=== PATIENT | male | born 1965 | race Caucasian/White ===

== ENCOUNTER 2020-04-18 07:45 | Outpatient (REF) | payer OTHER, SELFPAY ==
[2020-04-18 08:21] LABS: MANUAL DIFF FLAG NO
[2020-04-18 08:25] LABS: Basophils Absolute Auto 0.1 X10*3/uL (0.0-0.2); Basophils Percent Auto 0.6 % (0-2); Eosinophils Absolute Auto 0.1 X10*3/uL (0.0-0.4); Eosinophils Percent Auto 1.7 % (0-4); Hematocrit 45.9 % (42-52); Hemoglobin 14.8 g/dl (14.0-18.0); Imm Gran Abs Auto 0.03 X10*3/uL (0.00-0.03); Imm Gran Pct Auto 0.4 % (0.0-0.4); Lymphocytes Absolute Auto 2.3 X10*3/uL (1.2-4.9); Lymphocytes Percent Auto 27.3 % (20-40); Mean Corpuscular HGB Conc 32.2 g/dl (31.0-36.0); Mean Corpuscular Hemoglobin 28.8 pg (27.0-33.0); Mean Corpuscular Volume 89.3 fL (80-98); Mean Platelet Volume 10.7 fL (9.4-12.4); Monocytes Absolute Auto 0.9 X10*3/uL (0.1-1.2); Monocytes Percent Auto 11.1 % (2-11); Neutrophils Absolute Auto 4.9 X10*3/uL (2.0-8.3); Neutrophils Percent Auto 58.9 % (45-73); Platelet Count 258 X10*3/uL (160-400); Red Blood Count 5.14 X10*6/uL (4.60-5.80); Red Cell Distribution Width 12.6 % (11.0-16.0); White Blood Count 8.3 X10*3/uL (4.8-10.8)
[2020-04-18 08:35] LABS: Estimated Average Glucose 131 mg/dL; Hemoglobin A1c % 6.2 %
[2020-04-18 08:56] LABS: Alanine Aminotransferase 28 U/L (0-40); Albumin Level 4.2 g/dL (3.5-5.0); Alkaline Phosphatase 57 U/L (39-117); Anion Gap 11 (12-20); Aspartate Amino Transferase 11 U/L (5-37); Bilirubin Total 0.4 mg/dL (0.0-1.0); Blood Urea Nitrogen 14 mg/dL (9-16); Calcium 8.5 mg/dL (8.4-10.2); Carbon Dioxide 29 mmol/L (22-29); Chloride 105 mmol/L (96-108); Cholesterol 113 mg/dL; Estimated Glomerular Filt Rate > 60; Glucose Fasting 133 mg/dL (60-99); HDL Cholesterol 31 mg/dL; LDL Cholesterol Calculated 70 mg/dl; Potassium 4.6 mmol/l (3.3-5.1); Sodium 140 mmol/L (135-145); Total Protein 6.5 g/dL (6.5-8.0); Triglycerides 61 mg/dL
[2020-04-18 09:27] LABS: Prostate Specific Antigen < 0.05 ng/mL (<0.05-4.0)
== END 2020-04-18 07:46 | disposition home or self-care (01) ==
LOC: HO.LAB 07:45
PROVIDERS: PCP Internal Medicine Medical Oncology; Visit Provider Internal Medicine Medical Oncology
DX: N40.0 Benign prostatic hyperplasia without lower urinary tract symptoms (principal); E66.9 Obesity, unspecified
CPT/HCPCS: 36415; 80053; 80061; 83036; 84153; 85025

== ENCOUNTER 2020-08-15 07:14 | Outpatient (REF) | payer OTHER, SELFPAY ==
[2020-08-15 07:37] LABS: MANUAL DIFF FLAG NO
[2020-08-15 07:58] LABS: Basophils Absolute Auto 0.1 X10*3/uL (0.0-0.2); Basophils Percent Auto 0.6 % (0-2); Eosinophils Absolute Auto 0.2 X10*3/uL (0.0-0.4); Eosinophils Percent Auto 2.4 % (0-4); Hematocrit 44.8 % (42-52); Hemoglobin 14.9 g/dl (14.0-18.0); Imm Gran Abs Auto 0.04 X10*3/uL (0.00-0.03); Imm Gran Pct Auto 0.5 % (0.0-0.4); Lymphocytes Absolute Auto 2.2 X10*3/uL (1.2-4.9); Lymphocytes Percent Auto 28.6 % (20-40); Mean Corpuscular HGB Conc 33.3 g/dl (31.0-36.0); Mean Corpuscular Hemoglobin 29.3 pg (27.0-33.0); Mean Platelet Volume 10.9 fL (9.4-12.4); Monocytes Absolute Auto 0.8 X10*3/uL (0.1-1.2); Monocytes Percent Auto 10.8 % (2-11); Neutrophils Absolute Auto 4.4 X10*3/uL (2.0-8.3); Neutrophils Percent Auto 57.1 % (45-73); Platelet Count 275 X10*3/uL (160-400); Red Blood Count 5.09 X10*6/uL (4.60-5.80); Red Cell Distribution Width 12.7 % (11.0-16.0); White Blood Count 7.8 X10*3/uL (4.8-10.8)
[2020-08-15 08:01] LABS: Creatinine Urine 172.78 mg/dL; Microalbum/Creatinine Ratio Ur 7.5 ug/mg cr
[2020-08-15 08:05] LABS: Alanine Aminotransferase 27 U/L (0-40); Albumin Level 4.3 g/dL (3.5-5.0); Alkaline Phosphatase 67 U/L (39-117); Aspartate Amino Transferase 11 U/L (5-37); Bilirubin Total 0.5 mg/dL (0.0-1.0); Blood Urea Nitrogen 16 mg/dL (9-16); Calcium 8.7 mg/dL (8.4-10.2); Cholesterol 130 mg/dL; Estimated Glomerular Filt Rate > 60; Glucose Fasting 148 mg/dL (60-99); HDL Cholesterol 27 mg/dL; LDL Cholesterol Calculated 91 mg/dl; Total Protein 6.7 g/dL (6.5-8.0); Triglycerides 60 mg/dL
[2020-08-15 08:14] LABS: Anion Gap 12 (12-20); Carbon Dioxide 25 mmol/L (22-29); Chloride 107 mmol/L (96-108); Potassium 4.3 mmol/L (3.3-5.1); Sodium 140 mmol/L (135-145)
[2020-08-15 08:25] LABS: Prostate Specific Antigen < 0.05 ng/mL (<0.05-4.0)
[2020-08-15 09:22] LABS: Estimated Average Glucose 131 mg/dL; Hemoglobin A1c % 6.2 %
== END 2020-08-15 07:15 | disposition home or self-care (01) ==
LOC: HO.LAB 07:14
PROVIDERS: Visit Provider Internal Medicine Medical Oncology
DX: I10 Essential (primary) hypertension (principal); C61 Malignant neoplasm of prostate; E66.9 Obesity, unspecified; E11.39 Type 2 diabetes mellitus with other diabetic ophthalmic complication
CPT/HCPCS: 36415; 80053; 80061; 82043; 83036; 84153; 85025

== ENCOUNTER 2020-09-22 15:27 | Outpatient (REF) | payer OTHER, SELFPAY ==
[2020-09-22 16:23] LABS: MANUAL DIFF FLAG NO
[2020-09-22 16:28] LABS: Basophils Absolute Auto 0.1 X10*3/uL (0.0-0.2); Basophils Percent Auto 0.5 % (0-2); Eosinophils Absolute Auto 0.1 X10*3/uL (0.0-0.4); Eosinophils Percent Auto 0.7 % (0-4); Hematocrit 42.9 % (42-52); Hemoglobin 13.8 g/dl (14.0-18.0); Imm Gran Abs Auto 0.03 X10*3/uL (0.00-0.03); Imm Gran Pct Auto 0.3 % (0.0-0.4); Lymphocytes Absolute Auto 2.3 X10*3/uL (1.2-4.9); Lymphocytes Percent Auto 24.5 % (20-40); Mean Corpuscular HGB Conc 32.2 g/dl (31.0-36.0); Mean Corpuscular Hemoglobin 28.5 pg (27.0-33.0); Mean Corpuscular Volume 88.5 fL (80-98); Mean Platelet Volume 10.9 fL (9.4-12.4); Monocytes Absolute Auto 1.1 X10*3/uL (0.1-1.2); Monocytes Percent Auto 11.1 % (2-11); Neutrophils Absolute Auto 5.9 X10*3/uL (2.0-8.3); Neutrophils Percent Auto 62.9 % (45-73); Platelet Count 292 X10*3/uL (160-400); Red Blood Count 4.85 X10*6/uL (4.60-5.80); Red Cell Distribution Width 12.4 % (11.0-16.0); White Blood Count 9.4 X10*3/uL (4.8-10.8)
[2020-09-22 16:49] LABS: Alanine Aminotransferase 19 U/L (0-40); Albumin Level 4.2 g/dL (3.5-5.0); Alkaline Phosphatase 61 U/L (39-117); Anion Gap 12 (12-20); Aspartate Amino Transferase 10 U/L (5-37); Bilirubin Total 0.4 mg/dL (0.0-1.0); Blood Urea Nitrogen 16 mg/dL (9-16); Calcium 9.2 mg/dL (8.4-10.2); Carbon Dioxide 27 mmol/L (22-29); Chloride 104 mmol/L (96-108); Estimated Glomerular Filt Rate > 60; Glucose Random 105 mg/dL (60-115); Potassium 4.2 mmol/L (3.3-5.1); Sodium 139 mmol/L (135-145); Total Protein 6.8 g/dL (6.5-8.0)
[2020-09-22 17:45] LABS: Erythrocyte Sedimentation Rate 7 MM/HR (0-15)
== END 2020-09-22 15:28 | disposition home or self-care (01) ==
LOC: HO.LAB 15:27
PROVIDERS: PCP Internal Medicine Medical Oncology; Visit Provider Internal Medicine Medical Oncology
DX: R10.32 Left lower quadrant pain (principal); K57.92 Diverticulitis of intestine, part unspecified, without perforation or abscess without bleeding
CPT/HCPCS: 36415; 80053; 85025; 85652

== ENCOUNTER 2020-10-07 08:37 | Outpatient (REF) | payer OTHER, SELFPAY ==
--- NOTE | ~2020-10-07 | US_ITS ---
EXAMINATION: US ABDOMEN COMPLETE CLINICAL INFORMATION: Left lower quadrant pain. COMPARISON: None TECHNIQUE: Real-time imaging of the abdominal viscera. FINDINGS: PANCREAS: Not well visualized. ABDOMINAL AORTA: The proximal, mid, and distal segments are normal in caliber. INFERIOR VENA CAVA: Visualized portions are normal. LIVER: Liver echotexture is increased probably representing fatty infiltration. There are hypoechoic areas adjacent to the gallbladder, characteristic location of focal fatty sparing. No other focal liver lesion is seen. The liver is normal in size and contour. There is no intrahepatic biliary duct dilatation. GALLBLADDER: Gallbladder is normal in size. There are multiple echogenic lesions adjacent to the gallbladder wall suggestive of polyps. Largest measures 7 x 4 x 5 mm. No gallstones are seen. The gallbladder wall does not appear thickened. There is no pericholecystic fluid. COMMON BILE DUCT: Normal in caliber measuring 0.2 cm in diameter. RIGHT KIDNEY: Normal. No hydronephrosis. No renal calculi or focal parenchymal lesions. The kidney measures 11.7 cm in maximum dimension. LEFT KIDNEY: Normal. No hydronephrosis. No renal calculi or focal parenchymal lesions. The kidney measures 12.0 cm in maximum dimension. SPLEEN: Normal. The spleen measures 11.3 cm in maximum dimension. FREE FLUID: None. US/US abdomen complete IMPRESSION: Echogenic liver probably representing fatty infiltration. Multiple gallbladder wall polyps. Follow-up ultrasound in 6-12 months is recommended as large polyps have increased risk of malignancy. Limited visualization of the pancreas.
== END 2020-10-07 08:38 | disposition home or self-care (01) ==
LOC: HO.US 08:37
PROVIDERS: PCP Internal Medicine Medical Oncology; Visit Provider Internal Medicine Medical Oncology
DX: R10.32 Left lower quadrant pain (principal); K57.92 Diverticulitis of intestine, part unspecified, without perforation or abscess without bleeding
CPT/HCPCS: 76700

== ENCOUNTER 2021-02-20 08:09 | Outpatient (REF) | payer OTHER, SELFPAY ==
[2021-02-20 09:31] LABS: MANUAL DIFF FLAG NO
[2021-02-20 09:50] LABS: Estimated Average Glucose 123 mg/dL; Hemoglobin A1c % 5.9 %
[2021-02-20 09:53] LABS: Basophils Percent Auto 0.4 % (0-2); Eosinophils Absolute Auto 0.2 X10*3/uL (0.0-0.4); Eosinophils Percent Auto 1.9 % (0-4); Hematocrit 45.4 % (42-52); Hemoglobin 15.2 g/dl (14.0-18.0); Imm Gran Abs Auto 0.02 X10*3/uL (0.00-0.03); Imm Gran Pct Auto 0.3 % (0.0-0.4); Lymphocytes Absolute Auto 1.9 X10*3/uL (1.2-4.9); Lymphocytes Percent Auto 24.4 % (20-40); Mean Corpuscular HGB Conc 33.5 g/dl (31.0-36.0); Mean Corpuscular Hemoglobin 29.2 pg (27.0-33.0); Mean Corpuscular Volume 87.3 fL (80-98); Mean Platelet Volume 10.7 fL (9.4-12.4); Monocytes Percent Auto 12.5 % (2-11); Neutrophils Absolute Auto 4.8 X10*3/uL (2.0-8.3); Neutrophils Percent Auto 60.5 % (45-73); Platelet Count 297 X10*3/uL (160-400); Red Cell Distribution Width 12.6 % (11.0-16.0); White Blood Count 7.9 X10*3/uL (4.8-10.8)
[2021-02-20 10:13] LABS: Alanine Aminotransferase 19 U/L (0-40); Albumin Level 4.3 g/dL (3.5-5.0); Alkaline Phosphatase 59 U/L (39-117); Anion Gap 12 (12-20); Aspartate Amino Transferase 13 U/L (5-37); Bilirubin Total 1.2 mg/dL (0.0-1.0); Blood Urea Nitrogen 15 mg/dL (9-16); Calcium 9.4 mg/dL (8.4-10.2); Carbon Dioxide 25 mmol/L (22-29); Chloride 106 mmol/L (96-108); Cholesterol 145 mg/dL; Estimated Glomerular Filt Rate > 60; Glucose Fasting 134 mg/dL (60-99); HDL Cholesterol 30 mg/dL; LDL Cholesterol Calculated 105 mg/dl; Potassium 4.3 mmol/L (3.3-5.1); Sodium 139 mmol/L (135-145); Total Protein 6.6 g/dL (6.5-8.0); Triglycerides 53 mg/dL
[2021-02-20 10:21] LABS: Prostate Specific Antigen 0.06 ng/mL (<0.05-4.0)
== END 2021-02-20 08:10 | disposition home or self-care (01) ==
LOC: HO.LAB 08:09
PROVIDERS: PCP Internal Medicine Medical Oncology; Visit Provider Internal Medicine Medical Oncology
DX: I10 Essential (primary) hypertension (principal); E66.9 Obesity, unspecified; E11.39 Type 2 diabetes mellitus with other diabetic ophthalmic complication; C61 Malignant neoplasm of prostate
CPT/HCPCS: 36415; 80053; 80061; 83036; 84153; 85025

== ENCOUNTER 2021-05-22 08:18 | Outpatient (REF) | payer OTHER, SELFPAY ==
[2021-05-22 08:29] LABS: MANUAL DIFF FLAG NO
[2021-05-22 09:09] LABS: Basophils Absolute Auto 0.1 X10*3/uL (0.0-0.2); Basophils Percent Auto 0.8 % (0-2); Eosinophils Absolute Auto 0.1 X10*3/uL (0.0-0.4); Eosinophils Percent Auto 1.6 % (0-4); Hematocrit 46.6 % (42.0-52.0); Hemoglobin 15.1 g/dl (14.0-18.0); Imm Gran Abs Auto 0.03 X10*3/uL (0.00-0.03); Imm Gran Pct Auto 0.4 % (0.0-0.4); Lymphocytes Absolute Auto 2.1 X10*3/uL (1.2-4.9); Lymphocytes Percent Auto 28.8 % (20-40); Mean Corpuscular HGB Conc 32.4 g/dl (31.0-36.0); Mean Corpuscular Hemoglobin 28.6 pg (27.0-33.0); Mean Corpuscular Volume 88.3 fL (80.0-98.0); Mean Platelet Volume 10.7 fL (9.4-12.4); Monocytes Absolute Auto 0.9 X10*3/uL (0.1-1.2); Monocytes Percent Auto 12.5 % (2-11); Neutrophils Absolute Auto 4.2 x10*3/uL (2.0-8.3); Neutrophils Percent Auto 55.9 % (45-73); Platelet Count 283 X10*3/uL (160-400); Red Blood Count 5.28 X10*6/uL (4.60-5.80); Red Cell Distribution Width 12.6 % (11.0-16.0); White Blood Count 7.4 X10*3/uL (4.8-10.8)
[2021-05-22 09:28] LABS: Alanine Aminotransferase 17 U/L (0-40); Albumin Level 4.2 g/dL (3.5-5.0); Alkaline Phosphatase 61 U/L (39-117); Anion Gap 12 (12-20); Aspartate Amino Transferase 10 U/L (5-37); Bilirubin Total 0.7 mg/dL (0.0-1.0); Blood Urea Nitrogen 15 mg/dL (9-16); Calcium 9.5 mg/dL (8.4-10.2); Carbon Dioxide 26 mmol/L (22-29); Chloride 107 mmol/L (96-108); Cholesterol 141 mg/dL; Estimated Glomerular Filt Rate > 60; Glucose Fasting 140 mg/dL (60-99); HDL Cholesterol 29 mg/dL; LDL Cholesterol Calculated 99 mg/dl; Potassium 4.6 mmol/L (3.3-5.1); Sodium 140 mmol/L (135-145); Total Protein 6.8 g/dL (6.5-8.0); Triglycerides 65 mg/dL
[2021-05-22 09:38] LABS: Creatinine Urine 135.54 mg/dL; Microalbum/Creatinine Ratio Ur 5.9 ug/mg cr
[2021-05-22 10:00] LABS: Estimated Average Glucose 126 mg/dL
[2021-05-22 10:08] LABS: PSA,Total (Free>4and<10) 0.06 ng/mL (0.00-4.00)
== END 2021-05-22 08:19 | disposition home or self-care (01) ==
LOC: HO.LAB 08:18
PROVIDERS: PCP Internal Medicine Medical Oncology; Visit Provider Internal Medicine Medical Oncology
DX: Z12.5 Encounter for screening for malignant neoplasm of prostate (principal); I10 Essential (primary) hypertension; C61 Malignant neoplasm of prostate; E66.9 Obesity, unspecified; E11.39 Type 2 diabetes mellitus with other diabetic ophthalmic complication
CPT/HCPCS: 36415; 80053; 80061; 82043; 83036; 84153; 85025

== ENCOUNTER 2021-08-14 07:39 | Outpatient (REF) | payer OTHER, SELFPAY ==
[2021-08-14 07:57] LABS: MANUAL DIFF FLAG NO
[2021-08-14 08:13] LABS: Basophils Absolute Auto 0.1 X10*3/uL (0.0-0.2); Basophils Percent Auto 0.7 % (0-2); Eosinophils Absolute Auto 0.1 X10*3/uL (0.0-0.4); Eosinophils Percent Auto 1.8 % (0-4); Hematocrit 47.2 % (42.0-52.0); Imm Gran Abs Auto 0.02 X10*3/uL (0.00-0.03); Imm Gran Pct Auto 0.3 % (0.0-0.4); Lymphocytes Absolute Auto 1.9 X10*3/uL (1.2-4.9); Lymphocytes Percent Auto 27.6 % (20-40); Mean Corpuscular HGB Conc 31.8 g/dl (31.0-36.0); Mean Corpuscular Hemoglobin 28.7 pg (27.0-33.0); Mean Corpuscular Volume 90.2 fL (80.0-98.0); Mean Platelet Volume 10.8 fL (9.4-12.4); Monocytes Absolute Auto 0.8 X10*3/uL (0.1-1.2); Monocytes Percent Auto 11.8 % (2-11); Neutrophils Absolute Auto 4.1 x10*3/uL (2.0-8.3); Neutrophils Percent Auto 57.8 % (45-73); Platelet Count 251 X10*3/uL (160-400); Red Blood Count 5.23 X10*6/uL (4.60-5.80); Red Cell Distribution Width 12.7 % (11.0-16.0)
[2021-08-14 08:38] LABS: Alanine Aminotransferase 18 U/L (0-40); Alkaline Phosphatase 58 U/L (39-117); Anion Gap 11 (12-20); Aspartate Amino Transferase 10 U/L (5-37); Bilirubin Total 0.8 mg/dL (0.0-1.0); Blood Urea Nitrogen 16 mg/dL (9-16); Calcium 9.2 mg/dL (8.4-10.2); Carbon Dioxide 28 mmol/L (22-29); Chloride 106 mmol/L (96-108); Cholesterol 138 mg/dL; Estimated Glomerular Filt Rate > 60; Glucose Fasting 151 mg/dL (60-99); HDL Cholesterol 30 mg/dL; LDL Cholesterol Calculated 96 mg/dl; Potassium 4.6 mmol/L (3.3-5.1); Sodium 140 mmol/L (135-145); Total Protein 6.4 g/dL (6.5-8.0); Triglycerides 62 mg/dL
[2021-08-14 08:59] LABS: Prostate Specific Antigen 0.07 ng/mL (<0.05-4.0)
== END 2021-08-14 07:40 | disposition home or self-care (01) ==
LOC: HO.LAB 07:39
PROVIDERS: PCP Internal Medicine Medical Oncology; Visit Provider Internal Medicine Medical Oncology
DX: Z12.5 Encounter for screening for malignant neoplasm of prostate (principal); C61 Malignant neoplasm of prostate; I10 Essential (primary) hypertension; E66.3 Overweight
CPT/HCPCS: 36415; 80053; 80061; 84153; 85025

== ENCOUNTER 2021-09-21 04:27 | Emergency (ER) | payer OTHER, SELFPAY ==
--- NOTE | ~2021-09-21 | CT_ITS ---
EXAMINATION: CT ABDOMEN AND PELVIS WITHOUT CONTRAST CLINICAL INFORMATION: Left lower abdominal pain COMPARISON: None TECHNIQUE: Multidetector volumetric imaging was performed from the superior aspect of the liver through the pubic symphysis. Sagittal and coronal reformatted images were obtained on the technologist's workstation. This CT examination was performed using dose optimization techniques as appropriate, variously including the following: *Automated exposure control *Adjustment of mA and/or kV according to patient size (this includes techniques or standardized protocols for targeted exams where dose is matched to indication/reason for exam; i.e. extremities or head) *Use of iterative reconstruction technique DLP: 611 mGy-cm FINDINGS: LUNG BASES: The visualized lung bases are unremarkable. LIVER, GALLBLADDER, AND BILIARY TREE: The liver is normal in size, shape and contour. Mild diffuse hepatic steatosis. There is a 1.2 cm hypodensity within hepatic segment 7, statistically represent benign cysts. No suspicious liver lesions. No intra or extrahepatic biliary dilatation. Gallbladder unremarkable. PANCREAS: Unremarkable. SPLEEN: Unremarkable. ADRENAL GLANDS: Unremarkable. KIDNEYS AND URETERS: The kidneys are normal in size, shape, and attenuation. No hydronephrosis, hydroureter, or calculi seen. No perinephric stranding. BLADDER: Unremarkable. GASTROINTESTINAL TRACT: Pancolonic diverticulosis, most concentrated within sigmoid colon. There is focal wall thickening and pericolic fat stranding within the proximal sigmoid colon compatible with diverticulitis. No pericolic fluid collection to suggest abscess formation. No intraperitoneal free air to suggest merlin perforation. Normal appendix. Stomach and small bowel unremarkable. ABDOMINAL WALL: No significant hernia is appreciated. LYMPH NODES: Small reactive lymph node present within the sigmoid mesocolon. No lymphadenopathy by size criteria. VASCULAR: Unremarkable. PELVIC VISCERA: Unremarkable. OSSEOUS STRUCTURES: No acute or suspicious osseous abnormalities. CT/CT abdomen pelvis wo con IMPRESSION: Acute uncomplicated sigmoid diverticulitis. Mild hepatic steatosis.
[2021-09-21 04:45] VITALS: BP 185/101; PULSE 83; RESP 18; TEMP 36.6; O2SAT 98; BMI 29.9
--- NOTE | 2021-09-21 04:57 | ED_ITS ---
HPI - Back Pain/Injury General Chief Complaint: Back Pain/Injury Stated Complaint: L side & leg pain Time Seen by Provider: 09/21/21 04:57 Source: patient Mode of arrival: ambulatory Limitations: no limitations History of Present Illness HPI Narrative: patient sent in by his doctor to rule out diverticulitis. His doctor felt that there was too much abdominal pain for it to be sciatica. Onset (ago): day(s) Timing: intermittent Severity: mild Quality: sharp Radiation: abdomen Associated symptoms: denies other symptoms Related Data Previous Rx's Medication Instructions Recorded levofloxacin 500 mg tablet 500 mg PO DAILY 10 Days #10 tab 09/21/21 metronidazole 500 mg tablet 500 mg PO TID #30 tab 09/21/21 Allergies Allergy/AdvReac Type Severity Reaction Status Date / Time No Known Allergies Allergy Unverified 02/27/20 15:27 [No Known Allergies*] Review of Systems Constitutional: Constitutional: Reports no additional constitutional complaints Eyes: Eyes: Reports no additional eye complaints ENT: Denies dizziness Cardiovascular: Cardiovascular: Reports no additional cardiovascular complaints Respiratory: Respiratory: Reports as per HPI Gastrointestinal: Gastrointestinal: Reports no additional gastrointestinal complaints Musculoskeletal: Musculoskeletal: Reports no additional musculoskeletal complaints Integumentary/Breasts: Skin/Breast: Denies rash Neurologic: Reports system reviewed and no additional complaints, except as documented, Denies dizziness and Denies Sensory deficit (Neuro) Psychiatric: Psychiatric: Denies anxiety [facility] Social History Social History Alcohol intake: never Patient Tobacco Use Status: Never used Tobacco Use of substances other than those prescribed or required for medical reasons: No Substance Use Type: Hallucinogens Substance Use Frequency: Recent Binge Advance Directives: No Physical Exam Vital Signs: Vital Signs: Last Vital Signs Temp 97.9 F 09/21/21 04:45 Pulse 68 09/21/21 06:00 Resp 16 09/21/21 06:00 BP 163/85 H 09/21/21 06:00 Pulse Ox 100 09/21/21 06:00 BMI result Body Mass Index 29.9 Const: General: healthy appearing Nutritional Appearance: average body h abitus Orientation/consciousness: oriented to person and patient oriented x3 Limitations: no limitations HEENT: Head: Yes normal to inspection Ears: external ears normal General nose exam: Normal external nose present Mouth: Normal oral and palatal mucosa present and oropharynx normal Throat: Yes posterior oropharynx normal Eyes: General: appearance normal, both eyes and all related structures Neck: Other: supple Neck: Yes normal visual inspection Chest: Chest palpation & inspection: normal inspection of the chest Resp: Auscultation: clear to auscultation bilaterally Cardio: Jugular venous distension: no JVD Rate: regular rate Rhythm: regular rhythm Heart sounds: S1 normal heart sound present and S2 normal heart sound present GI: Other: left lower abdominal pain with guarding Palpation (GI): No hepatosplenomegaly present Auscultation: normal bowel sounds : General: Yes no CVA tenderness Back/Spine/Pelvis: Back: no CVA tenderness Skin: General skin exam: no rashes or lesions noted Neuro: General: oriented to person and patient oriented x3 Cranial nerves: Yes CN's II-XII intact bilaterally Motor exam (neuro): 5/5 motor strength present throughout Sensory Exam: No Sensory deficit (Neuro) Extrem: General: Yes normal to inspection Psych: Appearance: grossly normal Course Reevaluation(s) Reevaluation #1: physical and CT consistent with diverticulitis will send home on oral levaquin and flagyl Time: 06:57 MDM - Back Pain/Injury Lab Data Result diagrams: 09/21/21 06:31 09/21/21 06:31 Labs: Lab Results 09/21/21 09/21/21 09/21/21 Range/Units 06:26 06:31 06:31 WBC 12.9 H (4.8-10.8) X10*3/uL RBC 5.12 (4.60-5.80) X10*6/uL Hgb 14.9 (14.0-18.0) g/dl Hct 44.7 (42.0-52.0) % MCV 87.3 (80.0-98.0) fL MCH 29.1 (27.0-33.0) pg MCHC 33.3 (31.0-36.0) g/dl RDW 12.7 (11.0-16.0) % Plt Count 234 (160-400) X10*3/uL MPV 10.7 (9.4-12.4) fL Immature Gran % (Auto) 0.5 H (0.0-0.4) % Neut % (Auto) 73.5 H (45-73) % Lymph % (Auto) 14.5 L (20-40) % [place] % (Auto) 10.5 (2-11) % Eos % (Auto) 0.5 (0-4) % Baso % (Auto) 0.5 (0-2) % Lymph # (Auto) 1.9 (1.2-4.9) X10*3/uL [place] # (Auto) 1.4 H (0.1-1.2) X10*3/uL Eos # (Auto) 0.1 (0.0-0.4) X10*3/uL Baso # (Auto) 0.1 (0.0-0.2) X10*3/uL Abs Immat Gran (auto) 0.07 H (0.00-0.03) X10*3/uL Absolute Neuts (auto) 9.5 H (2.0-8.3) x10*3/uL Absolute Nucleated RBC 0.000 (0.0-0.012) X10*3/uL Nucleated RBC % (auto) 0.0 (0.0-0.2) /100WBC Sodium 140 (135-145) mmol/L Potassium 4.4 (3.3-5.1) mmol/L Chloride 105 (96-108) mmol/L Carbon Dioxide 27 (22-29) mmol/L Anion Gap 12 (12-20) BUN 15 (9-16) mg/dL Creatinine 0.75 (0.5-1.4) mg/dL Estim Creat Clear Calc 118.0 Estimated GFR > 60 Random Glucose 157 H D (60-115) mg/dL Calcium 9.3 (8.4-10.2) mg/dL Urine Color YELLOW Urine Appearance CLEAR Urine pH 6.0 (5.0-8.0) Ur Specific [place] 1.025 (1.005-1.025) Urine Protein NEG (NEG-TRACE) MG/DL Urine Glucose (UA) NEG (NEG) MG/DL Urine Ketones NEG (NEG) MG/DL Urine Blood NEG (NEG) Urine Nitrite NEG (NEG) Ur Leukocyte Esterase NEG (NEG) Imaging Data CT scan - abdomen: Radiologist's impression: GASTROINTESTINAL TRACT: Pancolonic diverticulosis, most concentrated within sigmoid colon. There is focal wall thickening and pericolic fat stranding within the proximal sigmoid colon compatible with diverticulitis. No pericolic fluid collection to suggest abscess formation. No intraperitoneal free air to suggest merlin perforation. Normal appendix. Stomach and small bowel unremarkable. ABDOMINAL WALL: No significant hernia is appreciated.? LYMPH NODES: Small reactive lymph node present within the sigmoid mesocolon. No lymphadenopathy by size criteria. VASCULAR: Unremarkable. PELVIC VISCERA: Unremarkable.? OSSEOUS STRUCTURES: No acute or suspicious osseous abnormalities.? CT/CT abdomen pelvis wo con IMPRESSION: Acute uncomplicated sigmoid diverticulitis. Mild hepatic steatosis. Discharge Plan Discharge Clinical Impression: Diverticulitis Patient Disposition: Home, Self-Care Instructions: Diverticulitis (ED), Diverticulitis Diet (ED) Prescriptions: New levofloxacin 500 mg tablet 500 mg PO DAILY 10 Days Qty: 10 0RF metronidazole 500 mg tablet 500 mg PO TID Qty: 30 0RF Referrals: Omar Richter MD [Primary Care Provider] - 1 week Stand Alone Forms: Work/School Release
[2021-09-21] MEDS: Ketorolac Tromethamine 60 MG/2 ML VIAL IM (05:25)
[2021-09-21 06:00] VITALS: BP 163/85; PULSE 68; RESP 16; O2SAT 100
[2021-09-21 06:36] LABS: MANUAL DIFF FLAG NO
[2021-09-21 06:37] LABS: Appearance Urine CLEAR; Color Urine YELLOW; Glucose Urine UA NEG (NEG); Leukocyte Esterase Urine NEG (NEG); Nitrite Urine NEG (NEG); Specific Gravity - Urine 1.025 (1.005-1.025); Urine Blood NEG (NEG); Urine Ketones NEG (NEG); Urine Protein NEG (NEG-TRACE)
[2021-09-21 06:48] LABS: Basophils Absolute Auto 0.1 X10*3/uL (0.0-0.2); Basophils Percent Auto 0.5 % (0-2); Eosinophils Absolute Auto 0.1 X10*3/uL (0.0-0.4); Eosinophils Percent Auto 0.5 % (0-4); Hematocrit 44.7 % (42.0-52.0); Hemoglobin 14.9 g/dl (14.0-18.0); Imm Gran Abs Auto 0.07 X10*3/uL (0.00-0.03); Imm Gran Pct Auto 0.5 % (0.0-0.4); Lymphocytes Absolute Auto 1.9 X10*3/uL (1.2-4.9); Lymphocytes Percent Auto 14.5 % (20-40); Mean Corpuscular HGB Conc 33.3 g/dl (31.0-36.0); Mean Corpuscular Hemoglobin 29.1 pg (27.0-33.0); Mean Corpuscular Volume 87.3 fL (80.0-98.0); Mean Platelet Volume 10.7 fL (9.4-12.4); Monocytes Absolute Auto 1.4 X10*3/uL (0.1-1.2); Monocytes Percent Auto 10.5 % (2-11); Neutrophils Absolute Auto 9.5 x10*3/uL (2.0-8.3); Neutrophils Percent Auto 73.5 % (45-73); Platelet Count 234 X10*3/uL (160-400); Red Blood Count 5.12 X10*6/uL (4.60-5.80); Red Cell Distribution Width 12.7 % (11.0-16.0); White Blood Count 12.9 X10*3/uL (4.8-10.8)
[2021-09-21 06:52] LABS: Anion Gap 12 (12-20); Blood Urea Nitrogen 15 mg/dL (9-16); Calcium 9.3 mg/dL (8.4-10.2); Carbon Dioxide 27 mmol/L (22-29); Chloride 105 mmol/L (96-108); Estimated Glomerular Filt Rate > 60; Glucose Random 157 mg/dL (60-115); Potassium 4.4 mmol/L (3.3-5.1); Sodium 140 mmol/L (135-145)
[2021-09-21] MEDS: levoFLOXacin 500 MG TABLET PO (07:09)
[2021-09-21] MEDS: metroNIDAZOLE 500 MG TABLET PO (07:09)
== END 2021-09-21 07:14 | disposition home or self-care (01) ==
PROVIDERS: Emergency Provider Emergency Medicine; PCP Internal Medicine Medical Oncology
DX: K57.32 Diverticulitis of large intestine without perforation or abscess without bleeding (principal)
CPT/HCPCS: 36415; 74176; 80048; 81003; 85025; 96372; 99284; 99285; J1885

== ENCOUNTER 2021-10-04 14:57 | Outpatient (REF) | payer OTHER, SELFPAY ==
[2021-10-04 15:11] LABS: MANUAL DIFF FLAG NO
[2021-10-04 15:32] LABS: Basophils Absolute Auto 0.1 X10*3/uL (0.0-0.2); Basophils Percent Auto 0.5 % (0-2); Eosinophils Absolute Auto 0.2 X10*3/uL (0.0-0.4); Eosinophils Percent Auto 1.7 % (0-4); Hemoglobin 14.7 g/dl (14.0-18.0); Imm Gran Abs Auto 0.06 X10*3/uL (0.00-0.03); Imm Gran Pct Auto 0.6 % (0.0-0.4); Lymphocytes Absolute Auto 2.9 X10*3/uL (1.2-4.9); Mean Corpuscular HGB Conc 32.7 g/dl (31.0-36.0); Mean Corpuscular Hemoglobin 28.5 pg (27.0-33.0); Mean Corpuscular Volume 87.4 fL (80.0-98.0); Mean Platelet Volume 10.3 fL (9.4-12.4); Monocytes Absolute Auto 1.1 X10*3/uL (0.1-1.2); Monocytes Percent Auto 10.3 % (2-11); Neutrophils Absolute Auto 6.1 x10*3/uL (2.0-8.3); Neutrophils Percent Auto 58.9 % (45-73); Platelet Count 343 X10*3/uL (160-400); Red Blood Count 5.15 X10*6/uL (4.60-5.80); Red Cell Distribution Width 12.7 % (11.0-16.0); White Blood Count 10.4 X10*3/uL (4.8-10.8)
[2021-10-04 16:05] LABS: Alanine Aminotransferase 28 U/L (0-40); Albumin Level 3.9 g/dL (3.5-5.0); Alkaline Phosphatase 58 U/L (39-117); Anion Gap 10 (12-20); Aspartate Amino Transferase 16 U/L (5-37); Bilirubin Total 0.2 mg/dL (0.0-1.0); Blood Urea Nitrogen 16 mg/dL (9-16); Calcium 9.2 mg/dL (8.4-10.2); Carbon Dioxide 29 mmol/L (22-29); Chloride 104 mmol/L (96-108); Estimated Glomerular Filt Rate > 60; Glucose Random 146 mg/dL (60-115); Potassium 4.4 mmol/L (3.3-5.1); Sodium 139 mmol/L (135-145); Total Protein 6.4 g/dL (6.5-8.0)
== END 2021-10-04 14:58 | disposition home or self-care (01) ==
LOC: HO.LAB 14:57
PROVIDERS: PCP Internal Medicine Medical Oncology; Visit Provider Internal Medicine Medical Oncology
DX: K57.92 Diverticulitis of intestine, part unspecified, without perforation or abscess without bleeding (principal)
CPT/HCPCS: 36415; 80053; 85025

== ENCOUNTER 2021-10-05 08:01 | Outpatient (REF) | payer OTHER, SELFPAY ==
--- NOTE | ~2021-10-05 | CT_ITS ---
EXAMINATION: CT ABDOMEN AND PELVIS WITH CONTRAST CLINICAL INFORMATION: Diverticulitis COMPARISON: Previous CT of the abdomen and pelvis 09/21/2021 and abdominal ultrasound September 2020 TECHNIQUE: Multidetector volumetric images were obtained from the superior aspect of the liver through the pubic symphysis following administration 85 mL of Omnipaque 350 intravenous contrast. Sagittal and coronal reformatted images were obtained on the technologist's workstation. Oral contrast: Yes This CT examination was performed using dose optimization techniques as appropriate, variously including the following: *Automated exposure control *Adjustment of mA and/or kV according to patient size (this includes techniques or standardized protocols for targeted exams where dose is matched to indication/reason for exam; i.e. extremities or head) *Use of iterative reconstruction technique DLP: 483 mGy-cm FINDINGS: LUNG BASES: The visualized lung bases are unremarkable. LIVER, GALLBLADDER, AND BILIARY TREE: The liver is low in attenuation suggestive of fatty infiltration. There is a 1 cm low-attenuation lesion high in the right lobe of the liver axial image 16 series 3. This may represent a cyst. No other focal liver lesion. The gallbladder is normal. There is no biliary duct dilatation. PANCREAS: Unremarkable. SPLEEN: Unremarkable. ADRENAL GLANDS: Unremarkable. KIDNEYS AND URETERS: The kidneys are normal in size, shape, and attenuation. No hydronephrosis, hydroureter, or calculi seen. No perinephric stranding. BLADDER: Unremarkable. GASTROINTESTINAL TRACT: There is diverticulosis of the colon. There is wall thickening of the sigmoid colon and stranding of the surrounding fat. Findings are again most suggestive of diverticulitis. No evidence of perforation or abscess is seen. There are small pericolic and mesenteric lymph nodes. There is a large amount of stool in colon suggestive of constipation. The appendix is normal. The stomach is normal. ABDOMINAL WALL: No significant hernia is appreciated. LYMPH NODES: Normal. VASCULAR: Unremarkable. PELVIC VISCERA: Not well seen and may been removed. OSSEOUS STRUCTURES: There are degenerative changes of the spine. There is a lipoma of the distal right iliopsoas muscle. CT/CT abdomen pelvis w con IMPRESSION: Sigmoid diverticulitis similar to 09/21/2021 exam. Underlying mass cannot be excluded and imaging or colonoscopy follow-up recommended. Constipation. Fatty liver. Probable liver cyst. Fleischner guidelines were followed.
[2021-10-05] MEDS: iohexoL 350 MG/ML 100 ML INFUS..BTL IV (10:33)
[2021-10-05] MEDS: Barium Sulfate Oral (Vanilla) 450 ML ORAL.SUSP PO (10:34)
[2021-10-05] MEDS: Barium Sulfate Oral (Berry) 450 ML ORAL.SUSP PO (10:35)
== END 2021-10-05 08:02 | disposition home or self-care (01) ==
LOC: HO.CT 08:01
PROVIDERS: PCP Internal Medicine Medical Oncology; Visit Provider Internal Medicine Medical Oncology
DX: K57.92 Diverticulitis of intestine, part unspecified, without perforation or abscess without bleeding (principal); R10.12 Left upper quadrant pain
CPT/HCPCS: 74177; Q9967

== ENCOUNTER 2022-02-26 07:16 | Outpatient (REF) | payer OTHER, SELFPAY ==
[2022-02-26 07:23] LABS: MANUAL DIFF FLAG NO
[2022-02-26 07:45] LABS: Basophils Absolute Auto 0.1 X10*3/uL (0.0-0.2); Basophils Percent Auto 0.8 % (0-2); Eosinophils Absolute Auto 0.1 X10*3/uL (0.0-0.4); Eosinophils Percent Auto 1.7 % (0-4); Hematocrit 44.7 % (42.0-52.0); Hemoglobin 14.6 g/dl (14.0-18.0); Imm Gran Abs Auto 0.03 X10*3/uL (0.00-0.03); Imm Gran Pct Auto 0.4 % (0.0-0.4); Lymphocytes Absolute Auto 2.1 X10*3/uL (1.2-4.9); Lymphocytes Percent Auto 28.4 % (20-40); Mean Corpuscular HGB Conc 32.7 g/dl (31.0-36.0); Mean Corpuscular Hemoglobin 28.8 pg (27.0-33.0); Mean Corpuscular Volume 88.2 fL (80.0-98.0); Mean Platelet Volume 10.7 fL (9.4-12.4); Monocytes Absolute Auto 0.9 X10*3/uL (0.1-1.2); Monocytes Percent Auto 11.9 % (2-11); Neutrophils Absolute Auto 4.1 x10*3/uL (2.0-8.3); Neutrophils Percent Auto 56.8 % (45-73); Platelet Count 280 X10*3/uL (160-400); Red Blood Count 5.07 X10*6/uL (4.60-5.80); Red Cell Distribution Width 12.5 % (11.0-16.0); White Blood Count 7.2 X10*3/uL (4.8-10.8)
[2022-02-26 08:28] LABS: Alanine Aminotransferase 27 U/L (0-40); Albumin Level 4.3 g/dL (3.5-5.0); Alkaline Phosphatase 62 U/L (39-117); Anion Gap 13 (12-20); Aspartate Amino Transferase 13 U/L (5-37); Blood Urea Nitrogen 15 mg/dL (9-16); Calcium 9.4 mg/dL (8.4-10.2); Carbon Dioxide 27 mmol/L (22-29); Chloride 106 mmol/L (96-108); Cholesterol 130 mg/dL; Estimated Glomerular Filt Rate > 60; Glucose Fasting 155 mg/dL (60-99); HDL Cholesterol 30 mg/dL; LDL Cholesterol Calculated 90 mg/dl; Potassium 4.2 mmol/L (3.3-5.1); Sodium 142 mmol/L (135-145); Total Protein 6.7 g/dL (6.5-8.0); Triglycerides 52 mg/dL
[2022-02-26 08:51] LABS: PSA,Total (Free>4and<10) 0.08 ng/mL (0.00-4.00)
== END 2022-02-26 07:17 | disposition home or self-care (01) ==
LOC: HO.LAB 07:16
PROVIDERS: PCP Internal Medicine Medical Oncology; Visit Provider Internal Medicine Medical Oncology
DX: C61 Malignant neoplasm of prostate (principal); E78.5 Hyperlipidemia, unspecified; E66.9 Obesity, unspecified
CPT/HCPCS: 36415; 80053; 80061; 84153; 85025

== ENCOUNTER 2022-03-08 07:35 | Outpatient (REF) | payer OTHER, SELFPAY ==
--- NOTE | ~2022-03-08 | US_ITS ---
EXAMINATION: US ABDOMEN LIMITED CLINICAL INFORMATION: Abnormal findings, gallbladder polyp. COMPARISON: CT abdomen and pelvis 10/05/2021. Ultrasound abdomen complete 10/07/2020. TECHNIQUE: Real-time imaging of the right upper quadrant abdominal viscera. FINDINGS: PANCREAS: Normal. The visualized pancreatic head and body are normal in appearance. The remainder of the pancreas is obscured from visualization by the overlying bowel gas. LIVER: The liver is normal in size. The liver contour is normal. There is diffuse increased liver parenchymal echogenicity, with pericholecystic sparing characteristic for fatty infiltration. No focal hepatic lesion. There is no intrahepatic biliary duct dilatation seen. GALLBLADDER: Multiple gallbladder polyps are seen, the largest measuring 8 mm in maximal diameter. Previously this showed a maximal diameter of 7 mm. The gallbladder is physiologically distended without evidence of stones, sludge, wall thickening or pericholecystic fluid. COMMON BILE DUCT: Normal in caliber measuring 0.2 cm in diameter. RIGHT KIDNEY: Normal. No hydronephrosis. No renal calculi or focal parenchymal lesions. The kidney measures 11.9 cm in maximum dimension. FREE FLUID: None. US/US abdomen limited IMPRESSION: 1. There is generalized increase in hepatic echotexture, consistent with fatty infiltration or hepatocellular disease. Please correlate clinically. Characteristic pericholecystic sparing favors fatty infiltration. No focal hepatic mass or intrahepatic biliary dilatation is seen. 2. Multiple gallbladder polyps are seen, the largest minimally increased, now measuring 8 mm. As a precaution, repeat abdominal ultrasound is recommended 6 months to ensure stability.
== END 2022-03-08 07:36 | disposition home or self-care (01) ==
LOC: HO.US 07:35
PROVIDERS: Visit Provider Internal Medicine
DX: R93.3 Abnormal findings on diagnostic imaging of other parts of digestive tract (principal); K82.4 Cholesterolosis of gallbladder
CPT/HCPCS: 76705

== ENCOUNTER 2022-03-28 11:52 | Day surgery (SDC) | payer OTHER, SELFPAY ==
--- NOTE | 2022-03-25 11:09 | P.CONAN_ITS ---
Documented by User: Airam Grewal NP 03/25/22 11:10 HPI - Anesthesia Eval Consult details Narrative: 56yo M for Colonoscopy [facility] Past Medical History Medical History Gallbladder polyp Hypertension Prostate cancer Sigmoid diverticulitis Surgical History Surgical History History of colonoscopy History of hernia repair History of prostatectomy Social History Social History Alcohol intake: never Patient Tobacco Use Status: Never used Tobacco Substance Use Type: Hallucinogens Advance Directives: No Advance Directives Information Provided: Yes Meds Allergies Allergy/AdvReac Type Severity Reaction Status Date / Time No Known Allergies Allergy Verified 03/28/22 12:28 [No Known Allergies*] Home Medications Medication Instructions Recorded Confirmed Last Taken Type amlodipine 10 mg tablet 1 tab PO DAILY 03/25/22 03/25/22 03/28/22 History Exam Exam Date and Time: March 25, 2022 1109 Pertinent Lab Results Pertinent Lab Results: Laboratory Tests 02/26/22 02/26/22 07:20 07:20 WBC 7.2 Hgb 14.6 Hct 44.7 Plt Count 280 Sodium 142 Potassium 4.2 Chloride 106 Carbon Dioxide 27 BUN 15 Creatinine 0.79 Assessment and Plan Assessment Anesthesia Assessment: Chart Reviewed Documented by User: Kenrick Crisostomo MD 03/28/22 12:52 [facility] Past Medical History Medical History Gallbladder polyp Hypertension Prostate cancer Sigmoid diverticulitis Functional capacity: wheelchair bound Family History Family history of problems with anesthesia: No Surgical History Surgical History History of colonoscopy History of hernia repair History of prostatectomy History of Problems with Anesthesia: No Social History Social History Alcohol intake: never Patient Tobacco Use Status: Never used Tobacco Substance Use Type: Hallucinogens Advance Directives: No Advance Directives Information Provided: Yes Meds Allergies Allergy/AdvReac Type Severity Reaction Status Date / Time No Known Allergies Allergy Verified 03/28/22 12:28 [No Known Allergies*] Home Medications Medication Instructions Recorded Confirmed Last Taken Type amlodipine 10 mg tablet 1 tab PO DAILY 03/25/22 03/25/22 03/28/22 History Exam Airway Mallampati Class: III TM Dist: >3cm Neck ROM: Full Loose/Missing/Broken Teeth: No Heart: rrr Lungs: clear Assessment and Plan Final Anesthetic Review Family History of Problems with Anesthesia: No History of Problems with Anesthesia: No NPO: Yes ASA Class: III Final Preanesthetic Review: No Changes in Pt Med Stat, Meds/Allgs Chart Reviewed, Consent Obtained/Reviewed and Anes Risks/Benef Reviewed Patient Risk: Intermediate Procedure Risk: Low Anesthetic Plan Anesthetic Plan: MAC: Disposition: Standard PACU
[2022-03-28 12:36] VITALS: BMI 31.0
[2022-03-28] MEDS: Lactated Ringers 1,000 ML 100 ML IVCONT (12:36)
[2022-03-28 12:50] LABS: Amphetamine Screen Urine Not Detected (Not Detect); Barbiturates, Urine Not Detected (Not Detect); Benzodiazepines Screen Urine Not Detected (Not Detect); Cannabinoid Screen Urine POSITIVE (Not Detect); Cocaine Screen Urine Not Detected (Not Detect); Fentanyl, urine Not Detected (Not Detect); Opiate Screen Urine Not Detected (Not Detect); Phencyclidine Screen Urine Not Detected (Not Detect)
[2022-03-28 12:59] VITALS: BP 144/80; PULSE 75; RESP 18; TEMP 36.7; O2SAT 97
[2022-03-28 13:50] VITALS: BP 145/84; PULSE 68; RESP 21; TEMP 36.8; O2SAT 98
--- NOTE | 2022-03-28 13:52 | P.BOP_ITS ---
Brief Operative Note Date of Service: 03/28/22 Pre-op diagnosis: Abnormal CT scan of colon Post-op diagnosis: other (Diverticulosis) Procedure: Colonoscopy to the cecum and TI Surgeon: Omar García Anesthesia: MAC Was an Rotary Cutter Operator used for this Procedure?: No Estimated blood loss (mL): 0 Pathology: none sent Condition: stable Disposition: PACU
[2022-03-28 14:05] VITALS: BP 146/81; PULSE 74; RESP 18; TEMP 37.3; O2SAT 97
--- NOTE | 2022-03-28 14:25 | OP_ITS ---
SURGEON: Omar García MD INDICATIONS: The patient presents for evaluation of abnormal CT scan of colon and previous diverticulitis. Full consent has been obtained from him for this, including risks of bleeding and perforation. PREOPERATIVE DIAGNOSIS: POSTOPERATIVE DIAGNOSIS: PROCEDURE PERFORMED: Colonoscopy to cecum and terminal ileum. ESTIMATED BLOOD LOSS: COMPLICATIONS: ANESTHESIA: Monitored anesthesia care. ASSISTANTS: SPECIMENS: PREOPERATIVE DIAGNOSES: Abnormal CT scan of colon and previous diverticulitis. POSTOPERATIVE DIAGNOSES: Abnormal CT scan of colon and previous diverticulitis, diverticulosis, and internal hemorrhoids. DESCRIPTION OF PROCEDURE: The patient was placed in the left lateral decubitus position. The digital rectal exam revealed no abnormalities. The Olympus video pediatric colonoscope was entered into the rectum and advanced easily to the cecum. Once in the cecum, I did identify normal-appearing cecal pouch with appendiceal orifice and a normal-appearing ileocecal valve. The terminal ileum was cannulated and appeared normal. Scope withdrawn back in the colon. The entire cecum and ileocecal valve appeared normal. The scope was slowly withdrawn assessing all mucosal surfaces carefully. Preparation was excellent. There was a moderate amount of diverticulosis involving the sigmoid and descending colon. There was no evidence of any polyps, colitis, nor angiodysplasia. There was some minimal erythema on some of the colonic folds in the sigmoid colon but no ulceration nor any sign of colitis. In the rectum, the scope was retroflexed visualizing small internal hemorrhoids, but no other pathology. The rectal mucosa appeared normal. The scope was straightened and withdrawn from the patient. He tolerated the procedure well and was returned to the recovery area in stable condition. IMPRESSION: 1. Diverticulosis. 2. Internal hemorrhoids. PLAN: Given today's negative exam, a negative colonoscopy in 2014, and no significant family history of colon cancer, I would recommend a followup colonoscopy in 10 years for further screening. He was advised to stay on a high-fiber diet with plenty of fluids to keep his bowel movements regular and hopefully avoid further episodes of diverticulitis. Of note, a recent gallbladder ultrasound revealed no significant change in the presence of his known gallbladder polyps. I would recommend a repeat ultrasound in 1 year. This has been discussed with the patient and his . MD TIMBO Mullen/COSTA / [id number]
== END 2022-03-28 14:25 | disposition home or self-care (01) ==
PROVIDERS: Nurse Practitioner; PCP Internal Medicine Medical Oncology; Visit Provider Internal Medicine
PROC: 0DJD8ZZ Inspection of Lower Intestinal Tract, Via Natural or Artificial Opening Endoscopic (ICD-10-PCS; CPT 45378; principal; 2022-03-28 13:00)
DX: R93.5 Abnormal findings on diagnostic imaging of other abdominal regions, including retroperitoneum (principal); Z87.19 Personal history of other diseases of the digestive system; K57.30 Diverticulosis of large intestine without perforation or abscess without bleeding; K64.8 Other hemorrhoids; K82.4 Cholesterolosis of gallbladder; I10 Essential (primary) hypertension; Z79.899 Other long term (current) drug therapy; Z85.46 Personal history of malignant neoplasm of prostate
CPT/HCPCS: 45378; 80307

== ENCOUNTER 2022-05-25 08:07 | Outpatient (REF) | payer OTHER, SELFPAY ==
[2022-05-25 08:19] LABS: MANUAL DIFF FLAG NO
[2022-05-25 09:27] LABS: Basophils Absolute Auto 0.1 X10*3/uL (0.0-0.2); Basophils Percent Auto 1.1 % (0-2); Eosinophils Absolute Auto 0.1 X10*3/uL (0.0-0.4); Eosinophils Percent Auto 1.7 % (0-4); Hematocrit 45.3 % (42.0-52.0); Hemoglobin 14.8 g/dl (14.0-18.0); Imm Gran Abs Auto 0.07 X10*3/uL (0.00-0.03); Imm Gran Pct Auto 0.8 % (0.0-0.4); Lymphocytes Absolute Auto 2.6 X10*3/uL (1.2-4.9); Lymphocytes Percent Auto 30.9 % (20-40); Mean Corpuscular HGB Conc 32.7 g/dl (31.0-36.0); Mean Corpuscular Hemoglobin 28.8 pg (27.0-33.0); Mean Corpuscular Volume 88.3 fL (80.0-98.0); Mean Platelet Volume 11.1 fL (9.4-12.4); Monocytes Absolute Auto 0.8 X10*3/uL (0.1-1.2); Monocytes Percent Auto 9.1 % (2-11); Neutrophils Absolute Auto 4.7 x10*3/uL (2.0-8.3); Neutrophils Percent Auto 56.4 % (45-73); Platelet Count 254 X10*3/uL (160-400); Red Blood Count 5.13 X10*6/uL (4.60-5.80); Red Cell Distribution Width 12.6 % (11.0-16.0); White Blood Count 8.3 X10*3/uL (4.8-10.8)
[2022-05-25 10:28] LABS: Alanine Aminotransferase 25 U/L (0-40); Albumin Level 4.2 g/dL (3.5-5.0); Alkaline Phosphatase 67 U/L (39-117); Anion Gap 13 (12-20); Aspartate Amino Transferase 11 U/L (5-37); Bilirubin Total 0.3 mg/dL (0.0-1.0); Blood Urea Nitrogen 19 mg/dL (9-16); Carbon Dioxide 26 mmol/L (22-29); Chloride 108 mmol/L (96-108); Cholesterol 147 mg/dL; Estimated Glomerular Filt Rate > 60; Glucose Fasting 141 mg/dL (60-99); HDL Cholesterol 33 mg/dL; LDL Cholesterol Calculated 98 mg/dl; Potassium 4.6 mmol/L (3.3-5.1); Sodium 142 mmol/L (135-145); Total Protein 6.5 g/dL (6.5-8.0); Triglycerides 82 mg/dL
== END 2022-05-25 08:08 | disposition home or self-care (01) ==
LOC: HO.LAB 08:07
PROVIDERS: PCP Internal Medicine Medical Oncology; Visit Provider Internal Medicine Medical Oncology
DX: Z12.5 Encounter for screening for malignant neoplasm of prostate (principal); E66.3 Overweight; E78.5 Hyperlipidemia, unspecified; E66.9 Obesity, unspecified; C61 Malignant neoplasm of prostate
CPT/HCPCS: 36415; 80053; 80061; 84153; 85025

== ENCOUNTER 2022-09-27 06:03 | Outpatient (REF) | payer OTHER, SELFPAY ==
[2022-09-27 06:15] LABS: MANUAL DIFF FLAG NO
[2022-09-27 07:56] LABS: Basophils Absolute Auto 0.1 X10*3/uL (0.0-0.2); Basophils Percent Auto 0.8 % (0-2); Eosinophils Absolute Auto 0.2 X10*3/uL (0.0-0.4); Hematocrit 44.8 % (42.0-52.0); Hemoglobin 14.9 g/dl (14.0-18.0); Imm Gran Abs Auto 0.03 X10*3/uL (0.00-0.03); Imm Gran Pct Auto 0.4 % (0.0-0.4); Lymphocytes Absolute Auto 2.3 X10*3/uL (1.2-4.9); Lymphocytes Percent Auto 30.7 % (20-40); Mean Corpuscular HGB Conc 33.3 g/dl (31.0-36.0); Mean Corpuscular Hemoglobin 29.2 pg (27.0-33.0); Mean Corpuscular Volume 87.7 fL (80.0-98.0); Mean Platelet Volume 11.1 fL (9.4-12.4); Monocytes Percent Auto 12.8 % (2-11); Neutrophils Percent Auto 53.3 % (45-73); Platelet Count 241 X10*3/uL (160-400); Red Blood Count 5.11 X10*6/uL (4.60-5.80); Red Cell Distribution Width 12.3 % (11.0-16.0); White Blood Count 7.5 X10*3/uL (4.8-10.8)
[2022-09-27 08:25] LABS: Estimated Average Glucose 143 mg/dL; Hemoglobin A1c % 6.6 %
[2022-09-27 08:49] LABS: Creatinine Urine 131.93 mg/dL
[2022-09-27 08:52] LABS: Alanine Aminotransferase 26 U/L (0-40); Albumin Level 4.1 g/dL (3.5-5.0); Alkaline Phosphatase 64 U/L (39-117); Anion Gap 11 (12-20); Aspartate Amino Transferase 10 U/L (5-37); Bilirubin Total 0.8 mg/dL (0.0-1.0); Blood Urea Nitrogen 15 mg/dL (9-16); Carbon Dioxide 28 mmol/L (22-29); Chloride 106 mmol/L (96-108); Cholesterol 138 mg/dL; Estimated Glomerular Filt Rate > 60; Glucose Random 167 mg/dL (60-115); HDL Cholesterol 29 mg/dL; LDL Cholesterol Calculated 94 mg/dl; Potassium 3.9 mmol/L (3.3-5.1); Prostate Specific Antigen < 0.10 ng/mL (<0.05-4.0); Sodium 141 mmol/L (135-145); Total Protein 6.2 g/dL (6.5-8.0); Triglycerides 78 mg/dL
== END 2022-09-27 06:04 | disposition home or self-care (01) ==
LOC: HO.LAB 06:03
PROVIDERS: PCP Internal Medicine Medical Oncology; Visit Provider Internal Medicine Medical Oncology
DX: Z12.5 Encounter for screening for malignant neoplasm of prostate (principal); E11.39 Type 2 diabetes mellitus with other diabetic ophthalmic complication; E78.5 Hyperlipidemia, unspecified; I10 Essential (primary) hypertension
CPT/HCPCS: 36415; 80053; 80061; 82043; 83036; 84153; 85025

== ENCOUNTER 2022-12-10 09:54 | Outpatient (REF) | payer OTHER, SELFPAY | END 2022-12-10 09:55 | disposition home or self-care (01) | LOC: HO.LAB 09:54 | PROVIDERS: PCP Internal Medicine Medical Oncology; Visit Provider Internal Medicine Medical Oncology | DX: C61 Malignant neoplasm of prostate (principal); I10 Essential (primary) hypertension; E78.5 Hyperlipidemia, unspecified; N40.0 Benign prostatic hyperplasia without lower urinary tract symptoms; Z12.5 Encounter for screening for malignant neoplasm of prostate | CPT/HCPCS: 36415; 80053; 84153; 85025 ==

== ENCOUNTER → 2023-02-07 11:21 | Outpatient (REF) | payer OTHER, SELFPAY | LOC: HO.SL 11:21 | PROVIDERS: PCP Internal Medicine Medical Oncology; Visit Provider Internal Medicine Medical Oncology | DX: G47.33 Obstructive sleep apnea (adult) (pediatric) (principal); R40.0 Somnolence | CPT/HCPCS: 95806 ==

== ENCOUNTER → 2023-02-07 19:00 | Outpatient (BNV) | payer OTHER, SELFPAY | PROVIDERS: PCP Internal Medicine Medical Oncology; Visit Provider Internal Medicine | DX: G47.33 Obstructive sleep apnea (adult) (pediatric) (principal) | CPT/HCPCS: 95806 ==

== ENCOUNTER 2023-03-20 07:29 | Outpatient (REF) | payer OTHER, SELFPAY | END 2023-03-20 07:30 | disposition home or self-care (01) | LOC: HO.LAB 07:29 | PROVIDERS: Visit Provider Internal Medicine Medical Oncology | DX: E78.5 Hyperlipidemia, unspecified (principal); N40.0 Benign prostatic hyperplasia without lower urinary tract symptoms; E66.9 Obesity, unspecified; E11.9 Type 2 diabetes mellitus without complications; Z12.5 Encounter for screening for malignant neoplasm of prostate | CPT/HCPCS: 36415; 80053; 80061; 84153; 85025 ==

== ENCOUNTER 2023-04-27 14:20 | Outpatient (AMB) | payer OTHER, SELFPAY ==
--- NOTE | 2023-04-27 14:33 | MHC.OFFVIS ---
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 Now referred by his primary care physician Dr. Richter because of abnormal sleep study. He is a very pleasant gentleman, only moderately overweight with BMI 32, he claims that his weight has remained stable for the past many years. He has history of snoring at night which wakes him up few times during the night. This has been going on for 2-3 years but, lately his has become more aware of this issue and pushed him to have a sleep study. He has is tired feeling and feels on refreshed when he wakes up in the morning. He has mild hypertension which is well controlled with amlodipine. He has no other significant medical issues at this time, But has been treated for prostate cancer with prostatectomy. He denies smoking and also denies alcohol abuse. [facility] Medical History (Updated 04/27/23 @ 16:16 by Amandeep Spann MD) DILCIA (obstructive sleep apnea) Obesity (BMI 30-39.9) Gallbladder polyp Sigmoid diverticulitis Prostate cancer Hypertension Surgical History History of prostatectomy History of hernia repair History of colonoscopy Social History Alcohol intake: never Patient Tobacco Use Status: Never used Tobacco Substance Use Type: Hallucinogens Review of Systems Const All systems reviewed & are unremarkable except as noted in HPI and below Denies body aches, Denies chills, Denies fever(s) and Denies headache(s) Eyes Denies blurry vision, Denies irritation, Reports itchy eyes and Denies loss of vision ENT Denies dysphagia, Denies vertigo, Denies headache(s), Denies epistaxis, Denies nasal congestion, Denies nasal discharge, Denies nasal obstruction and Denies sinus pain Card Denies chest pain, Denies rapid heart rate, Denies irregular heart rhythm, Denies dyspnea on exertion and Denies slow heart rate Resp Reports as per HPI and Denies dyspnea on exertion GI Denies bloating, Denies change in bowel habits, Denies change in stool character, Denies dysphagia, Denies heartburn, Denies nausea and Denies vomiting Denies urinary incontinence Musc Denies back pain, Denies myalgias, Denies arthralgias, Denies muscle weakness and Denies stiffness Skin/Breast Reports system reviewed and no additional complaints, except as documented Neuro Denies vertigo, Denies headache(s), Denies focal weakness, Denies loss of vision, Denies restless legs and Denies tremor(s) Psych Reports no additional complaints Joe/Lymph Reports no additional complaints Aller/Immun Reports itchy eyes Physical Exam Vital Signs: Last Vital Signs Pulse 78 04/27/23 14:35 BP 120/78 04/27/23 14:35 Pulse Ox 96 04/27/23 14:35 Oxygen Delivery Method Room Air 04/27/23 14:35 BMI result Body Mass Index 32.1 Const General: healthy appearing, comfortable, no acute distress, alert and awake Orientation/consciousness: patient oriented x3 HEENT Head: Yes normal to inspection General nose exam: No nasal polyps present and No nasal discharge present Face and sinus: Yes sinuses nontender Mouth: oropharynx abnormals (There is the some a crowding, of the oropharynx, the tongue is convex ) Teeth and gingiva: other (The lower jaw is somewhat regressed with mild retroganthia ) Throat: Yes posterior oropharynx normal Eyes General: appearance normal, both eyes and all related structures Neck Neck: Yes normal visual inspection, Yes no lymphadenopathy, Yes trachea midline, Yes no JVD and Yes other (Neck circumference 17 in) Thyroid: Thyroid normal Chest Chest palpation & inspection: normal inspection of the chest, normal palpation of entire chest wall and no tenderness Resp Effort & Inspection: normal respiratory effort Auscultation: clear to auscultation bilaterally, no crackles and no wheezes Cardio Palpation: normal PMI Rate: regular rate Rhythm: regular rhythm Heart sounds: no gallops and no murmurs GI Palpation (GI): Soft to palpation, nontender, No hepatosplenomegaly present and no masses Auscultation: normal bowel sounds Back/Spine/Pelvis Thoracic/Lumbar Spine: thoracic and lumbar spine normal to inspection Skin General skin exam: no rashes or lesions noted Neuro General: patient oriented x3 and no focal motor deficits Cranial nerves: Yes CN's II-XII intact bilaterally Extrem General: Yes normal to inspection, Yes no clubbing, cyanosis or edema and Yes no calf tenderness Psych Appearance: grossly normal and well kempt Speech and movement: Normal speech and movement present Results Reviewed Results Reviewed: Results of home sleep study on 02/07 Reviewed with the patient. Total sleep time AHI 19, supine AHI 21, right lateral position AHI 20 c/w MODERATELY SEVERE OBSTRUCTIVE SLEEP APNEA. Also has mild nocturnal hypoxemia with average O2 sat 92% lowest O2 sat 71% and O2 sat below 88% for 32 minutes. Assessment & Plan Assessment & Plan (1) Obesity (BMI 30-39.9): Comment: This patient is only moderately obese, BMI 32.1 Code(s): E66.9 - Obesity, unspecified (2) DILCIA (obstructive sleep apnea): Comment: As per home sleep study he has moderately severe obstructive sleep apnea, with total sleep time AHI 19, Also has nocturnal hypoxemia probably due to sleep-related hypoventilation. TREATMENT PLAN : Explained to him all the findings. Explained that he will do much better with the use of CPAP. Showed him the CPAP device and masks and he is agreeable to start using. I have ordered CPAP with auto PAP mode and pressure setting of 6-16 cm, using a fullface mask. Will recheck him in 2 months to monitor the compliance and benefits. Code(s): G47.33 - Obstructive sleep apnea (adult) (pediatric) Coding Level of Care Code New Pt Level 3 (93698) Diagnoses Obesity (BMI 30-39.9) E66.9 DILCIA (obstructive sleep apnea) G47.33
[2023-04-27 14:35] VITALS: BP 120/78; PULSE 78; O2SAT 96; BMI 32.1
== END 2023-04-27 15:05 | disposition home or self-care (01) ==
PROVIDERS: PCP Internal Medicine Medical Oncology; Referring Provider Internal Medicine Medical Oncology; Visit Provider Internal Medicine
DX: G47.33 Obstructive sleep apnea (adult) (pediatric) (principal); E66.9 Obesity, unspecified; Z68.32 Body mass index [BMI] 32.0-32.9, adult
CPT/HCPCS: 99213

== ENCOUNTER → 2023-04-27 14:20 | Outpatient (BNVA) | payer OTHER, SELFPAY | PROVIDERS: PCP Internal Medicine Medical Oncology; Referring Provider Internal Medicine Medical Oncology; Visit Provider Internal Medicine ==

== ENCOUNTER 2023-07-13 15:56 | Outpatient (AMB) | payer OTHER, SELFPAY ==
[2023-07-13 16:03] VITALS: BP 120/78; PULSE 78; O2SAT 96; BMI 32.0
--- NOTE | 2023-07-13 16:03 | A.OFFVIS_ITS ---
Intake Vital Signs 07/13/23 16:03 Height 5 ft 8 in Weight 210 lb 8.663 oz BMI 32.0 BP 120/78 Blood Pressure Location Lt brachial Position Sitting Pulse 78 Pulse Source Pulse Oximeter Pulse Oximetry (%) 96 Oxygen Delivery Method Room Air Intake Visit Reasons: erin Intake Note: pt is here for follow up and states he is using the cpap, we are trying to figuere out what DME, he does feel more rested throughout the day. 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 ([place], [place]) W-UP AFTER GOT HIS CPAP DEVICE 1 MONTH AGO. HE GOT HIS CPAP DEVICE THROUGH THE MAIL AND HE IS NOT SURE ABOUT THE MODEL OF OR WHICH COMPANY PROVIDED HIM THE CPAP. ANYWAY HE HAS BEEN USING HIS CPAP VERY REGULARLY FOR MORE THAN A MONTH AND SLEEPS MUCH BETTER. HE USES FULL FACE MASK. HE IS NOT HAVING ANY ISSUES WITH THE MASK OR CPAP UNIT [facility] Medical History ERIN (obstructive sleep apnea) Obesity (BMI 30-39.9) Gallbladder polyp Sigmoid diverticulitis Prostate cancer Hypertension Surgical History History of prostatectomy History of hernia repair History of colonoscopy Social History Alcohol intake: never Patient Tobacco Use Status: Never used Tobacco Substance Use Type: Hallucinogens Review of Systems Const All systems reviewed & are unremarkable except as noted in HPI and below Denies body aches, Denies chills, Denies fever(s) and Denies headache(s) Eyes Denies blurry vision, Denies irritation, Reports itchy eyes and Denies loss of vision ENT Denies dysphagia, Denies vertigo, Denies headache(s), Denies epistaxis, Denies nasal congestion, Denies nasal discharge, Denies nasal obstruction and Denies sinus pain Card Denies chest pain, Denies rapid heart rate, Denies irregular heart rhythm, Denies dyspnea on exertion and Denies slow heart rate Resp Reports as per HPI and Denies dyspnea on exertion GI Denies bloating, Denies change in bowel habits, Denies change in stool character, Denies dysphagia, Denies heartburn, Denies nausea and Denies vomiting Denies urinary incontinence Musc Denies back pain, Denies myalgias, Denies arthralgias, Denies muscle weakness and Denies stiffness Skin/Breast Reports system reviewed and no additional complaints, except as documented Neuro Denies vertigo, Denies headache(s), Denies focal weakness, Denies loss of vision, Denies restless legs and Denies tremor(s) Psych Reports no additional complaints Joe/Lymph Reports no additional complaints Aller/Immun Reports itchy eyes Physical Exam Vital Signs: Last Vital Signs Pulse 78 07/13/23 16:03 BP 120/78 07/13/23 16:03 Pulse Ox 96 07/13/23 16:03 Oxygen Delivery Method Room Air 07/13/23 16:03 BMI result Body Mass Index 32.0 Const General: healthy appearing, comfortable, no acute distress, alert and awake Orientation/consciousness: patient oriented x3 HEENT Head: Yes normal to inspection General nose exam: No nasal polyps present and No nasal discharge present Face and sinus: Yes sinuses nontender Mouth: oropharynx abnormals (There is the some a crowding, of the oropharynx, the tongue is convex ) Teeth and gingiva: other (The lower jaw is somewhat regressed with mild retroganthia ) Throat: Yes posterior oropharynx normal Eyes General: appearance normal, both eyes and all related structures Neck Neck: Yes normal visual inspection, Yes no lymphadenopathy, Yes trachea midline, Yes no JVD and Yes other (Neck circumference 17 in) Thyroid: Thyroid normal Chest Chest palpation & inspection: normal inspection of the chest, normal palpation of entire chest wall and no tenderness Resp Effort & Inspection: normal respiratory effort Auscultation: clear to auscultation bilaterally, no crackles and no wheezes Cardio Palpation: normal PMI Rate: regular rate Rhythm: regular rhythm Heart sounds: no gallops and no murmurs GI Palpation (GI): Soft to palpation, nontender, No hepatosplenomegaly present and no masses Auscultation: normal bowel sounds Back/Spine/Pelvis Thoracic/Lumbar Spine: thoracic and lumbar spine normal to inspection Skin General skin exam: no rashes or lesions noted Neuro General: patient oriented x3 and no focal motor deficits Cranial nerves: Yes CN's II-XII intact bilaterally Extrem General: Yes normal to inspection, Yes no clubbing, cyanosis or edema and Yes no calf tenderness Psych Appearance: grossly normal and well kempt Speech and movement: Normal speech and movement present Results Reviewed Results Reviewed: COMPLIANCE DATA NOT AVAILABLE Assessment & Plan Assessment & Plan (1) Obesity (BMI 30-39.9): Comment: This patient is only moderately obese, BMI 32.1 Code(s): E66.9 - Obesity, unspecified Plan: ADVISED TO LOSE ABOUT 5-10 LB (2) ERIN (obstructive sleep apnea): Comment: As per home sleep study he has moderately severe obstructive sleep apnea, with total sleep time AHI 19, Also has nocturnal hypoxemia probably due to sleep-related hypoventilation. HE GOT CPAP DEVICE AND IS USING VERY REGULARLY IN THE LAST 1 MONTH. WE WERE NOT ABLE TO DOWNLOAD THE COMPLIANCE DATA, HAS WE NEED MORE INFORMATION ABOUT THE MODEL AND WHICH COMPANY PROVIDED HIM. Code(s): G47.33 - Obstructive sleep apnea (adult) (pediatric) Plan: HIS GOING TO CHECK THE MODEL OF THE CPAP AND GIVE US INFO. ABOUT THE DME SUPPLIER AN WILL TRY TO GET MORE INFORMATION TO DOWNLOAD THE COMPLIANCE.. Coding Level of Care Code Est Pt Level 3 (58275) Diagnoses Obesity (BMI 30-39.9) E66.9 ERIN (obstructive sleep apnea) G47.33
== END 2023-07-13 16:19 | disposition home or self-care (01) ==
PROVIDERS: PCP Internal Medicine Medical Oncology; Visit Provider Internal Medicine
DX: E66.9 Obesity, unspecified (principal); G47.33 Obstructive sleep apnea (adult) (pediatric)
CPT/HCPCS: 99213

== ENCOUNTER → 2023-07-13 15:56 | Outpatient (BNVA) | payer OTHER, SELFPAY | PROVIDERS: PCP Internal Medicine Medical Oncology; Visit Provider Internal Medicine ==

== ENCOUNTER 2023-09-16 07:06 | Outpatient (REF) | payer OTHER, SELFPAY ==
[2023-09-16 07:27] LABS: MANUAL DIFF FLAG NO
[2023-09-16 07:55] LABS: Basophils Absolute Auto 0.1 X10*3/uL (0.0-0.2); Basophils Percent Auto 0.9 % (0-2); Eosinophils Absolute Auto 0.1 X10*3/uL (0.0-0.4); Eosinophils Percent Auto 1.7 % (0-4); Hematocrit 45.1 % (42.0-52.0); Hemoglobin 14.6 g/dl (14.0-18.0); Imm Gran Abs Auto 0.04 X10*3/uL (0.00-0.03); Imm Gran Pct Auto 0.5 % (0.0-0.4); Lymphocytes Percent Auto 25.8 % (20-40); Mean Corpuscular HGB Conc 32.4 g/dl (31.0-36.0); Mean Corpuscular Hemoglobin 28.6 pg (27.0-33.0); Mean Corpuscular Volume 88.4 fL (80.0-98.0); Mean Platelet Volume 10.9 fL (9.4-12.4); Monocytes Percent Auto 12.5 % (2-11); Neutrophils Absolute Auto 4.6 x10*3/uL (2.0-8.3); Neutrophils Percent Auto 58.6 % (45-73); Platelet Count 259 X10*3/uL (160-400); Red Cell Distribution Width 12.8 % (11.0-16.0); White Blood Count 7.9 X10*3/uL (4.8-10.8)
[2023-09-16 08:01] LABS: Estimated Average Glucose 143 mg/dL; Hemoglobin A1c % 6.6 % (<6.0)
[2023-09-16 08:35] LABS: Alanine Aminotransferase 25 U/L (0-40); Alkaline Phosphatase 70 U/L (39-117); Anion Gap 11 (12-20); Aspartate Amino Transferase 11 U/L (5-37); Bilirubin Total 0.7 mg/dL (0.0-1.0); Blood Urea Nitrogen 14 mg/dL (9-16); Calcium 8.8 mg/dL (8.4-10.2); Carbon Dioxide 25 mmol/L (22-29); Chloride 108 mmol/L (96-108); Cholesterol 128 mg/dL (<200); Estimated Glomerular Filt Rate > 60; Glucose Random 151 mg/dL (60-115); HDL Cholesterol 29 mg/dL (>40); LDL Cholesterol Calculated 90 mg/dL (<100); Potassium 3.9 mmol/L (3.3-5.1); Sodium 140 mmol/L (135-145); Total Protein 6.5 g/dL (6.5-8.0); Triglycerides 45 mg/dL (<150)
[2023-09-16 08:53] LABS: Prostate Specific Antigen 0.15 ng/mL (<0.05-4.0)
[2023-09-16 14:31] LABS: Creatinine Urine 150.28 mg/dL; Microalbum/Creatinine Ratio Ur 7.3 ug/mg cr (<30)
== END 2023-09-16 07:07 | disposition home or self-care (01) ==
LOC: HO.LAB 07:06
PROVIDERS: PCP Internal Medicine Medical Oncology; Visit Provider Internal Medicine Medical Oncology
DX: Z12.5 Encounter for screening for malignant neoplasm of prostate (principal); E78.5 Hyperlipidemia, unspecified; N40.0 Benign prostatic hyperplasia without lower urinary tract symptoms; E11.9 Type 2 diabetes mellitus without complications
CPT/HCPCS: 36415; 80053; 80061; 82043; 82570; 83036; 84153; 85025

== ENCOUNTER 2023-11-09 15:25 | Outpatient (AMB) | payer OTHER, SELFPAY ==
--- NOTE | 2023-11-09 15:31 | MHC.OFFVIS ---
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 HE IS USING FULL FACE MASK, CLAIMS THAT HE DOES USE IT EVERY NIGHT EXCEPT FOR A FEW NIGHTS WHEN HE IS OUT TOWN. 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 AND ACCORDING TO THE PATIENT HIMSELF HE WAKES UP MORE REFRESHED. HOWEVER HIS USAGE OF THE MASK AT NIGHT IS SOMEWHAT INTERRUPTED BECAUSE HE WAKES UP A FEW TIMES TO LOOK AFTER HIS MOTHER. ALSO HE CAN NOT SLEEP ON HIS SIDE AND WHEN HE TURNS AROUND HIS MASK COMES OFF. [facility] Medical History ERIN (obstructive sleep apnea) Obesity (BMI 30-39.9) Gallbladder polyp Sigmoid diverticulitis Prostate cancer Hypertension Surgical History History of prostatectomy History of hernia repair History of colonoscopy Social History Alcohol intake: never Patient Tobacco Use Status: Never used Tobacco Substance Use Type: Hallucinogens Review of Systems Const All systems reviewed & are unremarkable except as noted in HPI and below Denies body aches, Denies chills, Denies fever(s) and Denies headache(s) Eyes Denies blurry vision, Denies irritation, Reports itchy eyes and Denies loss of vision ENT Denies dysphagia, Denies vertigo, Denies headache(s), Denies epistaxis, Denies nasal congestion, Denies nasal discharge, Denies nasal obstruction and Denies sinus pain Card Denies chest pain, Denies rapid heart rate, Denies irregular heart rhythm, Denies dyspnea on exertion and Denies slow heart rate Resp Reports as per HPI and Denies dyspnea on exertion GI Denies bloating, Denies change in bowel habits, Denies change in stool character, Denies dysphagia, Denies heartburn, Denies nausea and Denies vomiting Denies urinary incontinence Musc Denies back pain, Denies myalgias, Denies arthralgias, Denies muscle weakness and Denies stiffness Skin/Breast Reports system reviewed and no additional complaints, except as documented Neuro Denies vertigo, Denies headache(s), Denies focal weakness, Denies loss of vision, Denies restless legs and Denies tremor(s) Psych Reports no additional complaints Joe/Lymph Reports no additional complaints Aller/Immun Reports itchy eyes Physical Exam Vital Signs: Last Vital Signs Pulse 68 11/09/23 15:32 BP 120/80 11/09/23 15:32 Pulse Ox 96 11/09/23 15:32 Oxygen Delivery Method Room Air 11/09/23 15:32 BMI result Body Mass Index 31.7 Const General: healthy appearing, comfortable, no acute distress, alert and awake Orientation/consciousness: patient oriented x3 HEENT Head: Yes normal to inspection General nose exam: No nasal polyps present and No nasal discharge present Face and sinus: Yes sinuses nontender Mouth: oropharynx abnormals (There is the some a crowding, of the oropharynx, the tongue is convex ) Teeth and gingiva: other (The lower jaw is somewhat regressed with mild retroganthia ) Throat: Yes posterior oropharynx normal Eyes General: appearance normal, both eyes and all related structures Neck Neck: Yes normal visual inspection, Yes no lymphadenopathy, Yes trachea midline, Yes no JVD and Yes other (Neck circumference 17 in) Thyroid: Thyroid normal Chest Chest palpation & inspection: normal inspection of the chest, normal palpation of entire chest wall and no tenderness Resp Effort & Inspection: normal respiratory effort Auscultation: clear to auscultation bilaterally, no crackles and no wheezes Cardio Palpation: normal PMI Rate: regular rate Rhythm: regular rhythm Heart sounds: no gallops and no murmurs GI Palpation (GI): Soft to palpation, nontender, No hepatosplenomegaly present and no masses Auscultation: normal bowel sounds Back/Spine/Pelvis Thoracic/Lumbar Spine: thoracic and lumbar spine normal to inspection Skin General skin exam: no rashes or lesions noted Neuro General: patient oriented x3 and no focal motor deficits Cranial nerves: Yes CN's II-XII intact bilaterally Extrem General: Yes normal to inspection, Yes no clubbing, cyanosis or edema and Yes no calf tenderness Psych Appearance: grossly normal and well kempt Speech and movement: Normal speech and movement present Results Reviewed Results Reviewed: COMPLIANCE REPORT FOR THE LAST 30 NIGHTS IS REVIEWED AND HE HAS USED 26 NIGHTS, 86% OF THE NIGHTS. AVERAGE USAGE PER NIGHT IS 3 HOURS 26 MINUTES IT REMAINS SUBOPTIMAL. RESIDUAL AHI IS ONLY 0.2. Assessment & Plan Assessment & Plan (1) Obesity (BMI 30-39.9): Comment: This patient is only moderately obese, BMI 31.7 Code(s): E66.9 - Obesity, unspecified Category: Medical Plan: HE IS ADVISED TO LOSE ABOUT 5-10 MORE LB OF WEIGHT IF HE CAN (2) ERIN (obstructive sleep apnea): Comment: As per home sleep study he has moderately severe obstructive sleep apnea, with total sleep time AHI 19, Also has nocturnal hypoxemia probably due to sleep-related hypoventilation. HE IS USING HIS CPAP ALMOST EVERY NIGHT, BUT STILL LESS THAN 4 HOURS PER NIGHT. HE FEELS MUCH BETTER AND CLAIMS THAT HIS SLEEP IS DEFINITELY IMPROVED AND WAKES UP MORE REFRESHED. Code(s): G47.33 - Obstructive sleep apnea (adult) (pediatric) Category: Medical Plan: DISCUSS THE FINDINGS OF HIS COMPLIANCE. ADVISE THAT HE MUST USE CPAP FOR MORE THAN 4 HOURS EVERY NIGHT. Coding Level of Care Code Est Pt Level 3 (34205) Diagnoses Obesity (BMI 30-39.9) E66.9 ERIN (obstructive sleep apnea) G47.33
[2023-11-09 15:32] VITALS: BP 120/80; PULSE 68; O2SAT 96; BMI 31.7
== END 2023-11-09 15:46 | disposition home or self-care (01) ==
PROVIDERS: PCP Internal Medicine Medical Oncology; Visit Provider Internal Medicine
DX: E66.9 Obesity, unspecified (principal); G47.33 Obstructive sleep apnea (adult) (pediatric)
CPT/HCPCS: 99213

== ENCOUNTER → 2023-11-09 15:25 | Outpatient (BNVA) | payer OTHER, SELFPAY | PROVIDERS: PCP Internal Medicine Medical Oncology; Visit Provider Internal Medicine ==

== ENCOUNTER 2024-02-17 07:22 | Outpatient (REF) | payer OTHER, SELFPAY ==
[2024-02-17 08:04] LABS: MANUAL DIFF FLAG NO
[2024-02-17 08:25] LABS: Basophils Percent Auto 0.5 % (0-2); Eosinophils Absolute Auto 0.1 X10*3/uL (0.0-0.4); Eosinophils Percent Auto 1.6 % (0-4); Hematocrit 45.5 % (42.0-52.0); Hemoglobin 15.1 g/dl (14.0-18.0); Imm Gran Abs Auto 0.02 X10*3/uL (0.00-0.03); Imm Gran Pct Auto 0.3 % (0.0-0.4); Lymphocytes Absolute Auto 1.8 X10*3/uL (1.2-4.9); Lymphocytes Percent Auto 24.1 % (20-40); Mean Corpuscular HGB Conc 33.2 g/dl (31.0-36.0); Mean Corpuscular Hemoglobin 29.4 pg (27.0-33.0); Mean Corpuscular Volume 88.5 fL (80.0-98.0); Mean Platelet Volume 10.9 fL (9.4-12.4); Monocytes Absolute Auto 0.8 X10*3/uL (0.1-1.2); Monocytes Percent Auto 11.1 % (2-11); Neutrophils Absolute Auto 4.6 x10*3/uL (2.0-8.3); Neutrophils Percent Auto 62.4 % (45-73); Platelet Count 240 X10*3/uL (160-400); Red Blood Count 5.14 X10*6/uL (4.60-5.80); Red Cell Distribution Width 12.4 % (11.0-16.0); White Blood Count 7.4 X10*3/uL (4.8-10.8)
[2024-02-17 09:02] LABS: Alanine Aminotransferase 19 U/L (0-40); Albumin Level 4.1 g/dL (3.5-5.0); Alkaline Phosphatase 64 U/L (39-117); Anion Gap 11 (12-20); Aspartate Amino Transferase 9 U/L (5-37); Bilirubin Total 0.6 mg/dL (0.0-1.0); Blood Urea Nitrogen 18 mg/dL (9-16); Calcium 9.1 mg/dL (8.4-10.2); Carbon Dioxide 25 mmol/L (22-29); Chloride 108 mmol/L (96-108); Cholesterol 124 mg/dL (<200); Estimated Glomerular Filt Rate > 60; Glucose Fasting 151 mg/dL (60-99); HDL Cholesterol 29 mg/dL (>40); LDL Cholesterol Calculated 85 mg/dL (<100); Potassium 4.2 mmol/L (3.3-5.1); Sodium 140 mmol/L (135-145); Total Protein 6.5 g/dL (6.5-8.0); Triglycerides 51 mg/dL (<150)
[2024-02-17 09:14] LABS: Prostate Specific Antigen 0.17 ng/mL (<0.05-4.0)
== END 2024-02-17 07:23 | disposition home or self-care (01) ==
LOC: HO.LAB 07:22
PROVIDERS: PCP Internal Medicine Medical Oncology; Visit Provider Internal Medicine Medical Oncology
DX: E78.5 Hyperlipidemia, unspecified (principal); N40.0 Benign prostatic hyperplasia without lower urinary tract symptoms; E66.9 Obesity, unspecified; Z12.5 Encounter for screening for malignant neoplasm of prostate
CPT/HCPCS: 36415; 80053; 80061; 84153; 85025

== ENCOUNTER 2024-04-23 15:12 | Outpatient (AMB) | payer OTHER, SELFPAY ==
--- NOTE | 2024-04-23 15:20 | A.OFFVIS_ITS ---
Intake Visit Reasons: history of prostate cancer/BPH(saw dr macedo) Intake Note: Previous Patient of Dr Macedo New patient is present for Hx of Prostate Cancer Prostate Biopsy Performed 07/2016 PSA: 02/17/2024- 0.17 Hemoglobin A1C: 09/2023 6.6(H) Prostate Biopsy- 08/05/2016- Dr. Vera Commissioner Of Conciliation Required: No Accompanied by: Self / Same As Patient Allergies No Known Allergies [No Known Allergies*] Allergy (Verified 05/13/24 15:56) HPI Comments Details: Leland is a pleasant male. He is a patient of Dr. Richter. He seen for the following urologic conditions - prostate cancer Seen for slowly rising PSA setting postprostatectomy If crosses threshold of 0.2 will organize PET-CT Prostate cancer grade group 3 - radical prostatectomy [facility] 09/2016 Initially seen in 2016 No prior Check PSA in 4 months PSA 08/30 <0.05, 01/01 0.11, 10/03 0.15 PFSH Medical History DILCIA (obstructive sleep apnea) Obesity (BMI 30-39.9) Gallbladder polyp Sigmoid diverticulitis Prostate cancer Hypertension Surgical History History of prostatectomy History of hernia repair History of colonoscopy Social History Alcohol intake: never Patient Tobacco Use Status: Never used Tobacco Substance Use Type: Hallucinogens Review of Systems Const Denies chills and Denies fever(s) Card Reports no additional complaints and Denies syncope Resp Denies cough GI Denies abdominal pain and Denies heartburn Reports as per HPI and Denies change in libido Neuro Denies syncope Psych Denies change in libido Endo Denies change in libido Physical Exam Const General: cooperative, healthy appearing, comfortable and no acute distress Orientation/consciousness: patient oriented x3 HEENT Face and sinus: Yes normal facial exam Mouth: moist mucous membranes Neck Neck: Yes normal visual inspection, Yes full ROM and Yes trachea midline Chest Chest palpation & inspection: normal inspection of the chest Resp Effort & Inspection: normal respiratory effort, able to speak in complete sentences and no respiratory distress GI Inspection: Yes normal to inspection Back/Spine/Pelvis Cervical Spine: normal cervical lordosis Thoracic/Lumbar Spine: thoracic and lumbar spine normal to inspection Skin General skin exam: no rashes or lesions noted Neuro General: patient oriented x3, gait normal, tone normal and moves all extremities Extrem General: Yes normal to inspection and Yes capillary refill normal Assessment & Plan Assessment & Plan (1) Prostate cancer: Code(s): C61 - Malignant neoplasm of prostate Category: Medical Plan Four month follow-up PSA ultrasensitive Orders: Orders PSA, Ultra Sensitive 4 Months C61 - Malignant neoplasm of prostate Patient Instructions: Imaging studies, laboratory and physical exam results were discussed and reviewed in detail. No major barriers to patient understanding were identified. An opportunity to ask questions regarding the treatment plan was provided. All questions were answered. The patient expressed understanding and agreement with the above treatment plan. The patient is aware they should contact our office by phone for worsening of their current condition or the appearance of new urologic symptoms. Compliance is encouraged with any medications and followup testing that is ordered. It is a privilege to participate in the urologic care of your patient. If you have any questions or concerns regarding treatment for the above conditions, or other urologic issues, please do not hesitate to contact me. The office telephone contact is [phone]. This note is constructed using voice recognition software. While every effort has been made to ensure accuracy missile inspector errors may have been included. Yours sincerely, Dr Ramses Huertas MD, [facility] - Urology Providers of Expert, Compassionate Care for the Genitourinary System Coding Level of Care Code New Pt Level 4 (22651) Diagnoses Prostate cancer C61
== END 2024-04-23 16:00 | disposition home or self-care (01) ==
PROVIDERS: PCP Internal Medicine Medical Oncology; Visit Provider Urology
DX: C61 Malignant neoplasm of prostate (principal)
CPT/HCPCS: 99204

== ENCOUNTER → 2024-04-23 15:12 | Outpatient (BNVA) | payer OTHER, SELFPAY | PROVIDERS: PCP Internal Medicine Medical Oncology; Visit Provider Urology ==

== ENCOUNTER 2024-05-13 15:28 | Outpatient (AMB) | payer OTHER, SELFPAY ==
--- NOTE | 2024-05-13 15:40 | A.OFFVIS_ITS ---
Vital Signs 05/13/24 15:41 Height 5 ft 8 in Weight 208 lb 5.389 oz BMI 31.7 BP 130/82 Blood Pressure Location Lt brachial Position Sitting Pulse 91 Pulse Source Pulse Oximeter Pulse Oximetry (%) 97 Oxygen Delivery Method Room Air Intake Visit Reasons: Obstructive sleep apnea Intake Note: pt is here for follow up and will need supplies to be sent to DME, pt has just lost his mom [employer] Required: No Allergies No Known Allergies [No Known Allergies*] Allergy (Verified 05/13/24 15:56) Medication List - Last Reconciled 05/13/24 by Amandeep Spann MD amlodipine 1 tab PO DAILY Do you need a note to return to daycare/school/sports/work: No HPI HPI Obstructive sleep apnea: Details: Leland is 58 years old very pleasant gentleman, moderately obese with diagnosis of obstructive sleep apnea. He uses CPAP very regularly but sometimes he has to wake up taking care of his mother in law, and ends up using only for a few hours per night. On the nights when he uses less than few hours he does feel sleepy on the next day. About a month ago his mom and he has been busy, so his compliance has been less than optimal. He plans to use it every night and I educated him about using at least for 4-5 hours every night. He does not have any issues with the CPAP machine., needs new supplies and the order will be. sent for that [facility] Medical History DILCIA (obstructive sleep apnea) Obesity (BMI 30-39.9) Gallbladder polyp Sigmoid diverticulitis Prostate cancer Hypertension Surgical History History of prostatectomy History of hernia repair History of colonoscopy Social History Alcohol intake: never Patient Tobacco Use Status: Never used Tobacco Substance Use Type: Hallucinogens Review of Systems Const All systems reviewed & are unremarkable except as noted in HPI and below Denies body aches, Denies chills, Denies fever(s) and Denies headache(s) Eyes Denies blurry vision, Denies irritation, Reports itchy eyes and Denies loss of vision ENT Denies dysphagia, Denies vertigo, Denies headache(s), Denies epistaxis, Denies nasal congestion, Denies nasal discharge, Denies nasal obstruction and Denies sinus pain Card Denies chest pain, Denies rapid heart rate, Denies irregular heart rhythm, Denies dyspnea on exertion and Denies slow heart rate Resp Reports as per HPI and Denies dyspnea on exertion GI Denies bloating, Denies change in bowel habits, Denies change in stool character, Denies dysphagia, Denies heartburn, Denies nausea and Denies vomiting Denies urinary incontinence Musc Denies back pain, Denies myalgias, Denies arthralgias, Denies muscle weakness and Denies stiffness Skin/Breast Reports system reviewed and no additional complaints, except as documented Neuro Denies vertigo, Denies headache(s), Denies focal weakness, Denies loss of vision, Denies restless legs and Denies tremor(s) Psych Reports no additional complaints Joe/Lymph Reports no additional complaints Aller/Immun Reports itchy eyes Physical Exam Vital Signs: Last Vital Signs Pulse 91 05/13/24 15:41 BP 130/82 05/13/24 15:41 Pulse Ox 97 05/13/24 15:41 Oxygen Delivery Method Room Air 05/13/24 15:41 BMI result Body Mass Index 31.7 Const General: healthy appearing, comfortable, no acute distress, alert and awake Orientation/consciousness: patient oriented x3 HEENT Head: Yes normal to inspection General nose exam: No nasal polyps present and No nasal discharge present Face and sinus: Yes sinuses nontender Mouth: oropharynx abnormals (There is the some a crowding, of the oropharynx, the tongue is convex ) Teeth and gingiva: other (The lower jaw is somewhat regressed with mild retroganthia ) Throat: Yes posterior oropharynx normal Eyes General: appearance normal, both eyes and all related structures Neck Neck: Yes normal visual inspection, Yes no lymphadenopathy, Yes trachea midline, Yes no JVD and Yes other (Neck circumference 17 in) Thyroid: Thyroid normal Chest Chest palpation & inspection: normal inspection of the chest, normal palpation of entire chest wall and no tenderness Resp Effort & Inspection: normal respiratory effort Auscultation: clear to auscultation bilaterally, no crackles and no wheezes Cardio Palpation: normal PMI Rate: regular rate Rhythm: regular rhythm Heart sounds: no gallops and no murmurs GI Palpation (GI): Soft to palpation, nontender, No hepatosplenomegaly present and no masses Auscultation: normal bowel sounds Back/Spine/Pelvis Thoracic/Lumbar Spine: thoracic and lumbar spine normal to inspection Skin General skin exam: no rashes or lesions noted Neuro General: patient oriented x3 and no focal motor deficits Cranial nerves: Yes CN's II-XII intact bilaterally Extrem General: Yes normal to inspection, Yes no clubbing, cyanosis or edema and Yes no calf tenderness Psych Appearance: grossly normal and well kempt Speech and movement: Normal speech and movement present Results Reviewed Results Reviewed: Compliance report for the last 30 nights shows that he has used only for 14 nights. His the explanation is that he was the busy in taking care of his mother who a few weeks ago.. When he does use the CPAP his the pressure is 9.3-11 cm. There is no air leak and residual AHI is only 0.1 Assessment & Plan Assessment & Plan (1) Obesity (BMI 30-39.9): Comment: This patient is only moderately obese, BMI 31.7 Code(s): E66.9 - Obesity, unspecified Category: Medical Plan: Talked to him about diet and told him to keep the intake of carbs as low as possible. (2) DILCIA (obstructive sleep apnea): Comment: As per home sleep study he has moderately severe obstructive sleep apnea, with total sleep time AHI 19, Also has nocturnal hypoxemia probably due to sleep-related hypoventilation. He has been using CPAP regularly but in the last few weeks it has been less than optimal, because his mother and now he has been busy in taking care of his [id number]. Code(s): G47.33 - Obstructive sleep apnea (adult) (pediatric) Category: Medical Plan: I talked to him about the compliance he is, motivated to use it every night and explained that he will have to use it more than 4 hours per night. Will be checked in 4 months to go over the compliance. Coding Level of Care Code Est Pt Level 3 (84104) Diagnoses Obesity (BMI 30-39.9) E66.9 DILCIA (obstructive sleep apnea) G47.33
[2024-05-13 15:41] VITALS: BP 130/82; PULSE 91; O2SAT 97; BMI 31.7
== END 2024-05-13 15:56 | disposition home or self-care (01) ==
PROVIDERS: PCP Internal Medicine Medical Oncology; Visit Provider Internal Medicine
DX: E66.9 Obesity, unspecified (principal); G47.33 Obstructive sleep apnea (adult) (pediatric)
CPT/HCPCS: 99213

== ENCOUNTER 2024-05-18 07:15 | Outpatient (REF) | payer OTHER, SELFPAY ==
[2024-05-18 07:57] LABS: MANUAL DIFF FLAG NO
[2024-05-18 09:06] LABS: Basophils Absolute Auto 0.1 X10*3/uL (0.0-0.2); Basophils Percent Auto 0.9 % (0-2); Eosinophils Absolute Auto 0.1 X10*3/uL (0.0-0.4); Hematocrit 45.7 % (42.0-52.0); Imm Gran Abs Auto 0.03 X10*3/uL (0.00-0.03); Imm Gran Pct Auto 0.4 % (0.0-0.4); Lymphocytes Absolute Auto 2.1 X10*3/uL (1.2-4.9); Mean Corpuscular HGB Conc 32.8 g/dl (31.0-36.0); Mean Corpuscular Hemoglobin 28.8 pg (27.0-33.0); Mean Corpuscular Volume 87.7 fL (80.0-98.0); Mean Platelet Volume 11.1 fL (9.4-12.4); Monocytes Absolute Auto 0.8 X10*3/uL (0.1-1.2); Monocytes Percent Auto 11.3 % (2-11); Neutrophils Absolute Auto 3.8 x10*3/uL (2.0-8.3); Neutrophils Percent Auto 55.4 % (45-73); Platelet Count 246 X10*3/uL (160-400); Red Blood Count 5.21 X10*6/uL (4.60-5.80); White Blood Count 6.9 X10*3/uL (4.8-10.8)
[2024-05-18 09:46] LABS: Alanine Aminotransferase 38 U/L (0-40); Albumin Level 4.2 g/dL (3.5-5.0); Alkaline Phosphatase 66 U/L (39-117); Anion Gap 14 (12-20); Aspartate Amino Transferase 14 U/L (5-37); Bilirubin Total 0.6 mg/dL (0.0-1.0); Blood Urea Nitrogen 15 mg/dL (9-16); Calcium 9.4 mg/dL (8.4-10.2); Carbon Dioxide 27 mmol/L (22-29); Chloride 105 mmol/L (96-108); Cholesterol 144 mg/dL (<200); Estimated Glomerular Filt Rate > 60; Glucose Fasting 171 mg/dL (60-99); HDL Cholesterol 30 mg/dL (>40); LDL Cholesterol Calculated 102 mg/dL (<100); Potassium 4.5 mmol/L (3.3-5.1); Sodium 141 mmol/L (135-145); Total Protein 6.9 g/dL (6.5-8.0); Triglycerides 61 mg/dL (<150)
[2024-05-18 10:00] LABS: Prostate Specific Antigen 0.21 ng/mL (<0.05-4.0)
--- OUTSIDE RECORDS SUMMARY | 2024-05-22 11:37 | XMS_ITS ---
Author Organization Omar Richter III, MD Address [address] [place] [address] Care Team Providers Care Filbert Grower Name Role Phone mOar Richter Primary Care Provider Allergies Allergen (clinical drug ingredient) Drug/Non Drug Allergy documented on EMR Reaction Allergy Type Onset Date Status No Known Drug Allergy Unknown Drug Allergy Active Results Component Value Reference Range Notes URINE DIP STICK Reviewed date:02/28/2024 01:32:50 PM Interpretation: Performing Lab: Notes/Report: SG 1.020 1.005 - 1.025 pH 5.0 5.0 - 9.0 JULIA Negative Negative - NIT Negative Negative - PRO 15 Negative - Trace GLU Negative Negative - KET Negative Negative - UBG 0.2 0.1 - 1.8 JER Negative 0.2 - 1.3 BLD Negative Negative - Reason For Referral Reason history of carcinoma of prostate evaluate and treatment Diagnosis 1 Carcinoma of prostat e (C61) Diagnosis 2 BPH (benign prostati c hyperplasia) (N40.0) Referral Organization Omar Richter III, MD Referring Provider First Name Omar Referring Provider Last Name Neelam Referring Provider Speciality Internal M edicine Referred Provider Ramses Huertas (Aristeo olynat) Referred Provider Specialty Urology Referral Priority Routine Referral Appointment Date 04/23/2024 REASON FOR VISIT Annual Exam Medications Medication SIG (Take, Route, Frequency, Duration) [...] nonsmoker Additional Findings: Tobacco Non-User Aggressive non-smoker Alcohol Screen Question Answer Notes Did you have a drink containing alcohol in the p ast year? No Points 0 Interpretation Negative Problems Problem Type SNOMED Code ICD Code Onset Dates Problem Status W/U Status Risk Notes Problem [id number] Type 2 diabetes mellitus without complication, without long-term current use of insulin (E11.9) Active confirmed His fasting glucoses are 150. He is diet controlled. He has lost 11 pounds since his last visit. Vital Signs Blood pressure systolic 135 mm Hg 02/28/20 24 Blood pressure diastolic 79 mm Hg 024 Heart Rate 86 /min 02/28/2024 Height 68 in 02/28/2024 Weight 201 lbs 02/28/2024 BMI 30.56 kg/m2 02/28/2024 Encounters Encounter Location Date Provider Diagnosis Omar Richter III, MD [address] [place] [address] [place] [address] 02/28/2024 Omar Richter Carcinoma of prostat e C61 ; Hypertension I10 ; Hyperlipidemia, unspecified hyperlipidemia type E78.5 ; BPH (benign prostatic hyperplasia) N40.0 ; Obesity (BMI 30.0-34.9) E66.9 ; Osteoarthritis of both knees M17.0 ; Back pain, unspecified back location, unspecified back pain laterality, unspecified chronicity M54.9 ; Sleep apnea, unspecified G47.30 and Type 2 diabetes mellitus without complication, without long-term current use of insulin E11.9 Assessments Encounter Date Diagnosis (ICD Code) Assessment Notes Treat ment Notes Treatment Clinical Notes 02/28/2024 Carcinoma of prostat e (ICD-10 - C61) His PSA is detectable at 0.17 whereas it was 0.15 the previous 2 determinations. He is asymptomatic. The is overdue to see urology and was referred back for management. 02/28/2024 Hypertension (ICD-10 - I10) His blood pressure is currently stable. His medication was continued. He was advised to lose weight aggressively and restrict sodium intake. 02/28/2024 Hyperlipidemia, unspecified hyperlipidemia type (ICD-10 - E78.5) His lipids are currently stable. No change in his regimen as needed. I recommended aggressive weight loss. 02/28/2024 BPH (benign prostati c hyperplasia) (ICD-10 - N40.0) We have discussed modifications to his lifestyle to reduce nocturnal urinating. 02/28/2024 Obesity (BMI 30.0-34.9) (ICD-10 - E66.9) He has lost 11 pounds her diet and exercise. His body mass index is now 30.56. His fasting glucose was 150. 02/28/2024 Osteoarthritis of both knees (ICD-10 - M17.0) The discomfort in the knees is unchanged but is a minor problem to him now and will be followed. 02/28/2024 Back pain, unspecified back location, unspecified back pain laterality, unspecified chronicity (ICD-10 - M54.9) His back pain is mostly resolved at this time. He is avoiding heavy exertion and lifting. He will notify me at once if it recurs. 02/28/2024 Sleep apnea, unspecified (ICD-10 - G47.30) His sleep study done in January 2023 shows severe obstructive sleep apnea. He is using his CPAP machine now. 02/28/2024 Type 2 diabetes mellitus without complication, without long-term current use of insulin (ICD-10 - E11.9) His fasting glucoses are 150. He is diet controlled. He has lost 11 pounds since his last visit. Plan Of Treatment Medication Medication Name Sig Start Date Stop Date Notes amLODIPine Besylate 10 MG TAKE 1 TABLET BY MOUTH EVERY DAY Pending Test Test Name Order Date PROFILE, FASTING (COMPREHENSIVE METABOLI C) 02/28/2024 PSA, TOTAL 02/28/2024 CBC w DIFF 02/28/2024 Lipid Panel 02/28/2024 Referrals Referral Date Details 02/28/2024 02/28/2024, history of carcinoma of prostate evaluate and treatment, (Ramses Nicole Next Appt Details Follow Up: 3 Months, Reason: ov review labs Provider Name:Omar Richter, 05/22/2024 03:45:00 PM, [address] [facility] [address], [place], [address], Provider Name:Omar Richter, 03/03/2025 11:00:00 AM, [address] [facility] [address], [place], [address], Progress Notes * Leland ZHUDOB:1965 (4 0 yo M)Acc No.[id number]:02/28/2024 Progress Notes Patient:?Leland Zhu Provider:?Omar Richter MD :1965???Age:58 Y???Sex:Male Misael e:02/28/2024 Address:[address] [place] [address] [id number] Subjective: * Chief Complaints: * ???Annual Exam * HPI: ???Depression Screening:? He returns to see age of 58 for his annual physical examination. He says that he feels healthy and well. He has been compliant with all of his medication. He is attempting to lose weight and exercise regularly and consume a healthy diet. His umbilical hernia is free of symptoms. The arthritic discomfort in his knees is present but moderate. His blood pressure was stable today. He rises from sleep once a night to urinate. His blood work was discussed with him in detail. He has a detectable PSA of 0.17 at this time. ?PHQ-9?Little interest or pleasure in doing things?Not at all ?Feeling down, depressed, or hopeless?Not at all ?Trouble falling or staying asleep, or sleeping too much?Not at all ?Feeling tired or having little energy?Not at all ?Poor appetite or overeating?Not at all ?Feeling bad about yourself or that you are a failure, or have let yourself or your family down?Not at all ?Trouble concentrating on things, such as reading the newspaper or watching television?Not at all ?Moving or speaking so slowly that other people could have noticed; or the opposite, being so fidgety or restless that you have been moving around a lot more than usual?Not at all ?Thoughts that you would be better off or of hurting yourself in some way?Not at all ?Total Score?0 ???COVID-19 Screening:?Questions?Have you experienced fever, chills, cough, sore throat, shortness of breath, difficulty breathing, muscle aches, loss of taste or smell??No ?Have you been exposed to the virus within the last 10 days??No ?Have you travelled internationally in the last 10 days??No ?Have you been exposed to COVID-19 in the past??No ???SDOH Questions:?SDOH Questions?In the past year have you been worried about losing your housing??No ?In the past year have you or any family members you live with been unable to get any of the following when it was really needed? Check all that apply:?None * ROS:?General/Constitutional:?pain?only normal aches and pains.?Chills?denies.?Fatigue?admits.?Fever?denies.?ENT:?Decreased hearing?denies.?Respiratory:?Cough?denies.?Cardiovascular:?Chest pain with exertion?denies.?Dyspnea on exertion?denies.?Shortness of breath?denies.?Gastrointestinal:?Constipation?occasional.?Decreased appetite?denies.?Diarrhea?denies.?Heartburn?denies.?Nausea?denies.?Rectal bleeding?denies.?Vomiting?denies.?Hematology:?bruising?denies.?petechiae?denies.?Swollen glands?none have been noted.?Genitourinary:?Frequent urination?once a night.?Musculoskeletal:?Muscle aches?denies.?Painful joints?denies.?Sciatica?denies.?Weakness?denies.?Skin:?Itching?denies.?Rash?denies.?Skin lesion(s)?denies.?Neurologic:?Difficulty speaking?denies.?Dizziness?denies.?Headache?denies.?Low back pain?denies.?Psychiatric:?Depressed mood?denies.? * Medical History:? * Surgical History:?Laparascop ic radical prostatectomy, bilateral pelvic lymph node disection, urethral suspension suture, bilateral nerve-sparing [id number] biopsy [id number] skin CA removal 2018 * Hospitalization/Major Diagno stic Procedure:?Denies Past Hospitalization * Family History:?Father: dece ased 42 yrs, automoble accident.?Mother: alive 80 yrs.?Spouse: alive 41 yrs.?2 brother(s) - healthy. 3 daughter(s) - healthy. .? 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 He was born in [place] and has several children. He is bilingual. * Medications:?TakingamLODIPin e Besylate 10 MG Tablet TAKE 1 TABLET BY MOUTH EVERY DAY Medication List reviewed and reconciled with the patientTaking amLODIPine Besylate 10 MG Tablet TAKE 1 TABLET BY MOUTH EVERY DAY Medication List reviewed and reconciled with the patient * Allergies:?No Known Drug All ergyno[Allergies Verified] Objective: * Vitals:?Ht: 68, Wt: 201, BMI :30.56, BP: 135/79, HR: 86, Wt-k.17. * ???Past Orders: Lab:Lipid Panel * Order Date 02/17/2024 09/16/2023 03/17/2023 Triglycerides 51 (Ref Range: <150 mg/dL) 45 (Ref Range: <150 mg/dL) 61 (Ref Range: <150 mg/dL) Cholesterol 124 (Ref Range: <200 mg/dL) 128 (Ref Range: <200 mg/dL) 120 (Ref Range: <200 mg/dL) LDL Cholesterol Calculated 85 (Ref Range: <100 mg/dL) 90 (Ref Range: <100 mg/dL) 80 (Ref Range: <100 mg/dL) HDL Cholesterol 29?L (Ref Range: >40 mg/dL) 29?L (Ref Range: >40 mg/dL) 28?L (Ref Range: >40 mg/dL) * Lab:Comprehensive [place]. Pane l Fast * Order Date 02/17/2024 03/20/2023 05/25/2022 Sodium 140 (Ref Range: 135-145 mmol/L) 142 (Ref Range: 135-145 mmol/L) 142 (Ref Range: 135-145 mmol/L) Bilirubin Total 0.6 (Ref Range: 0.0-1.0 mg/dL) 0.6 (Ref Range: 0.0-1.0 mg/dL) 0.3 (Ref Range: 0.0-1.0 mg/dL) Aspartate Amino Transferase 9 (Ref Range: 5-37 U/L) 13 (Ref Range: 5-37 U/L) 11 (Ref Range: 5-37 U/L) Alanine Aminotransferase 19 (Ref Range: 0-40 U/L) 28 (Ref Range: 0-40 U/L) 25 (Ref Range: 0-40 U/L) Total Protein 6.5 (Ref Range: 6.5-8.0 g/dL) 6.6 (Ref Range: 6.5-8.0 g/dL) 6.5 (Ref Range: 6.5-8.0 g/dL) Albumin Level 4.1 (Ref Range: 3.5-5.0 g/dL) 4.2 (Ref Range: 3.5-5.0 g/dL) 4.2 (Ref Range: 3.5-5.0 g/dL) Alkaline Phosphatase 64 (Ref Range: 39-117 U/L) 68 (Ref Range: 39-117 U/L) 67 (Ref Range: 39-117 U/L) Potassium 4.2 (Ref Range: 3.3-5.1 mmol/L) 4.1 (Ref Range: 3.3-5.1 mmol/L) 4.6 (Ref Range: 3.3-5.1 mmol/L) Chloride 108 (Ref Range: 96-108 mmol/L) 108 (Ref Range: 96-108 mmol/L) 108 (Ref Range: 96-108 mmol/L) Carbon Dioxide 25 (Ref Range: 22-29 mmol/L) 26 (Ref Range: 22-29 mmol/L) 26 (Ref Range: 22-29 mmol/L) Anion Gap 11?L (Ref Range: 12-20) 12 (Ref Range: 12-20) 13 (Ref Range: 12-20) Blood Urea Nitrogen 18?H (Ref Range: 9-16 mg/dL) 13 (Ref Range: 9-16 mg/dL) 19?H (Ref Range: 9-16 mg/dL) Creatinine 0.80 (Ref Range: 0.5-1.4 mg/dL) 0.74 (Ref Range: 0.5-1.4 mg/dL) 0.78 (Ref Range: 0.5-1.4 mg/dL) Estimated Glomerular Filt Rate > 60 > 60 > 60 Glucose Fasting 151?H (Ref Range: 60-99 mg/dL) 150?H (Ref Range: 60-99 mg/dL) 141?H (Ref Range: 60-99 mg/dL) Calcium 9.1 (Ref Range: 8.4-10.2 mg/dL) 8.9 (Ref Range: 8.4-10.2 mg/dL) 9.0 (Ref Range: 8.4-10.2 mg/dL) * Lab:Complete Blood Count Aut o Diff * Order Date 02/17/2024 09/16/2023 03/20/2023 White Blood Count 7.4 (Ref Range: 4.8-10.8 X10*3/uL) 7.9 (Ref Range: 4.8-10.8 X10*3/uL) 6.6 (Ref Range: 4.8-10.8 X10*3/uL) Red Blood Count 5.14 (Ref Range: 4.60-5.80 X10*6/uL) 5.10 (Ref Range: 4.60-5.80 X10*6/uL) 5.17 (Ref Range: 4.60-5.80 X10*6/uL) Hemoglobin 15.1 (Ref Range: 14.0-18.0 g/dl) 14.6 (Ref Range: 14.0-18.0 g/dl) 14.9 (Ref Range: 14.0-18.0 g/dl) Hematocrit 45.5 (Ref Range: 42.0-52.0 %) 45.1 (Ref Range: 42.0-52.0 %) 45.1 (Ref Range: 42.0-52.0 %) Mean Corpuscular Volume 88.5 (Ref Range: 80.0-98.0 fL) 88.4 (Ref Range: 80.0-98.0 fL) 87.2 (Ref Range: 80.0-98.0 fL) Mean Corpuscular Hemoglobin 29.4 (Ref Range: 27.0-33.0 pg) 28.6 (Ref Range: 27.0-33.0 pg) 28.8 (Ref Range: 27.0-33.0 pg) Mean Corpuscular HGB Conc 33.2 (Ref Range: 31.0-36.0 g/dl) 32.4 (Ref Range: 31.0-36.0 g/dl) 33.0 (Ref Range: 31.0-36.0 g/dl) Red Cell Distribution Width 12.4 (Ref Range: 11.0-16.0 %) 12.8 (Ref Range: 11.0-16.0 %) 12.6 (Ref Range: 11.0-16.0 %) Platelet Count 240 (Ref Range: 160-400 X10*3/uL) 259 (Ref Range: 160-400 X10*3/uL) 267 (Ref Range: 160-400 X10*3/uL) Mean Platelet Volume 10.9 (Ref Range: 9.4-12.4 fL) 10.9 (Ref Range: 9.4-12.4 fL) 10.6 (Ref Range: 9.4-12.4 fL) Neutrophils Percent Auto 62.4 (Ref Range: 45-73 %) 58.6 (Ref Range: 45-73 %) 55.4 (Ref Range: 45-73 %) Imm Gran Pct Auto 0.3 (Ref Range: 0.0-0.4 %) 0.5?H (Ref Range: 0.0-0.4 %) 0.3 (Ref Range: 0.0-0.4 %) Lymphocytes Percent Auto 24.1 (Ref Range: 20-40 %) 25.8 (Ref Range: 20-40 %) 28.1 (Ref Range: 20-40 %) Monocytes Percent Auto 11.1?H (Ref Range: 2-11 %) 12.5?H (Ref Range: 2-11 %) 13.7?H (Ref Range: 2-11 %) Eosinophils Percent Auto 1.6 (Ref Range: 0-4 %) 1.7 (Ref Range: 0-4 %) 1.7 (Ref Range: 0-4 %) Basophils Percent Auto 0.5 (Ref Range: 0-2 %) 0.9 (Ref Range: 0-2 %) 0.8 (Ref Range: 0-2 %) NRBC Pct Auto 0.0 (Ref Range: 0.0-0.2 /100WBC) 0.0 (Ref Range: 0.0-0.2 /100WBC) 0.0 (Ref Range: 0.0-0.2 /100WBC) Neutrophils Absolute Auto 4.6 (Ref Range: 2.0-8.3 x10*3/uL) 4.6 (Ref Range: 2.0-8.3 x10*3/uL) 3.7 (Ref Range: 2.0-8.3 x10*3/uL) Imm Gran Abs Auto 0.02 (Ref Range: 0.00-0.03 X10*3/uL) 0.04?H (Ref Range: 0.00-0.03 X10*3/uL) 0.02 (Ref Range: 0.00-0.03 X10*3/uL) Lymphocytes Absolute Auto 1.8 (Ref Range: 1.2-4.9 X10*3/uL) 2.0 (Ref Range: 1.2-4.9 X10*3/uL) 1.9 (Ref Range: 1.2-4.9 X10*3/uL) Monocytes Absolute Auto 0.8 (Ref Range: 0.1-1.2 X10*3/uL) 1.0 (Ref Range: 0.1-1.2 X10*3/uL) 0.9 (Ref Range: 0.1-1.2 X10*3/uL) Eosinophils Absolute Auto 0.1 (Ref Range: 0.0-0.4 X10*3/uL) 0.1 (Ref Range: 0.0-0.4 X10*3/uL) 0.1 (Ref Range: 0.0-0.4 X10*3/uL) Basophils Absolute Auto 0.0 (Ref Range: 0.0-0.2 X10*3/uL) 0.1 (Ref Range: 0.0-0.2 X10*3/uL) 0.1 (Ref Range: 0.0-0.2 X10*3/uL) NRBC Abs Auto 0.000 (Ref Range: 0.0-0.012 X10*3/uL) 0.000 (Ref Range: 0.0-0.012 X10*3/uL) 0.000 (Ref Range: 0.0-0.012 X10*3/uL) * Lab:Prostate Specific Antige n * Order Date 02/17/2024 09/16/2023 03/20/2023 Prostate Specific Antigen 0.17 (Ref Range: <0.05-4.0 ng/mL) 0.15 (Ref Range: <0.05-4.0 ng/mL) 0.15 (Ref Range: <0.05-4.0 ng/mL) * Lab:URINE DIP STICK * Order Date 02/28/2024 12/09/2022 11/30/2021 Result: Normal [...] NEG Menstrating NR N/A N/A * Examination: ???General Examination: ?GENERAL APPEARANCE:?pleasant, well nourished, well developed, in no acute distress, calm and relaxed , obese , man.?HEAD:?atraumatic, normocephalic.?EYES:?eomi, perrla, anicteric, conjugate.?EARS:?normal.?NOSE:?septum intact.?ORAL CAVITY:?normal, unremarkable.?NECK/THYROID:?no jugular venous distention, no carotid bruit, thyroid normal.?LYMPH NODES:?no enlarged lymph nodes,spleen normal.?SKIN:?no suspicious lesions, anicteric.?HEART:?no clicks, gallops, murmurs, or rubs, regular rhythm, S1, S2 normal, no s3, or vascular bruits.?LUNGS:?clear to auscultation .?BREASTS:??no masses palpable bilaterally.?ABDOMEN:?bowel sounds normal, no ascites, no organomegaly, no mass.?RECTAL EXAM:?Deferred to urology.?MUSCULOSKELETAL:?extremities unremarkable, no clubbing, cyanosis or edema.?PERIPHERAL PULSES:?normal.?NEUROLOGIC:?alert and oriented, cranial nerves 2-12 grossly intact, deep tendon reflexes 2+ symmetrical, motor strength normal upper and lower extremities, sensory exam intact.?PSYCH:?alert, oriented.? Assessment: * Assessment: 1.?Carcinoma of prostate - C 61, His PSA is detectable at 0.17 whereas it was 0.15 the previous 2 determinations. He is asymptomatic. The is overdue to see urology and was referred back for management.?2.?Hypertension - I10, His blood pressure is currently stable. His medication was continued. He was advised to lose weight aggressively and restrict sodium intake.?3.?Hyperlipidemia, unspecified hyperlipidemia type - E78.5, His lipids are currently stable. No change in his regimen as needed. I recommended aggressive weight loss.?4.?BPH (benign prostatic hyperplasia) - N40.0, We have discussed modifications to his lifestyle to reduce nocturnal urinating.?5.?Obesity (BMI 30.0-34.9) - E66.9, He has lost 11 pounds her diet and exercise. His body mass index is now 30.56. His fasting glucose was 150.?6.?Osteoarthritis of both knees - M17.0, The discomfort in the knees is unchanged but is a minor problem to him now and will be followed. 7.?Back pain, unspecified back location, unspecified back pain laterality, unspecified chronicity - M54.9, His back pain is mostly resolved at this time. He is avoiding heavy exertion and lifting. He will notify me at once if it recurs.?8.?Sleep apnea, unspecified - G47.30, His sleep study done in January 2023 shows severe obstructive sleep apnea. He is using his CPAP machine now. 9.?Type 2 diabetes mellitus without complication, without long-term current use of insulin - E11.9, His fasting glucoses are 150. He is diet controlled. He has lost 11 pounds since his last visit.? Plan: * Treatment: 2.?Hypertension?LAB: PROFILE, FASTING (COMPREHENSIVE METABOLIC) ?LAB: PSA, TOTAL ?LAB: CBC w DIFF ?LAB: Lipid Panel 3.?Hyperlipidemia, unspecifi ed hyperlipidemia type?LAB: PROFILE, FASTING (COMPREHENSIVE METABOLIC) ?LAB: PSA, TOTAL ?LAB: CBC w DIFF ?LAB: Lipid Panel 4.?BPH (benign prostatic hyp erplasia)?LAB: PROFILE, FASTING (COMPREHENSIVE METABOLIC) ?LAB: PSA, TOTAL ?LAB: CBC w DIFF ?LAB: Lipid Panel 5.?Obesity (BMI 30.0-34.9)?LAB: PROFILE, FASTING (COMPREHENSIVE METABOLIC) ?LAB: PSA, TOTAL ?LAB: CBC w DIFF ?LAB: Lipid Panel 6.?Others? Continue amLODIPine Besylate Tablet, 10 MG, TAKE 1 TABLET BY MOUTH EVERY DAY.?? * Labs:? * ?Lab: URINE DIP STICK ? Value Reference Range ?SG 1.020 1.005 - 1.025 * ?pH 5.0 5.0 - 9.0 * ?JULIA Negative Negative - * ?NIT Negative Negative - * ?PRO 15 Negative - Trac e * ?GLU Negative Negative - * ?KET Negative Negative - * ?UBG 0.2 0.1 - 1.8 * ?JER Negative 0.2 - 1.3 * ?BLD Negative Negative - * Procedure Codes:?50839 URINE -NO MICRO * Preventive Medicine:? ??Counseling:?Care goal follow-up plan:?Counseling for abnormal BMI given?Yes ?Above Normal BMI Follow-up?Dietary management education, guidance, and counseling, Dietary needs education, Exercise promotion: strength training, Exercise promotion: stretching, Feeding regime, Giving encouragement to exercise, Lifestyle education regarding diet, Nutrition / feeding management, Nutrition therapy, Prescribed activity/exercise education, Prescribed diet education, Prescribed dietary intake, Special diet education, Weight monitoring , Intervention, Order not done: Medical or Other reason not done * Follow Up:?3 Months (Reason: ov review labs) * Images: * Sign off status: Completed true * Provider:?Omar Richter MD Date:?02/10 Generated for Shani finn/Robert/eTransmitting on:?05/22/2024 11:36 AM EST History and Physical Notes * HPI (History of Present Illness) Category Sub-Category Detail Notes Depression Screening PHQ-9 Little inte rest or pleasure in doing things: Not at all Feeling down, depressed, or hopeless: No t at all Trouble falling or staying asleep, or sl eeping too much: Not at all Feeling tired or having little energy: N ot at all Poor appetite or overeating: Not at all Feeling bad about yourself o r that you are a failure, or have let yourself or your family down: Not at all Trouble concentrating on thi ngs, such as reading the newspaper or watching television: Not at all Moving or speaking so slowly that other people could have noticed; or the opposite, being so fidgety or restless that you have been moving around a lot more than usual: Not at all Thoughts that you would be b [place] off or of hurting yourself in some way: Not at all Total Score: 0 COVID-19 Screening Questions Have you expe rienced fever, chills, cough, sore throat, shortness of breath, difficulty breathing, muscle aches, loss of taste or smell?: No Have you been exposed to the virus withi n the last 10 days?: No Have you travelled internationally in [facility] last 10 days?: No Have you been exposed to COVID-19 in the past?: No SDOH Questions SDOH Questions In the past year have you been worried about losing your housing?: No In the past year have you or any family members you live with been unable to get any of the following when it was really needed? Check all that apply:: None Examination Category Sub-Category Detail Notes General Examination GENERAL APPEARANCE: pleasant , well nourished, well developed, in no acute distress, calm and relaxed , obese , man HEAD: atraumatic, normocep halic EYES: eomi, perrla, anicte haven, conjugate EARS: normal NOSE: septum intact NECK/THYROID: no jugular venous di stention, no carotid bruit, thyroid normal HEART: no clicks, gallops, murmurs, or rubs, regular rhythm, S1, S2 normal, no s3, or vascular bruits LUNGS: clear to auscultatio n ABDOMEN: bowel sounds normal, no ascites, no organomegaly, no mass NEUROLOGIC: alert and oriented, cranial nerves 2-12 grossly intact, deep tendon reflexes 2+ symmetrical, motor strength normal upper and lower extremities, sensory exam intact SKIN: no suspicious lesion s, anicteric PERIPHERAL PULSES: normal BREASTS: no masses palpable b ilaterally MUSCULOSKELETAL: extremities unremark able, no clubbing, cyanosis or edema LYMPH NODES: no enlarged lymph no adina,spleen normal RECTAL EXAM: Deferred to urology PSYCH: alert, oriented ORAL CAVITY: normal, unremarkable Consultation Request Notes Referral Date Referring Provider Referred Provider Not 02/28/2024 Omar Richter Alexander , ([place]) history of carcinoma of prostate evaluate and treatment
--- OUTSIDE RECORDS SUMMARY | 2024-05-22 11:37 | XMS_ITS ---
Author Organization Omar Richter III, MD Address [address] [place] [address] Care Team Providers Care Shipboard Intelligence Analyst Name Role Phone Omar Richter Primary Care Provider REASON FOR VISIT Annual Exam Social History Sex Assigned At : Social History Observation Description Sex Assigned At Male Encounters Encounter Location Date Provider Diagnosis Omar Richter III, MD [address] [place] [address] [place] [address] 12/12/2023 Omar Richter Plan Of Treatment Next Appt Details Provider Name:Omar Richter, 05/22/2024 03:45:00 PM, [address] [facility] [place], [address], Provider Name:Omar Richter, 03/03/2025 11:00:00 AM, [address] [facility] [place], [address], Progress Notes * [place] ZHUDOB:1965 (4 0 yo M)Acc No.[id number]:12/12/2023 Progress Notes Patient:Leland BLUE Provider:?Omar Richter MD :1965???Age:58 Y???Sex:Male Misael e:12/12/2023 [facility] [id number] Subjective: * Chief Complaints: * ???1. Annual Exam. * Medical History:? Objective: * Vitals:? Assessment: Plan: * Treatment: * Images: * The named appointment provid er may or may not be the originator of this progress note, and it is not deemed complete until electronically signed by the appointment provider. Sign off status: Pending * Provider:?Omar Richter MD Date:?07/2023 Generated for Shani finn/Robert/Luis Danielitting on:?05/22/2024 11:36 AM EST
--- OUTSIDE RECORDS SUMMARY | 2024-05-22 11:37 | XMS_ITS ---
Author Organization Omar Richter III, MD Address [address] [place] [address] [place] [address] Care Team Providers Care Fire Officer Name Role Phone Omar Richter Primary Care Provider Allergies Allergen (clinical drug ingredient) Drug/Non Drug Allergy documented on EMR Reaction Allergy Type Onset Date Status No Known Drug Allergy Unknown Drug Allergy Active REASON FOR VISIT Prostate cancer, Low back pain, Umbilical hernia, Arthritis both knees, Hypertension, Hyperlipidemia, Diabetes, Sleep apnea Medications Medication SIG (Take, Route, Frequency, Duration) [...] Tobacco Non-User Aggressive non-smoker Vital Signs Temperature 99.6 degrees Fahrenheit 09/25/19 24 Blood pressure systolic 134 mm Hg 09/25/19 24 Blood pressure diastolic 80 mm Hg 024 Heart Rate 68 /min 09/25/2023 Height 68 in 09/25/2023 Weight 212 lbs 09/25/2023 BMI 32.23 kg/m2 09/25/2023 Encounters Encounter Location Date Provider Diagnosis Omar Richter III, MD [address] [place] [address] [place] [address] 09/25/2023 Omar Richter Hyperlipidemia, unspecified hyperlipidemia type E78.5 ; BPH (benign prostatic hyperplasia) N40.0 ; Obesity (BMI 30.0-34.9) E66.9 ; Back pain, unspecified back location, unspecified back pain laterality, unspecified chronicity M54.9 ; Hypertension I10 ; Carcinoma of prostate C61 ; Osteoarthritis of both knees M17.0 ; Sleep apnea, unspecified G47.30 and 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 The total cholesterol is low at 128. We recommended aggressive weight loss and consumption off a healthy low-fat diet. 09/25/2023 BPH (benign prostati c hyperplasia) (ICD-10 - N40.0) He rises vishnu sleep once or twice a night to urinate. He has had no hematuria or pain. We have discussed lifestyle modification as a way to reduce nocturia. 09/25/2023 Obesity (BMI 30.0-34.9) (ICD-10 - E66.9) We have formulated the weight reduction plan that will lose weight at a rate of one half of a pound per week. 09/25/2023 Back pain, unspecified back location, unspecified back pain laterality, unspecified chronicity (ICD-10 - M54.9) His back pain is mostly resolved at this time. He is avoiding heavy exertion and lifting. He will notify me at once if it recurs. 09/25/2023 Hypertension (ICD-10 - I10) His blood pressure is currently in the normal range At 130/70 and no change in his regimen was needed. I recommended weight loss and sodium restriction. 09/25/2023 Carcinoma of prostat e (ICD-10 - C61) His PSA has been low. It will be repeated in the next few days and we will discuss it. There was no sign of progressive disease on today's examination. 09/25/2023 Osteoarthritis of both knees (ICD-10 - M17.0) The discomfort in the knees is unchanged but is a minor problem to him now and will be followed. 09/25/2023 Sleep apnea, unspecified (ICD-10 - G47.30) His sleep study done in January 2023 shows severe obstructive sleep apnea. He is using his CPAP machine now. 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 We discussed weight loss as a way to control diabetes. No change in his medications was needed. Plan Of Treatment Medication Medication Name Sig Start Date Stop Date Notes amLODIPine Besylate 10 MG TAKE 1 TABLET BY MOUTH EVERY DAY Pending Test Test Name Order Date PROFILE, FASTING (COMPREHENSIVE METABOLI C) 09/25/2023 PSA, TOTAL 09/25/2023 CBC WITH AUTO DIFF 09/25/2023 Lipid Panel 09/25/2023 Next Appt Details Follow Up: 3 Months, Reason: As Scheduled Provider Name:Omar Richter, 05/22/2024 03:45:00 PM, [address] [place] [address] [address], [place], [id number], Provider Name:Omar Richter, 03/03/2025 11:00:00 AM, [address] [place] [address] [address], [place], [id number], Progress Notes * Leland ZHUDOB:1965 ([age] yo M)Acc No.[id number]:09/25/2023 Progress Notes Patient:?Leland Zhu Provider:?Omar Richter MD :1965???Age:57 Y???Sex:Male Misael e:09/25/2023 [id number] Subjective: * Chief Complaints: * ???Prostate cancerLow back p ainUmbilical herniaArthritis both kneesHypertensionHyperlipidemiaDiabetesSleep apnea * HPI: ???COVID-19 Screening:? He returns to the office for ongoing surveillance of multiple medical problems. His blood work was reviewed with him. It was stable. His PSA is unchanged and low. His back pain is stable. He is able to complete all of the activitties of daily life despite knee pain. His diabetes has been stable. He is using his CPAP every night. He no longer has daytime somnolence. ?Questions?Have you experienced fever, chills, cough, sore throat, shortness of breath, difficulty breathing, muscle aches, loss of taste or smell??No ?Have you been exposed to the virus within the last 10 days??No ?Have you travelled internationally in the last 10 days??No ?Have you been exposed to COVID-19 in the past??No * ROS:?General/Constitutional:?pain?Low back in both knees.?Chills?denies.?Fatigue?admits.?Fever?denies.?ENT:?Decreased hearing?denies.?Respiratory:?Cough?denies.?Cardiovascular:?Chest pain with exertion?denies.?Dyspnea on exertion?denies.?Shortness of breath?denies.?Gastrointestinal:?Constipation?occasional.?Decreased appetite?denies.?Diarrhea?denies.?Heartburn?denies.?Nausea?denies.?Rectal bleeding?denies.?Vomiting?denies.?Hematology:?bruising?denies.?petechiae?denies.?Swollen glands?none have been noted.?Genitourinary:?Frequent urination?once a night.?Musculoskeletal:?Muscle aches?denies.?Painful joints?denies.?Sciatica?denies.?Weakness?denies.?Skin:?Itching?denies.?Rash?denies.?Skin lesion(s)?denies.?Neurologic:?Difficulty speaking?denies.?Dizziness?denies.?Headache?denies.?Low back pain?that is chronic.?Psychiatric:?Depressed mood?denies.? * Medical History:? * Surgical History:?Laparascop ic radical prostatectomy, bilateral pelvic lymph node disection, urethral suspension suture, bilateral nerve-sparing [id number] biopsy [id number] skin CA removal 2018 * Hospitalization/Major Diagno stic Procedure:?Denies Past Hospitalization * Family History:?Father: dece ased 42 yrs, automoble accident.?Mother: alive 80 yrs.?Spouse: alive 41 yrs.?2 brother(s) - healthy. 3 daughter(s) - healthy. .? * Social History:?Tobacco Use:?Tobacco Use/Smoking?Patient is a?nonsmoker ?Additional Findings: Tobacco Non-User?Aggressive non-smoker ???This He is and has worked in [employer] at [employer] for 26 years.. He was born in [place] and has several children. He is bilingual. * Medications:?TakingamLODIPin e Besylate 10 MG Tablet TAKE 1 TABLET BY MOUTH EVERY DAY Taking amLODIPine Besylate 10 MG Tablet TAKE 1 TABLET BY MOUTH EVERY DAY DiscontinuedamLODIPine Besylate 5.0 Milligram Tablet TAKE 1 TABLET BY MOUTH EVERY DAY Medication List reviewed and reconciled with the patientDiscontinued amLODIPine Besylate 5.0 Milligram Tablet TAKE 1 TABLET BY MOUTH EVERY DAY Medication List reviewed and reconciled with the patient * Allergies:?No Known Drug All ergyno[Allergies Verified] Objective: * Vitals:?Ht: 68, Wt:212, BMI: 32.23, BP: 134/80, HR:68, Temp:99.6. * ???Past Orders: Lab:Prostate Specific Antige n * Order Date 09/16/2023 03/20/2023 12/10/2022 Prostate Specific Antigen 0.15 (Ref Range: <0.05-4.0 ng/mL) 0.15 (Ref Range: <0.05-4.0 ng/mL) 0.11 (Ref Range: <0.05-4.0 ng/mL) * Lab:Lipid Panel * Order Date 09/16/2023 03/17/2023 09/27/2022 Triglycerides 45 (Ref Range: <150 mg/dL) 61 (Ref Range: <150 mg/dL) 78 (Ref Range: mg/dL) Cholesterol 128 (Ref Range: <200 mg/dL) 120 (Ref Range: <200 mg/dL) 138 (Ref Range: mg/dL) LDL Cholesterol Calculated 90 (Ref Range: <100 mg/dL) 80 (Ref Range: <100 mg/dL) 94 (Ref Range: mg/dl) HDL Cholesterol 29?L (Ref Range: >40 mg/dL) 28?L (Ref Range: >40 mg/dL) 29 (Ref Range: mg/dL) * Lab:Complete Blood Count Aut o Diff * Order Date 09/16/2023 03/20/2023 12/10/2022 White Blood Count 7.9 (Ref Range: 4.8-10.8 X10*3/uL) 6.6 (Ref Range: 4.8-10.8 X10*3/uL) 7.5 (Ref Range: 4.8-10.8 X10*3/uL) Red Blood Count 5.10 (Ref Range: 4.60-5.80 X10*6/uL) 5.17 (Ref Range: 4.60-5.80 X10*6/uL) 5.16 (Ref Range: 4.60-5.80 X10*6/uL) Hemoglobin 14.6 (Ref Range: 14.0-18.0 g/dl) 14.9 (Ref Range: 14.0-18.0 g/dl) 15.0 (Ref Range: 14.0-18.0 g/dl) Hematocrit 45.1 (Ref Range: 42.0-52.0 %) 45.1 (Ref Range: 42.0-52.0 %) 45.0 (Ref Range: 42.0-52.0 %) Mean Corpuscular Volume 88.4 (Ref Range: 80.0-98.0 fL) 87.2 (Ref Range: 80.0-98.0 fL) 87.2 (Ref Range: 80.0-98.0 fL) Mean Corpuscular Hemoglobin 28.6 (Ref Range: 27.0-33.0 pg) 28.8 (Ref Range: 27.0-33.0 pg) 29.1 (Ref Range: 27.0-33.0 pg) Mean Corpuscular HGB Conc 32.4 (Ref Range: 31.0-36.0 g/dl) 33.0 (Ref Range: 31.0-36.0 g/dl) 33.3 (Ref Range: 31.0-36.0 g/dl) Red Cell Distribution Width 12.8 (Ref Range: 11.0-16.0 %) 12.6 (Ref Range: 11.0-16.0 %) 12.5 (Ref Range: 11.0-16.0 %) Platelet Count 259 (Ref Range: 160-400 X10*3/uL) 267 (Ref Range: 160-400 X10*3/uL) 267 (Ref Range: 160-400 X10*3/uL) Mean Platelet Volume 10.9 (Ref Range: 9.4-12.4 fL) 10.6 (Ref Range: 9.4-12.4 fL) 11.4 (Ref Range: 9.4-12.4 fL) Neutrophils Percent Auto 58.6 (Ref Range: 45-73 %) 55.4 (Ref Range: 45-73 %) 57.5 (Ref Range: 45-73 %) Imm Gran Pct Auto 0.5?H (Ref Range: 0.0-0.4 %) 0.3 (Ref Range: 0.0-0.4 %) 0.1 (Ref Range: 0.0-0.4 %) Lymphocytes Percent Auto 25.8 (Ref Range: 20-40 %) 28.1 (Ref Range: 20-40 %) 26.0 (Ref Range: 20-40 %) Monocytes Percent Auto 12.5?H (Ref Range: 2-11 %) 13.7?H (Ref Range: 2-11 %) 13.4?H (Ref Range: 2-11 %) Eosinophils Percent Auto 1.7 (Ref Range: 0-4 %) 1.7 (Ref Range: 0-4 %) 2.1 (Ref Range: 0-4 %) Basophils Percent Auto 0.9 (Ref Range: 0-2 %) 0.8 (Ref Range: 0-2 %) 0.9 (Ref Range: 0-2 %) NRBC Pct Auto 0.0 (Ref Range: 0.0-0.2 /100WBC) 0.0 (Ref Range: 0.0-0.2 /100WBC) 0.0 (Ref Range: 0.0-0.2 /100WBC) Neutrophils Absolute Auto 4.6 (Ref Range: 2.0-8.3 x10*3/uL) 3.7 (Ref Range: 2.0-8.3 x10*3/uL) 4.3 (Ref Range: 2.0-8.3 x10*3/uL) Imm Gran Abs Auto 0.04?H (Ref Range: 0.00-0.03 X10*3/uL) 0.02 (Ref Range: 0.00-0.03 X10*3/uL) 0.01 (Ref Range: 0.00-0.03 X10*3/uL) Lymphocytes Absolute Auto 2.0 (Ref Range: 1.2-4.9 X10*3/uL) 1.9 (Ref Range: 1.2-4.9 X10*3/uL) 1.9 (Ref Range: 1.2-4.9 X10*3/uL) Monocytes Absolute Auto 1.0 (Ref Range: 0.1-1.2 X10*3/uL) 0.9 (Ref Range: 0.1-1.2 X10*3/uL) 1.0 (Ref Range: 0.1-1.2 X10*3/uL) Eosinophils Absolute Auto 0.1 (Ref Range: 0.0-0.4 X10*3/uL) 0.1 (Ref Range: 0.0-0.4 X10*3/uL) 0.2 (Ref Range: 0.0-0.4 X10*3/uL) Basophils Absolute Auto 0.1 (Ref Range: 0.0-0.2 X10*3/uL) 0.1 (Ref Range: 0.0-0.2 X10*3/uL) 0.1 (Ref Range: 0.0-0.2 X10*3/uL) NRBC Abs Auto 0.000 (Ref Range: 0.0-0.012 X10*3/uL) 0.000 (Ref Range: 0.0-0.012 X10*3/uL) 0.000 (Ref Range: 0.0-0.012 X10*3/uL) * Lab:Comprehensive Met. Panel * Order Date 09/16/2023 12/10/2022 09/27/2022 Sodium 140 (Ref Range: 135-145 mmol/L) 142 (Ref Range: 135-145 mmol/L) 141 (Ref Range: 135-145 mmol/L) Bilirubin Total 0.7 (Ref Range: 0.0-1.0 mg/dL) 0.9 (Ref Range: 0.0-1.0 mg/dL) 0.8 (Ref Range: 0.0-1.0 mg/dL) Aspartate Amino Transferase 11 (Ref Range: 5-37 U/L) 13 (Ref Range: 5-37 U/L) 10 (Ref Range: 5-37 U/L) Alanine Aminotransferase 25 (Ref Range: 0-40 U/L) 29 (Ref Range: 0-40 U/L) 26 (Ref Range: 0-40 U/L) Total Protein 6.5 (Ref Range: 6.5-8.0 g/dL) 6.8 (Ref Range: 6.5-8.0 g/dL) 6.2?L (Ref Range: 6.5-8.0 g/dL) Albumin Level 4.0 (Ref Range: 3.5-5.0 g/dL) 4.1 (Ref Range: 3.5-5.0 g/dL) 4.1 (Ref Range: 3.5-5.0 g/dL) Alkaline Phosphatase 70 (Ref Range: 39-117 U/L) 72 (Ref Range: 39-117 U/L) 64 (Ref Range: 39-117 U/L) Potassium 3.9 (Ref Range: 3.3-5.1 mmol/L) 3.9 (Ref Range: 3.3-5.1 mmol/L) 3.9 (Ref Range: 3.3-5.1 mmol/L) Chloride 108 (Ref Range: 96-108 mmol/L) 109?H (Ref Range: 96-108 mmol/L) 106 (Ref Range: 96-108 mmol/L) Carbon Dioxide 25 (Ref Range: 22-29 mmol/L) 25 (Ref Range: 22-29 mmol/L) 28 (Ref Range: 22-29 mmol/L) Anion Gap 11?L (Ref Range: 12-20) 12 (Ref Range: 12-20) 11?L (Ref Range: 12-20) Blood Urea Nitrogen 14 (Ref Range: 9-16 mg/dL) 15 (Ref Range: 9-16 mg/dL) 15 (Ref Range: 9-16 mg/dL) Creatinine 0.70 (Ref Range: 0.5-1.4 mg/dL) 0.81 (Ref Range: 0.5-1.4 mg/dL) 0.77 (Ref Range: 0.5-1.4 mg/dL) Estimated Glomerular Filt Rate > 60 > 60 > 60 Glucose Random 151?H (Ref Range: 60-115 mg/dL) 152?H (Ref Range: 60-115 mg/dL) 167?H (Ref Range: 60-115 mg/dL) Calcium 8.8 (Ref Range: 8.4-10.2 mg/dL) 9.5 (Ref Range: 8.4-10.2 mg/dL) 9.0 (Ref Range: 8.4-10.2 mg/dL) * Lab:Hemoglobin A1c * Order Date 09/16/2023 09/27/2022 05/22/2021 Hemoglobin A1c % 6.6?H (Ref Range: <6.0 %) 6.6 (Ref Range: %) 6.0 (Ref Range: %) Estimated Average Glucose 143 (Ref Range: mg/dL) 143 (Ref Range: mg/dL) 126 (Ref Range: mg/dL) * Lab:Microalbumin, Random * Order Date 09/16/2023 09/27/2022 05/22/2021 Creatinine Urine 150.28 (Ref Range: mg/dL) 131.93 (Ref Range: mg/dL) 135.54 (Ref Range: mg/dL) Microalbumin Urine 11.0 (Ref Range: mg/L) 12.0 (Ref Range: mg/L) 8.0 (Ref Range: mg/L) Microalbum Creatinine Ratio Ur 7.3 (Ref Range: <30 ug/mg cr) 9.0 (Ref Range: ug/mg cr) 5.9 (Ref Range: ug/mg cr) * Examination: ???General Examination: ?GENERAL APPEARANCE:?pleasant, well [...] normal, no ascites, no organomegaly, no mass , centripital obesity, Small umbilical hernia.?RECTAL EXAM:?not examined.?MUSCULOSKELETAL:?extremities unremarkable, no clubbing, cyanosis or edema.?PERIPHERAL PULSES:?normal.?NEUROLOGIC:?alert and oriented, cranial nerves 2-12 grossly intact, deep tendon reflexes 2+ symmetrical, motor strength normal upper and lower extremities, sensory exam intact.?PSYCH:?alert, oriented.? Assessment: * Assessment: 1.?Hyperlipidemia, unspecifi ed hyperlipidemia type - E78.5 (Primary), His lipid values are in near target range. The total cholesterol is low at 128. We recommended aggressive weight loss and consumption off a healthy low-fat diet.?2.?BPH (benign prostatic hyperplasia) - N40.0, He rises vishnu sleep once or twice a night to urinate. He has had no hematuria or pain. We have discussed lifestyle modification as a way to reduce nocturia.?3.?Obesity (BMI 30.0-34.9) - E66.9, We have formulated the weight reduction plan that will lose weight at a rate of one half of a pound per week.?4.?Back pain, unspecified back location, unspecified back pain laterality, unspecified chronicity - M54.9, His back pain is mostly resolved at this time. He is avoiding heavy exertion and lifting. He will notify me at once if it recurs.?5.?Hypertension - I10, His blood pressure is currently in the normal range At 130/70 and no change in his regimen was needed. I recommended weight loss and sodium restriction.?6.?Carcinoma of prostate - C61, His PSA has been low. It will be repeated in the next few days and we will discuss it. There was no sign of progressive disease on today's examination.?7.?Osteoarthritis of both knees - M17.0, The discomfort in the knees is unchanged but is a minor problem to him now and will be followed.?8.?Sleep apnea, unspecified - G47.30, His sleep study done in January 2023 shows severe obstructive sleep apnea. 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 We discussed weight loss as a way to control diabetes. No change in his medications was needed.? Plan: * Treatment: 2.?BPH (benign prostatic hyp erplasia)?LAB: PROFILE, FASTING (COMPREHENSIVE METABOLIC) ?LAB: PSA, TOTAL ?LAB: CBC WITH AUTO DIFF ?LAB: Lipid Panel 3.?Obesity (BMI 30.0-34.9)?LAB: PROFILE, FASTING (COMPREHENSIVE METABOLIC) ?LAB: PSA, TOTAL ?LAB: CBC WITH AUTO DIFF ?LAB: Lipid Panel * Procedure Codes:? * Preventive Medicine:? ??Counseling:?Care goal follow-up plan:?Counseling [...] done: Medical or Other reason not done ??DM Care Plan:?Patient Lifestyle Goals?Patient wants to be able to manage diabetes without too much effort.?Treatment Goals?HbA1C < 7.0, Blood Sugars less than < 115.?Barriers?no barriers.?Self-Managment Goals?Work on weight loss, with a goal of losing 1 lb per week, Increase exercise to 3 times a week for 30 mins.? * Follow Up:?3 Months (Reason: As Scheduled) * Images: * Sign off status: Completed true * Provider:?Omar Richter MD Date:?09/10 Generated for Printi ng/Robert/eTransmitting on:?05/22/2024 11:37 AM EST History and Physical Notes * HPI (History of Present Illness) Category Sub-Category Detail Notes COVID-19 Screening Questions Have you expe rienced fever, chills, cough, sore throat, shortness of breath, difficulty breathing, muscle aches, loss of taste or smell?: No Have you been exposed to the virus withi n the last 10 days?: No Have you travelled internationally in [facility] last 10 days?: No Have [...] normal, no ascites, no organomegaly, no mass , centripital obesity, Small umbilical hernia NEUROLOGIC: alert [...] normal RECTAL EXAM: not examined PSYCH: alert, oriented ORAL CAVITY: normal, unremarkable
--- OUTSIDE RECORDS SUMMARY | 2024-05-22 11:37 | XMS_ITS | Patient Health Record ---
Author Organization Omar Richter III, MD Address [address] [place] [address] Care Team Providers Care Online Marketing Strategist Name Role Phone Omar Richter Primary Care Provider [phone] Allergies Allergen (clinical drug ingredient) Drug/Non Drug [...] 0.2 - 1.3 BLD Negative Negative - Complete Blood Count Auto Di ff Reviewed date:09/16/2023 07:24:57 PM Interpretation: Performing Lab:[facility], [address] [place] [phone] Notes/Report: White Blood Count 7.9 4.8-10.8 X10*3/uL Red Blood Count 5.10 4.60-5.80 X10*6/uL Hemoglobin 14.6 14.0-18.0 g/dl Hematocrit 45.1 42.0-52.0 % Mean Corpuscular Volume 88.4 80.0-98.0 fL Mean Corpuscular Hemoglobin 28.6 27.0-33.0 pg Mean Corpuscular HGB Conc 32.4 31.0-36.0 g/dl Red Cell Distribution Width 12.8 11.0-16.0 % Platelet Count 259 160-400 X10*3/uL Mean Platelet Volume 10.9 9.4-12.4 fL Neutrophils Percent Auto 58.6 45-73 % Imm Gran Pct Auto 0.5 0.0-0.4 % Lymphocytes Percent Auto 25.8 20-40 % Monocytes Percent Auto 12.5 2-11 % Eosinophils Percent Auto 1.7 0-4 % Basophils Percent Auto 0.9 0-2 % NRBC Pct Auto 0.0 0.0-0.2 /100WBC Neutrophils Absolute Auto 4.6 2.0-8.3 x10*3/u L Imm Gran Abs Auto 0.04 0.00-0.03 X10*3/uL Lymphocytes Absolute Auto 2.0 1.2-4.9 X10*3/u L Monocytes Absolute Auto 1.0 0.1-1.2 X10*3/uL Eosinophils Absolute Auto 0.1 0.0-0.4 X10*3/u L Basophils Absolute Auto 0.1 0.0-0.2 X10*3/uL NRBC Abs Auto 0.000 0.0-0.012 X10*3/uL Comprehensive Met. Panel Reviewed date:09/16/2023 07:24:57 PM Interpretation: Performing Lab:[facility], [address] [place] [phone] Notes/Report: Sodium 140 135-145 mmol/L Potassium 3.9 3.3-5.1 mmol/L Chloride 108 96-108 mmol/L Carbon Dioxide 25 22-29 mmol/L Anion Gap 11 12-20 Blood Urea Nitrogen 14 9-16 mg/dL Creatinine 0.70 0.5-1.4 mg/dL Estimated Glomerular Filt Rate > 60 NOTE: For -French individuals, multiply the result by 1.210. Chronic Kidney Disease: Estimated GFR < 60 mL/min/1.73m2 Severe Kidney Disease: Estimated GFR < 15 mL/min/1.73m2 Glucose Random 151 60-115 mg/dL Calcium 8.8 8.4-10.2 mg/dL Bilirubin Total 0.7 0.0-1.0 mg/dL Aspartate Amino Transferase 11 5-37 U/L Alanine Aminotransferase 25 0-40 U/L Total Protein 6.5 6.5-8.0 g/dL Albumin Level 4.0 3.5-5.0 g/dL Alkaline Phosphatase 70 39-117 U/L Lipid Panel Reviewed date:09/16/2023 07:24:57 PM Interpretation: Performing Lab:[facility], [address] [place] [phone] Notes/Report: Triglycerides 45 <150 mg/dL Desirable Triglyceride: less than 150 mg/dL Borderline High Triglyceride 150-199 mg/dL High Triglyceride: 200-499 mg/dL Very High Triglyceride: greater than or equal to 5OO mg/dL Cholesterol 128 <200 mg/dL Desirable Cholesterol: less than 200 mg/dL Borderline High Cholesterol: 200-239 mg/dL High Cholesterol: greater than 239 mg/dL LDL Cholesterol Calculated 90 <100 mg/dL Desirable LDL: less than 100 mg/dL Near Optimal/Above Optimal LDL: 110-129 mg/dL Borderline High LDL: 130-159 mg/dL High LDL: 160-189 mg/dL Very High LDL: greater than or equal to 190 mg/dL HDL Cholesterol 29 >40 mg/dL Desirable HDL: greater than 40 mg/dL Note: This HDL assay may give artificially low results in patients with liver disease. Prostate Specific Antigen Reviewed date:09/16/2023 07:24:57 PM Interpretation: Performing Lab:[facility], [address] [place] [phone] Notes/Report: Prostate Specific Antigen 0.15 <0.05-4.0 ng/mL PSA methodology: Merrill Alinity i Chemiluminescent Microparticle Immunoassay (CMIA) Microalbumin, Random Reviewed date:09/16/2023 07:24:57 PM Interpretation: Performing Lab:[facility], [address] [place] [phone] Notes/Report: Creatinine Urine 150.28 Microalbumin Urine 11.0 Microalbum/Creatinine Ratio Ur 7.3 <30 ug/mg cr Albumin/Creatinine Ratio Reference Ranges: Normal: < 30 ug/mg creatinine Microalbuminuria: 30 - 300 ug/mg creatinine Clinical Albuminuria: > 300 ug/mg creatinine Hemoglobin A1c Reviewed date:09/16/2023 07:24:57 PM Interpretation: Performing Lab:[facility], [address] [place] [phone] Notes/Report: Hemoglobin A1c % 6.6 <6.0 % Hemoglobin A1C Reference Range Adults: 4.8 - 6.0 % Non diabetic: < 6.0 % Goal: < 7.0 % Additional Action Suggested: > 8.0 % Note: Hemoglobin A1c results are invalid for patients with abnormal amounts of HbF. Blood transfusions may impact the HbA1c concentration in the patient sample. Estimated Average Glucose 143 eAG = Estimated average glucose which is %A1C expressed as average glucose, using the formula of the [id number] Average Glucose study (ADAG), Diabetes Care, Vol.31,#8, 2007 Complete Blood Count Auto Di ff Reviewed date:02/28/2024 11:32:57 AM Interpretation: Performing Lab:[facility], [address] [place] [phone] Notes/Report: White Blood Count 7.4 4.8-10.8 X10*3/uL Red Blood Count 5.14 4.60-5.80 X10*6/uL Hemoglobin 15.1 14.0-18.0 g/dl Hematocrit 45.5 42.0-52.0 % Mean Corpuscular Volume 88.5 80.0-98.0 fL Mean Corpuscular Hemoglobin 29.4 27.0-33.0 pg Mean Corpuscular HGB Conc 33.2 31.0-36.0 g/dl Red Cell Distribution Width 12.4 11.0-16.0 % Platelet Count 240 160-400 X10*3/uL Mean Platelet Volume 10.9 9.4-12.4 fL Neutrophils Percent Auto 62.4 45-73 % Imm Gran Pct Auto 0.3 0.0-0.4 % Lymphocytes Percent Auto 24.1 20-40 % Monocytes Percent Auto 11.1 2-11 % Eosinophils Percent Auto 1.6 0-4 % Basophils Percent Auto 0.5 0-2 % NRBC Pct Auto 0.0 0.0-0.2 /100WBC Neutrophils Absolute Auto 4.6 2.0-8.3 x10*3/u L Imm Gran Abs Auto 0.02 0.00-0.03 X10*3/uL Lymphocytes Absolute Auto 1.8 1.2-4.9 X10*3/u L Monocytes Absolute Auto 0.8 0.1-1.2 X10*3/uL Eosinophils Absolute Auto 0.1 0.0-0.4 X10*3/u L Basophils Absolute Auto 0.0 0.0-0.2 X10*3/uL NRBC Abs Auto 0.000 0.0-0.012 X10*3/uL Comprehensive [place]. Panel Fa Reviewed date:02/28/2024 11:32:57 AM Interpretation: Performing Lab:[facility], [address] [place] [phone] Notes/Report: Sodium 140 135-145 mmol/L Potassium 4.2 3.3-5.1 mmol/L Chloride 108 96-108 mmol/L Carbon Dioxide 25 22-29 mmol/L Anion Gap 11 12-20 Blood Urea Nitrogen 18 9-16 mg/dL Creatinine 0.80 0.5-1.4 mg/dL Estimated Glomerular Filt Rate > 60 NOTE: For -French individuals, multiply the result by 1.210. Chronic Kidney Disease: Estimated GFR < 60 mL/min/1.73m2 Severe Kidney Disease: Estimated GFR < 15 mL/min/1.73m2 Glucose Fasting 151 60-99 mg/dL A fasting glucose of 126 mg/dl or greater on more than one occasion is considered diagnostic of diabetes. Calcium 9.1 8.4-10.2 mg/dL Bilirubin Total 0.6 0.0-1.0 mg/dL Aspartate Amino Transferase 9 5-37 U/L Alanine Aminotransferase 19 0-40 U/L Total Protein 6.5 6.5-8.0 g/dL Albumin Level 4.1 3.5-5.0 g/dL Alkaline Phosphatase 64 39-117 U/L Lipid Panel Reviewed date:02/28/2024 11:32:57 AM Interpretation: Performing Lab:[facility], [address] [place] [phone] Notes/Report: Triglycerides 51 <150 mg/dL Desirable Triglyceride: less than 150 mg/dL Borderline High Triglyceride 150-199 mg/dL High Triglyceride: 200-499 mg/dL Very High Triglyceride: greater than or equal to 5OO mg/dL Cholesterol 124 <200 mg/dL Desirable Cholesterol: less than 200 mg/dL Borderline High Cholesterol: 200-239 mg/dL High Cholesterol: greater than 239 mg/dL LDL Cholesterol Calculated 85 <100 mg/dL Desirable LDL: less than 100 mg/dL Near Optimal/Above Optimal LDL: 110-129 mg/dL Borderline High LDL: 130-159 mg/dL High LDL: 160-189 mg/dL Very High LDL: greater than or equal to 190 mg/dL HDL Cholesterol 29 >40 mg/dL Desirable HDL: greater than 40 mg/dL Note: This HDL assay may give artificially low results in patients with liver disease. Prostate Specific Antigen Reviewed date:02/28/2024 11:32:57 AM Interpretation: Performing Lab:[address] [phone] Notes/Report: Prostate Specific Antigen 0.17 <0.05-4.0 ng/mL PSA methodology: Merrill Alinity i Chemiluminescent Microparticle Immunoassay (CMIA) Complete Blood Count Auto Di ff Reviewed date:05/20/2024 04:53:24 AM Interpretation: Performing Lab:[address] [phone] Notes/Report: White Blood Count 6.9 4.8-10.8 X10*3/uL Red Blood Count 5.21 4.60-5.80 X10*6/uL Hemoglobin 15.0 14.0-18.0 g/dl Hematocrit 45.7 42.0-52.0 % Mean Corpuscular Volume 87.7 80.0-98.0 fL Mean Corpuscular Hemoglobin 28.8 27.0-33.0 pg Mean Corpuscular HGB Conc 32.8 31.0-36.0 g/dl Red Cell Distribution Width 13.0 11.0-16.0 % Platelet Count 246 160-400 X10*3/uL Mean Platelet Volume 11.1 9.4-12.4 fL Neutrophils Percent Auto 55.4 45-73 % Imm Gran Pct Auto 0.4 0.0-0.4 % Lymphocytes Percent Auto 30.0 20-40 % Monocytes Percent Auto 11.3 2-11 % Eosinophils Percent Auto 2.0 0-4 % Basophils Percent Auto 0.9 0-2 % NRBC Pct Auto 0.0 0.0-0.2 /100WBC Neutrophils Absolute Auto 3.8 2.0-8.3 x10*3/u L Imm Gran Abs Auto 0.03 0.00-0.03 X10*3/uL Lymphocytes Absolute Auto 2.1 1.2-4.9 X10*3/u L Monocytes Absolute Auto 0.8 0.1-1.2 X10*3/uL Eosinophils Absolute Auto 0.1 0.0-0.4 X10*3/u L Basophils Absolute Auto 0.1 0.0-0.2 X10*3/uL NRBC Abs Auto 0.000 0.0-0.012 X10*3/uL Comprehensive [place]. Panel Fa st Reviewed date:05/20/2024 04:53:24 AM Interpretation: Performing Lab:[address] [phone] Notes/Report: Sodium 141 135-145 mmol/L Potassium 4.5 3.3-5.1 mmol/L Chloride 105 96-108 mmol/L Carbon Dioxide 27 22-29 mmol/L Anion Gap 14 12-20 Blood Urea Nitrogen 15 9-16 mg/dL Creatinine 0.77 0.5-1.4 mg/dL Estimated Glomerular Filt Rate > 60 Chronic Kidney Disease: Estimated GFR < 60 mL/min/1.73m2 Severe Kidney Disease: Estimated GFR < 15 mL/min/1.73m2 Glucose Fasting 171 60-99 mg/dL A fasting glucose of 126 mg/dl or greater on more than one occasion is considered diagnostic of diabetes. Calcium 9.4 8.4-10.2 mg/dL Bilirubin Total 0.6 0.0-1.0 mg/dL Aspartate Amino Transferase 14 5-37 U/L Alanine Aminotransferase 38 0-40 U/L Total Protein 6.9 6.5-8.0 g/dL Albumin Level 4.2 3.5-5.0 g/dL Alkaline Phosphatase 66 39-117 U/L Lipid Panel Reviewed date:05/20/2024 04:53:24 AM Interpretation: Performing Lab:[address] [phone] Notes/Report: Triglycerides 61 <150 mg/dL Desirable Triglyceride: less than 150 mg/dL Borderline High Triglyceride 150-199 mg/dL High Triglyceride: 200-499 mg/dL Very High Triglyceride: greater than or equal to 5OO mg/dL Cholesterol 144 <200 mg/dL Desirable Cholesterol: less than 200 mg/dL Borderline High Cholesterol: 200-239 mg/dL High Cholesterol: greater than 239 mg/dL LDL Cholesterol Calculated 102 <100 mg/dL Desirable LDL: less than 100 mg/dL Near Optimal/Above Optimal LDL: 110-129 mg/dL Borderline High LDL: 130-159 mg/dL High LDL: 160-189 mg/dL Very High LDL: greater than or equal to 190 mg/dL HDL Cholesterol 30 >40 mg/dL Desirable HDL: greater than 40 mg/dL Note: This HDL assay may give artificially low results in patients with liver disease. Prostate Specific Antigen Reviewed date:05/20/2024 04:53:24 AM Interpretation: Performing Lab:[address] [phone] Notes/Report: Prostate Specific Antigen 0.21 <0.05-4.0 ng/mL PSA methodology: Wild Needle Alinity i Chemiluminescent Microparticle Immunoassay (CMIA) Reason For Referral Reason history of carcinoma of prostate evaluate and treatment Diagnosis 1 Carcinoma of prostat e (C61) Diagnosis 2 BPH (benign prostati c hyperplasia) (N40.0) Referral Organization Omar Richter III, MD Referring Provider First Name Omar Referring Provider Last Name Neelam Referring Provider Speciality Internal M edicine Referred Provider Ramses Huertas ([place]) Referred Provider Specialty Urology Referral Priority Routine Referral Appointment Date 04/23/2024 Medications Medication SIG (Take, Route, Frequency, Duration) Notes Start Date End Date Status amLODIPine Besylate 10 MG TAKE 1 TABLET BY MOUTH EVERY DAY Active Immunizations Vaccine Route Administration Date Status Comme nts COVID- 19 Vaccine Unknown 04/30/2021 Administered Moder na first COVID- 19 Vaccine Unknown 05/28/2021 Administered Moder na second dose COVID 19 Moderna Unknown 12/10/2021 Administered COVID 19 Moderna Unknown 06/02/2022 Administered Social History Tobacco Use: Social History Observation [...] Problem Status W/U Status Risk Notes Problem 342439378694174 Obesity (BMI 30.0-34.9) (E66.9) Active confirmed He has lost 11 pounds her diet and exercise. His body mass index is now 30.56. His fasting glucose was 150. Problem Hypertension (50163489) Hypertension (I10) Active confirmed His blood pressure is currently stable. His medication was continued. He was advised to lose weight aggressively and restrict sodium intake. Problem Sleep apnea (75265192) Sleep apnea, unspecified (G47.30) Active confirmed His sleep study done in January 2023 shows severe obstructive sleep apnea. He is using his CPAP machine now. Problem Benign prostatic hyperplasia (743273856) BPH (benign prostatic hyperplasia) (N40.0) Active confirmed We have discussed modifications to his lifestyle to reduce nocturnal urinating. Problem 335322021 Erectile dysfunction (N52.9) Active confirmed I recommended he try a 40 mg dose and if that fails a 50 mg dose and then a 60 mg dose of the sildenafil if he continues to have erectile dysfunction. Problem [id number] Umbilical hernia (K42.9) Active confirmed There was no pain or discomfort when palpating the umbilicus. Problem 576170216 Osteoarthritis of both knees (M17.0) Active confirmed The discomfort in the knees is unchanged but is a minor problem to him now and will be followed. Problem 57310824 Hyperlipidemia, unspecified hyperlipidemia type (E78.5) Active confirmed His lipids are currently stable. No change in his regimen as needed. I recommended aggressive weight loss. Problem 672018864 Carcinoma of prostate (C61) Active confirmed His PSA is detectable at 0.17 whereas it was 0.15 the previous 2 determinations . He is asymptomatic. The is overdue to see urology and was referred back for management. Problem 369144016 Type 2 diabetes mellitus without complication, without long-term current use of insulin (E11.9) Active confirmed His fasting glucoses are 150. He is diet controlled. He has lost 11 pounds since his last visit. Problem 003382978 Back pain, unspecified back location, unspecified back pain laterality, unspecified chronicity (M54.9) Active confirmed His back pain is mostly resolved at this time. He is avoiding heavy exertion and lifting. He will notify me at once if it recurs. Vital Signs Heart Rate 86 /min 02/28/2024 Temperature 99.6 degrees Fahrenheit 09/25/2023 Blood pressure diastolic 79 mm Hg 02/28/2024 Height 68 in 02/28/2024 Blood pressure systolic 135 mm Hg 02/28/2024 Weight 201 lbs 02/28/2024 BMI 30.56 kg/m2 02/28/2024 Encounters Encounter Location Date Provider Diagnosis Omar Richter III, MD [address] [place] [address] [place] [phone] 06/23/2023 Omar Richter Hyperlipidemia, unspecified hyperlipidemia type E78.5 ; BPH (benign prostatic hyperplasia) N40.0 ; Type 2 diabetes mellitus without complication, without long-term current use of insulin E11.9 ; Umbilical hernia K42.9 ; Osteoarthritis of both knees M17.0 ; Carcinoma of prostate C61 ; Back pain, unspecified back location, unspecified back pain laterality, unspecified chronicity M54.9 ; Obesity (BMI 30.0-34.9) E66.9 and Hypertension I10 Omar Richter III, MD [address] [place] [address] [place] [phone] 09/25/2023 Omar Richter Hyperlipidemia, unspecified hyperlipidemia type E78.5 ; BPH (benign prostatic hyperplasia) N40.0 ; Obesity (BMI 30.0-34.9) E66.9 ; Back pain, unspecified back location, unspecified back pain laterality, unspecified chronicity M54.9 ; Hypertension I10 ; Carcinoma of prostate C61 ; Osteoarthritis of both knees M17.0 ; Sleep apnea, unspecified G47.30 and 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 It is now 0.15. He is asymptomatic and observation will continue. 06/23/2023 Hyperlipidemia, unspecified hyperlipidemia type (ICD-10 - E78.5) His lipid values are in near target range. The HDL is low at 28. We recommended aggressive weight loss and consumption off a healthy low-fat diet. 09/25/2023 BPH (benign prostati c hyperplasia) (ICD-10 - N40.0) He rises vishnu sleep once or twice a night to urinate. He has had no hematuria or pain. We have discussed lifestyle modification as a way to reduce nocturia. 09/25/2023 Hyperlipidemia, unspecified hyperlipidemia type (ICD-10 - E78.5) His lipid values are in near target range. The total cholesterol is low at 128. We recommended aggressive weight loss and consumption off a healthy low-fat diet. 02/28/2024 Hypertension (ICD-10 - I10) His blood pressure is currently stable. His medication was continued. He was advised to lose weight aggressively and restrict sodium intake. 02/28/2024 Carcinoma of prostat e (ICD-10 - C61) His PSA is detectable at 0.17 whereas it was 0.15 the previous 2 determinations. He is asymptomatic. The is overdue to see urology and was referred back for management. 06/23/2023 Type 2 diabetes mellitus without complication, without long-term current use of insulin (ICD-10 - E11.9) His fasting glucoses 150. We recommended aggressive weight loss and consumption of a healthy diabetic diet low inn sodium restriction animal fat. We recommended 09/25/2023 Obesity (BMI 30.0-34.9) (ICD-10 - E66.9) We have formulated the weight reduction plan that will lose weight at a rate of one half of a pound per week. 02/28/2024 Hyperlipidemia, unspecified hyperlipidemia type (ICD-10 - E78.5) His lipids are currently stable. No change in his regimen as needed. I recommended aggressive weight loss. 06/23/2023 Umbilical hernia (ICD-10 - K42.9) There was no pain or discomfort when palpating the umbilicus. 09/25/2023 Back pain, unspecified back location, unspecified back pain laterality, unspecified chronicity (ICD-10 - M54.9) His back pain is mostly resolved at this time. He is avoiding heavy exertion and lifting. He will notify me at once if it recurs. 02/28/2024 BPH (benign prostati c hyperplasia) (ICD-10 - N40.0) We have discussed modifications to his lifestyle to reduce nocturnal urinating. 06/23/2023 Osteoarthritis of both knees (ICD-10 - M17.0) The discomfort in the knees is unchanged but is a minor problem to him now and will be followed. 09/25/2023 Hypertension (ICD-10 - I10) His blood pressure is currently in the normal range At 130/70 and no change in his regimen was needed. I recommended weight loss and sodium restriction. 02/28/2024 Obesity (BMI 30.0-34.9) (ICD-10 - E66.9) He has lost 11 pounds her diet and exercise. His body mass index is now 30.56. His fasting glucose was 150. 06/23/2023 Carcinoma of prostat e (ICD-10 - C61) His PSA has been low. It will be repeated in the next few days and we will discuss it. There was no sign of progressive disease on today's examination. 09/25/2023 Carcinoma of prostat e (ICD-10 - C61) His PSA has been low. It will be repeated in the next few days and we will discuss it. There was no sign of progressive disease on today's examination. 02/28/2024 Osteoarthritis of both knees (ICD-10 - M17.0) The discomfort in the knees is unchanged but is a minor problem to him now and will be followed. 06/23/2023 Back pain, unspecified back location, unspecified back pain laterality, unspecified chronicity (ICD-10 - M54.9) His back pain is mostly resolved at this time. He is avoiding heavy exertion and lifting. He will notify me at once if it recurs. 09/25/2023 Osteoarthritis of both knees (ICD-10 - [...] notify me at once if it recurs. 06/23/2023 Obesity (BMI 30.0-34.9) (ICD-10 - E66.9) He has lost 6 pounds and his body mass index is now 31. We reviewed his diet and nutrition and weight loss strategy. He was encouraged to continue losing weight until his body mass index is in the normal range. 09/25/2023 Sleep apnea, unspecified (ICD-10 - G47.30) His sleep study done in January 2023 shows severe obstructive sleep apnea. He is using his CPAP machine now. 02/28/2024 Sleep apnea, unspecified (ICD-10 - G47.30) His sleep study done in January 2023 shows severe obstructive sleep apnea. He is using his CPAP machine now. 06/23/2023 Hypertension (ICD-10 - I10) His blood pressure is currently in the normal range At 130/70 and no change in his regimen was needed. I recommended weight loss and sodium restriction. 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 We discussed weight loss as a way to control diabetes. No change in his medications was needed. 02/28/2024 Type 2 diabetes mellitus without complication, without long-term current use of insulin (ICD-10 - E11.9) His fasting glucoses are 150. He is diet controlled. He has lost 11 pounds since his last visit. Plan Of Treatment Pending Test Test Name Order Date PROFILE, FASTING (COMPREHENSIVE METABOLI C) 02/28/2024 PROFILE, FASTING (COMPREHENSIVE METABOLI C) 03/08/2019 PROFILE, FASTING (COMPREHENSIVE METABOLI C) 11/02/2018 PROFILE, FASTING (COMPREHENSIVE METABOLI C) 06/23/2023 PROFILE, FASTING (COMPREHENSIVE METABOLI C) 09/25/2023 PROFILE, RANDOM (COMPREHENSIVE METABOLIC ) 04/02/2019 PROFILE, RANDOM (COMPREHENSIVE METABOLIC ) 02/23/2018 PROFILE, RANDOM (COMPREHENSIVE METABOLIC ) 06/29/2018 HEMOGLOBIN A1C (GLYCOHEMOGLOBIN) 019 HEMOGLOBIN A1C (GLYCOHEMOGLOBIN) 019 LIPID PANEL 03/08/2019 LIPID PANEL 11/02/2018 PSA, TOTAL 03/08/2019 PSA, TOTAL 11/02/2018 PSA, TOTAL 06/29/2018 PSA, TOTAL 02/23/2018 PSA, TOTAL 02/28/2024 PSA, TOTAL 06/23/2023 PSA, TOTAL 09/25/2023 CBC w DIFF 03/08/2019 CBC w DIFF 11/02/2018 CBC w DIFF 06/29/2018 CBC w DIFF 04/02/2019 CBC w DIFF 02/23/2018 CBC w DIFF 02/28/2024 Sleep Study - Baseline 12/12/2022 Sleep Study - Diagnostic 12/09/2022 CBC WITH AUTO DIFF 09/25/2023 CBC WITH AUTO DIFF 06/23/2023 Lipid Panel 02/28/2024 Lipid Panel 06/23/2023 Lipid Panel 09/25/2023 Microalbumin, Random 06/23/2023 RT sleep home study type III 12/30/2022 Hemoglobin A1c 06/23/2023 Next Appt Details Provider Name:Omar Richter, 05/22/2024 03:45:00 PM, [address] [place] [address] SHREE KUMAR, [place]ADA [place], [phone], Provider Name:Omar Richter, 03/03/2025 11:00:00 AM, [address] [place] [address] SHREE KUMAR, JADA CRANDALL, [phone], Insurance Providers Payer Name Payer Address Payer Phone Subscriber Number Group Number Insured Name Patient Relationship to Insured Coverage Start Date Coverage End Date [address] [facility] [place] [phone] [id number] Colon, Leland Self - patient is the insured Medical (General) History Medical History History ICD Code hypertension erectile dysfunction umbilical hernia back pain 2006 bph bilateral knee pain 2014 obesity 2008 early stage prostate cancer in [place] Surgical History Surgery Date(Month/Year) benign skin CA removal 2018 Prostate biopsy 2016-08-05 Laparascopic radical prostat ectomy, bilateral pelvic lymph node disection, urethral suspension suture, bilateral nerve-sparing 2016-11-17
--- OUTSIDE RECORDS SUMMARY | 2024-05-22 11:38 | XMS_ITS | Patient Health Record ---
Author Organization [facility] Address [address] [place] [address] Care Team Providers Care Attorney Law Clerk Name Role Phone Omar Richter MD Primary Care Provider UnavailOmar Medina Unavailable [phone] ALLERGIES No Known Allergies REASON FOR REFERRAL No Information MEDICATIONS Medication SIG (Take, Route, Frequency, Duration) Notes Start Date End Date Status amLODIPine Besylate 5 MG TAKE 1 T PO QD Oral for 30 Active IMMUNIZATIONS Vaccine Route Administration Date Status Comme nts Influenza Unknown 01/27/2022 Refused SOCIAL HISTORY Sex Assigned At : Social History Observation Description Sex Assigned At Unknown PROBLEMS Problem Type ICD Code Onset Dates Problem Status W/U Status Risk SNOMED Code Notes Problem Abnormal findings on diagnostic imaging of other parts of digestive tract (R93.3) Active confirmed Imaging of gastrointestinal tract abnormal (087837170) Problem Diverticulitis (K57.92) Active confirmed Diverticulitis (129079644) Problem Abnormal CT of the abdomen (R93.5) Active confirmed CT of abdomen abnormal (16931098329009690 ) Problem Gallbladder polyp (K82.4) Active confirmed Gallbladder eber yp (456315813) Problem Colon, diverticulosis (K57.30) Active confirmed Diverticular disease of colon (653613069) PLAN OF TREATMENT Pending Test Test Name Order Date US abdomen limited 01/27/2022 Future Test Test Name Order Date COLONOSCOPY 07/23/2014 COLONOSCOPY 01/27/2022 Insurance Providers Payer Name Payer Address Payer Phone Subscriber Number Group Number Insured Name Patient Relationship to Insured Coverage Start Date Coverage End Date [facility] [address] [place] [phone] [id number] COLONMICHAEL Self - patient is the insured MEDICAL (GENERAL) HISTORY Medical History History ICD Code Hypertension Denies GA,DM,CVA,Lung disease,renal dise ase Prostate cancer in approx 2016 Negative colonoscopy in 2014 except for sigmoid diverticulosis Sigmoid diverticulitis in 09/2021 treated with oupatient Levaquin and Flagyl Gallbladder polyps Surgical History Surgery Date(Month/Year) Hernia repair-umbilical 2005 Fatty tumor removed from back 2012 Laparoscopic complete prostatectomy for cancer at [facility]
== END 2024-05-18 07:16 | disposition home or self-care (01) ==
LOC: HO.LAB 07:15
PROVIDERS: PCP Internal Medicine Medical Oncology; Visit Provider Internal Medicine Medical Oncology
DX: C61 Malignant neoplasm of prostate (principal); I10 Essential (primary) hypertension; E78.5 Hyperlipidemia, unspecified; N40.0 Benign prostatic hyperplasia without lower urinary tract symptoms; E66.9 Obesity, unspecified; Z12.5 Encounter for screening for malignant neoplasm of prostate
CPT/HCPCS: 36415; 80053; 80061; 84153; 85025

== ENCOUNTER → 2024-06-17 08:18 | Outpatient (REF) | payer OTHER, SELFPAY ==
--- NOTE | 2024-06-17 08:23 | CA_ITS ---
Acquisition Time: 2024-06-17 08:24:45 Total Exercise Time: 00:07:25 Test Indications: CP Medications: SEE H Protocol: ARNOLD Max HR: 146 BPM 91% of Pred: 160 BPM Max BP: 150/078 mmHG Max Work Load: 9.1 METS Exercise Stress Test with exercise 7 mins 25 secs of Arnold Protocol, achieving 91% MPHR, without any anginal symptoms, with isolated PVCs, baseline hypertension- normal response with exercise. Without EKG changes meeting criteria for ischemia. Test reviewed with Dr. Lee. Referred By: Omar Richter Overread By: Kobi Acuña
--- OUTSIDE RECORDS SUMMARY | 2024-06-17 08:37 | XMS_ITS ---
Author Organization Omar Richter III, MD Address [address] [place] [place] [address] Care Team Providers Care Results Technician Name Role Phone Omar Richter Primary Care Provider REASON FOR VISIT Message Social History Sex Assigned At : Social History Observation Description Sex Assigned At Male Encounters Encounter Location Date Provider Diagnosis Omar Richter III, MD [address] [place] [address] [place] [address] 06/10/2024 Omar Richter Plan Of Treatment Next Appt Details Provider Name:Omar Richter, 08/20/2024 03:30:00 PM, [address] [place] [address] [place], [address], Provider Name:Omar Richter, 03/03/2025 11:00:00 AM, [address] [place] [address] [place], [address], Progress Notes * Leland ZHUDOB:1965 (4 0 yo M)Acc No.[id number]:06/10/2024 Patient:?COLON, Leland :1965???Age:58 Y???Sex:Male Address:[address] [place] [address] [place] [address] * true * Date:? Generated for Shani finn/Robert/Valeriasmitting on:?06/17/2024 08:37 AM EST
--- OUTSIDE RECORDS SUMMARY | 2024-06-17 08:38 | XMS_ITS ---
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 We discussed weight loss as a way to control diabetes. No change in his medications was needed. Vital Signs Temperature 98.3 degrees Fahrenheit 05/22/20 24 Blood pressure systolic 139 mm Hg 05/22/20 24 Blood pressure diastolic 75 mm Hg 024 Heart Rate 74 /min 05/22/2024 Height 68 in 05/22/2024 Weight 208 lbs 05/22/2024 BMI 31.62 kg/m2 05/22/2024 Encounters Encounter Location Date Provider Diagnosis Omar Richter III, MD [address] [place] [address] [place] [address] 05/22/2024 Omar Richter Hypertension I10 ; Carcinoma [...] Order Date PROFILE, FASTING (COMPREHENSIVE METABOLI C) 05/22/2024 PSA, TOTAL 05/22/2024 Stress Test 05/22/2024 CBC WITH AUTO DIFF 05/22/2024 Uric Acid 05/22/2024 Lipid Panel 05/22/2024 Next Appt Details Follow Up: 3 Months, Reason: OV Provider Name:Omar Richter, 08/20/2024 03:30:00 PM, [address] [place] [address] [address], [place], [address], Provider Name:Omar Richter, 03/03/2025 11:00:00 AM, [address] [place] [address] [address], [place], [address], Progress Notes * Leland ZHUDOB:1965 (4 0 yo M)Acc No.[id number]:05/22/2024 Progress Notes Patient:?Leland ZHU Provider:?Omar Richter MD :1965???Age:58 Y???Sex:Male Misael e:05/22/2024 Address:[address] [place], [place] [id number] Subjective: * Chief Complaints: * ???Grief reactionHistory of prostate cancerLow back painHypertensionHyperlipidemia * HPI: ???COVID-19 Screening:? He returns for a scheduled visit to manage his medical issues.? He has a history of prostate cancer with a slowly rising PSA.? He remains under the care of urology at this time with observation.? He is grieving the recent loss of his mother.? His back pain is stable and mild.? He has bilateral arthritis in his knees which is unchanged and controlled with ibuprofen.? His blood pressure was stable today.? He had no new complaints. ?Questions?Have you had any new onset fever, chills, cough, congestion, sore throat, shortness of breath, muscle aches??No ?Have you been exposed to the virus within the last 10 days??No ?Have you travelled internationally in the last 10 days??No ?Have you been exposed to COVID-19 in the past??No * ROS:?General/Constitutional:?pain?Shoulders and low back, otherwise only normal aches and pains.?Chills?denies.?Fatigue?admits.?Fever?denies.?ENT:?Decreased hearing?denies.?Respiratory:?Cough?denies.?Cardiovascular:?Chest pain with exertion?denies.?Dyspnea on exertion?denies.?Shortness of breath?denies.?Gastrointestinal:?Constipation?occasional.?Decreased appetite?denies.?Diarrhea?denies.?Heartburn?denies.?Nausea?denies.?Rectal bleeding?denies.?Vomiting?denies.?Hematology:?bruising?denies.?petechiae?denies.?Swollen glands?none have been noted.?Genitourinary:?Frequent urination?once a night.?Musculoskeletal:?Muscle aches?denies.?Painful joints?denies.?Sciatica?denies.?Weakness?denies.?Skin:?Itching?denies.?Rash?denies.?Skin lesion(s)?denies.?Neurologic:?Difficulty speaking?denies.?Dizziness?denies.?Headache?denies.?Low back pain?denies.?Psychiatric:?Depressed mood?denies.? * Medical History:? * Surgical History:?Laparascop ic radical prostatectomy, bilateral pelvic lymph node disection, urethral suspension suture, bilateral nerve-sparing [id number] biopsy [id number] skin CA removal 2018 * Hospitalization/Major Diagno stic Procedure:?Denies Past Hospitalization * Family History:?Father: dece ased 42 yrs, automoble accident.?Mother: 80 yrs.?Spouse: alive 41 yrs.?2 brother(s) - healthy. 3 daughter(s) - healthy. .? * Social History:?Tobacco Use:?Tobacco Use/Smoking?Patient is a?nonsmoker ?Additional Findings: Tobacco Non-User?Aggressive non-smoker ???This He is and has worked in [employer] at [employer] for 26 years.. He was born in [place] and has several children. He is bilingual. * Medications:?TakingamLODIPin e Besylate 10 MG Tablet TAKE 1 TABLET BY MOUTH EVERY DAY Medication List reviewed and reconciled with the patientTaking amLODIPine Besylate 10 MG Tablet TAKE 1 TABLET BY MOUTH EVERY DAY Medication List reviewed and reconciled with the patient * Allergies:?No Known Drug All ergyno[Allergies Verified] Objective: * Vitals:?Ht: 68, Wt: 208, BMI :31.62, BP: 139/75, HR: 74, Temp: 98.3, Wt-k.35. * ???Past Orders: Lab:[facility] * Collection Date 05/18/2024 02/17/2024 03/20/2023 [...] mmol/L) Anion Gap 14 (Ref Range: 12-20) 11?L (Ref Range: 12-20) 12 (Ref Range: 12-20) Blood Urea Nitrogen 15 (Ref Range: 9-16 mg/dL) 18?H (Ref Range: 9-16 mg/dL) 13 (Ref Range: 9-16 mg/dL) Creatinine 0.77 (Ref Range: 0.5-1.4 mg/dL) 0.80 (Ref Range: 0.5-1.4 mg/dL) 0.74 (Ref Range: 0.5-1.4 mg/dL) Estimated Glomerular Filt Rate > 60 > 60 > 60 Glucose Fasting 171?H (Ref Range: 60-99 mg/dL) 151?H (Ref Range: 60-99 mg/dL) 150?H (Ref Range: 60-99 mg/dL) Calcium 9.4 (Ref [...] (Ref Range: <200 mg/dL) LDL Cholesterol Calculated 102?H (Ref Range: <100 mg/dL) 85 (Ref Range: <100 mg/dL) 90 (Ref Range: <100 mg/dL) HDL Cholesterol 30?L (Ref Range: >40 mg/dL) 29?L (Ref Range: >40 mg/dL) 29?L (Ref Range: >40 mg/dL) * Lab:Prostate Specific [...] 0.0-0.4 %) 0.3 (Ref Range: 0.0-0.4 %) 0.5?H (Ref Range: 0.0-0.4 %) Lymphocytes Percent Auto 30.0 (Ref Range: 20-40 %) 24.1 (Ref Range: 20-40 %) 25.8 (Ref Range: 20-40 %) Monocytes Percent Auto 11.3?H (Ref Range: 2-11 %) 11.1?H (Ref Range: 2-11 %) 12.5?H (Ref Range: 2-11 %) Eosinophils Percent Auto [...] 0.00-0.03 X10*3/uL) 0.02 (Ref Range: 0.00-0.03 X10*3/uL) 0.04?H (Ref Range: 0.00-0.03 X10*3/uL) Lymphocytes Absolute Auto [...] no acute distress, calm and relaxed, obese, man.?HEAD:?atraumatic, normocephalic.?EYES:?eomi, perrla, anicteric, conjugate.?EARS:?normal.?NOSE:?septum intact.?ORAL CAVITY:?normal, unremarkable.?NECK/THYROID:?no jugular venous distention, no carotid bruit, thyroid normal.?LYMPH NODES:?no enlarged lymph nodes,spleen normal.?SKIN:?no suspicious lesions, anicteric.?HEART:?no clicks, gallops, murmurs, or rubs, regular rhythm, S1, S2 normal, no s3, or vascular bruits.?LUNGS:?clear to auscultation .?BREASTS:??no masses palpable bilaterally.?ABDOMEN:?bowel sounds normal, no ascites, no organomegaly, no mass, centripital obesity, Small umbilical hernia.?RECTAL EXAM:?not examined.?MUSCULOSKELETAL:?extremities unremarkable, no clubbing, cyanosis or edema.?PERIPHERAL PULSES:?normal.?NEUROLOGIC:?alert and oriented, cranial nerves 2-12 grossly intact, deep tendon reflexes 2+ symmetrical, motor strength normal upper and lower extremities, sensory exam intact.?PSYCH:?alert, oriented, affect sad.? Assessment: * Assessment: 1.?Carcinoma of prostate - C 61 (Primary)???Notes :His PSA is detectable at 0.21 whereas it was 0.15 the previous 2 determinations. He is asymptomatic. The is overdue to see urology and was referred back for management.???2.?Hypertension - I10???Notes :His blood pressure is currently stable. His medication was continued. 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 We discussed weight loss as a way to control diabetes. No change in his medications was needed.???4.?BPH (benign prostatic hyperplasia) - N40.0???Notes :We have discussed modifications to his lifestyle to reduce nocturnal urinating.???5.?Osteoarthritis of both knees - M17.0???Notes :The discomfort in the knees is unchanged but is a minor problem to him now and will be followed.???6.?Umbilical hernia - K42.9???Notes :There was no pain or discomfort when palpating the umbilicus.???7.?Obesity - E66.9???Notes :He has gained 7 pounds since his last visit.? His weight has increased from 201-208 pounds. His body mass index is 31.6.? We had discussed lifestyle modification he could make to reduce his weight.? We discussed diet and nutrition today.??? Plan: * Treatment: * Imaging:? * ?Imaging: Stress Test * Labs:? * ?Lab: PROFILE, FASTING ( COMPREHENSIVE METABOLIC) ?Lab: PSA, TOTAL ?Lab: CBC WITH AUTO DIFF ?Lab: Uric Acid ?Lab: Lipid Panel * Procedure Codes:? * Preventive [...] to manage diabetes without too much effort.?Treatment Goals?Blood Sugars less than < 115, HbA1C < 7.0.?Barriers?no barriers.?Self-Managment Goals?Work on weight loss, with a goal of losing 1 lb per week.? * Follow Up:?3 Months (Reason: OV) * Images: * Sign off status: Completed true * Provider:?Omar Richter MD Date:?05/12 Generated for Printi ng/Robert/eTransmitting on:?06/17/2024 08:37 AM EST History and Physical Notes * HPI (History of Present Illness) Category Sub-Category Detail Notes COVID-19 Screening Questions Have you had any new onset fever, chills, cough, congestion, sore throat, shortness of breath, muscle aches?: No Have you been exposed to the virus withi n the last 10 days?: No Have you travelled internationally in last 10 days?: No Have you been [...]
--- OUTSIDE RECORDS SUMMARY | 2024-06-17 08:38 | XMS_ITS | Patient Health Record ---
Author Organization Omar Richter III, MD Address [address] [place] [address] Care Team Providers Care Air Drier Name Role Phone Omar Richter Primary Care [...] ff Reviewed date:09/16/2023 07:24:57 PM Interpretation: Performing Lab:[facility], [address] [place] [phone] Notes/Report: White Blood Count 7.9 4.8-10.8 X10*3/uL [...] Panel Reviewed date:09/16/2023 07:24:57 PM Interpretation: Performing Lab:[facility], [address] [place] [phone] Notes/Report: Sodium 140 135-145 mmol/L Potassium 3.9 3.3-5.1 mmol/L Chloride 108 96-108 mmol/L Carbon Dioxide 25 22-29 mmol/L Anion Gap 11 12-20 Blood Urea Nitrogen 14 9-16 mg/dL Creatinine 0.70 0.5-1.4 mg/dL Estimated Glomerular Filt Rate > 60 NOTE: For -Montenegrin individuals, multiply the result by 1.210. Chronic [...] Panel Reviewed date:09/16/2023 07:24:57 PM Interpretation: Performing Lab:[facility], [address] [place] [phone] Notes/Report: Triglycerides 45 <150 mg/dL Desirable Triglyceride: [...] Antigen Reviewed date:09/16/2023 07:24:57 PM Interpretation: Performing Lab:[facility], [address] [place] [phone] Notes/Report: Prostate Specific Antigen 0.15 <0.05-4.0 ng/mL PSA methodology: [employer] Alinity i Chemiluminescent Microparticle Immunoassay (CMIA) Microalbumin, Random Reviewed date:09/16/2023 07:24:57 PM Interpretation: Performing Lab:[facility], [address] [place] [phone] Notes/Report: Creatinine Urine 150.28 Microalbumin Urine 11.0 Microalbum/Creatinine Ratio Ur 7.3 <30 ug/mg cr Albumin/Creatinine Ratio Reference Ranges: Normal: < 30 ug/mg creatinine Microalbuminuria: 30 - 300 ug/mg creatinine Clinical Albuminuria: > 300 ug/mg creatinine Hemoglobin A1c Reviewed date:09/16/2023 07:24:57 PM Interpretation: Performing Lab:[facility], [address] [place] [phone] Notes/Report: Hemoglobin A1c % 6.6 <6.0 % [...] average glucose, using the formula of the [id number] Average Glucose study (ADAG), Diabetes Care, Vol.31,#8, 2007 Complete Blood Count Auto Di ff Reviewed date:02/28/2024 11:32:57 AM Interpretation: Performing Lab:[facility], [address] [place] [phone] Notes/Report: White Blood Count 7.4 4.8-10.8 X10*3/uL [...] NRBC Abs Auto 0.000 0.0-0.012 X10*3/uL [facility] [place]. Panel Fa Reviewed date:02/28/2024 11:32:57 AM Interpretation: Performing Lab:[facility], [address] [place] [phone] Notes/Report: Sodium 140 135-145 mmol/L Potassium 4.2 3.3-5.1 mmol/L Chloride 108 96-108 mmol/L Carbon Dioxide 25 22-29 mmol/L Anion Gap 11 12-20 Blood Urea Nitrogen 18 9-16 mg/dL Creatinine 0.80 0.5-1.4 mg/dL Estimated Glomerular Filt Rate > 60 NOTE: For -Montenegrin individuals, multiply the result by 1.210. Chronic [...] Panel Reviewed date:02/28/2024 11:32:57 AM Interpretation: Performing Lab:[facility], [address] [place] [phone] Notes/Report: Triglycerides 51 <150 mg/dL Desirable Triglyceride: [...] Antigen Reviewed date:02/28/2024 11:32:57 AM Interpretation: Performing Lab:[address] [phone] Notes/Report: Prostate Specific Antigen 0.17 <0.05-4.0 ng/mL PSA methodology: [employer] Al[employer] i Chemiluminescent Microparticle Immunoassay (CMIA) Complete Blood Count Auto Di ff Reviewed date:05/20/2024 04:53:24 AM Interpretation: Performing Lab:[address] [phone] Notes/Report: White Blood Count 6.9 4.8-10.8 X10*3/uL [...] NRBC Abs Auto 0.000 0.0-0.012 X10*3/uL [facility] [place]. Panel Fa st Reviewed date:05/20/2024 04:53:24 AM Interpretation: Performing Lab:[address] [phone] Notes/Report: Sodium 141 135-145 mmol/L Potassium 4.5 [...] Panel Reviewed date:05/20/2024 04:53:24 AM Interpretation: Performing Lab:[address] [phone] Notes/Report: Triglycerides 61 <150 mg/dL Desirable Triglyceride: [...] Antigen Reviewed date:05/20/2024 04:53:24 AM Interpretation: Performing Lab:[address] [phone] Notes/Report: Prostate Specific Antigen 0.21 <0.05-4.0 ng/mL PSA methodology: [employer] Alinity i Chemiluminescent Microparticle Immunoassay (CMIA) Reason [...] Problem Status W/U Status Risk Notes Problem 726833778568705 Obesity (BMI 30.0-34.9) (E66.9) Active confirmed He has lost 11 pounds her diet and exercise. His body mass index is now 30.56. His fasting glucose was 150. Problem Hypertension (96721905) Hypertension (I10) Active confirmed His blood pressure is currently stable. His medication was continued. He was advised to lose weight aggressively and restrict sodium intake. Problem Sleep apnea (49289046) Sleep apnea, unspecified (G47.30) Active confirmed His sleep study done in January 2023 shows severe obstructive sleep apnea. He is using his CPAP machine now. Problem Benign prostatic hyperplasia (860850991) BPH (benign prostatic hyperplasia) (N40.0) Active confirmed We have discussed modifications to his lifestyle to reduce nocturnal urinating. Problem 024437739 Erectile dysfunction (N52.9) Active confirmed I recommended he try a 40 mg dose and if that fails a 50 mg dose and then a 60 mg dose of the sildenafil if he continues to have erectile dysfunction. Problem 611179343 Umbilical hernia (K42.9) Active confirmed There was no pain or discomfort when palpating the umbilicus. Problem 937950691 Osteoarthritis of both knees (M17.0) Active confirmed The discomfort in the knees is unchanged but is a minor problem to him now and will be followed. Problem 85153729 Hyperlipidemia, unspecified hyperlipidemia type (E78.5) Active confirmed His lipids are currently stable. No change in his regimen as needed. I recommended aggressive weight loss. Problem 983340974 Carcinoma of prostate (C61) Active confirmed His PSA is detectable at 0.21 whereas it was 0.15 the previous 2 determinations . He is asymptomatic. The is overdue to see urology and was referred back for management. Problem 285959714 Type 2 diabetes mellitus without complication, without long-term current use of insulin (E11.9) Active confirmed His fasting glucoses are 150. He is diet controlled. He has lost 11 pounds since his last visit. 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 We discussed weight loss as a way to control diabetes. No change in his medications was needed. Problem 188440607 Back pain, unspecified back location, unspecified back pain laterality, unspecified chronicity (M54.9) Active confirmed His back pain is mostly resolved at this time. He is avoiding heavy exertion and lifting. He will notify me at once if it recurs. Vital Signs Heart Rate 74 /min 05/22/2024 Temperature 98.3 degrees Fahrenheit 05/22/2024 Blood pressure diastolic 75 mm Hg 05/22/2024 Height 68 in 05/22/2024 Blood pressure systolic 139 mm Hg 05/22/2024 Weight 208 lbs 05/22/2024 BMI 31.62 kg/m2 05/22/2024 Encounters Encounter Location Date Provider Diagnosis Omar Richter III, MD [address] [place] [address] [place] [address] 06/23/2023 Omar Richter Hyperlipidemia, unspecified hyperlipidemia type [...] and Hypertension I10 Omar Richter III, MD [address] [place] [address] [place] [address] 09/25/2023 Omar Richter Hyperlipidemia, unspecified hyperlipidemia type [...] ophthalmic complication E11.39 Omar Richter III, MD [address] [place] [address] [place] [address] 02/28/2024 Omar Richter Carcinoma of prostat e [...] without long-term current use of insulin E11.9 Omar Richter III, MD [address] [place] [address] [place] [address] 05/22/2024 Omar Richter Hypertension I10 ; Carcinoma of prostate C61 ; 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 ; BPH (benign prostatic hyperplasia) N40.0 ; Osteoarthritis of both knees M17.0 ; Umbilical hernia K42.9 and Obesity E66.9 Omar Richter III, MD [address] [place] [address] [place] [address] 06/10/2024 Omar Richter Assessments Encounter Date Diagnosis (ICD Code) Assessment [...] and was referred back for management. 05/22/2024 Hypertension (ICD-10 - I10) His blood [...] as needed. I recommended aggressive weight loss. 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 We discussed weight loss as a way to control diabetes. No change in his medications was needed. 06/23/2023 Umbilical hernia (ICD-10 - K42.9) There [...] his lifestyle to reduce nocturnal urinating. 05/22/2024 BPH (benign prostati c hyperplasia) (ICD-10 [...] now 30.56. His fasting glucose was 150. 05/22/2024 Osteoarthritis of both knees (ICD-10 - M17.0) The discomfort in the knees is unchanged but is a minor problem to him now and will be followed. 06/23/2023 Carcinoma of prostat e (ICD-10 - [...] pain or discomfort when palpating the umbilicus. 06/23/2023 Back pain, unspecified back location, unspecified [...] notify me at once if it recurs. 05/22/2024 Obesity (ICD-10 - E66.9) He has gained 7 pounds since his last visit. His weight has increased from 201-208 pounds. His body mass index is 31.6. We had discussed lifestyle modification he could make to reduce his weight. We discussed diet and nutrition today. 06/23/2023 Obesity (BMI 30.0-34.9) (ICD-10 - E66.9) [...] Date PROFILE, FASTING (COMPREHENSIVE METABOLI C) 05/22/2024 PROFILE, FASTING (COMPREHENSIVE METABOLI C) 02/28/2024 PROFILE, [...] TOTAL 11/02/2018 PSA, TOTAL 06/29/2018 PSA, TOTAL 05/22/2024 PSA, TOTAL 02/23/2018 PSA, TOTAL 02/28/2024 PSA, TOTAL 06/23/2023 PSA, TOTAL 09/25/2023 CBC w DIFF 03/08/2019 CBC w DIFF 11/02/2018 CBC w DIFF 06/29/2018 CBC w DIFF 04/02/2019 CBC w DIFF 02/23/2018 CBC w DIFF 02/28/2024 Stress Test 05/22/2024 Sleep Study - Baseline 12/12/2022 Sleep Study - Diagnostic 12/09/2022 CBC WITH AUTO DIFF 09/25/2023 CBC WITH AUTO DIFF 05/22/2024 CBC WITH AUTO DIFF 06/23/2023 Uric Acid 05/22/2024 Lipid Panel 02/28/2024 Lipid Panel 06/23/2023 Lipid Panel 09/25/2023 Lipid Panel 05/22/2024 Microalbumin, Random 06/23/2023 RT sleep home study type III 12/30/2022 Hemoglobin A1c 06/23/2023 Next Appt Details Provider Name:Omar Richter, 08/20/2024 03:30:00 PM, [address] [place], [place], [address], Provider Name:Omar Richter, 03/03/2025 11:00:00 AM, [address], [place], [address], Insurance Providers Payer Name Payer Address Payer Phone Subscriber Number Group Number Insured Name Patient Relationship to Insured Coverage Start Date Coverage End Date [address] [place] [phone] [id number] Colon, Leland Self - patient is the insured Medical (General) History Medical History History ICD Code hypertension erectile dysfunction umbilical hernia back pain 2006 bph bilateral knee pain 2014 obesity 2008 [facility] Surgical History Surgery Date(Month/Year) benign skin CA removal 2018 Prostate biopsy 2016-08-05 Laparascopic radical prostat ectomy, bilateral pelvic lymph node disection, urethral suspension suture, bilateral nerve-sparing 2016-11-17
--- OUTSIDE RECORDS SUMMARY | 2024-06-17 08:38 | XMS_ITS | Patient Health Record ---
Author Organization [facility] Address [address] [place] [address] Care Team Providers Care College Sports Assistant Name Role Phone Omar Richter MD Primary Care Provider UnavailOmar Medina Unavailable [phone] ALLERGIES No Known Allergies REASON FOR REFERRAL [...] Active confirmed Imaging of gastrointestinal tract abnormal (543390656) Problem Diverticulitis (K57.92) Active confirmed Diverticulitis (362050165) Problem Abnormal CT of the abdomen (R93.5) Active confirmed CT of abdomen abnormal (53839754260942930 ) Problem Gallbladder polyp (K82.4) Active confirmed Gallbladder eber yp (374024331) Problem Colon, diverticulosis (K57.30) Active confirmed Diverticular disease of colon (789182539) PLAN OF TREATMENT Pending Test Test Name Order Date US abdomen limited 01/27/2022 Future Test Test Name Order Date COLONOSCOPY 07/23/2014 COLONOSCOPY 01/27/2022 Insurance Providers Payer Name Payer Address Payer Phone Subscriber Number Group Number Insured Name Patient Relationship to Insured Coverage Start Date Coverage End Date [facility] [address] [facility] [place] [phone] [id number] COLONMICHAEL Self - patient is the insured MEDICAL (GENERAL) HISTORY Medical History History ICD Code Hypertension Denies MO,DM,CVA,Lung disease,renal dise ase Prostate cancer in approx 2016 Negative colonoscopy in 2014 except for sigmoid diverticulosis Sigmoid diverticulitis in 09/2021 treated with oupatient Levaquin and Flagyl Gallbladder polyps Surgical History Surgery Date(Month/Year) Hernia repair-umbilical 2005 Fatty tumor removed from back 2012 Laparoscopic complete prostatectomy for cancer at [facility]
--- OUTSIDE RECORDS SUMMARY | 2024-06-17 08:38 | XMS_ITS ---
Author Organization Omar Richter III, MD Address [address] [place] [address] Care Team Providers Care Hooker Operator Name Role Phone Omar Richter Primary Care [...] Problem Status W/U Status Risk Notes Problem 953888990 Type 2 diabetes mellitus without complication, without [...] Date Provider Diagnosis Omar Richter III, MD [address] [place] [address] [place] [address] 02/28/2024 Omar Richter Carcinoma of prostat e [...] Reason: ov review labs Provider Name:Omar Richter, 08/20/2024 03:30:00 PM, [address] [facility] [address], [place], [address], Provider Name:Omar Richter, 03/03/2025 11:00:00 AM, [address] [facility] [address], [place], [address], Progress Notes * Leland ZHUDOB:1965 (4 0 yo M)Acc No.[id number]:02/28/2024 Progress Notes Patient:?Leland Zhu Provider:?Omar Richter MD :1965???Age:58 Y???Sex:Male Misael e:02/28/2024 Address:[address] [place] [address] [id number] Subjective: * Chief Complaints: * ???Annual Exam [...] node disection, urethral suspension suture, bilateral nerve-sparing [id number] biopsy [id number] skin CA removal 2018 * Hospitalization/Major Diagno [...] is 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 He was born in [place] and has several children. He is bilingual. [...] 28?L (Ref Range: >40 mg/dL) * Lab:[facility] [place] * Order Date 02/17/2024 [...] * ?BLD Negative Negative - * Procedure Codes:?86642 URINE -NO MICRO * Preventive Medicine:? ??Counseling:?Care [...] Richter MD Date:?02/10 Generated for Shani finn/Robert/eTransmitting on:?06/17/2024 08:37 AM EST History and Physical [...] Score: 0 COVID-19 Screening Questions Have you had any new onset fever, chills, cough, congestion, sore throat, shortness of breath, muscle aches?: No Have you been exposed to the virus withi n the last 10 days?: No Have you travelled internationally in [facility] last 10 days?: No Have you [...] atraumatic, normocep halic EYES: eomi, perrla, anicte havne, conjugate EARS: normal NOSE: septum intact NECK/THYROID: [...] Provider Not 02/28/2024 Omar Richter Alexander , ([place]) history of carcinoma of prostate evaluate and treatment
== END ==
LOC: HO.CARD 08:18
PROVIDERS: PCP Internal Medicine Medical Oncology; Visit Provider Internal Medicine Medical Oncology
DX: R07.89 Other chest pain (principal)
CPT/HCPCS: 93017

== ENCOUNTER → 2024-06-17 08:23 | Outpatient (BNV) | payer OTHER, SELFPAY | PROVIDERS: PCP Internal Medicine Medical Oncology | DX: I49.3 Ventricular premature depolarization (principal) | CPT/HCPCS: 93016; 93018 ==

== ENCOUNTER 2024-08-17 06:53 | Outpatient (REF) | payer OTHER, SELFPAY ==
[2024-08-17 07:25] LABS: MANUAL DIFF FLAG NO
[2024-08-17 07:41] LABS: Basophils Percent Auto 0.5 % (0-2); Eosinophils Absolute Auto 0.2 X10*3/uL (0.0-0.4); Eosinophils Percent Auto 2.3 % (0-4); Hematocrit 45.8 % (42.0-52.0); Hemoglobin 15.3 g/dl (14.0-18.0); Imm Gran Abs Auto 0.03 X10*3/uL (0.00-0.03); Imm Gran Pct Auto 0.4 % (0.0-0.4); Lymphocytes Percent Auto 26.6 % (20-40); Mean Corpuscular HGB Conc 33.4 g/dl (31.0-36.0); Mean Corpuscular Hemoglobin 28.9 pg (27.0-33.0); Mean Corpuscular Volume 86.4 fL (80.0-98.0); Mean Platelet Volume 10.5 fL (9.4-12.4); Monocytes Absolute Auto 0.9 X10*3/uL (0.1-1.2); Monocytes Percent Auto 11.3 % (2-11); Neutrophils Absolute Auto 4.5 x10*3/uL (2.0-8.3); Neutrophils Percent Auto 58.9 % (45-73); Platelet Count 253 X10*3/uL (160-400); Red Cell Distribution Width 12.7 % (11.0-16.0); White Blood Count 7.6 X10*3/uL (4.8-10.8)
[2024-08-17 08:15] LABS: Alanine Aminotransferase 34 U/L (0-40); Albumin Level 4.2 g/dL (3.5-5.0); Alkaline Phosphatase 67 U/L (39-117); Anion Gap 9 (12-20); Aspartate Amino Transferase 15 U/L (5-37); Bilirubin Total 0.9 mg/dL (0.0-1.0); Blood Urea Nitrogen 21 mg/dL (9-16); Carbon Dioxide 26 mmol/L (22-29); Chloride 110 mmol/L (96-108); Cholesterol 143 mg/dL (<200); Estimated Glomerular Filt Rate > 60; Glucose Fasting 181 mg/dL (60-99); HDL Cholesterol 31 mg/dL (>40); LDL Cholesterol Calculated 100 mg/dL (<100); Potassium 4.1 mmol/L (3.3-5.1); Sodium 141 mmol/L (135-145); Total Protein 7.1 g/dL (6.5-8.0); Triglycerides 62 mg/dL (<150)
[2024-08-17 08:24] LABS: Prostate Specific Antigen 0.21 ng/mL (<0.05-4.0)
[2024-08-17 08:26] LABS: Uric Acid 4.3 mg/dL (3.4-7.0)
[2024-08-24 21:09] LABS: PSA, Ultra Sensitive 0.23 ng/mL
== END 2024-08-17 06:54 | disposition home or self-care (01) ==
LOC: HO.LAB 06:53
PROVIDERS: Urology; PCP Internal Medicine Medical Oncology; Visit Provider Internal Medicine Medical Oncology
DX: N52.9 Male erectile dysfunction, unspecified (principal); C61 Malignant neoplasm of prostate; E66.9 Obesity, unspecified; E11.9 Type 2 diabetes mellitus without complications; N17.9 Acute kidney failure, unspecified; Z12.5 Encounter for screening for malignant neoplasm of prostate
CPT/HCPCS: 36415; 80053; 80061; 84153; 84550; 85025

== ENCOUNTER 2024-09-18 13:41 | Outpatient (AMB) | payer OTHER, SELFPAY ==
--- NOTE | 2024-09-18 13:42 | MHC.OFFVIS ---
Intake Visit Reasons: 4M PSA Intake Note: Patient is present for 4M/PSA Urology Medication:NONE Antibiotic Allergy:NONE Blood Thinner:NONE Loom Setter Required: No Allergies No Known Allergies [No Known Allergies*] Allergy (Verified 09/18/24 13:42) HPI Comments Details: Leland is a pleasant male. He is a patient of Dr. Richter. He seen for the following urologic conditions - prostate cancer Telemedicine Evaluation 15 min Consultation Doximity Ricardo Video Seen for slowly rising PSA setting postprostatectomy PSA is at threshold 0.2 if rises at next visit will initiate PET-CT Prostate cancer grade group 3 - radical prostatectomy [facility] 09/2016 Initially seen in 2016 No prior Check PSA in 4 months PSA 08/30 <0.05, 01/01 0.11, 10/03 0.15, 06/04 0.21, 09/03 0.21 PFSH Medical History DILCIA (obstructive sleep apnea) Obesity (BMI 30-39.9) Gallbladder polyp Sigmoid diverticulitis Prostate cancer Hypertension Surgical History History of prostatectomy History of hernia repair History of colonoscopy Social History Alcohol intake: never Patient Tobacco Use Status: Never used Tobacco Substance Use Type: Hallucinogens Telehealth Telehealth Telehealth Platform: friendfund Location of provider rendering services: practice address Location of patient: address on file Patient Identification confirmed using: Name, : Yes Telehealth method: video Patient verbally consented to treatment: Yes Patient verbally consented to billing insurance company: Yes Patient informed of any privacy concerns related to visit: Yes Minutes spent on Phone/Video with Pt.: 15 Assessment & Plan Assessment & Plan (1) Prostate cancer: Code(s): C61 - Malignant neoplasm of prostate Category: Medical (2) Rising PSA following treatment for malignant neoplasm of prostate: Code(s): R97.21 - Rising PSA following treatment for malignant neoplasm of prostate Category: Medical Plan Four month follow-up PSA Orders: Orders PSA, Ultra Sensitive 4 Months C61 - Malignant neoplasm of prostate Patient Instructions: This note is constructed using voice recognition software. While every effort has been made to ensure accuracy salesforce administrator errors may have been included. Imaging studies, laboratory and physical exam results were discussed and reviewed in detail. No major barriers to patient understanding were identified. An opportunity to ask questions regarding the treatment plan was provided. All questions were answered. The patient expressed understanding and agreement with the above treatment plan. The patient is aware they should contact our office by phone for worsening of their current condition or the appearance of new urologic symptoms. Compliance is encouraged with any medications and followup testing that is ordered. It is a privilege to participate in the urologic care of your patient. If you have any questions or concerns regarding treatment for the above conditions, or other urologic issues, please do not hesitate to contact me. The office telephone contact is [phone]. Sincerely, Dr Ramses Huertas MD, DANNY [facility] - Urology Compassionate Specialist Care for the Genitourinary System Coding Level of Care Code Tele Est Pt Level 3 (08872) Complex EM visit Add On G2211 Diagnoses Prostate cancer C61 Rising PSA following treatment for malignant neoplasm of prostate R97.21
--- OUTSIDE RECORDS SUMMARY | 2024-09-18 15:55 | XMS_ITS | Patient Health Record ---
Author Organization [facility] Address [address] [place] [address] Care Team Providers Care Practice Advisor Name Role Phone Omar Richter MD Primary Care Provider UnavailOmar Medina Unavailable [phone] Allergies No Known Allergies Reason For Referral No Information Medications Medication SIG (Take, Route, Frequency, Duration) Notes Start Date End Date Status amLODIPine Besylate 5 MG TAKE 1 T PO QD Oral for 30 Active Immunizations Vaccine Route Administration Date Status Comme nts Influenza Unknown 01/27/2022 Refused Problems Problem Type SNOMED Code ICD Code Onset Dates Problem Status W/U Status Risk Notes Problem Imaging of gastrointestinal tract abnormal (348056038) Abnormal findings on diagnostic imaging of other parts of digestive tract (R93.3) Active confirmed Problem Diverticulitis (216132740) Diverticulitis (K57.92) Active confirmed Problem CT of abdomen abnormal (70157705190949807) Abnormal CT of the abdomen (R93.5) Active confirmed Problem Gallbladder polyp (473773685) Gallbladder polyp (K82.4) Active confirmed Problem Diverticular disease of colon (059380937) Colon, diverticulosis (K57.30) Active confirmed Plan Of Treatment Pending Test Test Name Order Date US abdomen limited 01/27/2022 Future Test Test Name Order Date COLONOSCOPY 07/23/2014 COLONOSCOPY 01/27/2022 Insurance Providers Payer Name Payer Address Payer Phone Subscriber Number Group Number Insured Name Patient Relationship to Insured Coverage Start Date Coverage End Date [facility] [address] [facility] [phone] [id number] MICHAEL ZHU Self - patient is the insured Medical (General) History Medical History History ICD Code Hypertension Denies DE,DM,CVA,Lung disease,renal dise ase Prostate cancer in approx 2016 Negative colonoscopy in 2014 except for sigmoid diverticulosis Sigmoid diverticulitis in 09/2021 treated with oupatient Levaquin and Flagyl Gallbladder polyps Surgical History Surgery Date(Month/Year) Hernia repair-umbilical 2005 Fatty tumor removed from back 2012 Laparoscopic complete prostatectomy for cancer at [facility]
--- OUTSIDE RECORDS SUMMARY | 2024-09-18 15:55 | XMS_ITS ---
Author Organization Omar Richter III, MD Address [address] [place] [address] Care Team Providers Care Funeral Home Director Name Role Phone Omar Richter Primary Care Provider [phone] Allergies Allergen (clinical drug ingredient) Drug/Non Drug [...] Date Provider Diagnosis Omar Richter III, MD [address] [place] [address] [place], [place] [address] 08/30/2024 Omar Richter Carcinoma of prostat e [...] 1 Week, Reason: o v Provider Name:Omar Richter, 11/26/2024 10:15:00 AM, [address] [place] [address] [address], [place], [phone], Provider Name:Omar Richter, 03/03/2025 11:00:00 AM, [address] [place] [address] [address], [place], [phone], Progress Notes * MARKOLelandDOB:1965 (4 0 yo M)Acc No.[id number]:08/30/2024 Patient:?Leland ZHU Provider:?Omar Richter MD :1965???Age:58 Y???Sex:Male Misael e:08/30/2024 Address:[address] [place], [place] [address] [id number] Subjective: * Chief Complaints: * ???COVID PositiveProstate ca ncerChronic low back painHypertensionUmbilical herniaHyperlipidemiaDiabetesBenign prosthetic hypertrophy * HPI: ???:?He called today to report he has a viral syndrome and tested positive for booth virus this morning. He says he has been sick for at least a week.? He declined a prescription for Paxlovid.? He is starting to feel better.? He is able to eat and drink without difficulty.? He was encouraged to remain at home or another 5 days to call me on Monday, September 02, 2024 to report. ?Telehealth?Location of provider rendering services:?{...} [address] [facility] [address] ?Location of patient:?address listed in demographics for today's visit ?Patient identification confirmed using:?Name, ?Telehealth method:?Telephone only. Patient not visible to care provider. ?Consent:?Patient verbally consented to treatment, Patient verbally consented to billing insurance company, Patient informed of any privacy concerns related to method of visit ?Total time spent with patient (mins)?15 * ROS:?General/Constitutional:?pain?only normal aches and pains.?Chills?that occur every night.?Fatigue?admits.?Fever?denies.?ENT:?Decreased hearing?denies.?Respiratory:?Cough?non-productive.?Cardiovascular:?Chest pain with exertion?denies.?Dyspnea on exertion?denies.?Shortness of breath?denies.?Gastrointestinal:?Constipation?occasional.?Decreased appetite?denies.?Diarrhea?denies.?Heartburn?denies.?Nausea?denies.?Rectal bleeding?denies.?Vomiting?denies.?Hematology:?bruising?denies.?petechiae?denies.?Swollen glands?none have been noted.?Genitourinary:?Frequent urination?once a night.?Musculoskeletal:?Muscle aches?denies.?Painful joints?denies.?Sciatica?denies.?Weakness?denies.?Skin:?Itching?denies.?Rash?denies.?Skin lesion(s)?denies.?Neurologic:?Difficulty speaking?denies.?Dizziness?denies.?Headache?denies.?Low back pain?that is chronic.?Psychiatric:?Depressed mood?denies.? * Medical History:? * Surgical History:?Laparascop ic radical prostatectomy, bilateral pelvic lymph node disection, urethral suspension suture, bilateral nerve-sparing [id number] biopsy [id number] skin CA removal 2018 * Hospitalization/Major Diagno stic Procedure:?Denies Past Hospitalization * Family History:?Father: dece ased 42 yrs, automoble accident.?Mother: 80 yrs.?Spouse: alive 41 yrs.?2 brother(s) - healthy. 3 daughter(s) - healthy. .? * Social History:?Tobacco Use:?Tobacco Use/Smoking?Patient is a?nonsmoker ?Additional Findings: Tobacco Non-User?Aggressive non-smoker ???This He is and has worked in [employer] at [employer] for 26 years.. He was born in [place] and has several children. He is bilingual. [...] ergyno[Allergies Verified] Objective: * Vitals:?Ht: 68, Wt: 217, BMI :32.99, Wt-k.43. * ???Past Orders: ???Lab:PSA, Ultra Sensitive (Order Date - 08/17/2024) (Collection Date & Time - 08/17/2024 07:24 AM) ? Value Reference Range ?PSA, Ultra Sensitive 0.23 - ng/mL Lab:Complete Blood [...] Percent Auto 11.3?H (Ref Range: 2-11 %) 11.3?H (Ref Range: 2-11 %) 11.1?H (Ref Range: 2-11 %) Eosinophils Percent Auto [...] 0.000 (Ref Range: 0.0-0.012 X10*3/uL) * Lab:Aleja Rajan * Collection Date 08/17/2024 05/18/2024 02/17/2024 Collection [...] mmol/L) 4.2 (Ref Range: 3.3-5.1 mmol/L) Chloride 110?H (Ref Range: 96-108 mmol/L) 105 (Ref Range: 96-108 mmol/L) 108 (Ref Range: 96-108 mmol/L) Carbon Dioxide 26 (Ref Range: 22-29 mmol/L) 27 (Ref Range: 22-29 mmol/L) 25 (Ref Range: 22-29 mmol/L) Anion Gap 9?L (Ref Range: 12-20) 14 (Ref Range: 12-20) 11?L (Ref Range: 12-20) Blood Urea Nitrogen 21?H (Ref Range: 9-16 mg/dL) 15 (Ref Range: 9-16 mg/dL) 18?H (Ref Range: 9-16 mg/dL) Creatinine 0.80 (Ref Range: 0.5-1.4 mg/dL) 0.77 (Ref Range: 0.5-1.4 mg/dL) 0.80 (Ref Range: 0.5-1.4 mg/dL) Estimated Glomerular Filt Rate > 60 > 60 > 60 Glucose Fasting 181?H (Ref Range: 60-99 mg/dL) 171?H (Ref Range: 60-99 mg/dL) 151?H (Ref Range: 60-99 mg/dL) Calcium 9.0 (Ref [...] (Ref Range: <200 mg/dL) LDL Cholesterol Calculated 100?H (Ref Range: <100 mg/dL) 102?H (Ref Range: <100 mg/dL) 85 (Ref Range: <100 mg/dL) HDL Cholesterol 31?L (Ref Range: >40 mg/dL) 30?L (Ref Range: >40 mg/dL) 29?L (Ref Range: >40 mg/dL) * Lab:Prostate Specific Antige n * Collection Date 08/17/2024 05/18/2024 02/17/2024 Collection Time 07:24 AM 07:56 AM 08:02 AM Order Date 08/17/2024 05/18/2024 02/17/2024 Prostate Specific Antigen 0.21 (Ref Range: <0.05-4.0 ng/mL) 0.21 (Ref Range: <0.05-4.0 ng/mL) 0.17 (Ref Range: <0.05-4.0 ng/mL) Assessment: * Assessment: 1.?Carcinoma of prostate - C 61 (Primary)???Notes :His PSA is detectable at 0.21 whereas it was 0.15 the previous 2 determinations. He is asymptomatic. The is overdue to see urology and was referred back for management.He remains asymptomatic.???2.?Viral syndrome - B34.9???Notes :He has declined Paxlovid.? He will continue with conservative treatment as he is already beginning to improve rapidly.???3.?Umbilical hernia - K42.9???Notes :There was no pain or discomfort when palpating the umbilicus.???4.?Osteoarthritis of both knees - M17.0???Notes :The discomfort in the knees is unchanged but is a minor problem to him now and will be followed.???5.?Back pain, unspecified back location, unspecified back pain laterality, unspecified chronicity - M54.9???Notes :His back pain is mostly resolved at this time. He is avoiding heavy exertion and lifting. He will notify me at once if it recurs.???6.?Hypertension - I10???Notes :His blood pressure has been?stable and no change in his regimen was made???7.?BPH (benign prostatic hyperplasia) - N40.0???Notes :We have discussed modifications to his lifestyle to reduce nocturnal urinating.???8.?Type 2 diabetes mellitus without complication, without long-term current use of insulin - E11.9???Notes :His fasting glucoses are 150. He is diet controlled. He has lost 11 pounds since his last visit.???9.?Obesity - E66.9???Notes :He has gained 9 pounds since his last visit. We discussed the relationship between his weight and his diabetes. We discussed diet and nutrition. We discussed a diabetic low cholesterol diet. We made plans to lose weight at a rate of one half of a pound per week through physical activity and a diet restricted in fat calories and sodium.???10.?Sleep apnea, unspecified - G47.30???Notes :His sleep study done in January 2023 shows severe obstructive sleep apnea. He is using his CPAP machine now.??? Plan: * Treatment: * Procedure Codes:? * Preventive Medicine:? ??Counseling:?Care [...] a week for 30 mins.? * Follow Up:?1 Week (Reason: o v) * Images: * Sign off status: Completed true * Provider:?Omar Richter MD Date:?08/11 Generated for Shani finn/Robert/eTtaniasmitting on:?09/18/2024 03:55 PM EDT History and Physical Notes * HPI (History of Present Illness) Category Sub-Category Detail Notes Telehealth Location of [facility] rendering services:: {...} [address] [facility] [address] Location of patient:: address listed in demographics [...]
--- OUTSIDE RECORDS SUMMARY | 2024-09-18 15:56 | XMS_ITS ---
Author Organization Omar Richter III, MD Address [address] [place] [address] Care Team Providers Care Doctor Of Nurse Anesthesia Practice Name Role Phone Omar Richter Primary Care [...] Provider Speciality Internal M edicine Referred Provider [facility] Referred Provider Specialty Dermatology General Notes Muna Cortez CMA 08/22 01:29:41 PM > referral/demo/ progress note faxed to Dana DUMONT Suzanne CMA 08/26/2024 09:35:06 AM > received notice from [facility] they want patient to call them at [phone] and make his own appt pt called [...] Problem Status W/U Status Risk Notes Problem [id number] Obesity (E66.9) Active confirmed He has gained 9 pounds since his last visit. We discussed the relationship between his weight and his diabetes. We discussed diet and nutrition. We discussed a diabetic low cholesterol diet. We made plans to lose weight at a rate of one half of a pound per week through physical activity and a diet restricted in fat calories and sodium. Vital Signs Temperature 99.1 degrees Fahrenheit 08/21/19 25 Blood pressure systolic 137 mm Hg 08/21/19 25 Blood pressure diastolic 80 mm Hg 025 Heart Rate 70 /min 08/20/2024 Height 68 in 08/20/2024 Weight 217 lbs 08/20/2024 BMI 32.99 kg/m2 08/20/2024 Encounters Encounter Location Date Provider Diagnosis Omar Richter III, MD [address] [place] [address] [place] [address] 08/20/2024 Omar Richter Hypertension I10 ; Carcinoma [...] e a day for 30 days 08/20/2024 Pending Test Test Name Order Date PROFILE, FASTING (COMPREHENSIVE METABOLI C) 08/20/2024 CBC w DIFF 08/20/2024 Lipid Panel 08/20/2024 Microalbumin, Random 08/20/2024 Hemoglobin A1c 08/20/2024 Referrals Referral Date Details 08/20/2024 08/20/2024, lesion o n lip[facility] Next Appt Details Follow Up: 3 weeks TV then 3 months OV, Reason: TV no tests then 3 months review labs Provider Name:Omar Richter, 11/26/2024 10:15:00 AM, [address] [place] [address] [address], [place], [address], Provider Name:Omar Richter, 03/03/2025 11:00:00 AM, [address] [place] [address] [address], [place], [address], Progress Notes * Leland ZHUDOB:1965 (4 0 yo M)Acc No.[id number]:08/20/2024 Progress Notes Patient:?Leland ZHU Provider:?Omar Richter MD :1965???Age:58 Y???Sex:Male Misael e:08/20/2024 Address:[address] [place] [address] [place], [id number] Subjective: * Chief Complaints: * ???Biochemical recurrent pro stateArthritis both kneesHypertensionHyperlipidemia sleep apneaDiabetesObesity * HPI: ???COVID-19 Screening:?He returns for management of several medical issues.? He is up-to-date with his urology visits.? His PSA is stable at 0.21 he denies any current bone pain.? His low back pain is unchanged.? His diabetes has been well controlled.? He continues his efforts at weight loss.? His blood work is available and was reviewed with him in detail.He has gained 9 pounds since his last visit.? His fasting glucose was 181.? He was begun on 500 mg of metformin daily.? He is no longer eligible for dietary control. ?Questions?Have you had any new onset fever, chills, cough, congestion, sore throat, shortness of breath, muscle aches??No * ROS:?General/Constitutional:?pain?only normal aches and pains.?Chills?denies.?Fatigue?admits.?Fever?denies.?ENT:?Decreased hearing?denies.?Respiratory:?Cough?denies.?Cardiovascular:?Chest pain with exertion?denies.?Dyspnea on exertion?denies.?Shortness of breath?denies.?Gastrointestinal:?Constipation?occasional.?Decreased appetite?denies.?Diarrhea?denies.?Heartburn?denies.?Nausea?denies.?Rectal bleeding?denies.?Vomiting?denies.?Hematology:?bruising?denies.?petechiae?denies.?Swollen glands?none have been noted.?Genitourinary:?Frequent urination?twice a night.?Musculoskeletal:?Muscle aches?denies.?Painful joints?denies.?Sciatica?denies.?Weakness?denies.?Skin:?Itching?denies.?Rash?denies.?Skin lesion(s)?denies.?Neurologic:?Difficulty speaking?denies.?Dizziness?denies.?Headache?denies.?Low back pain?denies.?Psychiatric:?Depressed mood?which is mild.? * Medical History:? * Surgical History:?Laparascop ic radical prostatectomy, bilateral pelvic lymph node disection, urethral suspension suture, bilateral nerve-sparing [id number] biopsy [id number] skin CA removal 2018 * Hospitalization/Major Diagno stic Procedure:?Denies Past Hospitalization * Family History:?Father: dece ased 42 yrs, automoble accident.?Mother: 80 yrs.?Spouse: alive 41 yrs.?2 brother(s) - healthy. 3 daughter(s) - healthy. .? * Social History:?Tobacco Use:?Tobacco Use/Smoking?Patient is a?nonsmoker ?Additional Findings: Tobacco Non-User?Aggressive non-smoker ???This He is and has worked in [employer] at [employer] for 26 years.. He was born in [place] and has several children. He is bilingual. [...] * Vitals:?Ht: 68, Wt: 217, BMI :32.99, BP: 137/80, HR: 70, Temp: 99.1, Wt-k.43. 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 His fasting glucose is 181 now that he has gained 9 pounds.? He is no longer a candidate for diet control.? His medications will be titrated against his A1c.? He remains asymptomatic.???4.?Obesity - E66.9???Notes :He has gained 9 pounds since his last visit.? We discussed the relationship between his weight and his diabetes.? We discussed diet and nutrition.? We discussed a diabetic low cholesterol diet.? We made plans to lose weight at a rate of one half of a pound per week through physical activity and a diet restricted in fat calories and sodium.???5.?BPH (benign prostatic hyperplasia) - N40.0???Notes :We have discussed modifications to his lifestyle to reduce nocturnal urinating.???6.?Osteoarthritis of both knees - M17.0???Notes :The discomfort in the knees is unchanged but is a minor problem to him now and will be followed.???7.?Umbilical hernia - K42.9???Notes :There was no pain or discomfort when palpating the umbilicus.??? Plan: * Treatment: 2.?Adult onset diabetes mary itus with ophthalmic complication?LAB: PROFILE, FASTING (COMPREHENSIVE METABOLIC) ?LAB: CBC w DIFF ?LAB: Lipid Panel ?LAB: Microalbumin, Random ?LAB: Hemoglobin A1c 3.?Obesity?LAB: PROFILE, FASTING (COMPREHENSIVE METABOLIC) ?LAB: CBC w DIFF ?LAB: Lipid Panel ?LAB: Microalbumin, Random ?LAB: Hemoglobin A1c 4.?Others? Continue amLODIPine Besylate Tablet, 10 MG, TAKE 1 TABLET BY MOUTH EVERY DAY;?Start metFORMIN HCl Tablet, 500 MG, 1 tablet, Orally, Once a day, 30 days, 30 Tablet, Refills 11.? Referral To[facility]atology ?Reason:lesion on lip * Procedure Codes:? * Preventive Medicine:? ??Counseling:?Care [...] 1 lb per week.? * Follow Up:?3 weeks TV then 3 months OV (Reason: TV no tests then 3 months review labs) * Images: * Sign off status: Completed true * Provider:?Omar Richter MD Date:?08/10 Generated for Shani finn/Robert/Luis Danielitting on:?09/18/2024 03:56 PM EDT History and Physical Notes * [...] Referral Date Referring Provider Referred Provider Not es 08/20/2024 Omar Richter [facility] lesion on lip
--- OUTSIDE RECORDS SUMMARY | 2024-09-18 15:56 | XMS_ITS ---
Author Organization Omar Richter III, MD Address [address] [place] [address] Care Team Providers Care Habitat Biologist Name Role Phone Omar Richter Primary Care Provider [phone] Allergies Allergen (clinical drug ingredient) Drug/Non Drug [...] Provider Diagnosis Omar Richter III, MD [address] [place] [address] [address] [place], [place] [address] 09/10/2024 Omar Richter Acute COVID-19 U07.1 ; [...] Up: 2 Months, Reason: OV Provider Name:Omar Richter, 11/26/2024 10:15:00 AM, [address] [place] [address] SHREE KUMAR, [place], [address], Provider Name:Omar Richter, 03/03/2025 11:00:00 AM, [address] [place] [address] SHREE KUMAR, [place], [address], Progress Notes * Leland ZHUDOB:1965 (4 0 yo M)Acc No.[id number]:09/10/2024 Patient:?Leland ZHU Provider:?Omar Richter MD :1965???Age:58 Y???Sex:Male Misael e:09/10/2024 Address:[address] [place], [place] [id number] Subjective: * Chief Complaints: * ???Covid19 infectionLow back painProstate cancerHypertensionHyperlipidemiaArthritis in both knees * HPI: ???:? This telehealth visit took place over 15 min. with the patient at home and me in my office.? He gave consent for billing.? He reports that he has substantially recovered from the booth virus infection.? His throat is no longer sore.? He is eating and drinking normally.? He has a residual nonproductive cough.? He has no fever or chills.? He denies any nausea, vomiting or diarrhea.? ?He will gradually returned to normal life.? He will return to the office as scheduled. ?Telehealth?Location of provider rendering services:?{...} [address] [facility] [address] ?Location of patient:?address listed in demographics for today's visit ?Patient identification confirmed using:?Name, ?Telehealth method:?Telephone only. Patient not visible to care provider. ?Consent:?Patient verbally consented to treatment, Patient verbally consented to billing insurance company, Patient informed of any privacy concerns related to method of visit ?Total time spent with patient (mins)?15 * ROS:?General/Constitutional:?pain?only normal aches and pains.?Chills?denies.?Fatigue?admits.?Fever?denies.?ENT:?Decreased hearing?denies.?Respiratory:?Cough?non-productive.?Cardiovascular:?Chest pain with exertion?denies.?Dyspnea on exertion?denies.?Shortness of breath?with exertion.?Gastrointestinal:?Constipation?denies.?Decreased appetite?denies.?Diarrhea?denies.?Heartburn?denies.?Nausea?denies.?Rectal bleeding?denies.?Vomiting?denies.?Hematology:?bruising?denies.?petechiae?denies.?Swollen glands?none have been noted.?Genitourinary:?Frequent urination?once a night.?Musculoskeletal:?Muscle aches?denies.?Painful joints?denies.?Sciatica?denies.?Weakness?denies.?Skin:?Itching?denies.?Rash?denies.?Skin lesion(s)?denies.?Neurologic:?Difficulty speaking?denies.?Dizziness?denies.?Headache?denies.?Low back pain?that is chronic.?Psychiatric:?Depressed mood?denies.? * Medical History:? * Surgical History:?Laparascop ic radical prostatectomy, bilateral pelvic lymph node disection, urethral suspension suture, bilateral nerve-sparing [id number] biopsy [id number] skin CA removal 2018 * Hospitalization/Major Diagno stic Procedure:?Denies Past Hospitalization * Family History:?Father: dece ased 42 yrs, automoble accident.?Mother: 80 yrs.?Spouse: alive 41 yrs.?2 brother(s) - healthy. 3 daughter(s) - healthy. .? * Social History:?Tobacco Use:?Tobacco Use/Smoking?Patient is a?nonsmoker ?Additional Findings: Tobacco Non-User?Aggressive non-smoker ???This He is and has worked in boo-box[employer] at [employer] for 26 years.. He was born in [place] and has several children. He is bilingual. [...] * Vitals:?Ht: 68, Wt: 217, BMI :32.99, Ht-cm: 172.72, Wt-k.43. * ???Past Orders: Lab:Prostate Specific Antige [...] >40 mg/dL) 29?L (Ref Range: >40 mg/dL) ???Lab:Uric Acid (Order Date - 08/17/2024) (Collection Date & Time - 08/17/2024 07:24 AM)?ValueReference Range?Uric Acid4.33.4-7.0 - mg/dL * Lab:[facility] [place]. Pane l Fast * Collection Date 08/17/2024 [...] Ultra Sensitive0.23 - ng/mL Assessment: * Assessment: 1.?Acute COVID-19 - U07.1 (P rimary)???Notes :He has substance.? He actually recovered at this point.? He will gradually resume normal life.???2.?Back pain, unspecified back location, unspecified back pain laterality, unspecified chronicity - M54.9???Notes :His back pain is mostly resolved at this time. He is avoiding heavy exertion and lifting. He will notify me at once if it recurs.???3.?Umbilical hernia - K42.9???Notes :There was no pain or discomfort when palpating the umbilicus.???4.?Osteoarthritis of both knees - M17.0???Notes :The discomfort in the knees is unchanged but is a minor problem to him now and will be followed.???5.?Carcinoma of prostate - C61???Notes :His PSA is detectable at 0.21 whereas it was 0.15 the previous 2 determinations. He is asymptomatic. The is overdue to see urology and was referred back for management.He remains asymptomatic.???6.?Sleep apnea, unspecified - G47.30???Notes :His sleep study done in January 2023 shows severe obstructive sleep apnea. He is using his CPAP machine now.???7.?BPH (benign prostatic hyperplasia) - N40.0???Notes :We have [...] a diet restricted in fat calories and sodium.??? Plan: * Treatment: * Procedure Codes:? * Preventive Medicine:? ??Counseling:?Care goal follow-up plan:?Counseling for abnormal BMI given?Yes ?Above Normal BMI Follow-up?Dietary management education, guidance, and counseling, Dietary needs education ??DM Care Plan:?Patient Lifestyle Goals?Patient wants to be able to manage diabetes without too much effort.?Treatment Goals?Blood Sugars less than < 115, HbA1C < 7.0.?Barriers?no barriers.?Self-Managment Goals?Work on weight loss, with a goal of losing 1 lb per week.? * Follow Up:?2 Months (Reason: OV) * Images: * Sign off status: Completed true * Provider:?Omar Richter MD Date:?06/2024 Generated for Shani finn/Robert/Luis Danielitting on:?09/18/2024 03:55 PM EDT History and Physical Notes * HPI (History of Present Illness) Category Sub-Category Detail Notes Telehealth Location of [facility] rendering services:: {...} [address] [facility] [address] Location of patient:: address listed in demographics [...]
== END 2024-09-18 16:22 | disposition home or self-care (01) ==
LOC: HO.HUSH 13:41
PROVIDERS: PCP Internal Medicine Medical Oncology; Visit Provider Urology
DX: C61 Malignant neoplasm of prostate (principal); R97.21 Rising PSA following treatment for malignant neoplasm of prostate
CPT/HCPCS: 99213

== ENCOUNTER 2024-11-16 07:05 | Outpatient (REF) | payer OTHER, SELFPAY ==
[2024-11-16 07:15] LABS: MANUAL DIFF FLAG NO
[2024-11-16 07:59] LABS: Basophils Percent Auto 0.5 % (0-2); Eosinophils Absolute Auto 0.1 X10*3/uL (0.0-0.4); Eosinophils Percent Auto 1.5 % (0-4); Hematocrit 46.7 % (42.0-52.0); Hemoglobin 15.3 g/dl (14.0-18.0); Imm Gran Abs Auto 0.03 X10*3/uL (0.00-0.03); Imm Gran Pct Auto 0.4 % (0.0-0.4); Lymphocytes Absolute Auto 2.4 X10*3/uL (1.2-4.9); Lymphocytes Percent Auto 29.6 % (20-40); Mean Corpuscular HGB Conc 32.8 g/dl (31.0-36.0); Mean Corpuscular Hemoglobin 28.9 pg (27.0-33.0); Mean Corpuscular Volume 88.3 fL (80.0-98.0); Mean Platelet Volume 10.8 fL (9.4-12.4); Monocytes Absolute Auto 0.9 X10*3/uL (0.1-1.2); Monocytes Percent Auto 11.1 % (2-11); Neutrophils Absolute Auto 4.7 x10*3/uL (2.0-8.3); Neutrophils Percent Auto 56.9 % (45-73); Platelet Count 278 X10*3/uL (160-400); Red Blood Count 5.29 X10*6/uL (4.60-5.80); Red Cell Distribution Width 12.8 % (11.0-16.0); White Blood Count 8.2 X10*3/uL (4.8-10.8)
[2024-11-16 08:08] LABS: Estimated Average Glucose 143 mg/dL; Hemoglobin A1c % 6.6 % (<6.0)
[2024-11-16 08:24] LABS: Creatinine Urine 193.39 mg/dL; Microalbum/Creatinine Ratio Ur 6.7 ug/mg cr (<30)
[2024-11-16 08:26] LABS: Alanine Aminotransferase 34 U/L (0-40); Albumin Level 4.3 g/dL (3.5-5.0); Alkaline Phosphatase 62 U/L (39-117); Anion Gap 10 (12-20); Aspartate Amino Transferase 17 U/L (5-37); Bilirubin Total 0.7 mg/dL (0.0-1.0); Blood Urea Nitrogen 17 mg/dL (9-16); Carbon Dioxide 25 mmol/L (22-29); Chloride 110 mmol/L (96-108); Cholesterol 140 mg/dL (<200); Estimated Glomerular Filt Rate > 60; Glucose Fasting 173 mg/dL (60-99); HDL Cholesterol 30 mg/dL (>40); LDL Cholesterol Calculated 96 mg/dL (<100); Potassium 4.1 mmol/L (3.3-5.1); Sodium 141 mmol/L (135-145); Total Protein 6.9 g/dL (6.5-8.0); Triglycerides 74 mg/dL (<150)
== END 2024-11-16 07:06 | disposition home or self-care (01) ==
LOC: HO.LAB 07:05
PROVIDERS: PCP Internal Medicine Medical Oncology; Visit Provider Internal Medicine Medical Oncology
DX: I10 Essential (primary) hypertension (principal); E11.39 Type 2 diabetes mellitus with other diabetic ophthalmic complication; E66.9 Obesity, unspecified
CPT/HCPCS: 36415; 80053; 80061; 82043; 82570; 83036; 85025

== ENCOUNTER 2025-01-03 16:31 | Outpatient (REF) | payer OTHER, SELFPAY ==
--- OUTSIDE RECORDS SUMMARY | 2024-12-24 07:43 | XMS_ITS ---
Author Organization Omar Richter III, MD Address [address] [place] [address] [place] [address] Care Team Providers Care Protozoology Teacher Name Role Phone Omar Richter Primary Care Provider REASON FOR VISIT Appointment Request Social History Sex Assigned At : Social History Observation Description Sex Assigned At Male Encounters Encounter Location Date Provider Diagnosis Omar Richter III, MD [address] [place] [address] [place] [address] 12/24/2024 Omar Richter Plan Of Treatment Next Appt Details Provider Name:Omar Richter, 01/09/2025 09:15:00 AM, [address] [place] [address] [place], [address], Provider Name:Omar Richter, 03/03/2025 11:00:00 AM, [address] [place] [address] [place], [address], Progress Notes * MARKOLelandDOB:1965 ([age] yo M)Acc No.[id number]:12/24/2024 Patient: Leland REED :1965 A ge:59 Y S ex:Male Address:[address] [place] [phone] * true * Date: Generated for Shani finn/Robert/eTransmitting on: 0 01/03/2025 04:33 PM EDT
--- NOTE | ~2025-01-03 | XR_ITS ---
EXAMINATION: Chest 2 views. CLINICAL INDICATION: Chest pain. COMPARISON: CT chest 01/04/2012. FINDINGS: Lungs are well-expanded and clear of acute process. Heart size and pulmonary vascularity is normal. There is no pleural effusion or calcified pleural plaques. No gross bony abnormality seen. XR/XR cervical spine 3V IMPRESSION: Unremarkable chest exam. Electronically signed by: Popeye Erickson MD 01/06/2025 07:44 AM EDT
--- NOTE | ~2025-01-03 | XR_ITS ---
EXAMINATION: Chest 2 views. CLINICAL INDICATION: Chest pain. COMPARISON: CT chest 01/04/2012. FINDINGS: Lungs are well-expanded and clear of acute process. Heart size and pulmonary vascularity is normal. There is no pleural effusion or calcified pleural plaques. No gross bony abnormality seen. XR/XR chest 2V IMPRESSION: Unremarkable chest exam. Electronically signed by: Popeye Erickson MD 01/06/2025 07:44 AM EDT
--- OUTSIDE RECORDS SUMMARY | 2025-01-03 16:34 | XMS_ITS | Patient Health Record ---
Author Organization [facility] Address [address] [place] [address] Care Team Providers Care Aquaculture Program Director Name Role Phone Omar Richter MD Primary Care Provider UnavailOmar Medina Unavailable [phone] Allergies No Known Allergies Reason For Referral [...] Notes Problem Imaging of gastrointestinal tract abnormal (048051328) Abnormal findings on diagnostic imaging of other parts of digestive tract (R93.3) Active confirmed Problem Diverticulitis (479483793) Diverticulitis (K57.92) Active confirmed Problem CT of abdomen abnormal (86797482818531630) Abnormal CT of the abdomen (R93.5) Active confirmed Problem Gallbladder polyp (884417928) Gallbladder polyp (K82.4) Active confirmed Problem Colon, diverticulosis (K57.30) Active confirmed Plan Of Treatment Pending Test Test Name Order Date US abdomen limited 01/27/2022 Future Test Test Name Order Date COLONOSCOPY 07/23/2014 COLONOSCOPY 01/27/2022 Insurance Providers Payer Name Payer Address Payer Phone Subscriber Number Group Number Insured Name Patient Relationship to Insured Coverage Start Date Coverage End Date [facility] [address] [facility] [phone] [id number] MICHAEL ZHU Self - patient is the insured Medical (General) History Medical History History ICD Code Hypertension Denies [place],DM,CVA,Lung disease,renal dise ase Prostate cancer in approx 2016 Negative colonoscopy in 2014 except for sigmoid diverticulosis Sigmoid diverticulitis in 09/2021 treated with oupatient Levaquin and Flagyl Gallbladder polyps Surgical History Surgery Date(Month/Year) Hernia repair-umbilical 2005 Fatty tumor removed from back 2012 Laparoscopic complete prostatectomy for cancer at [facility]
--- OUTSIDE RECORDS SUMMARY | 2025-01-03 16:34 | XMS_ITS | Patient Health Record ---
Author Organization [facility] Address [address] [place] [address] Care Team Providers Care Software Quality Engineer Name Role Phone Omar Richter MD Primary Care Provider Unavailab andreia YanalanKati Unavailable [phone] Omar Richter MD Unavailable Unavailable Allergies Allergen (clinical drug ingredient) Drug/Non Drug Allergy documented on EMR Reaction Allergy Type Onset Date Status oxycodone oxycodone (uncoded) nausea Allergy Active Reason For Referral No Information Medications Medication SIG (Take, Route, Frequency, Duration) Notes Start Date End Date Status Sildenafil Citrate 20 MG 1 tablet Orally once a day 01/13/2017 Active Amoxicillin 500 MG 1 capsule Orally sandi ry 8 hrs 09/18/2017 Active traMADol HCl 50 MG (schedule iv drug) t k 1 t po q 8 h prf moderate to severe pain Oral every 8 hours as needed for pain Active Work Note . . . Pt scheduled for surgery on May 22, 2019 off of work until 06/03/19 05/03/2019 Active Multivitamins - Orally Not- Taking Social History Tobacco Use: Social History Observation Description Date Details (start date - stop date) Never Smoker NA - NA Tobacco Use/Smoking Question Answer Notes Are you a: nonsmoker Additional Findings: Tobacco Non-User Aggressive non-smoker Alcohol Screen Question Answer Notes Did you have a drink containing alcohol in the p ast year? No Points 0 Interpretation Negative Tobacco use other than smoking: Question Answer Notes Are you an other tobacco user? Yes w eed Plan Of Treatment Pending Test Test Name Order Date X ray : Foot, left 3V 01/30/2019 Insurance Providers Payer Name Payer Address Payer Phone Subscriber Number Group Number Insured Name Patient Relationship to Insured Coverage Start Date Coverage End Date [facility] [address] [place] [address] [phone] [id number] Leland Quevedo Self - patient is the insured Medical (General) History Medical History History ICD Code Cancer Headaches/Migraines High blood pressure Surgical History Surgery Date(Month/Year) Prostate cancer 11/17/2016 removed a mole on the nose/tumor 12/28 [facility] L4th toe 05/22/2019
== END 2025-01-03 16:32 | disposition home or self-care (01) ==
LOC: HO.XRAY 16:31
PROVIDERS: PCP Internal Medicine Medical Oncology; Visit Provider Internal Medicine Medical Oncology
DX: M54.2 Cervicalgia (principal); R07.9 Chest pain, unspecified
CPT/HCPCS: 71046; 72040

== ENCOUNTER → 2025-01-03 16:40 | Outpatient (BNV) | payer OTHER, SELFPAY | PROVIDERS: PCP Internal Medicine Medical Oncology; Visit Provider Radiology Diagnostic Radiology | DX: M54.2 Cervicalgia (principal); R52 Pain, unspecified | CPT/HCPCS: 71046; 72040 ==

== ENCOUNTER 2025-03-08 07:26 | Outpatient (REF) | payer OTHER, SELFPAY ==
--- OUTSIDE RECORDS SUMMARY | 2024-11-26 06:15 | XMS_ITS ---
Author Organization Omar Richter III, MD Address [address] [place] [address] [place] [address] Care Team Providers Care Blender Conveyor Operator Name Role Phone Dr. Omar Richter [...] Date Provider Diagnosis Omar Richter III, MD [address] [place] [address] [place] [address] 11/26/2024 Omar Richter Plan Of Treatment Medication Medication Name Sig Start Date Stop Date Notes amLODIPine Besylate 10 MG TAKE 1 TABLET BY MOUTH EVERY DAY metFORMIN HCl 500 MG 1 tablet Orally Once a day 08/20/2024 Next Appt Details Provider Name:Omar Richter , 06/02/2025 03:15:00 PM, [address] [facility] [place]REE [place], [place], [address], Provider Name:Omar Richter , 03/04/2026 04:00:00 PM, [address] [facility] [place], [place], [address], Progress Notes * Leland ZHUDOB:1965 ([age] yo M)Acc No.[id number]:11/26/2024 Progress Notes Patient: Leland ERED Provider: Prabha Richter MD :1965 A ge:59 Y S ex:Male Date:11/26/2024 Address:[address] [place] [address] [place], [id number] Subjective: * Chief Complaints: * 1 . [...] his He is and has worked in [employer] at [employer] for 26 years.. He was born in [place] and has several children. He is bilingual. [...] MD Date: 0 11/26/2024 Generated for Shani finn/Robert/Luis Danielitting on: 0 03/08/2025 07:30 AM EDT History and Physical Notes * [...]
--- OUTSIDE RECORDS SUMMARY | 2024-12-24 07:43 | XMS_ITS ---
Author Organization Omar Richter III, MD Address [address] [facility] [address] Care Team Providers Care Hot Strip Mill Supervisor Name Role Phone Dr. Omar Richter III Primary Care Provider REASON FOR VISIT Appointment Request Social History Sex Assigned At : Social History Observation Description Sex Assigned At Male Encounters Encounter Location Date Provider Diagnosis Omar Richter III, MD [address] [place] [address] [place] [address] 12/24/2024 Omar Richter Plan Of Treatment Next Appt Details Provider Name:Omar Richter , 06/02/2025 03:15:00 PM, [address] [place] [address] [place], [address], Provider Name:Omar Richter , 03/04/2026 04:00:00 PM, [address] [place] [address] [place], [address], Progress Notes * SAELelandDOB:1965 ([age] yo M)Acc No.[id number]:12/24/2024 Patient: Leland REED :1965 A ge:59 Y S ex:Male Address:[address] [place] [address] [place] [address] * true * Date: Generated for Shani finn/Robert/Valeriasmitting on: 0 03/08/2025 07:29 AM EDT
--- OUTSIDE RECORDS SUMMARY | 2025-01-03 11:45 | XMS_ITS ---
Author Organization Omar Richter III, MD Address [address] [place] [address] Care Team Providers Care Loss Prevention Investigator Name Role Phone Dr. Omar Richter III Primary Care Provider [phone] Allergies Allergen (clinical drug ingredient) Drug/Non Drug [...] Date Provider Diagnosis Omar Richter III, MD [address] [place] [address] [place] [address] 01/03/2025 Omar Richter Cervical radiculopat hy M54.12 [...] Provider Name:Omar Richter , 06/02/2025 03:15:00 PM, [address] [place] [address] [address], [place], [address], Provider Name:Omar Richter , 03/04/2026 04:00:00 PM, [address] [place] [address] [address], [place], [address], Progress Notes * MARKO LelandDOB:1965 ([age] yo M)Acc No.[id number]:01/03/2025 Progress Notes Patient: Leland REED Provider: Prabha Richter MD :1965 A ge:59 Y S ex:Male Date:01/03/2025 Address:[address] [place] [address] KAROL[address] GUERRIER [id number] Subjective: * Chief Complaints: * N europathic [...] node disection, urethral suspension suture, bilateral nerve-sparing [id number] biopsy [id number] skin CA removal 2018 * Hospitalization/Major Diagno [...] his He is and has worked in [employer] at [employer] for 26 years.. He was born in [place] and has several children. He is bilingual. [...] 0 01/03/2025 Generated for Maryi huma/Robert/eTransmitting on: 0 03/08/2025 07:30 AM EDT History [...]
--- OUTSIDE RECORDS SUMMARY | 2025-01-09 05:15 | XMS_ITS ---
Author Organization Omar Richter III, MD Address [address] [place] [address] Care Team Providers Care Building Pressure Washer Name Role Phone Dr. Omar Richter III [...] Provider Diagnosis Omar Richter III, MD [address] [place] [address] DR [place]AE, [place] [phone] 01/09/2025 Omar Richter Back pain, unspecifi ed [...] Provider Name:Omar Richter , 06/02/2025 03:15:00 PM, [address] [place] [address] [address], [place], [phone], Provider Name:Omar Richter , 03/04/2026 04:00:00 PM, [address] [place] [address] [address], [place], [phone], Progress Notes * Leland ZHUDOB:1965 ([age] yo M)Acc No.[id number]:01/09/2025 Patient: Leland REED Provider: Prabha Richter MD :1965 A ge:59 Y S ex:Male Date:01/09/2025 [facility] [place], [id number] Subjective: * Chief Complaints: * P rostate [...] [address] [facility] [address] L ocation of patient: alan dow listed [...] node disection, urethral suspension suture, bilateral nerve-sparing [id number] biopsy [id number] skin CA removal 2018 * Hospitalization/Major Diagno [...] his He is and has worked in [employer] at [employer] for 26 years.. He was born in [place] and has several children. He is bilingual. [...] 0.000 (Ref Range: 0.0-0.012 X10*3/uL) * Lab:[facility] [place]. [facility] * Collection Date 11/16/2024 [...] true * Provider: Prabha Richter MD Date: 01/09/2025 Generated for Shani finn/Robert/Tamera on: 0 03/08/2025 07:31 AM EDT History and Physical Notes * HPI (History of Present Illness) Category Sub-Category Detail Notes Telehealth Location of [facility] rendering services:: {...} [address] [place] [address] [place] [address] Location of patient:: address listed in demographics [...]
--- OUTSIDE RECORDS SUMMARY | 2025-03-03 07:00 | XMS_ITS ---
Author Organization Omar Richter III, MD Address [address] [address] Care Team Providers Care [employer] + Content Marketing Name Role Phone Dr. Omar Richter III Primary Care Provider Allergies Allergen (clinical drug ingredient) Drug/Non Drug Allergy documented on EMR Reaction Allergy Type Onset Date Status No Known Drug Allergy Unknown Drug Allergy Active No Known Food Allergy Unknown Drug Allergy Active REASON FOR VISIT Annual Exam Medications Medication [...] Date Provider Diagnosis Omar Richter III, MD [address] [place] [address] [address] [place], [place] [id number] 03/03/2025 Omar Richter Type 2 diabetes mary [...] PSA, TOTAL 03/03/2025 CBC w DIFF 03/03/2025 Lipid Panel 03/03/2025 Microalbumin, Random 03/03/2025 Hemoglobin A1c 03/03/2025 Next Appt Details Follow Up: 3 Months, Reason: OV Provider Name:Omar Richter , 06/02/2025 03:15:00 PM, [address] [place] [address] [address], [place], [phone], Provider Name:Omar Richter , 03/04/2026 04:00:00 PM, [address] [place] [address] [address], [place], [phone], Progress Notes * Leland ZHUDOB:1965 ([age] yo M)Acc No.[id number]:03/03/2025 Progress Notes Patient: Leland REED Provider: Prabha Richter MD :1965 A ge:59 Y S ex:Male Date:03/03/2025 Address:[address] [place] [address] [place], [id number] Subjective: * Chief Complaints: * A nnual [...] was really needed? Check all that apply: Dakota sam to answer * ROS: G eneral/Constitutional: pain [...] node disection, urethral suspension suture, bilateral nerve-sparing [id number] biopsy [id number] skin CA removal 2018 * Hospitalization/Major Diagno [...] his He is and has worked in [email or web address] at [employer] for 26 years.. He was born in [place] and has several children. He is bilingual. [...] MD Date: 0 03/03/2025 Generated for Maryi ng/Berthag/eTransmitting on: 0 03/08/2025 07:30 AM EDT History [...]
--- OUTSIDE RECORDS SUMMARY | 2025-03-08 07:30 | XMS_ITS | Patient Health Record ---
Author Organization Omar Richter III, MD Address [address] [place] [address] Care Team Providers Care Economic Research Assistant Name Role Phone Dr. Omar Richter III Primary Care Provider Allergies Allergen (clinical drug ingredient) Drug/Non Drug Allergy documented on EMR Reaction Allergy Type Onset Date Status No Known Drug Allergy Unknown Drug Allergy Active No Known Food Allergy Unknown Drug Allergy Active Results Component Value Reference Range Notes Complete Blood Count Auto Di ff Reviewed date:05/20/2024 04:53:24 AM Interpretation: Performing Lab:[facility], [address] [place] [phone] Notes/Report: White Blood Count 6.9 4.8-10.8 X10*3/uL [...] 0.0-0.2 /100WBC Neutrophils Absolute Auto 3.8 2.0-8.3 x10*3/uL Imm Gran Abs Auto 0.03 0.00-0.03 X10*3/uL Lymphocytes Absolute Auto 2.1 1.2-4.9 X10*3/uL Monocytes Absolute Auto 0.8 0.1-1.2 X10*3/uL Eosinophils Absolute Auto 0.1 0.0-0.4 X10*3/uL Basophils Absolute Auto 0.1 0.0-0.2 X10*3/uL NRBC Abs Auto 0.000 0.0-0.012 X10*3/uL [facility] [place]. Panel Fa st Reviewed date:05/20/2024 04:53:24 AM Interpretation: Performing Lab:[facility], [address] [place] [phone] Notes/Report: Sodium 141 135-145 mmol/L Potassium 4.5 [...] Panel Reviewed date:05/20/2024 04:53:24 AM Interpretation: Performing Lab:[facility], [address] [place] [phone] Notes/Report: Triglycerides 61 <150 mg/dL Desirable Triglyceride: [...] Antigen Reviewed date:05/20/2024 04:53:24 AM Interpretation: Performing Lab:[facility], [address] [place] [phone] Notes/Report: Prostate Specific Antigen 0.21 <0.05-4.0 ng/mL PSA methodology: Merrill Alinity i Chemiluminescent Microparticle Immunoassay (CMIA) Complete Blood Count Auto Di ff Reviewed date:08/19/2024 08:50:48 AM Interpretation: Performing Lab:[address] [phone] Notes/Report: White Blood Count 7.6 4.8-10.8 X10*3/uL Red Blood Count 5.30 4.60-5.80 X10*6/uL Hemoglobin 15.3 14.0-18.0 g/dl Hematocrit 45.8 42.0-52.0 % Mean Corpuscular Volume 86.4 80.0-98.0 fL Mean Corpuscular Hemoglobin 28.9 27.0-33.0 pg Mean Corpuscular HGB Conc 33.4 31.0-36.0 g/dl Red Cell Distribution Width 12.7 11.0-16.0 % Platelet Count 253 160-400 X10*3/uL Mean Platelet Volume 10.5 9.4-12.4 fL Neutrophils Percent Auto 58.9 45-73 % Imm Gran Pct Auto 0.4 0.0-0.4 % Lymphocytes Percent Auto 26.6 20-40 % Monocytes Percent Auto 11.3 2-11 % Eosinophils Percent Auto 2.3 0-4 % Basophils Percent Auto 0.5 0-2 % NRBC Pct Auto 0.0 0.0-0.2 /100WBC Neutrophils Absolute Auto 4.5 2.0-8.3 x10*3/uL Imm Gran Abs Auto 0.03 0.00-0.03 X10*3/uL Lymphocytes Absolute Auto 2.0 1.2-4.9 X10*3/uL Monocytes Absolute Auto 0.9 0.1-1.2 X10*3/uL Eosinophils Absolute Auto 0.2 0.0-0.4 X10*3/uL Basophils Absolute Auto 0.0 0.0-0.2 X10*3/uL NRBC Abs Auto 0.000 0.0-0.012 X10*3/uL Comprehensive [place]. Panel Fa st Reviewed date:08/19/2024 08:50:48 AM Interpretation: Performing Lab:[facility], [address] [place] [phone] Notes/Report: Sodium 141 135-145 mmol/L Potassium 4.1 3.3-5.1 mmol/L Chloride 110 96-108 mmol/L Carbon Dioxide 26 22-29 mmol/L Anion Gap 9 12-20 Blood Urea Nitrogen 21 9-16 mg/dL Creatinine 0.80 0.5-1.4 mg/dL Estimated Glomerular Filt Rate > 60 Chronic Kidney Disease: Estimated GFR < 60 mL/min/1.73m2 Severe Kidney Disease: Estimated GFR < 15 mL/min/1.73m2 Glucose Fasting 181 60-99 mg/dL A fasting glucose of 126 mg/dl or greater on more than one occasion is considered diagnostic of diabetes. Calcium 9.0 8.4-10.2 mg/dL Bilirubin Total 0.9 0.0-1.0 mg/dL Aspartate Amino Transferase 15 5-37 U/L Alanine Aminotransferase 34 0-40 U/L Total Protein 7.1 6.5-8.0 g/dL Albumin Level 4.2 3.5-5.0 g/dL Alkaline Phosphatase 67 39-117 U/L Uric Acid Reviewed date:08/19/2024 08:50:48 AM Interpretation: Performing Lab:[facility], [address] [place] [phone] Notes/Report: Uric Acid 4.3 3.4-7.0 mg/dL Lipid Panel Reviewed date:08/19/2024 08:50:48 AM Interpretation: Performing Lab:[facility], [address] [place] [phone] Notes/Report: Triglycerides 62 <150 mg/dL Desirable Triglyceride: less than 150 mg/dL Borderline High Triglyceride 150-199 mg/dL High Triglyceride: 200-499 mg/dL Very High Triglyceride: greater than or equal to 5OO mg/dL Cholesterol 143 <200 mg/dL Desirable Cholesterol: less than 200 mg/dL Borderline High Cholesterol: 200-239 mg/dL High Cholesterol: greater than 239 mg/dL LDL Cholesterol Calculated 100 <100 mg/dL Desirable LDL: less than 100 mg/dL Near Optimal/Above Optimal LDL: 110-129 mg/dL Borderline High LDL: 130-159 mg/dL High LDL: 160-189 mg/dL Very High LDL: greater than or equal to 190 mg/dL HDL Cholesterol 31 >40 mg/dL Desirable HDL: greater than 40 mg/dL Note: This HDL assay may give artificially low results in patients with liver disease. Prostate Specific Antigen Reviewed date:08/19/2024 08:50:48 AM Interpretation: Performing Lab:[facility], [address] [place] [phone] Notes/Report: Prostate Specific Antigen 0.21 <0.05-4.0 ng/mL PSA methodology: Merrill Alinity i Chemiluminescent Microparticle Immunoassay (CMIA) PSA, Ultra Sensitive Reviewed date:08/25/2024 10:12:29 AM Interpretation: Performing Lab:[facility], [address] [place] [phone] Notes/Report: PSA, Ultra Sensitive 0.23 UNTREATED RESULT = 0.24 REFERENCE RANGES for PSA: LESS THAN 0.10 ng/mL AFTER RADICAL PROSTATECTOMY. 4.0 ng/mL OR LESS IN HEALTHY MALES WITHOUT PROSTATECTOMY. PSA values obtained with different assay methods or kits cannot be used interchangeably. This test was performed using the [place] DxI method. PSA, ICMA is not to be used as a diagnostic procedure without confirmation of the diagnosis by another established product or procedure. The lower limit of accurate quantification for this assay is 0.02 ng/mL. PSA values less than 0.02 ng/mL cannot be accurately measured and will be reported as less than 0.02 ng/mL. Specimens with PSA levels below the lower limit of accurate quantification should be considered as negative. In patients with a negative result for post prostatectomy PSA, serial monitoring of PSA levels at regular intervals, along with physical examinations and other tests, may help to detect recurrent prostate cancer. THIS TEST WAS PERFORMED AT: [employer]/[facility] [address] [place] [address] COLLIN HUANG MD,PHD,DANNY Complete Blood Count Auto Di ff Reviewed date:01/03/2025 03:44:33 PM Interpretation: Performing Lab:[facility], [address] [place] [phone] Notes/Report: White Blood Count 8.2 4.8-10.8 X10*3/uL Red Blood Count 5.29 4.60-5.80 X10*6/uL Hemoglobin 15.3 14.0-18.0 g/dl Hematocrit 46.7 42.0-52.0 % Mean Corpuscular Volume 88.3 80.0-98.0 fL Mean Corpuscular Hemoglobin 28.9 27.0-33.0 pg Mean Corpuscular HGB Conc 32.8 31.0-36.0 g/dl Red Cell Distribution Width 12.8 11.0-16.0 % Platelet Count 278 160-400 X10*3/uL Mean Platelet Volume 10.8 9.4-12.4 fL Neutrophils Percent Auto 56.9 45-73 % Imm Gran Pct Auto 0.4 0.0-0.4 % Lymphocytes Percent Auto 29.6 20-40 % Monocytes Percent Auto 11.1 2-11 % Eosinophils Percent Auto 1.5 0-4 % Basophils Percent Auto 0.5 0-2 % NRBC Pct Auto 0.0 0.0-0.2 /100WBC Neutrophils Absolute Auto 4.7 2.0-8.3 x10*3/uL Imm Gran Abs Auto 0.03 0.00-0.03 X10*3/uL Lymphocytes Absolute Auto 2.4 1.2-4.9 X10*3/uL Monocytes Absolute Auto 0.9 0.1-1.2 X10*3/uL Eosinophils Absolute Auto 0.1 0.0-0.4 X10*3/uL Basophils Absolute Auto 0.0 0.0-0.2 X10*3/uL NRBC Abs Auto 0.000 0.0-0.012 X10*3/uL [facility] [place]. Panel Fa st Reviewed date:01/03/2025 03:44:40 PM Interpretation: Performing Lab:[address] [phone] Notes/Report: Sodium 141 135-145 mmol/L Potassium 4.1 3.3-5.1 mmol/L Chloride 110 96-108 mmol/L Carbon Dioxide 25 22-29 mmol/L Anion Gap 10 12-20 Blood Urea Nitrogen 17 9-16 mg/dL Creatinine 0.70 0.5-1.4 mg/dL Estimated Glomerular Filt Rate > 60 Chronic Kidney Disease: Estimated GFR < 60 mL/min/1.73m2 Severe Kidney Disease: Estimated GFR < 15 mL/min/1.73m2 Glucose Fasting 173 60-99 mg/dL A fasting glucose of 126 mg/dl or greater on more than one occasion is considered diagnostic of diabetes. Calcium 9.0 8.4-10.2 mg/dL Bilirubin Total 0.7 0.0-1.0 mg/dL Aspartate Amino Transferase 17 5-37 U/L Alanine Aminotransferase 34 0-40 U/L Total Protein 6.9 6.5-8.0 g/dL Albumin Level 4.3 3.5-5.0 g/dL Alkaline Phosphatase 62 39-117 U/L Lipid Panel Reviewed date:01/03/2025 03:44:46 PM Interpretation: Performing Lab:[address] [phone] Notes/Report: Triglycerides 74 <150 mg/dL Desirable Triglyceride: less than 150 mg/dL Borderline High Triglyceride 150-199 mg/dL High Triglyceride: 200-499 mg/dL Very High Triglyceride: greater than or equal to 5OO mg/dL Cholesterol 140 <200 mg/dL Desirable Cholesterol: less than 200 mg/dL Borderline High Cholesterol: 200-239 mg/dL High Cholesterol: greater than 239 mg/dL LDL Cholesterol Calculated 96 <100 mg/dL Desirable LDL: less than 100 mg/dL Near Optimal/Above Optimal LDL: 110-129 mg/dL Borderline High LDL: 130-159 mg/dL High LDL: 160-189 mg/dL Very High LDL: greater than or equal to 190 mg/dL HDL Cholesterol 30 >40 mg/dL Desirable HDL: greater than 40 mg/dL Note: This HDL assay may give artificially low results in patients with liver disease. Microalbumin, Random Reviewed date:01/03/2025 03:44:53 PM Interpretation: Performing Lab:[address] [phone] Notes/Report: Creatinine Urine 193.39 Microalbumin Urine 13.0 Microalbum/Creatinine Ratio Ur 6.7 <30 ug/mg cr Albumin/Creatinine Ratio Reference Ranges: Normal: < 30 ug/mg creatinine Microalbuminuria: 30 - 300 ug/mg creatinine Clinical Albuminuria: > 300 ug/mg creatinine Hemoglobin A1c Reviewed date:12/13/2024 07:18:51 PM Interpretation: Performing Lab:[facility], [address] [place] [phone] Notes/Report: Hemoglobin A1c % 6.6 <6.0 % [...] average glucose, using the formula of the F4E-Gtvmewo Average Glucose study (ADAG), Diabetes Care, Vol.31,#8, Jan. 2007 XR chest 2V Reviewed date:01/09/2025 08:14:43 PM Interpretation: Performing Lab: Notes/Report: [address] [address] XRay Report Signed Patient: Leland Quevedo MR#: [id number] : 1965 Acct:[id number] Age/Sex: 59 / M ADM Date: 01/03/25 Loc: [facility] Attending Dr: Omar Richter MD Ordering Physician: Omar Richter MD Date of Service: 01/03/25 Procedure(s): XR chest 2V Accession Number(s): [id number] cc: Omar Richter MD EXAMINATION: Chest 2 views. CLINICAL INDICATION: Chest pain. COMPARISON: CT chest 01/04/2012. FINDINGS: Lungs are well-expanded and clear of acute process. Heart size and pulmonary vascularity is normal. There is no pleural effusion or calcified pleural plaques. No gross bony abnormality seen. XR/XR chest 2V IMPRESSION: Unremarkable chest exam. Electronically signed by: Popeye Erickson MD 01/06/2025 07:44 AM EDT RP Dictated By: Popeye Erickson MD Signed By: <Electronically signed by Popeye Erickson MD in OV> 01/06/25 0744 DD/ 1640 TD/TT: 01/03/25 1651 Cleaning Supervisor: [place] [address] XRay Report Signed Patient: Leland Quevedo MR#: [id number] : 1965 Acct:[id number] Age/Sex: 59 / M ADM Date: 01/03/25 Loc: [facility] Attending Dr: Omar Richter MD Ordering Physician: Omar Richter MD Date of Service: 01/03/25 Procedure(s): XR carolyn st 2V Accession Number(s): [id number] cc: Omar Richter MD EXAMINATION: Chest 2 views. CLINICAL INDICATION: Chest pain. COMPARISON: CT chest 01/04/2012. FINDINGS: Lungs are well-expanded and clear of acute process. Heart size and pulmonary vascularity is normal. There is no pleural effusion or calcified pleural plaques. No gross bony abnormality seen. XR/XR chest 2V IMPRESSION: Unremarkable chest exam. Electronically aleks d by: Popeye Erickson MD 01/06/2025 07:44 AM EDT RP Dictated By: Popeye Erickson MD Signed By: <Electronically signed by Popeye Erickson MD in OV> 01/06/25 0744 DD/ 1640 TD/TT: 01/03/25 165 Cleaning Supervisor: [facility] [place] 3V Reviewed date:01/09/2025 08:14:43 PM Interpretation: Performing Lab: Notes/Report: [address] [address] XRay Report Signed Patient: Leland Quevedo MR#: [id number] : 1965 Acct:[id number] Age/Sex: 59 / M ADM Date: 01/03/25 Loc: XRKAREN Attending Dr: Omar Richter MD Ordering Physician: Omar Richter MD Date of Service: 01/03/25 Procedure(s): XR cervical spine 3V Accession Number(s): [id number] cc: Omar Richter MD EXAMINATION: Chest 2 views. CLINICAL INDICATION: Chest pain. COMPARISON: CT chest 01/04/2012. FINDINGS: Lungs are well-expanded and clear of acute process. Heart size and pulmonary vascularity is normal. There is no pleural effusion or calcified pleural plaques. No gross bony abnormality seen. XR/XR cervical spine 3V IMPRESSION: Unremarkable chest exam. Electronically signed by: Popeye Erickson MD 01/06/2025 07:44 AM EDT RP Dictated By: Popeye Erickson MD Signed By: <Electronically signed by Popeye Erickson MD in OV> 01/06/25 0744 DD/ 1640 TD/TT: 01/03/25 165 Cleaning Supervisor: [address] [address] XRay Report Signed Patient: Leland Quevedo MR#: [id number] : 1965 Acct:[id number] Age/Sex: 59 / M ADM Date: 01/03/25 Loc: [facility] Attending Dr: Omar Richter MD Ordering Physician: Omar Richter MD Date of Service: 01/03/25 Procedure(s): XR cervical spine 3V Accession Number(s): [id number] cc: Omar Richter MD EXAMINATION: Chest 2 views. CLINICAL INDICATION: Chest pain. COMPARISON: CT chest 01/04/2012. FINDINGS: Lungs are well-expanded and clear of acute process. Heart size and pulmonary vascularity is normal. There is no pleural effusion or calcified pleural plaques. No gross bony abnormality seen. XR/XR cervical spine 3V IMPRESSION: Unremarkable chest exam. Electronically aleks d by: Popeye Erickson MD 01/06/2025 07:44 AM EDT RP Dictated By: Popeye Erickson MD Signed By: <Electronically signed by Popeye Erickson MD in OV> 01/06/25 0744 DD/ 1640 TD/TT: 01/03/25 1651 Cleaning Supervisor: [facility] Reason For Referral Reason lesion on lip Diagnosis 1 Lip lesion (K13.0) Referral Organization Omar Richter III, MD Referring Provider First Name Omar Referring Provider Last Name Neelam Referring Provider Speciality Internal M edicine Referred Provider [facility]) Referred Provider Specialty Dermatology General Notes [facility] 08/22 01:29:41 PM > referral/demo/ progress note faxed to Dana DUMONT Suzanne CMA 08/26/2024 09:35:06 AM > received notice from [facility] they want patient to call them at [phone] and make his own appt pt called and made aware of this Referral Priority Routine Referral Appointment Date 09/19/2024 Medications Medication SIG (Take, Route, Frequency, Duration) Notes Start Date End Date Status amLODIPine Besylate 10 MG TAKE 1 TABLET BY MOUTH EVERY DAY Active metFORMIN HCl 500 MG 1 tablet Orally Once a day Active Immunizations Vaccine Route Administration Date Status Comme nts COVID- 19 Vaccine Unknown 04/30/2021 Administered Moder na first COVID- 19 Vaccine Unknown 05/28/2021 Administered Moder na second dose COVID 19 Moderna Unknown 12/10/2021 Administered COVID 19 Moderna Unknown 06/02/2022 Administered COVID Moderna Bivalent Unknown 06/02/2022 Administered Social History Tobacco Use: [...] Problem Status W/U Status Risk Notes Problem 606927673 Obesity (E66.9) Active confirmed We have discussed diet and nutrition. We reviewed the elements of a diabetic weight loss program. We made a plan to lose weight at a rate of 1 pound per week. Problem Hypertension (66682215) Hypertension (I10) Active confirmed His blood pressure has been stable and no change in his regimen was made Problem Sleep apnea (18915373) Sleep apnea, unspecified (G47.30) Active confirmed His sleep study done in January 2023 shows severe obstructive sleep apnea. He is using his CPAP machine now. Problem Benign prostatic hyperplasia (572354787) BPH (benign prostatic hyperplasia) (N40.0) Active confirmed We have discussed modifications to his lifestyle to reduce nocturnal urinating. Problem 279253583 Erectile dysfunction (N52.9) Active confirmed This problem was successfully addressed with use of medication. Problem 836248788 Umbilical hernia (K42.9) Active confirmed There was no pain or discomfort when palpating the umbilicus. Problem 546701785 Osteoarthritis of both knees (M17.0) Active confirmed The discomfort in the knees is unchanged but is a minor problem to him now and will be followed. Problem 56810694 Hyperlipidemia, unspecified hyperlipidemia type (E78.5) Active confirmed A new fasting lipid profile has been ordered. His lipids have been well controlled. Problem 160277852 Carcinoma of prostate (C61) Active confirmed His PSA is detectable at 0.21. The previous value was 0.21. This data was forwarded to his urologist.. He has an appointment upcoming. Problem 255359427 Type 2 diabetes mellitus without complication, without long-term current use of insulin (E11.9) Active confirmed He has been compliant with his medications. Comprehensive blood work with a hemoglobin A 1c has been ordered. No change in his regimen was necessary. Problem 928992827 Back pain, unspecified back location, unspecified back pain laterality, unspecified chronicity (M54.9) Active confirmed His back pain is mostly resolved at this time. He is avoiding heavy exertion and lifting. He will notify me at once if it recurs. 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 ; BPH (benign prostatic hyperplasia) N40.0 ; Osteoarthritis of both knees M17.0 ; Umbilical hernia K42.9 and Obesity E66.9 Omar Richter III, MD [address] [place] [address] [place] [address] 08/20/2024 Omar Richter Hypertension I10 ; Carcinoma of prostate C61 ; 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 ; Obesity E66.9 ; BPH (benign prostatic hyperplasia) N40.0 ; Osteoarthritis of both knees M17.0 and Umbilical hernia K42.9 Omar Richter III, MD [address] [place] [address] [place] [address] 08/30/2024 Omar Richter Carcinoma of prostat e [...] Obesity E66.9 and Sleep apnea, unspecified G47.30 Omar Richter III, MD [address] [place] [address] [place] [address] 09/10/2024 Omar Richter Acute COVID-19 U07.1 ; Back pain, unspecified back location, unspecified back pain laterality, unspecified chronicity M54.9 ; Umbilical hernia K42.9 ; Osteoarthritis of both knees M17.0 ; Carcinoma of prostate C61 ; Sleep apnea, unspecified G47.30 ; BPH (benign prostatic hyperplasia) N40.0 ; Type 2 diabetes mellitus without complication, without long-term current use of insulin E11.9 and Obesity E66.9 Omar Richter III, MD [address] [place] [address] [place] [address] 01/03/2025 Omar Richter Cervical radiculopat hy M54.12 ; Umbilical hernia K42.9 ; Osteoarthritis of both knees M17.0 ; Carcinoma of prostate C61 ; Hypertension I10 ; Hyperlipidemia, unspecified hyperlipidemia type E78.5 ; BPH (benign prostatic hyperplasia) N40.0 ; Sleep apnea, unspecified G47.30 ; Type 2 diabetes mellitus without complication, without long-term current use of insulin E11.9 and Obesity E66.9 Omar Richter III, MD [address] [place] [address] [place] [address] 01/09/2025 Omar Richter Back pain, unspecifi ed back location, unspecified back pain laterality, unspecified chronicity M54.9 ; Umbilical hernia K42.9 ; Osteoarthritis of both knees M17.0 ; Carcinoma of prostate C61 ; Sleep apnea, unspecified G47.30 ; BPH (benign prostatic hyperplasia) N40.0 ; Hyperlipidemia, unspecified hyperlipidemia type E78.5 and Obesity E66.9 Omar Richter III, MD [address] [place] [address] [place] [address] 03/03/2025 Omar Richter Type 2 diabetes mary itus without complication, without long-term current use of insulin E11.9 ; Carcinoma of prostate C61 ; Hyperlipidemia, unspecified hyperlipidemia type E78.5 ; Obesity E66.9 ; Erectile dysfunction N52.9 ; Back pain, unspecified back location, unspecified back pain laterality, unspecified chronicity M54.9 and Umbilical hernia K42.9 Omar Richter III, MD [address] [place] [address] [place] [address] 06/10/2024 Omar Richter III, MD [address] [place] [address] [address] [place], [place] [address] 12/24/2024 Omar Richter Assessments Encounter Date Diagnosis (ICD [...] and was referred back for management. 08/20/2024 Hypertension (ICD-10 - I10) His blood pressure is currently stable no change in his regimen was made 08/20/2024 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 He is asymptomatic. The is overdue to see urology and was referred back for management. 08/30/2024 Viral syndrome (ICD-10 - B34.9) He has declined Paxlovid. He will continue with conservative treatment as he is already beginning to improve rapidly. 08/30/2024 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 He is asymptomatic. The is overdue to see urology and was referred back for management.He remains asymptomatic. 09/10/2024 Back pain, unspecified back location, unspecified back pain laterality, unspecified chronicity (ICD-10 - M54.9) His back pain is mostly resolved at this time. He is avoiding heavy exertion and lifting. He will notify me at once if it recurs. 09/10/2024 Acute COVID-19 (ICD-10 - U07.1) He has substance. He actually recovered at this point. He will gradually resume normal life. 01/03/2025 Cervical radiculopathy (ICD-10 - M54.12) The [...] or discomfort when palpating the umbilicus. 01/09/2025 Umbilical hernia (ICD-10 - K42.9) There was no pain or discomfort when palpating the umbilicus. 01/09/2025 Back pain, unspecified back location, unspecified back pain laterality, unspecified chronicity (ICD-10 - M54.9) His back pain is mostly resolved at this time. He is avoiding heavy exertion and lifting. He will notify me at once if it recurs. 03/03/2025 Carcinoma of prostat e (ICD-10 - C61) His PSA is detectable at 0.21. The previous value was 0.21. This data was forwarded to his urologist.. He has an appointment upcoming. 03/03/2025 Type 2 diabetes mellitus without complication, without long-term current use of insulin (ICD-10 - E11.9) He has been compliant with his medications. Comprehensive blood work with a hemoglobin A 1c has been ordered. No change in his regimen was necessary. 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 We discussed weight loss as a way to control diabetes. No change in his medications was needed. 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 His fasting glucose is 181 now that he has gained 9 pounds. He is no longer a candidate for diet control. His medications will be titrated against his A1c. He remains asymptomatic. 08/30/2024 Umbilical hernia (ICD-10 - K42.9) There was no pain or discomfort when palpating the umbilicus. 09/10/2024 Umbilical hernia (ICD-10 - K42.9) There was no pain or discomfort when palpating the umbilicus. 01/03/2025 Osteoarthritis of both knees (ICD-10 - M17.0) The discomfort in the knees is unchanged but is a minor problem to him now and will be followed. 01/09/2025 Osteoarthritis of both knees (ICD-10 - M17.0) The discomfort in the knees is unchanged but is a minor problem to him now and will be followed. 03/03/2025 Hyperlipidemia, unspecified hyperlipidemia type (ICD-10 - E78.5) A new fasting lipid profile has been ordered. His lipids have been well controlled. 05/22/2024 BPH (benign prostati c hyperplasia) (ICD-10 - N40.0) We have discussed modifications to his lifestyle to reduce nocturnal urinating. 08/20/2024 Obesity (ICD-10 - E66.9) He has [...] restricted in fat calories and sodium. 08/30/2024 Osteoarthritis of both knees (ICD-10 - M17.0) The discomfort in the knees is unchanged but is a minor problem to him now and will be followed. 09/10/2024 Osteoarthritis of both knees (ICD-10 - [...] referred back for management.He remains asymptomatic. 01/09/2025 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 He is asymptomatic. The is overdue to see urology and was referred back for management.He remains asymptomatic. 03/03/2025 Obesity (ICD-10 - E66.9) We have discussed diet and nutrition. We reviewed the elements of a diabetic weight loss program. We made a plan to lose weight at a rate of 1 pound per week. 05/22/2024 Osteoarthritis of both knees (ICD-10 - M17.0) The discomfort in the knees is unchanged but is a minor problem to him now and will be followed. 08/20/2024 BPH (benign prostati c hyperplasia) (ICD-10 - N40.0) We have discussed modifications to his lifestyle to reduce nocturnal urinating. 08/30/2024 Back pain, unspecified back location, unspecified back pain laterality, unspecified chronicity (ICD-10 - M54.9) His back pain is mostly resolved at this time. He is avoiding heavy exertion and lifting. He will notify me at once if it recurs. 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 He is asymptomatic. The is overdue to see urology and was referred back for management.He remains asymptomatic. 01/03/2025 Hypertension (ICD-10 - I10) His blood pressure has been stable and no change in his regimen was made 01/09/2025 Sleep apnea, unspecified (ICD-10 - G47.30) His sleep study done in January 2023 shows severe obstructive sleep apnea. He is using his CPAP machine now. 03/03/2025 Erectile dysfunction (ICD-10 - N52.9) This problem was successfully addressed with use of medication. 05/22/2024 Umbilical hernia (ICD-10 - K42.9) There was no pain or discomfort when palpating the umbilicus. 08/20/2024 Osteoarthritis of both knees (ICD-10 - M17.0) The discomfort in the knees is unchanged but is a minor problem to him now and will be followed. 08/30/2024 Hypertension (ICD-10 - I10) His blood pressure has been stable and no change in his regimen was made 09/10/2024 Sleep apnea, unspecified (ICD-10 - G47.30) His sleep study done in January 2023 shows severe obstructive sleep apnea. He is using his CPAP machine now. 01/03/2025 Hyperlipidemia, unspecified hyperlipidemia type (ICD-10 - E78.5) His lipids are currently stable. No change in his regimen as needed. I recommended aggressive weight loss. 01/09/2025 BPH (benign prostati c hyperplasia) (ICD-10 - N40.0) We have discussed modifications to his lifestyle to reduce nocturnal urinating. 03/03/2025 Back pain, unspecified back location, unspecified [...] weight. We discussed diet and nutrition today. 08/20/2024 Umbilical hernia (ICD-10 - K42.9) There was no pain or discomfort when palpating the umbilicus. 08/30/2024 BPH (benign prostati c hyperplasia) (ICD-10 - N40.0) We have discussed modifications to his lifestyle to reduce nocturnal urinating. 09/10/2024 BPH (benign prostati c hyperplasia) (ICD-10 - N40.0) We have discussed modifications to his lifestyle to reduce nocturnal urinating. 01/03/2025 BPH (benign prostati c hyperplasia) (ICD-10 - N40.0) We have discussed modifications to his lifestyle to reduce nocturnal urinating. 01/09/2025 Hyperlipidemia, unspecified hyperlipidemia type (ICD-10 - E78.5) His lipids are currently stable. No change in his regimen as needed. I recommended aggressive weight loss. 03/03/2025 Umbilical hernia (ICD-10 - K42.9) There was no pain or discomfort when palpating the umbilicus. 08/30/2024 Type 2 diabetes mellitus without complication, without long-term current use of insulin (ICD-10 - E11.9) His fasting glucoses are 150. He is diet controlled. He has lost 11 pounds since his last visit. 09/10/2024 Type 2 diabetes mellitus without complication, without long-term current use of insulin (ICD-10 - E11.9) His fasting glucoses are 150. He is diet controlled. He has lost 11 pounds since his last visit. 01/03/2025 Sleep apnea, unspecified (ICD-10 - G47.30) His sleep study done in January 2023 shows severe obstructive sleep apnea. He is using his CPAP machine now. 01/09/2025 Obesity (ICD-10 - E66.9) He has [...] restricted in fat calories and sodium. 08/30/2024 Obesity (ICD-10 - E66.9) He has [...] diet restricted in fat calories and sodium. 09/10/2024 Obesity (ICD-10 - E66.9) He has [...] diet restricted in fat calories and sodium. 01/03/2025 Type 2 diabetes mellitus without complication, without long-term current use of insulin (ICD-10 - E11.9) His fasting glucoses are 150. He is diet controlled. He has lost 11 pounds since his last visit. 08/30/2024 Sleep apnea, unspecified (ICD-10 - G47.30) His sleep study done in January 2023 shows severe obstructive sleep apnea. He is using his CPAP machine now. 01/03/2025 Obesity (ICD-10 - E66.9) He has [...] fat calories and sodium. Plan Of Treatment Pending Test Test Name Order Date PROFILE, FASTING (COMPREHENSIVE METABOLI C) 03/03/2025 PROFILE, FASTING (COMPREHENSIVE METABOLI C) 03/08/2019 PROFILE, FASTING (COMPREHENSIVE METABOLI C) 02/28/2024 PROFILE, FASTING (COMPREHENSIVE METABOLI C) 11/02/2018 PROFILE, FASTING (COMPREHENSIVE METABOLI C) 06/23/2023 PROFILE, FASTING (COMPREHENSIVE METABOLI C) 09/25/2023 PROFILE, RANDOM (COMPREHENSIVE METABOLIC ) 02/23/2018 PROFILE, RANDOM (COMPREHENSIVE METABOLIC ) 04/02/2019 PROFILE, RANDOM (COMPREHENSIVE METABOLIC ) 06/29/2018 HEMOGLOBIN A1C (GLYCOHEMOGLOBIN) 019 HEMOGLOBIN A1C (GLYCOHEMOGLOBIN) 019 LIPID PANEL 03/08/2019 LIPID PANEL 11/02/2018 PSA, TOTAL 03/03/2025 PSA, TOTAL 02/23/2018 PSA, TOTAL 02/28/2024 PSA, TOTAL 06/23/2023 PSA, TOTAL 09/25/2023 PSA, TOTAL 03/08/2019 PSA, TOTAL 11/02/2018 PSA, TOTAL 06/29/2018 CBC w DIFF 03/08/2019 CBC w DIFF 11/02/2018 CBC w DIFF 06/29/2018 CBC w DIFF 04/02/2019 CBC w DIFF 03/03/2025 CBC w DIFF 02/23/2018 CBC w DIFF 02/28/2024 Stress Test 05/22/2024 Sleep Study - Baseline 12/12/2022 Sleep Study - Diagnostic 12/09/2022 CBC WITH AUTO DIFF 06/23/2023 CBC WITH AUTO DIFF 09/25/2023 Lipid Panel 09/25/2023 Lipid Panel 03/03/2025 Lipid Panel 02/28/2024 Lipid Panel 06/23/2023 Microalbumin, Random 06/23/2023 Microalbumin, Random 03/03/2025 RT sleep home study type III 12/30/2022 Hemoglobin A1c 03/03/2025 Hemoglobin A1c 06/23/2023 Next Appt Details Provider Name:Omar Richter , 06/02/2025 03:15:00 PM, [address] [place] [address] [address], [place], [phone], Provider Name:Omar Richter , 03/04/2026 04:00:00 PM, [address] [place] [address] [address], [place], [phone], Insurance Providers Payer Name Payer Address Payer Phone Subscriber Number Group Number Insured Name Patient Relationship to Insured Coverage Start Date Coverage End Date [address] [facility] [place] [phone] [id number] Colon, Leland Self - patient is the insured Medical (General) History Medical History History ICD Code hypertension erectile dysfunction umbilical hernia back pain 2006 bph bilateral knee pain 2014 obesity 2008 [facility] stage [facility] [place] [facility] History Surgery Date(Month/Year) benign skin CA removal 2018 Prostate biopsy 2016-08-05 Laparascopic radical prostat ectomy, bilateral pelvic lymph node disection, urethral suspension suture, bilateral nerve-sparing 2016-11-17
--- OUTSIDE RECORDS SUMMARY | 2025-03-08 07:30 | XMS_ITS | Patient Health Record ---
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 Name Role Phone Omar Richter MD Primary Care Provider UnavailOmar Medina Unavailable [phone] Allergies No Known Allergies Reason For Referral [...] Notes Problem Imaging of gastrointestinal tract abnormal (372738870) Abnormal findings on diagnostic imaging of other parts of digestive tract (R93.3) Active confirmed Problem Diverticulitis (768535319) Diverticulitis (K57.92) Active confirmed Problem CT of abdomen abnormal (16093034635441841) Abnormal CT of the abdomen (R93.5) Active confirmed Problem Gallbladder polyp (103706002) Gallbladder polyp (K82.4) Active confirmed Problem Diverticular disease of colon (728425131) Colon, diverticulosis (K57.30) Active confirmed Plan Of Treatment Pending Test Test Name Order Date US abdomen limited 01/27/2022 Future Test Test Name Order Date COLONOSCOPY 07/23/2014 COLONOSCOPY 01/27/2022 Insurance Providers Payer Name Payer Address Payer Phone Subscriber Number Group Number Insured Name Patient Relationship to Insured Coverage Start Date Coverage End Date [facility] [address] [facility] [phone] [id number] MICHAEL ZHU Self - patient is the insured Medical (General) History Medical History History ICD Code Hypertension Denies DC,DM,CVA,Lung disease,renal dise ase Prostate cancer in approx 2016 Negative colonoscopy in 2014 except for sigmoid diverticulosis Sigmoid diverticulitis in 09/2021 treated with oupatient Levaquin and Flagyl Gallbladder polyps Surgical History Surgery Date(Month/Year) Hernia repair-umbilical 2005 Fatty tumor removed from back 2012 Laparoscopic complete prostatectomy for cancer at [facility]
--- OUTSIDE RECORDS SUMMARY | 2025-03-08 07:30 | XMS_ITS | Patient Health Record ---
[facility] Address 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
[2025-03-08 07:51] LABS: MANUAL DIFF FLAG NO
[2025-03-08 08:23] LABS: Hematocrit 44.6 % (42.0-52.0); Hemoglobin 14.9 g/dl (14.0-18.0); Imm Gran Abs Auto 0.02 X10*3/uL (0.00-0.03); Imm Gran Pct Auto 0.3 % (0.0-0.4); Lymphocytes Absolute Auto 2.1 X10*3/uL (1.2-4.9); Mean Corpuscular HGB Conc 33.4 g/dl (31.0-36.0); Mean Corpuscular Hemoglobin 28.7 pg (27.0-33.0); Mean Corpuscular Volume 85.8 fL (80.0-98.0); NRBC Abs Auto 0.000 X10*3/uL (0.0-0.012); NRBC Pct Auto 0.0 /100WBC (0.0-0.2); Platelet Count 261 X10*3/uL (160-400); Red Blood Count 5.20 X10*6/uL (4.60-5.80); White Blood Count 7.5 X10*3/uL (4.8-10.8)
[2025-03-08 08:58] LABS: Alanine Aminotransferase 26 U/L (0-40); Albumin Level 4.4 g/dL (3.5-5.0); Alkaline Phosphatase 64 U/L (39-117); Anion Gap 10 (12-20); Aspartate Amino Transferase 16 U/L (5-37); Blood Urea Nitrogen 16 mg/dL (9-16); Calcium 9.0 mg/dL (8.4-10.2); Carbon Dioxide 27 mmol/L (22-29); Chloride 109 mmol/L (96-108); Cholesterol 127 mg/dL (<200); Estimated Glomerular Filt Rate > 60; HDL Cholesterol 28 mg/dL (>40); Potassium 4.2 mmol/L (3.3-5.1); Sodium 142 mmol/L (135-145); Total Protein 6.8 g/dL (6.5-8.0); Triglycerides 57 mg/dL (<150)
[2025-03-08 09:21] LABS: Prostate Specific Antigen 0.24 ng/mL (<0.05-4.0)
[2025-03-08 09:28] LABS: Microalbum/Creatinine Ratio Ur 6.8 ug/mg cr (<30)
== END 2025-03-08 07:27 | disposition home or self-care (01) ==
LOC: HO.LAB 07:26
PROVIDERS: PCP Internal Medicine Medical Oncology; Referring Provider Urology; Visit Provider Internal Medicine Medical Oncology
DX: Z12.5 Encounter for screening for malignant neoplasm of prostate (principal); E11.9 Type 2 diabetes mellitus without complications; E78.5 Hyperlipidemia, unspecified; E66.9 Obesity, unspecified; N52.9 Male erectile dysfunction, unspecified
CPT/HCPCS: 36415; 80053; 80061; 82043; 82570; 83036; 84153; 85025

== ENCOUNTER 2025-03-12 11:36 | Outpatient (AMB) | payer OTHER, SELFPAY ==
--- NOTE | 2025-03-12 11:38 | A.OFFVIS_ITS ---
Intake Visit Reasons: PSA follow up Intake Note: Patient is present for follow up Urology Medication:NONE Antibiotic Allergy:NONE Blood Thinner:NONE Labs done 03/08/25 PSA 0.24 Chef Under Required: No Allergies No Known Allergies (No Known Allergies*) Allergy (Verified 09/18/24 13:42) HPI Comments Details: Leland is a pleasant male. He is a patient of Dr. Richter. He seen for the following urologic conditions - prostate cancer Seen for slowly rising PSA setting postprostatectomy PSA has cross threshold PET-CT Follow-up imaging Prostate cancer grade group 3 - radical prostatectomy [facility] 09/2016 Initially seen in 2016 No prior Rising PSA doubling time approximately 24 months PSA 08/30 <0.05, 01/01 0.11, 10/03 0.15, 06/04 0.21, 09/03 0.21, 03/06 0.24 PFSH Medical History DILCIA (obstructive sleep apnea) Obesity (BMI 30-39.9) Gallbladder polyp Sigmoid diverticulitis Prostate cancer Hypertension Surgical History History of prostatectomy History of hernia repair History of colonoscopy Social History Alcohol intake: never Patient Tobacco Use Status: Never used Tobacco Substance Use Type: Hallucinogens Review of Systems Const Denies chills and Denies fever(s) Card Reports no additional complaints and Denies syncope Resp Denies cough GI Denies abdominal pain and Denies heartburn Reports as per HPI and Denies change in libido Neuro Denies syncope Psych Denies change in libido Endo Denies change in libido Physical Exam Const General: cooperative, healthy appearing, comfortable and no acute distress Orientation/consciousness: patient oriented x3 HEENT Face and sinus: Yes normal facial exam Mouth: moist mucous membranes Neck Neck: Yes normal visual inspection Chest Chest palpation & inspection: normal inspection of the chest Resp Effort & Inspection: normal respiratory effort and able to speak in complete sentences GI Inspection: Yes normal to inspection Penis: normal penis and circumcised Meatus: meatus normal Scrotum: scrotum normal, cremasteric reflex present, no hydroceles and no inguinal hernias Testes: Testes normal and epididymides normal Back/Spine/Pelvis Cervical Spine: normal cervical lordosis Thoracic/Lumbar Spine: thoracic and lumbar spine normal to inspection Skin General skin exam: no rashes or lesions noted Neuro General: patient oriented x3, gait normal, tone normal and moves all extremities Extrem General: Yes normal to inspection and Yes capillary refill normal Assessment & Plan Assessment & Plan (1) Rising PSA following treatment for malignant neoplasm of prostate: Code(s): R97.21 - Rising PSA following treatment for malignant neoplasm of prostate Category: Medical (2) Prostate cancer: Code(s): C61 - Malignant neoplasm of prostate Category: Medical Plan PSMA PET scan Orders: Orders PET CT fusion skull to thigh Today C61 - Malignant neoplasm of prostate, R97.21 - Rising PSA following treatment for malignant neoplasm of prostate Patient Instructions: This note is constructed using voice recognition software. 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 Imaging studies, laboratory and physical exam results were discussed and reviewed in detail. No major barriers to patient understanding were identified. An opportunity to ask questions regarding the treatment plan was provided. All questions were answered. The patient expressed understanding and agreement with the above treatment plan. The patient is aware they should contact our office by phone for worsening of their current condition or the appearance of new urologic symptoms. Compliance is encouraged with any medications and followup testing that is ordered. It is a privilege to participate in the urologic care of your patient. If you have any questions or concerns regarding treatment for the above conditions, or other urologic issues, please do not hesitate to contact me. The office telephone contact is [phone]. Sincerely, Dr Ramses Huertas MD, [facility] - Urology Compassionate Specialist Care for the Genitourinary System Coding Level of Care Code Est Pt Level 3 (30931) Complex EM visit Add On G2211 Diagnoses Rising PSA following treatment for malignant neoplasm of prostate R97.21 Prostate cancer C61
== END 2025-03-12 12:00 | disposition home or self-care (01) ==
LOC: HO.HUSH 11:37
PROVIDERS: PCP Internal Medicine Medical Oncology; Visit Provider Urology
DX: R97.21 Rising PSA following treatment for malignant neoplasm of prostate (principal); C61 Malignant neoplasm of prostate
CPT/HCPCS: 99213; G2211

== ENCOUNTER 2025-04-12 07:06 | Outpatient (REF) | payer OTHER, SELFPAY ==
--- OUTSIDE RECORDS SUMMARY | 2024-05-22 11:45 | XMS_ITS ---
Author Organization Omar Richter III, MD Address [address] [place] [address] Care Team Providers Care Saturator Operator Name Role Phone Dr. Omar Richter III [...] Date Provider Diagnosis Omar Richter III, MD [address] [place] [address] [place] [address] 05/22/2024 Omar Richter Hypertension I10 ; Carcinoma [...] Provider Name:Omar Richter , 06/02/2025 03:15:00 PM, [address] [place] [address] [address], [place], [address], Provider Name:Omar Richter , 03/04/2026 04:00:00 PM, [address], [address], Progress Notes * Leland ZHUDOB:1965 ([age] yo M)Acc No.[id number]:05/22/2024 Progress Notes Patient: Leland REED Provider: Prabha Richter MD :1965 A ge:58 Y S ex:Male Date:05/22/2024 Address:[address] [place], [place] [address], [id number] Subjective: * Chief Complaints: * G rief [...] node disection, urethral suspension suture, bilateral nerve-sparing [id number] biopsy [id number] skin CA removal 2018 * Hospitalization/Major Diagno [...] his He is and has worked in [employer] at [employer] for 26 years.. He was born in [place] and has several children. He is bilingual. [...] Date: 07/23/2023 Generated for Printi ng/Robert/eTransmitting on: 06/12/2024 07:10 AM EDT History and Physical Notes * HPI (History of Present Illness) Category Sub-Category Detail Notes COVID-19 Screening Questions Have you had any new onset fever, chills, cough, congestion, sore throat, shortness of breath, muscle aches?: No Have you been exposed to the virus withi n the last 10 days?: No Have you travelled internationally in [facility] last 10 days?: No Have you [...]
--- OUTSIDE RECORDS SUMMARY | 2024-06-10 09:14 | XMS_ITS ---
Author Organization Omar Richter III, MD Address [address] [place] [address] Care Team Providers Care Zoology Professor Name Role Phone Dr. Omar Richter III Primary Care Provider [phone] REASON FOR VISIT Message Social History Sex Assigned At : Social History Observation Description Sex Assigned At Male Encounters Encounter Location Date Provider Diagnosis Omar Richter III, MD [address] [place] [address] [place] [address] 06/10/2024 Omar Richter Plan Of Treatment Next Appt Details Provider Name:Omar Richter , 06/02/2025 03:15:00 PM, [address] [place] [address] [place], [address], Provider Name:Omar Richter , 03/04/2026 04:00:00 PM, [address] [place] [address] [place], [address], Progress Notes * MARKOLelandDOB:1965 (4 0 yo M)Acc No.[id number]:06/10/2024 Patient: Leland REED :1965 A ge:58 Y S ex:Male Address:[address] [place], [place] [address] [address] * true * Date: Generated for Shani finn/Robert/eTransmitting on: 06/12/2024 07:10 AM EDT
--- OUTSIDE RECORDS SUMMARY | 2024-08-20 06:00 | XMS_ITS ---
Author Organization Omar Richter III, MD Address [address] [place] [address] Care Team Providers Care Mobile Engineer Name Role Phone Dr. Omar Richter III [...] Provider Speciality Internal M edicine Referred Provider [facility] ([place]) Referred Provider Specialty Dermatology General Notes Muna Cortez CMA 08/22 01:29:41 PM > referral/demo/ progress note faxed to Dana DUMONT Suzanne CMA 08/26/2024 09:35:06 AM > received notice from [facility] they want patient to call them at [phone] and make his own appt pt called [...] Problem Status W/U Status Risk Notes Problem [id number] Obesity (E66.9) Active confirmed We have discussed [...] Date Provider Diagnosis Omar Richter III, MD [address] [place] [address] [place] [address] 08/20/2024 Omar Richter Hypertension I10 ; Carcinoma [...] lesion o n lip[facility] Next Appt Details Follow Up: 3 weeks TV then 3 months OV, Reason: TV no tests then 3 months review labs Provider Name:Omar Richter , 06/02/2025 03:15:00 PM, [address] [place] [address] [address], [place], [phone], Provider Name:Omar Richter , 03/04/2026 04:00:00 PM, [address] [place] [address] [address], [place], [phone], Progress Notes * Leland ZHUDOB:1965 (4 0 yo M)Acc No.[id number]:08/20/2024 Progress Notes Patient: Leland REED Provider: Prabha [...] node disection, urethral suspension suture, bilateral nerve-sparing [id number] biopsy [id number] skin CA removal 2018 * Hospitalization/Major Diagno [...] his He is and has worked in [employer] at [employer] for 26 years.. He was born in [place] and has several children. He is bilingual. [...] Generated for Shani finn/Robert/Luis Danielitting on: 1 06/12/2024 07:10 AM EDT History and Physical [...] Omar [facility] lesion on lip
--- OUTSIDE RECORDS SUMMARY | 2024-08-30 10:30 | XMS_ITS ---
Author Organization Omar Richter III, MD Address [address] [place] [address] Care Team Providers Care Senior Professional Services Consultant Name Role Phone Dr. Omar Richter III Primary Care Provider [phone] Allergies Allergen (clinical drug ingredient) Drug/Non Drug [...] Date Provider Diagnosis Omar Richter III, MD [address] [place] [address] [address], JADA [phone] 08/30/2024 Omar Richter Carcinoma of prostat e [...] Provider Name:Omar Richter , 06/02/2025 03:15:00 PM, [address] [place] [address] [address], [place], [phone], Provider Name:Omar Richter , 03/04/2026 04:00:00 PM, [address] [place] [address] [address], [place], [phone], Progress Notes * Leland ZHUDOB:1965 (4 0 yo M)Acc No.[id number]:08/30/2024 Patient: Leland REED Provider: Prabha Richter MD :1965 A ge:58 Y S ex:Male Date:08/30/2024 Address:[address] [place], [place] [id number] Subjective: * Chief Complaints: * C OVID [...] of provider rendering services: { ...} [address] [facility] [address] L ocation of patient: alan dow listed [...] node disection, urethral suspension suture, bilateral nerve-sparing [id number] biopsy [id number] skin CA removal 2018 * Hospitalization/Major Diagno [...] his He is and has worked in [employer] at [employer] for 26 years.. He was born in [place] and has several children. He is bilingual. [...] 08/30/2024 Generated for Shani finn/Robert/Tamera on: 1 06/12/2024 07:09 AM EDT History and Physical Notes * HPI (History of Present Illness) Category Sub-Category Detail Notes Telehealth Location of [facility] rendering services:: {...} [address] [place] [address] [address] [place] [address] Location of patient:: address listed in demographics [...]
--- OUTSIDE RECORDS SUMMARY | 2024-09-10 06:30 | XMS_ITS ---
Author Organization Omar Richter III, MD Address [address] [address] Care Team Providers Care Division Chair Name Role Phone Dr. Omar Richter III [...] Date Provider Diagnosis Omar Richter III, MD [address] [place] [address] [address] [place], JADA [phone] 09/10/2024 Omar Richter Acute COVID-19 U07.1 ; [...] Provider Name:Omar Richter , 06/02/2025 03:15:00 PM, [address] [place] [address] [address], [place], [phone], Provider Name:Omar Richter , 03/04/2026 04:00:00 PM, [address] [place] [address] [address], [place], [phone], Progress Notes * Leland ZHUDOB:1965 (4 0 yo M)Acc No.[id number]:09/10/2024 Patient: Leland REED Provider: Prabha Richter MD :1965 A ge:58 Y S ex:Male Date:09/10/2024 Address:[address] [place], [place] [address]OLINE Ray [place], [place]-[id number] Subjective: * Chief Complaints: * C ovid19 [...] of provider rendering services: { ...} [address] [facility] [address] L ocation of patient: alan dow listed [...] node disection, urethral suspension suture, bilateral nerve-sparing [id number] biopsy [id number] skin CA removal 2018 * Hospitalization/Major Diagno [...] his He is and has worked in [employer] at [employer] for 26 years.. He was born in [place] and has several children. He is bilingual. [...] AM)?ValueReference Range?Uric Acid4.33.4-7.0 - mg/dL * Lab:Comprehensive [place]. Pane l Fast * Collection Date 08/17/2024 [...] MD Date: 0 09/10/2024 Generated for Shani finn/Robert/eTransmitting on: 06/12/2024 07:09 AM EDT History and Physical Notes * HPI (History of Present Illness) Category Sub-Category Detail Notes Telehealth Location of [facility] rendering services:: {...} [address] [facility] [address] Location of patient:: address listed in demographics [...]
--- OUTSIDE RECORDS SUMMARY | 2024-11-26 06:15 | XMS_ITS ---
Author Organization Omar Richter III, MD Address [address] [place] [address] [place] [address] Care Team Providers Care Specifications Writer Name Role Phone Dr. Omar Richter III Primary Care Provider [phone] Allergies Allergen (clinical drug ingredient) Drug/Non Drug [...] Date Provider Diagnosis Omar Richter III, MD [address] [place] [address] [place] [address] 11/26/2024 Omar Richter Plan Of Treatment Medication Medication Name Sig Start Date Stop Date Notes amLODIPine Besylate 10 MG TAKE 1 TABLET BY MOUTH EVERY DAY metFORMIN HCl 500 MG 1 tablet Orally Once a day 08/20/2024 Next Appt Details Provider Name:Omar Richter , 06/02/2025 03:15:00 PM, [address] [facility] [place]REE K[place]AR, [place], [address], Provider Name:Omar Richter , 03/04/2026 04:00:00 PM, [address] [facility] [place], [place], [address], Progress Notes * Leland ZHUDOB:1965 ([age] yo M)Acc No.[id number]:11/26/2024 Progress Notes Patient: Leland REED Provider: Prabha Richter MD :1965 A ge:59 Y S ex:Male Date:11/26/2024 Address:[address] [place] [address] [place], [id number] Subjective: * Chief Complaints: * 1 . [...] his He is and has worked in [employer] at [email or web address] for 26 years.. He was born in [place] and has several children. He is bilingual. [...] 11/26/2024 Generated for Shani finn/Robert/eTransmitting on: 1 06/12/2024 07:11 AM EDT History and Physical Notes * [...]
--- OUTSIDE RECORDS SUMMARY | 2024-12-24 07:43 | XMS_ITS ---
Author Organization Omar Richter III, MD Address [address] [facility] [place] [address] Care Team Providers Care Hair Machine Operator Name Role Phone Dr. Omar Richter III Primary Care Provider REASON FOR VISIT Appointment Request Social History Sex Assigned At : Social History Observation Description Sex Assigned At Male Encounters Encounter Location Date Provider Diagnosis Omar Richter III, MD [address] [place] [address] [place] [address] 12/24/2024 Omar Richter Plan Of Treatment Next Appt Details Provider Name:Omar Richter , 06/02/2025 03:15:00 PM, [address] [place] [address] [place], [address], Provider Name:Omar Richter , 03/04/2026 04:00:00 PM, [address] [place] [address] [place], [address], Progress Notes * MARKOLelandDOB:1965 ([age] yo M)Acc No.[id number]:12/24/2024 Patient: Leland REED :1965 A ge:59 Y S ex:Male Address:[address] [place] [address] [place] [address] * true * Date: Generated for Shani finn/Robert/eTtaniasmitting on: 06/12/2024 07:09 AM EDT
--- OUTSIDE RECORDS SUMMARY | 2025-01-03 11:45 | XMS_ITS ---
Author Organization Omar Richter III, MD Address [address] [place] [address] Care Team Providers Care Wallcovering Hanger Name Role Phone Dr. Omar Richter III Primary Care Provider [phone] Allergies Allergen (clinical drug ingredient) Drug/Non Drug [...] Provider Diagnosis Omar Richter III, MD [address] [place] [address] [place] [address] 01/03/2025 Omar Richter Cervical radiculopat hy M54.12 [...] Provider Name:Omar Richter , 06/02/2025 03:15:00 PM, [address] [place] [address] [address], [place], [address], Provider Name:Omar Richter , 03/04/2026 04:00:00 PM, [address] [place] [address] [address], [place], [address], Progress Notes * MARKO LelandDOB:1965 ([age] yo M)Acc No.[id number]:01/03/2025 Progress Notes Patient: Leland REED Provider: Prabha Richter MD :1965 A ge:59 Y S ex:Male Date:01/03/2025 Address:[address] [place] [address] KAROLINE GUERRIER [id number] Subjective: * Chief Complaints: * N europathic [...] node disection, urethral suspension suture, bilateral nerve-sparing [id number] biopsy [id number] skin CA removal 2018 * Hospitalization/Major Diagno [...] his He is and has worked in [employer] at [employer] for 26 years.. He was born in [place] and has several children. He is bilingual. [...] MD Date: 0 01/03/2025 Generated for Maryi huma/Robert/eTransmitting on: 06/12/2024 07:10 AM EDT History and [...]
--- OUTSIDE RECORDS SUMMARY | 2025-01-09 05:15 | XMS_ITS ---
Author Organization Omar Richter III, MD Address [address] [place] [address] Care Team Providers Care It Analyst Name Role Phone Dr. Omar Richter III Primary Care Provider [phone] Allergies Allergen (clinical drug ingredient) Drug/Non Drug [...] Date Provider Diagnosis Omar Richter III, MD [address] [place] [address] DR [place]AE, J[place] [phone] 01/09/2025 Omar Richter Back pain, unspecifi ed [...] Provider Name:Omar Richter , 06/02/2025 03:15:00 PM, [address] [place] [address] [address], [place], [phone], Provider Name:Omar Richter , 03/04/2026 04:00:00 PM, [address] [place] [address] [address], [place], [phone], Progress Notes * Leland ZHUDOB:1965 ([age] yo M)Acc No.[id number]:01/09/2025 Patient: Leland REED Provider: Prabha Richter MD :1965 A ge:59 Y S ex:Male Date:01/09/2025 [facility] [place], [id number] Subjective: * Chief Complaints: * P rostate [...] of provider rendering services: { ...} [address] [facility] [address] L ocation of patient: alan dow listed [...] node disection, urethral suspension suture, bilateral nerve-sparing [id number] biopsy [id number] skin CA removal 2018 * Hospitalization/Major Diagno [...] his He is and has worked in [employer] at [employer] for 26 years.. He was born in [place] and has several children. He is bilingual. [...] 0.000 (Ref Range: 0.0-0.012 X10*3/uL) * Lab:[facility] [place]. [facility] * Collection Date 11/16/2024 [...] 0 01/09/2025 Generated for Shani finn/Robert/Tamera on: 06/12/2024 07:11 AM EDT History and Physical Notes * HPI (History of Present Illness) Category Sub-Category Detail Notes Telehealth Location of [facility] rendering services:: {...} [address] [place] [address] Drive [address] [place] [address] Location of patient:: address listed in demographics [...]
--- OUTSIDE RECORDS SUMMARY | 2025-03-03 07:00 | XMS_ITS ---
Author Organization Omar Richter III, MD Address [address] [place] [address] Care Team Providers Care Section Leader Screen Printing Name Role Phone Dr. Omar Richter III Primary Care Provider Allergies Allergen (clinical drug ingredient) Drug/Non Drug Allergy documented on EMR Reaction Allergy Type Onset Date Status No Known Drug Allergy Unknown Drug Allergy Active No Known Food Allergy Unknown Drug Allergy Active Results Component Value Reference Range Notes Lipid Panel Reviewed date:03/17/2025 03:19:43 PM Interpretation: Performing Lab:[facility], [address] [place] [id number] Notes/Report: Triglycerides 57 <150 mg/dL Desirable Triglyceride: [...] Random Reviewed date:03/17/2025 03:19:43 PM Interpretation: Performing Lab:[address] [address] Notes/Report: Creatinine Urine 160.55 Microalbumin Urine 11.0 Microalbum/Creatinine Ratio Ur 6.8 <30 ug/mg cr Albumin/Creatinine Ratio Reference Ranges: Normal: < 30 ug/mg creatinine Microalbuminuria: 30 - 300 ug/mg creatinine Clinical Albuminuria: > 300 ug/mg creatinine Hemoglobin A1c Reviewed date:03/17/2025 03:19:43 PM Interpretation: Performing Lab:[address] [id number] Notes/Report: Hemoglobin A1c % 6.6 <6.0 % [...] average glucose, using the formula of the O2N-Prtylxp Average Glucose study (ADAG), Diabetes Care, Vol.31,#8, [...] Provider Diagnosis Omar Richter III, MD [address] [place] [address] [place] [address] 03/03/2025 Omar Richter Type 2 diabetes mary [...] Name:Omar Richter , 06/02/2025 03:15:00 PM, [address] [place] [address] [address], [place], [phone], Provider Name:Omar Richter , 03/04/2026 04:00:00 PM, [address] [place] [address] [address], [place], [phone], Progress Notes * Leland ZHUDOB:1965 ([age] yo M)Acc No.[id number]:03/03/2025 Progress Notes Patient: Leland REED Provider: Prabha Richter MD :1965 A ge:59 Y S ex:Male Date:03/03/2025 Address:[address] [place], [place] [address], [id number] Subjective: * Chief Complaints: * A nnual [...] node disection, urethral suspension suture, bilateral nerve-sparing [id number] biopsy [id number] skin CA removal 2018 * Hospitalization/Major Diagno [...] his He is and has worked in [employer] at [employer] for 26 years.. He was born in [place] and has several children. He is bilingual. [...] 0 03/03/2025 Generated for Maryi huma/Robert/Brittransmitting on: 06/12/2024 07:10 AM EDT History and [...]
--- OUTSIDE RECORDS SUMMARY | 2025-04-12 07:09 | XMS_ITS | Patient Health Record ---
Author Organization [facility] Address [address] [place] [address] Care Team Providers Care Manager Social Services Name Role Phone Omar Richter MD Primary Care Provider UnavailOmar Medina Unavailable [phone] Allergies No Known Allergies Reason For Referral No Information Medications Medication SIG (Take, Route, Frequency, Duration) Notes Start Date End Date Status amLODIPine Besylate 5 MG TAKE 1 T PO QD Oral; Duration: 30 Active Immunizations Vaccine Route Administration Date Status Comme nts Influenza Unknown 01/27/2022 Refused Problems Problem Type SNOMED Code ICD Code Onset Dates Problem Status W/U Status Risk Notes Problem Imaging of gastrointestinal tract abnormal (082408868) Abnormal findings on diagnostic imaging of other parts of digestive tract (R93.3) Active confirmed Problem Diverticulitis (53749260) Diverticulitis (K57.92) Active confirmed Problem CT of abdomen abnormal (63455119010066643) Abnormal CT of the abdomen (R93.5) Active confirmed Problem Gallbladder polyp (273888516) Gallbladder polyp (K82.4) Active confirmed Problem Diverticular disease of colon (003409281) Colon, diverticulosis (K57.30) Active confirmed Plan Of Treatment Pending Test Test Name Order Date US abdomen limited 01/27/2022 Future Test Test Name Order Date COLONOSCOPY 07/23/2014 COLONOSCOPY 01/27/2022 Insurance Providers Payer Name Payer Address Payer Phone Subscriber Number Group Number Insured Name Patient Relationship to Insured Coverage Start Date Coverage End Date [facility] [address] [facility] [phone] [id number] MICHAEL ZHU Self - patient is the [...] 2012 Laparoscopic complete prostatectomy for cancer at [facility]
--- OUTSIDE RECORDS SUMMARY | 2025-04-12 07:10 | XMS_ITS | Patient Health Record ---
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 [address] [place] [address] [phone] [id number] Leland Quevedo Self - patient is the insured Medical (General) History Medical History History ICD Code Cancer Headaches/Migraines High blood pressure Surgical History Surgery Date(Month/Year) Prostate cancer 11/17/2016 removed a mole on the nose/tumor 12/28 STM L4th toe 05/22/2019
--- OUTSIDE RECORDS SUMMARY | 2025-04-12 07:11 | XMS_ITS | Patient Health Record ---
Author Organization Omar Richter III, MD Address [address] [place] [address] Care Team Providers Care Claim Review Medical Director Name Role Phone Dr. Omar Richter III Primary Care Provider Allergies Allergen (clinical drug ingredient) Drug/Non Drug Allergy documented on EMR Reaction Allergy Type Onset Date Status No Known Drug Allergy Unknown Drug Allergy Active No Known Food Allergy Unknown Drug Allergy Active Results Component Value Reference Range Notes Lipid Panel Reviewed date:03/17/2025 03:19:43 PM Interpretation: Performing Lab:[facility], [address] [place] [phone] Notes/Report: Triglycerides 57 <150 mg/dL Desirable Triglyceride: [...] Random Reviewed date:03/17/2025 03:19:43 PM Interpretation: Performing Lab:[address] [address] Notes/Report: Creatinine Urine 160.55 Microalbumin Urine 11.0 Microalbum/Creatinine Ratio Ur 6.8 <30 ug/mg cr Albumin/Creatinine Ratio Reference Ranges: Normal: < 30 ug/mg creatinine Microalbuminuria: 30 - 300 ug/mg creatinine Clinical Albuminuria: > 300 ug/mg creatinine Hemoglobin A1c Reviewed date:03/17/2025 03:19:43 PM Interpretation: Performing Lab:[address] [address] Notes/Report: Hemoglobin A1c % 6.6 <6.0 % [...] average glucose, using the formula of the K5Y-Ouuatah Average Glucose study (ADAG), Diabetes Care, Vol.31,#8, Jan. 2007 Complete Blood Count Auto Di ff Reviewed date:05/20/2024 04:53:24 AM Interpretation: Performing Lab:[facility], [address] [place] [phone] Notes/Report: White Blood Count 6.9 4.8-10.8 X10*3/uL [...] NRBC Abs Auto 0.000 0.0-0.012 X10*3/uL [facility] [place]. Panel Fa st Reviewed date:05/20/2024 04:53:24 AM Interpretation: Performing Lab:[facility], [address] [place] [phone] Notes/Report: Sodium 141 135-145 mmol/L Potassium 4.5 [...] Panel Reviewed date:05/20/2024 04:53:24 AM Interpretation: Performing Lab:[address] [address] Notes/Report: Triglycerides 61 <150 mg/dL Desirable Triglyceride: [...] Antigen Reviewed date:05/20/2024 04:53:24 AM Interpretation: Performing Lab:[address] [address] Notes/Report: Prostate Specific Antigen 0.21 <0.05-4.0 ng/mL PSA methodology: Merrill Alinity i Chemiluminescent Microparticle Immunoassay (CMIA) Complete Blood Count Auto Di ff Reviewed date:08/19/2024 08:50:48 AM Interpretation: Performing Lab:[address] [address] Notes/Report: White Blood Count 7.6 4.8-10.8 X10*3/uL [...] NRBC Abs Auto 0.000 0.0-0.012 X10*3/uL [facility] [place]. Panel Fa st Reviewed date:08/19/2024 08:50:48 AM Interpretation: Performing Lab:[facility], [address] [place] [phone] Notes/Report: Sodium 141 135-145 mmol/L Potassium 4.1 [...] Acid Reviewed date:08/19/2024 08:50:48 AM Interpretation: Performing Lab:[address] [address] Notes/Report: Uric Acid 4.3 3.4-7.0 mg/dL Lipid Panel Reviewed date:08/19/2024 08:50:48 AM Interpretation: Performing Lab:[address] [address] Notes/Report: Triglycerides 62 <150 mg/dL Desirable Triglyceride: [...] Antigen Reviewed date:08/19/2024 08:50:48 AM Interpretation: Performing Lab:[address] [address] Notes/Report: Prostate Specific Antigen 0.21 <0.05-4.0 ng/mL PSA methodology: Merrill Alinity i Chemiluminescent Microparticle Immunoassay (CMIA) PSA, Ultra Sensitive Reviewed date:08/25/2024 10:12:29 AM Interpretation: Performing Lab:[address] [address] Notes/Report: PSA, Ultra Sensitive 0.23 UNTREATED RESULT = 0.24 REFERENCE RANGES for PSA: LESS THAN 0.10 ng/mL AFTER RADICAL PROSTATECTOMY. 4.0 ng/mL OR LESS IN HEALTHY MALES WITHOUT PROSTATECTOMY. PSA values obtained with different assay methods or kits cannot be used interchangeably. This test was performed using the Jaylin Corning DxI method. PSA, ICMA is not to [...] prostate cancer. THIS TEST WAS PERFORMED AT: [employer] [address] [place] [address] COLLNI HUANG MD,PHD,DANNY Complete Blood Count Auto Di ff Reviewed date:01/03/2025 03:44:33 PM Interpretation: Performing Lab:[facility], [address] [place] [phone] Notes/Report: White Blood Count 8.2 4.8-10.8 X10*3/uL [...] NRBC Abs Auto 0.000 0.0-0.012 X10*3/uL [facility] [place]. Panel Fa Reviewed date:01/03/2025 03:44:40 PM Interpretation: Performing Lab:[facility], [address] [place] [phone] Notes/Report: Sodium 141 135-145 mmol/L Potassium 4.1 [...] Panel Reviewed date:01/03/2025 03:44:46 PM Interpretation: Performing Lab:[facility], [address] [place] [phone] Notes/Report: Triglycerides 74 <150 mg/dL Desirable Triglyceride: [...] Random Reviewed date:01/03/2025 03:44:53 PM Interpretation: Performing Lab:[address] [address] Notes/Report: Creatinine Urine 193.39 Microalbumin Urine 13.0 Microalbum/Creatinine Ratio Ur 6.7 <30 ug/mg cr Albumin/Creatinine Ratio Reference Ranges: Normal: < 30 ug/mg creatinine Microalbuminuria: 30 - 300 ug/mg creatinine Clinical Albuminuria: > 300 ug/mg creatinine Hemoglobin A1c Reviewed date:12/13/2024 07:18:51 PM Interpretation: Performing Lab:[address] [address] Notes/Report: Hemoglobin A1c % 6.6 <6.0 % [...] average glucose, using the formula of the X4G-Zwvrimg Average Glucose study (ADAG), Diabetes Care, Vol.31,#8, Jan. 2007 XR chest 2V Reviewed date:01/09/2025 08:14:43 PM Interpretation: Performing Lab: Notes/Report: [address] [address] XRay Report Signed Patient: Leland Quevedo MR#: [id number] : 1965 Acct:[id number] Age/Sex: 59 / M ADM Date: 01/03/25 Loc: [facility] Attending Dr: Omar Richter MD Ordering Physician: Omar Richter MD Date of Service: 01/03/25 Procedure(s): XR chest 2V Accession Number(s): [id number] cc: Omar Richter MD EXAMINATION: Chest 2 views. CLINICAL INDICATION: Chest pain. COMPARISON: CT chest 01/04/2012. FINDINGS: Lungs are well-expanded and clear of acute process. Heart size and pulmonary vascularity is normal. There is no pleural effusion or calcified pleural plaques. No gross bony abnormality seen. XR/XR chest 2V IMPRESSION: Unremarkable chest exam. Electronically signed by: Popeye Erickson MD 01/06/2025 07:44 AM EDT Dictated By: Popeye Erickson MD Signed By: <Electronically signed by Popeye Erickson MD in OV> 01/06/25 0744 DD/ 1640 TD/TT: 01/03/25 1651 Painting Supervisor: [address] [address] XRay Report Signed Patient: Leland Quevedo MR#: [id number] : 1965 Acct:[id number] Age/Sex: 59 / M ADM Date: 01/03/25 Loc: [facility] Attending Dr: Omar Richter MD Ordering Physician: Omar Richter MD Date of Service: 01/03/25 Procedure(s): XR carolyn st 2V Accession Number(s): [id number] cc: Omar Richter MD EXAMINATION: Chest 2 [...] 01/06/25 0744 DD/ 1640 TD/TT: 01/03/25 165 Painting Supervisor: [facility] [place]R cervical spine 3V Reviewed date:01/09/2025 08:14:43 PM Interpretation: Performing Lab: Notes/Report: [address] [address] XRay Report Signed Patient: Leland Quevedo MR#: [id number] : 1965 Acct:[id number] Age/Sex: 59 / M ADM Date: 01/03/25 Loc: [facility] Attending Dr: Omar Richter MD Ordering Physician: Omar Richter MD Date of Service: 01/03/25 Procedure(s): XR cervical spine 3V Accession Number(s): [id number] cc: Omar Richter MD EXAMINATION: Chest 2 [...] 01/06/25 0744 DD/ 1640 TD/TT: 01/03/25 165 Painting Supervisor: [address] [address] XRay Report Signed Patient: Leland Quevedo MR#: [id number] : 1965 Acct:[id number] Age/Sex: 59 / M ADM Date: 01/03/25 Loc: [facility] Attending Dr: Omar Richter MD Ordering Physician: Omar Richter MD Date of Service: 01/03/25 Procedure(s): XR cervical spine 3V Accession Number(s): [id number] cc: Omar Richter MD EXAMINATION: Chest 2 [...] 01/06/25 0744 DD/ 1640 TD/TT: 01/03/25 1651 Painting Supervisor: [facility] [place] Complete Blood Count Auto Di ff Reviewed date:03/17/2025 03:19:43 PM Interpretation: Performing Lab:[facility], [address] [place] [phone] Notes/Report: White Blood Count 7.5 4.8-10.8 X10*3/uL Red Blood Count 5.20 4.60-5.80 X10*6/uL Hemoglobin 14.9 14.0-18.0 g/dl Hematocrit 44.6 42.0-52.0 % Mean Corpuscular Volume 85.8 80.0-98.0 fL Mean Corpuscular Hemoglobin 28.7 27.0-33.0 pg Mean Corpuscular HGB Conc 33.4 31.0-36.0 g/dl Red Cell Distribution Width 12.7 11.0-16.0 % Platelet Count 261 160-400 X10*3/uL Mean Platelet Volume 10.9 9.4-12.4 fL Neutrophils Percent Auto 58.0 45-73 % Imm Gran Pct Auto 0.3 0.0-0.4 % Lymphocytes Percent Auto 28.3 20-40 % Monocytes Percent Auto 11.5 2-11 % Eosinophils Percent Auto 1.2 0-4 % Basophils Percent Auto 0.7 0-2 % NRBC Pct Auto 0.0 0.0-0.2 /100WBC Neutrophils Absolute Auto 4.3 2.0-8.3 x10*3/uL Imm Gran Abs Auto 0.02 0.00-0.03 X10*3/uL Lymphocytes Absolute Auto 2.1 1.2-4.9 X10*3/uL Monocytes Absolute Auto 0.9 0.1-1.2 X10*3/uL Eosinophils Absolute Auto 0.1 0.0-0.4 X10*3/uL Basophils Absolute Auto 0.1 0.0-0.2 X10*3/uL NRBC Abs Auto 0.000 0.0-0.012 X10*3/uL [facility] [place]. Panel Fa st Reviewed date:03/17/2025 03:19:43 PM Interpretation: Performing Lab:[facility], [address] [place] [phone] Notes/Report: Sodium 142 135-145 mmol/L Potassium 4.2 3.3-5.1 mmol/L Chloride 109 96-108 mmol/L Carbon Dioxide 27 22-29 mmol/L Anion Gap 10 12-20 Blood Urea Nitrogen 16 9-16 mg/dL Creatinine 0.77 0.5-1.4 mg/dL Estimated Glomerular Filt Rate > 60 Chronic Kidney Disease: Estimated GFR < 60 mL/min/1.73m2 Severe Kidney Disease: Estimated GFR < 15 mL/min/1.73m2 Glucose Fasting 177 60-99 mg/dL A fasting glucose of 126 mg/dl or greater on more than one occasion is considered diagnostic of diabetes. Calcium 9.0 8.4-10.2 mg/dL Bilirubin Total 0.8 0.0-1.0 mg/dL Aspartate Amino Transferase 16 5-37 U/L Alanine Aminotransferase 26 0-40 U/L Total Protein 6.8 6.5-8.0 g/dL Albumin Level 4.4 3.5-5.0 g/dL Alkaline Phosphatase 64 39-117 U/L Prostate Specific Antigen Reviewed date:03/17/2025 03:19:43 PM Interpretation: Performing Lab:[facility], [address] [place] [phone] Notes/Report: Prostate Specific Antigen 0.24 <0.05-4.0 ng/mL PSA methodology: Merrill Alinity i Chemiluminescent Microparticle Immunoassay (CMIA) Reason For Referral Reason lesion on lip Diagnosis 1 Lip lesion (K13.0) Referral Organization Omar Richter III, MD Referring Provider First Name Omar Referring Provider Last Name Neelam Referring Provider Speciality Internal M edicine Referred Provider [facility] Referred Provider Specialty Dermatology General Notes [facility] 08/22 01:29:41 PM > referral/demo/ progress note faxed to Dana DUMONT Suzanne CMA 08/26/2024 09:35:06 AM > received notice from [facility] they want patient to call them at [phone] and make his own appt pt called [...] Problem Status W/U Status Risk Notes Problem 859359144 Obesity (E66.9) Active confirmed We have discussed diet and nutrition. We reviewed the elements of a diabetic weight loss program. We made a plan to lose weight at a rate of 1 pound per week. Problem Hypertension (64027373) Hypertension (I10) Active confirmed His blood pressure has been stable and no change in his regimen was made Problem Sleep apnea (66200151) Sleep apnea, unspecified (G47.30) Active confirmed His sleep study done in January 2023 shows severe obstructive sleep apnea. He is using his CPAP machine now. Problem Benign prostatic hyperplasia (340776952) BPH (benign prostatic hyperplasia) (N40.0) Active confirmed We have discussed modifications to his lifestyle to reduce nocturnal urinating. Problem 324832727 Erectile dysfunction (N52.9) Active confirmed This problem was successfully addressed with use of medication. Problem 691675214 Umbilical hernia (K42.9) Active confirmed There was no pain or discomfort when palpating the umbilicus. Problem 392556927 Osteoarthritis of both knees (M17.0) Active confirmed The discomfort in the knees is unchanged but is a minor problem to him now and will be followed. Problem 26955674 Hyperlipidemia, unspecified hyperlipidemia type (E78.5) Active confirmed A new fasting lipid profile has been ordered. His lipids have been well controlled. Problem 909761625 Carcinoma of prostate (C61) Active confirmed His PSA is detectable at 0.21. The previous value was 0.21. This data was forwarded to his urologist.. He has an appointment upcoming. Problem 045013393 Type 2 diabetes mellitus without complication, without long-term current use of insulin (E11.9) Active confirmed He has been compliant with his medications. Comprehensive blood work with a hemoglobin A 1c has been ordered. No change in his regimen was necessary. 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 ; Obesity E66.9 ; BPH (benign prostatic hyperplasia) N40.0 ; Osteoarthritis of both knees M17.0 and Umbilical hernia K42.9 Omar Richter III, MD [address] [place] [address] [place] [phone] 08/30/2024 Omar Richter Carcinoma of prostat e [...] apnea, unspecified G47.30 Omar Richter III, MD [address] [place] [address] [place] [phone] 09/10/2024 Omar Richter Acute COVID-19 U07.1 ; [...] and Obesity E66.9 Omar Richter III, MD [address] [place] [address] [place] [phone] 01/03/2025 Omar Richter Cervical radiculopat hy M54.12 ; Umbilical hernia K42.9 ; Osteoarthritis of both knees M17.0 ; Carcinoma of prostate C61 ; Hypertension I10 ; Hyperlipidemia, unspecified hyperlipidemia type E78.5 ; BPH (benign prostatic hyperplasia) N40.0 ; Sleep apnea, unspecified G47.30 ; Type 2 diabetes mellitus without complication, without long-term current use of insulin E11.9 and Obesity E66.9 Omar Richter III, MD [address] [place] [address] [place] [phone] 01/09/2025 Omar Richter Back pain, unspecifi ed back location, unspecified back pain laterality, unspecified chronicity M54.9 ; Umbilical hernia K42.9 ; Osteoarthritis of both knees M17.0 ; Carcinoma of prostate C61 ; Sleep apnea, unspecified G47.30 ; BPH (benign prostatic hyperplasia) N40.0 ; Hyperlipidemia, unspecified hyperlipidemia type E78.5 and Obesity E66.9 Omar Richter III, MD [address] [place] [address] [place] [phone] 03/03/2025 Omar Richter Type 2 diabetes mary itus without complication, without long-term current use of insulin E11.9 ; Carcinoma of prostate C61 ; Hyperlipidemia, unspecified hyperlipidemia type E78.5 ; Obesity E66.9 ; Erectile dysfunction N52.9 ; Back pain, unspecified back location, unspecified back pain laterality, unspecified chronicity M54.9 and Umbilical hernia K42.9 Omar Richter III, MD [address] [place] [address] [place] [phone] 06/10/2024 Omar Richter III, MD [address] [place] [address] [place] [phone] 12/24/2024 Omar Richter Assessments Encounter Date Diagnosis [...] CBC w DIFF 06/29/2018 CBC w DIFF 03/03/2025 CBC w DIFF 02/23/2018 CBC w DIFF 02/28/2024 CBC w DIFF 04/02/2019 Stress Test 05/22/2024 Sleep Study - Baseline 12/12/2022 Sleep Study - Diagnostic 12/09/2022 CBC WITH AUTO DIFF 06/23/2023 CBC WITH AUTO DIFF 09/25/2023 Lipid Panel 09/25/2023 Lipid Panel 02/28/2024 Lipid Panel 06/23/2023 Microalbumin, Random 06/23/2023 RT sleep home study type III 12/30/2022 Hemoglobin A1c 06/23/2023 Next Appt Details Provider Name:Omar Richter , 06/02/2025 03:15:00 PM, [address] [place] [address] [address], [place], [phone], Provider Name:Omar Richter , 03/04/2026 04:00:00 PM, [address] [place] [address] [address], [place], [phone], Insurance Providers Payer Name Payer Address Payer Phone Subscriber Number Group Number Insured Name Patient Relationship to Insured Coverage Start Date Coverage End Date [facility] [address] [facility] [address] [place] [phone] [id number] Colon, Leland Self - patient is the insured Medical (General) History Medical History History ICD Code hypertension erectile dysfunction umbilical hernia back pain 2006 bph bilateral knee pain 2014 obesity 2007 early stage prostate cancer in [facility] Surgical History Surgery Date(Month/Year) benign skin CA removal 2019 Prostate biopsy 2016-08-05 Laparascopic radical prostat ectomy, bilateral pelvic lymph node disection, urethral suspension suture, bilateral nerve-sparing 2016-11-17
[2025-04-18 21:09] LABS: PSA, Ultra Sensitive 0.27 ng/mL
== END 2025-04-12 07:07 | disposition home or self-care (01) ==
LOC: HO.LAB 07:06
PROVIDERS: PCP Internal Medicine Medical Oncology; Visit Provider Urology
DX: C61 Malignant neoplasm of prostate (principal); Z12.5 Encounter for screening for malignant neoplasm of prostate
CPT/HCPCS: 36415; 84153

== ENCOUNTER 2025-04-29 15:17 | Outpatient (AMB) | payer OTHER, SELFPAY ==
--- NOTE | 2025-04-29 15:18 | MHC.OFFVIS ---
Intake Visit Reasons: 6w/PSMA Intake Note: Patient is present for 6 wk follow up Urology Medication:NONE Antibiotic Allergy:NONE Blood Thinner:NONE Imaging : PET CT : 04/21/25 Mock Up Builder Required: No Accompanied by: Self / Same As Patient Allergies No Known Allergies (No Known Allergies*) Allergy (Verified 04/29/25 15:19) HPI Comments Details: Leland is a pleasant male. He is a patient of Dr. Richter. He seen for the following urologic conditions - prostate cancer Seen for slowly rising PSA setting postprostatectomy PSA has cross threshold PET-CT - question of possible lesions on left scapula, pelvis, ribs. Recommendation obtain bone scan. Prostate cancer grade group 3 - radical prostatectomy [facility] 09/2016 Initially seen in 2016 No prior Rising PSA doubling time approximately 24 months PSA 08/30 <0.05, 01/01 0.11, 10/03 0.15, 06/04 0.21, 09/03 0.21, 03/06 0.24 PFSH Medical History DILCIA (obstructive sleep apnea) Obesity (BMI 30-39.9) Gallbladder polyp Sigmoid diverticulitis Prostate cancer Hypertension Surgical History History of prostatectomy History of hernia repair History of colonoscopy Social History Alcohol intake: never Patient Tobacco Use Status: Never used Tobacco Substance Use Type: Hallucinogens Review of Systems Const Denies chills and Denies fever(s) Card Reports no additional complaints and Denies syncope Resp Denies cough GI Denies abdominal pain and Denies heartburn Reports as per HPI and Denies change in libido Neuro Denies syncope Psych Denies change in libido Endo Denies change in libido Physical Exam Const General: cooperative, healthy appearing, comfortable and no acute distress Orientation/consciousness: patient oriented x3 HEENT Face and sinus: Yes normal facial exam Mouth: moist mucous membranes Neck Neck: Yes normal visual inspection, Yes full ROM and Yes trachea midline Chest Chest palpation & inspection: normal inspection of the chest Resp Effort & Inspection: normal respiratory effort, able to speak in complete sentences and no respiratory distress GI Inspection: Yes normal to inspection Back/Spine/Pelvis Cervical Spine: normal cervical lordosis Thoracic/Lumbar Spine: thoracic and lumbar spine normal to inspection Skin General skin exam: no rashes or lesions noted Neuro General: patient oriented x3, gait normal, tone normal and moves all extremities Extrem General: Yes normal to inspection and Yes capillary refill normal Assessment & Plan Assessment & Plan (1) Rising PSA following treatment for malignant neoplasm of prostate: Code(s): R97.21 - Rising PSA following treatment for malignant neoplasm of prostate Category: Medical Plan Bone scan 6 week follow-up Orders: Orders NM bone scan whole body Today C61 - Malignant neoplasm of prostate, C79.51 - Secondary malignant neoplasm of bone Patient Instructions: This note is constructed using voice recognition software. While every effort has been made to ensure accuracy second steward errors may have been included. Imaging studies, laboratory and physical exam results were discussed and reviewed in detail. No major barriers to patient understanding were identified. An opportunity to ask questions regarding the treatment plan was provided. All questions were answered. The patient expressed understanding and agreement with the above treatment plan. The patient is aware they should contact our office by phone for worsening of their current condition or the appearance of new urologic symptoms. Compliance is encouraged with any medications and followup testing that is ordered. It is a privilege to participate in the urologic care of your patient. If you have any questions or concerns regarding treatment for the above conditions, or other urologic issues, please do not hesitate to contact me. The office telephone contact is [phone]. Sincerely, Dr Ramses Huertas MD, [facility] - Urology Compassionate Specialist Care for the Genitourinary System Coding Level of Care Code Est Pt Level 3 (50548) Complex EM visit Add On G2211 Diagnoses Rising PSA following treatment for malignant neoplasm of prostate R97.21
== END 2025-04-29 16:01 | disposition home or self-care (01) ==
LOC: HO.HUSH 15:18
PROVIDERS: PCP Internal Medicine Medical Oncology; Visit Provider Urology
DX: R97.21 Rising PSA following treatment for malignant neoplasm of prostate (principal)
CPT/HCPCS: 99213; G2211

== ENCOUNTER → 2025-05-20 09:44 | Outpatient (REF) | payer OTHER, SELFPAY ==
--- NOTE | ~2025-05-20 | NM_ITS ---
EXAMINATION: NM BONE SCAN WHOLE BODY HISTORY: C61 - Malignant neoplasm of prostate. TECHNIQUE: A total body bone scan was performed following intravenous administration of 32 mCi technetium 99m-MDP. COMPARISON: Correlation is made with the report from a PET/CT scan performed at [facility] PET/CT imaging 04/21/2025. FINDINGS: There are numerous tiny foci of increased uptake involving the bilateral ribs. Mild increased uptake at the knees is consistent with osteoarthritis. There is a focus of increased activity in the cervical spine on the right, which is likely degenerative in nature. Mild increased activity at the shoulders is also likely degenerative in nature. No definite abnormal activity is seen involving the pelvis. There is normal bilateral renal uptake. NM/NM bone scan whole body IMPRESSION: Multiple tiny foci of increased activity involving the bilateral ribs, suspicious for metastatic disease. Electronically signed by: Omar Archibald MD 05/20/2025 02:00 PM [facility]
== END ==
LOC: HO.NUCMED 09:44
PROVIDERS: PCP Internal Medicine Medical Oncology; Visit Provider Urology
DX: C61 Malignant neoplasm of prostate (principal); C79.51 Secondary malignant neoplasm of bone
CPT/HCPCS: 78306; A9503

== ENCOUNTER → 2025-05-20 09:46 | Outpatient (BNV) | payer OTHER, SELFPAY | PROVIDERS: PCP Internal Medicine Medical Oncology; Visit Provider Radiology Diagnostic Radiology | DX: C61 Malignant neoplasm of prostate (principal); R93.7 Abnormal findings on diagnostic imaging of other parts of musculoskeletal system | CPT/HCPCS: 78306 ==

== ENCOUNTER 2025-05-24 06:54 | Outpatient (REF) | payer OTHER, SELFPAY ==
--- OUTSIDE RECORDS SUMMARY | 2024-05-22 10:45 | XMS_ITS ---
Author Organization Omar Richter III, MD Address [address] [place] [address] Care Team Providers Care Frontload Driver Name Role Phone Dr. Omar Richter III Primary Care Provider Allergies Allergen (clinical drug ingredient) Drug/Non Drug Allergy documented on EMR Reaction Allergy Type Onset Date Status No Known Drug Allergy Unknown Drug Allergy Active REASON FOR VISIT Grief reaction, History of prostate cancer, Low back pain, Hypertension, Hyperlipidemia Medications Medication SIG (Take, Route, Frequency, Duration) Notes Start Date End Date Status amLODIPine Besylate 10 MG TAKE 1 TABLET BY MOUTH EVERY DAY Active Social History Tobacco Use: Social History Observation Description Date Details (start date - stop date) Never Smoker NA - NA Sex Assigned At : Social History Observation Description Sex Assigned At Male Tobacco Use/Smoking Question Answer Notes Patient is a nonsmoker Additional Findings: Tobacco Non-User Aggressive non-smoker Vital Signs Temperature 98.3 degrees Fahrenheit 05/22/20 24 Blood pressure systolic 139 mm Hg 05/22/20 24 Blood pressure diastolic 75 mm Hg 024 Heart Rate 74 /min 05/22/2024 Height 68 in 05/22/2024 Weight 208 lbs 05/22/2024 BMI 31.62 kg/m2 05/22/2024 Encounters Encounter Location Date Provider Diagnosis Omar Richter III, MD [address] [place] [address] [place] [address] 05/22/2024 Omar Richter Hypertension I10 ; Carcinoma of prostate C61 ; 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 His medication was continued. He was advised to lose weight aggressively and restrict sodium intake. 05/22/2024 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 He is asymptomatic. The is overdue to see urology and was referred back for management. 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 We discussed weight loss as a way to control diabetes. No change in his medications was needed. 05/22/2024 BPH (benign prostati c hyperplasia) (ICD-10 - N40.0) We have discussed modifications to his lifestyle to reduce nocturnal urinating. 05/22/2024 Osteoarthritis of both knees (ICD-10 - M17.0) The discomfort in the knees is unchanged but is a minor problem to him now and will be followed. 05/22/2024 Umbilical hernia (ICD-10 - K42.9) There was no pain or discomfort when palpating the umbilicus. 05/22/2024 Obesity (ICD-10 - E66.9) He has gained 7 pounds since his last visit. His weight has increased from 201-208 pounds. His body mass index is 31.6. We had discussed lifestyle modification he could make to reduce his weight. We discussed diet and nutrition today. Plan Of Treatment Medication Medication Name Sig Start Date Stop Date Notes amLODIPine Besylate 10 MG TAKE 1 TABLET BY MOUTH EVERY DAY Pending Test Test Name Order Date Stress Test 05/22/2024 Next Appt Details Follow Up: 3 Months, Reason: OV Provider Name:Omar Richter , 06/02/2025 03:15:00 PM, [address] [place] [address] [address], [place], [phone], Provider Name:Omar Richter , 03/04/2026 04:00:00 PM, [address] [facility] [place], [phone], Progress Notes * Leland ZHUDOB:1965 ([age] yo M)Acc No.[id number]:05/22/2024 Progress Notes Patient: Leland REED Provider: Prabha Richter MD :1965 A ge:58 Y S ex:Male Date:05/22/2024 Address:[address] [place], [place] [address], [id number] Subjective: * Chief Complaints: * G rief reactionHistory of prostate cancerLow back painHypertensionHyperlipidemia * HPI: C OVID-19 Screening: He returns for a scheduled visit to manage his medical issues.? He has a history of prostate cancer with a slowly rising PSA. He remains under the care of urology at this time with observation. He is grieving the recent loss of his mother. His back pain is stable and mild. He has bilateral arthritis in his knees which is unchanged and controlled with ibuprofen. His blood pressure was stable today. He had no new complaints. Questions H ave you had any new onset fever, chills, cough, congestion, sore throat, shortness of breath, muscle aches? N o H ave you been exposed to the virus within the last 10 days? N o H ave you travelled internationally in the last 10 days? N o H ave you been exposed to COVID-19 in the past? N o * ROS: G eneral/Constitutional: pain S houlders and low back, otherwise only normal aches and pains. C hills d enies. F atigue a dmits. F ever d enies. ? E NT: Decreased hearing d enies. R espiratory: Cough d enies. C ardiovascular: Chest pain with exertion d enies. D yspnea on exertion?denies. S hortness of breath d enies. G astrointestinal: Constipation o ccasional. D ecreased appetite d enies. D iarrhea d enies. H eartburn d enies. N ausea d enies. R ectal bleeding d enies. V omiting d enies. H ematology: bruising d enies. p etechiae d enies. S wollen glands n one have been noted. G enitourinary: Frequent urination o nce a night. M usculoskeletal: Muscle aches d enies. P ainful joints d enies. S ciatica d enies. W eakness d enies. S kin: Itching d enies. R kym d enies. S kin lesion(s)?denies. N eurologic: Difficulty speaking d enies. D izziness d enies.?Headache d enies. L ow back pain d enies. P sychiatric: Depressed mood d enies. * Medical History: * Surgical History: L aparascopic radical prostatectomy, bilateral pelvic lymph node disection, urethral suspension suture, bilateral nerve-sparing [id number] biopsy [id number] skin CA removal 2018 * Hospitalization/Major Diagno stic Procedure: D enies Past Hospitalization * Family History: F ather: 42 yrs, automoble accident. M other: 80 yrs. S pouse: alive 41 yrs. 2 brother(s) - healthy. 3 daughter(s) - healthy. . * Social History: T obacco Use: T obacco Use/Smoking P atient is a n onsmoker A dditional Findings: Tobacco Non-User A ggressive non-smoker T his He is and has worked in [employer] at [employer] for 26 years.. He was born in [place] and has several children. He is bilingual. * Medications: T akingamLODIPine Besylate 10 MG Tablet TAKE 1 TABLET BY MOUTH EVERY DAY Medication List reviewed and reconciled with the patientTaking amLODIPine Besylate 10 MG Tablet TAKE 1 TABLET BY MOUTH EVERY DAY Medication List reviewed and reconciled with the patient * Allergies: N o Known Drug Allergyno[Allergies Verified] Objective: * Vitals: H t: 68, Wt: 208, BMI:31.62, BP: 139/75, HR: 74, Temp: 98.3, Wt-k.35. * P ast Orders: Lab:[facility] * Collection Date 05/18/2024 02/17/2024 03/20/2023 Collection Time 07:56 AM 08:02 AM 07:38 AM Order Date 05/18/2024 02/17/2024 03/20/2023 Sodium 141 (Ref Range: 135-145 mmol/L) 140 (Ref Range: 135-145 mmol/L) 142 (Ref Range: 135-145 mmol/L) Bilirubin Total 0.6 (Ref Range: 0.0-1.0 mg/dL) 0.6 (Ref Range: 0.0-1.0 mg/dL) 0.6 (Ref Range: 0.0-1.0 mg/dL) Aspartate Amino Transferase 14 (Ref Range: 5-37 U/L) 9 (Ref Range: 5-37 U/L) 13 (Ref Range: 5-37 U/L) Alanine Aminotransferase 38 (Ref Range: 0-40 U/L) 19 (Ref Range: 0-40 U/L) 28 (Ref Range: 0-40 U/L) Total Protein 6.9 (Ref Range: 6.5-8.0 g/dL) 6.5 (Ref Range: 6.5-8.0 g/dL) 6.6 (Ref Range: 6.5-8.0 g/dL) Albumin Level 4.2 (Ref Range: 3.5-5.0 g/dL) 4.1 (Ref Range: 3.5-5.0 g/dL) 4.2 (Ref Range: 3.5-5.0 g/dL) Alkaline Phosphatase 66 (Ref Range: 39-117 U/L) 64 (Ref Range: 39-117 U/L) 68 (Ref Range: 39-117 U/L) Potassium 4.5 (Ref Range: 3.3-5.1 mmol/L) 4.2 (Ref Range: 3.3-5.1 mmol/L) 4.1 (Ref Range: 3.3-5.1 mmol/L) Chloride 105 (Ref Range: 96-108 mmol/L) 108 (Ref Range: 96-108 mmol/L) 108 (Ref Range: 96-108 mmol/L) Carbon Dioxide 27 (Ref Range: 22-29 mmol/L) 25 (Ref Range: 22-29 mmol/L) 26 (Ref Range: 22-29 mmol/L) Anion Gap 14 (Ref Range: 12-20) 11 L (Ref Range: 12-20) 12 (Ref Range: 12-20) Blood Urea Nitrogen 15 (Ref Range: 9-16 mg/dL) 18 H (Ref Range: 9-16 mg/dL) 13 (Ref Range: 9-16 mg/dL) Creatinine 0.77 (Ref Range: 0.5-1.4 mg/dL) 0.80 (Ref Range: 0.5-1.4 mg/dL) 0.74 (Ref Range: 0.5-1.4 mg/dL) Estimated Glomerular Filt Rate > 60 > 60 > 60 Glucose Fasting 171 H (Ref Range: 60-99 mg/dL) 151 H (Ref Range: 60-99 mg/dL) 150 H (Ref Range: 60-99 mg/dL) Calcium 9.4 (Ref Range: 8.4-10.2 mg/dL) 9.1 (Ref Range: 8.4-10.2 mg/dL) 8.9 (Ref Range: 8.4-10.2 mg/dL) * Lab:Lipid Panel * Collection Date 05/18/2024 02/17/2024 09/16/2023 Collection Time 07:56 AM 08:02 AM 07:27 AM Order Date 05/18/2024 02/17/2024 09/16/2023 Triglycerides 61 (Ref Range: <150 mg/dL) 51 (Ref Range: <150 mg/dL) 45 (Ref Range: <150 mg/dL) Cholesterol 144 (Ref Range: <200 mg/dL) 124 (Ref Range: <200 mg/dL) 128 (Ref Range: <200 mg/dL) LDL Cholesterol Calculated 102 H (Ref Range: <100 mg/dL) 85 (Ref Range: <100 mg/dL) 90 (Ref Range: <100 mg/dL) HDL Cholesterol 30 L (Ref Range: >40 mg/dL) 29 L (Ref Range: >40 mg/dL) 29 L (Ref Range: >40 mg/dL) * Lab:Prostate Specific Antige n * Collection Date 05/18/2024 02/17/2024 09/16/2023 Collection Time 07:56 AM 08:02 AM 07:27 AM Order Date 05/18/2024 02/17/2024 09/16/2023 Prostate Specific Antigen 0.21 (Ref Range: <0.05-4.0 ng/mL) 0.17 (Ref Range: <0.05-4.0 ng/mL) 0.15 (Ref Range: <0.05-4.0 ng/mL) * Lab:Complete Blood Count Aut o Diff * Collection Date 05/18/2024 02/17/2024 09/16/2023 Collection Time 07:56 AM 08:02 AM 07:27 AM Order Date 05/18/2024 02/17/2024 09/16/2023 White Blood Count 6.9 (Ref Range: 4.8-10.8 X10*3/uL) 7.4 (Ref Range: 4.8-10.8 X10*3/uL) 7.9 (Ref Range: 4.8-10.8 X10*3/uL) Red Blood Count 5.21 (Ref Range: 4.60-5.80 X10*6/uL) 5.14 (Ref Range: 4.60-5.80 X10*6/uL) 5.10 (Ref Range: 4.60-5.80 X10*6/uL) Hemoglobin 15.0 (Ref Range: 14.0-18.0 g/dl) 15.1 (Ref Range: 14.0-18.0 g/dl) 14.6 (Ref Range: 14.0-18.0 g/dl) Hematocrit 45.7 (Ref Range: 42.0-52.0 %) 45.5 (Ref Range: 42.0-52.0 %) 45.1 (Ref Range: 42.0-52.0 %) Mean Corpuscular Volume 87.7 (Ref Range: 80.0-98.0 fL) 88.5 (Ref Range: 80.0-98.0 fL) 88.4 (Ref Range: 80.0-98.0 fL) Mean Corpuscular Hemoglobin 28.8 (Ref Range: 27.0-33.0 pg) 29.4 (Ref Range: 27.0-33.0 pg) 28.6 (Ref Range: 27.0-33.0 pg) Mean Corpuscular HGB Conc 32.8 (Ref Range: 31.0-36.0 g/dl) 33.2 (Ref Range: 31.0-36.0 g/dl) 32.4 (Ref Range: 31.0-36.0 g/dl) Red Cell Distribution Width 13.0 (Ref Range: 11.0-16.0 %) 12.4 (Ref Range: 11.0-16.0 %) 12.8 (Ref Range: 11.0-16.0 %) Platelet Count 246 (Ref Range: 160-400 X10*3/uL) 240 (Ref Range: 160-400 X10*3/uL) 259 (Ref Range: 160-400 X10*3/uL) Mean Platelet Volume 11.1 (Ref Range: 9.4-12.4 fL) 10.9 (Ref Range: 9.4-12.4 fL) 10.9 (Ref Range: 9.4-12.4 fL) Neutrophils Percent Auto 55.4 (Ref Range: 45-73 %) 62.4 (Ref Range: 45-73 %) 58.6 (Ref Range: 45-73 %) Imm Gran Pct Auto 0.4 (Ref Range: 0.0-0.4 %) 0.3 (Ref Range: 0.0-0.4 %) 0.5 H (Ref Range: 0.0-0.4 %) Lymphocytes Percent Auto 30.0 (Ref Range: 20-40 %) 24.1 (Ref Range: 20-40 %) 25.8 (Ref Range: 20-40 %) Monocytes Percent Auto 11.3 H (Ref Range: 2-11 %) 11.1 H (Ref Range: 2-11 %) 12.5 H (Ref Range: 2-11 %) Eosinophils Percent Auto 2.0 (Ref Range: 0-4 %) 1.6 (Ref Range: 0-4 %) 1.7 (Ref Range: 0-4 %) Basophils Percent Auto 0.9 (Ref Range: 0-2 %) 0.5 (Ref Range: 0-2 %) 0.9 (Ref Range: 0-2 %) NRBC Pct Auto 0.0 (Ref Range: 0.0-0.2 /100WBC) 0.0 (Ref Range: 0.0-0.2 /100WBC) 0.0 (Ref Range: 0.0-0.2 /100WBC) Neutrophils Absolute Auto 3.8 (Ref Range: 2.0-8.3 x10*3/uL) 4.6 (Ref Range: 2.0-8.3 x10*3/uL) 4.6 (Ref Range: 2.0-8.3 x10*3/uL) Imm Gran Abs Auto 0.03 (Ref Range: 0.00-0.03 X10*3/uL) 0.02 (Ref Range: 0.00-0.03 X10*3/uL) 0.04 H (Ref Range: 0.00-0.03 X10*3/uL) Lymphocytes Absolute Auto 2.1 (Ref Range: 1.2-4.9 X10*3/uL) 1.8 (Ref Range: 1.2-4.9 X10*3/uL) 2.0 (Ref Range: 1.2-4.9 X10*3/uL) Monocytes Absolute Auto 0.8 (Ref Range: 0.1-1.2 X10*3/uL) 0.8 (Ref Range: 0.1-1.2 X10*3/uL) 1.0 (Ref Range: 0.1-1.2 X10*3/uL) Eosinophils Absolute Auto 0.1 (Ref Range: 0.0-0.4 X10*3/uL) 0.1 (Ref Range: 0.0-0.4 X10*3/uL) 0.1 (Ref Range: 0.0-0.4 X10*3/uL) Basophils Absolute Auto 0.1 (Ref Range: 0.0-0.2 X10*3/uL) 0.0 (Ref Range: 0.0-0.2 X10*3/uL) 0.1 (Ref Range: 0.0-0.2 X10*3/uL) NRBC Abs Auto 0.000 (Ref Range: 0.0-0.012 X10*3/uL) 0.000 (Ref Range: 0.0-0.012 X10*3/uL) 0.000 (Ref Range: 0.0-0.012 X10*3/uL) * Lab:URINE DIP STICK * Collection Date 02/28/2024 12/09/2022 11/30/2021 Order Date 02/28/2024 12/09/2022 11/30/2021 Result: Normal SG 1.020 (Ref Range: 1.005 - 1.025) 1.030 (Ref Range: 1.005 - 1.025) 1.025 pH 5.0 (Ref Range: 5.0 - 9.0) 5.0 (Ref Range: 5.0 - 9.0) 5 JULIA Negative (Ref Range: Negative -) Negative (Ref Range: Negative -) NEG NIT Negative (Ref Range: Negative -) Negative (Ref Range: Negative -) NEG PRO 15 (Ref Range: Negative - Trace) 15 (Ref Range: Negative - Trace) TRACE GLU Negative (Ref Range: Negative -) Negative (Ref Range: Negative -) NORMAL KET Negative (Ref Range: Negative -) 40 (Ref Range: Negative -) NEG UBG 0.2 (Ref Range: 0.1 - 1.8) 0.2 (Ref Range: 0.1 - 1.8) NEG JER Negative (Ref Range: 0.2 - 1.3) Negative (Ref Range: 0.2 - 1.3) NEG BLD Negative (Ref Range: Negative -) Negative (Ref Range: Negative -) NEG Menstrating NR N/A N/A * Examination: G eneral Examination: GENERAL APPEARANCE: p leasant, well nourished, well developed, in no acute distress, calm and relaxed, obese, man. HEAD: a traumatic, normocephalic. EYES: e jaja, perrla, anicteric, conjugate. EARS: n ormal. NOSE: s eptum intact. ORAL CAVITY: n ormal, unremarkable. NECK/THYROID: n o jugular venous distention, no carotid bruit, thyroid normal. LYMPH NODES: n o enlarged lymph nodes,spleen normal. SKIN: n o suspicious lesions, anicteric. HEART: n o clicks, gallops, murmurs, or rubs, regular rhythm, S1, S2 normal, no s3, or vascular bruits. LUNGS: c lear to auscultation . BREASTS: no masses palpable bilaterally. ABDOMEN: b owel sounds normal, no ascites, no organomegaly, no mass, centripital obesity, Small umbilical hernia. RECTAL EXAM: n ot examined. MUSCULOSKELETAL: e xtremities unremarkable, no clubbing, cyanosis or edema. PERIPHERAL PULSES: n ormal. NEUROLOGIC: a lert and oriented, cranial nerves 2-12 grossly intact, deep tendon reflexes 2+ symmetrical, motor strength normal upper and lower extremities, sensory exam intact. PSYCH: a lert, oriented, affect sad. Assessment: * Assessment: 1. C arcinoma of prostate - C61 (Primary) N otes :His PSA is detectable at 0.21 whereas it was 0.15 the previous 2 determinations. He is asymptomatic. The is overdue to see urology and was referred back for management. 2 . H ypertension - I10 N otes :His blood pressure is currently stable. His medication was continued. He was advised to lose weight aggressively and restrict sodium intake. 3 . A dult onset diabetes mellitus with ophthalmic complication - E11.39 ? N otes :His hemoglobin A1c is 6.0. We discussed weight loss as a way to control diabetes. No change in his medications was needed. 4 . B PH (benign prostatic hyperplasia) - N40.0 N otes :We have discussed modifications to his lifestyle to reduce nocturnal urinating. 5 . O steoarthritis of both knees - M17.0 N otes :The discomfort in the knees is unchanged but is a minor problem to him now and will be followed. 6 . U mbilical hernia - K42.9 N otes :There was no pain or discomfort when palpating the umbilicus. 7 . O besity - E66.9 N otes :He has gained 7 pounds since his last visit. His weight has increased from 201-208 pounds. His body mass index is 31.6. We had discussed lifestyle modification he could make to reduce his weight. We discussed diet and nutrition today. Plan: * Treatment: * Imaging: * I maging: Stress Test * Labs: * L ab: PROFILE, FASTING (COMPREHENSIVE METABOLIC) L ab: PSA, TOTAL L ab: CBC WITH AUTO DIFF L ab: Uric Acid L ab: Lipid Panel * Procedure Codes: * Preventive Medicine: Counseling: C are goal follow-up plan: Counseling for abnormal BMI given Y es Above Normal BMI Follow-up D ietary management education, guidance, and counseling, Dietary needs education, Exercise promotion: strength training, Exercise promotion: stretching, Feeding regime, Giving encouragement to exercise, Lifestyle education regarding diet, Nutrition / feeding management, Nutrition therapy, Prescribed activity/exercise education, Prescribed diet education, Prescribed dietary intake, Special diet education, Weight monitoring , Intervention, Order not done: Medical or Other reason not done DM Care Plan: P atient Lifestyle Goals P atient wants to be able to manage diabetes without too much effort. T reatment Goals B lood Sugars less than < 115, HbA1C < 7.0. B arriers n o barriers. S elf-Managment Goals W ork on weight loss, with a goal of losing 1 lb per week. * Follow Up: 3 Months (Reason: OV) * Images: * Sign off status: Completed true * Provider: Prabha Richter MD Date: 07/23/2023 Generated for Printi ng/Robert/eTransmitting on: 07/25/2024 06:59 AM EST History and Physical Notes * HPI (History of Present Illness) Category Sub-Category Detail Notes COVID-19 Screening Questions Have you had any new onset fever, chills, cough, congestion, sore throat, shortness of breath, muscle aches?: No Have you been exposed to the virus withi n the last 10 days?: No Have you travelled internationally in [facility] last 10 days?: No Have you been exposed to COVID-19 in the past?: No Examination Category Sub-Category Detail Notes General Examination GENERAL APPEARANCE: pleasant , well nourished, well developed, in no acute distress, calm and relaxed, obese, man HEAD: atraumatic, normocep halic EYES: eomi, perrla, anicte haven, conjugate EARS: normal NOSE: septum intact NECK/THYROID: no jugular venous di stention, no carotid bruit, thyroid normal HEART: no clicks, gallops, murmurs, or rubs, regular rhythm, S1, S2 normal, no s3, or vascular bruits LUNGS: clear to auscultatio n ABDOMEN: bowel sounds normal, no ascites, no organomegaly, no mass, centripital obesity, Small umbilical hernia NEUROLOGIC: alert and oriented, cranial nerves 2-12 grossly intact, deep tendon reflexes 2+ symmetrical, motor strength normal upper and lower extremities, sensory exam intact SKIN: no suspicious lesion s, anicteric PERIPHERAL PULSES: normal BREASTS: no masses palpable b ilaterally MUSCULOSKELETAL: extremities unremark able, no clubbing, cyanosis or edema LYMPH NODES: no enlarged lymph no adina,spleen normal RECTAL EXAM: not examined PSYCH: alert, oriented, aff ect sad ORAL CAVITY: normal, unremarkable
--- OUTSIDE RECORDS SUMMARY | 2024-06-10 08:14 | XMS_ITS ---
Author Organization Omar Richter III, MD Address [address] [place] [address] Care Team Providers Care Pipe Assembly Worker Name Role Phone Dr. Omar Richter III Primary Care Provider REASON FOR VISIT Message Social History Sex Assigned At : Social History Observation Description Sex Assigned At Male Encounters Encounter Location Date Provider Diagnosis Omar Richter III, MD [address] [place] [address] [place] [address] 06/10/2024 Omar Richter Plan Of Treatment Next Appt Details Provider Name:Omar Richter , 06/02/2025 03:15:00 PM, [address] [place] [address] [place], [address], Provider Name:Omar Richter , 03/04/2026 04:00:00 PM, [address] [place] [address] [place], [address], Progress Notes * MARKOLelandDOB:1965 (4 0 yo M)Acc No.[id number]:06/10/2024 Patient: Leland REED :1965 A ge:58 Y S ex:Male Address:[address] [place] [address] [place] [address] * true * Date: Generated for Shani finn/Robert/eTransmitting on: 07/25/2024 06:59 AM EST
--- OUTSIDE RECORDS SUMMARY | 2024-08-20 05:00 | XMS_ITS ---
Author Organization Omar Richter III, MD Address [address] [place] [address] Care Team Providers Care Tack Puller Name Role Phone Dr. Omar Richter III Primary Care Provider [phone] Allergies Allergen (clinical drug ingredient) Drug/Non Drug Allergy documented on EMR Reaction Allergy Type Onset Date Status No Known Drug Allergy Unknown Drug Allergy Active Reason For Referral Reason lesion on lip Diagnosis 1 Lip lesion (K13.0) Referral Organization Omar Richter III, MD Referring Provider First Name Omar Referring Provider Last Name Neelam Referring Provider Speciality Internal M edicine Referred Provider [facility] ([place]) Referred Provider Specialty Dermatology General Notes Muna Cortez CMA 08/22 01:29:41 PM > referral/demo/ progress note faxed to Dana DUMONT Suzanne CMA 08/26/2024 09:35:06 AM > received notice from [facility] they want patient to call them at [phone] and make his own appt pt called and made aware of this Referral Priority Routine Referral Appointment Date 09/19/2024 REASON FOR VISIT Biochemical recurrent prostate, Arthritis both knees, Hypertension, Hyperlipidemia sleep apnea, Diabetes, Obesity Medications Medication SIG (Take, Route, Frequency, Duration) Notes Start Date End Date Status amLODIPine Besylate 10 MG TAKE 1 TABLET BY MOUTH EVERY DAY Active metFORMIN HCl 500 MG 1 tablet Orally Onc e a day for 30 days 08/20/2024 Active Social History Tobacco Use: Social History [...] Problem Status W/U Status Risk Notes Problem 979697251 Obesity (E66.9) Active confirmed We have discussed diet and nutrition. We reviewed the elements of a diabetic weight loss program. We made a plan to lose weight at a rate of 1 pound per week. 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 He is asymptomatic. The is overdue to see urology and was referred back for management. 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 His fasting glucose is 181 now that he has gained 9 pounds. He is no longer a candidate for diet control. His medications will be titrated against his A1c. He remains asymptomatic. 08/20/2024 Obesity (ICD-10 - E66.9) He has gained 9 pounds since his last visit. We discussed the relationship between his weight and his diabetes. We discussed diet and nutrition. We discussed a diabetic low cholesterol diet. We made plans to lose weight at a rate of one half of a pound per week through physical activity and a diet restricted in fat calories and sodium. 08/20/2024 BPH (benign prostati c hyperplasia) (ICD-10 - N40.0) We have discussed modifications to his lifestyle to reduce nocturnal urinating. 08/20/2024 Osteoarthritis of both knees (ICD-10 - M17.0) The discomfort in the knees is unchanged but is a minor problem to him now and will be followed. 08/20/2024 Umbilical hernia (ICD-10 - K42.9) There was no pain or discomfort when palpating the umbilicus. Plan Of Treatment Medication Medication Name Sig Start Date Stop Date Notes amLODIPine Besylate 10 MG TAKE 1 TABLET BY MOUTH EVERY DAY metFORMIN HCl 500 MG 1 tablet Orally Onc e a day for 30 days 08/20/2024 Referrals Referral Date Details 08/20/2024 08/20/2024, [facility] Next Appt Details Follow Up: 3 weeks TV then 3 months OV, Reason: TV no tests then 3 months review labs Provider Name:Omar Richter , 06/02/2025 03:15:00 PM, [address] [place] [address] [address], [place], [address], Provider Name:Omar Richter , 03/04/2026 04:00:00 PM, [address] [place] [address] [address], [place], [address], Progress Notes * Leland ZHUDOB:1965 ([age] yo M)Acc No.[id number]:08/20/2024 Progress Notes Patient: Leland REED Provider: Prabha Richter MD :1965 A ge:58 Y S ex:Male Date:08/20/2024 Address:[address] [id number] Subjective: * Chief Complaints: * B iochemical recurrent prostateArthritis both kneesHypertensionHyperlipidemia sleep apneaDiabetesObesity * HPI: C OVID-19 Screening: He returns for management of several medical issues. He is up-to-date with his urology visits. His PSA is stable at 0.21 he denies any current bone pain. His low back pain is unchanged. His diabetes has been well controlled. He continues his efforts at weight loss.? His blood work is available and was reviewed with him in detail.He has gained 9 pounds since his last visit. His fasting glucose was 181. He was begun on 500 mg of metformin daily. He is no longer eligible for dietary control. Questions H ave you had any new onset fever, chills, cough, congestion, sore throat, shortness of breath, muscle aches? N o * ROS: G eneral/Constitutional: pain o nly normal aches and pains. C hills d enies.?Fatigue a dmits. F ever d enies. E NT: Decreased hearing d enies. R [...] have been noted. G enitourinary: Frequent urination t wice a night. M usculoskeletal: Muscle aches d enies. P ainful joints d enies. S ciatica d enies. W eakness d enies. S kin: Itching d enies. R kym d enies. S kin lesion(s)?denies. N eurologic: Difficulty speaking d enies. D izziness d enies.?Headache d enies. L ow back pain d enies. P sychiatric: Depressed mood w hich is mild. * Medical History: * Surgical History: L aparascopic radical prostatectomy, bilateral pelvic lymph node disection, urethral suspension suture, bilateral nerve-sparing [id number] biopsy [id number] skin CA removal 2018 * Hospitalization/Major Diagno [...] his He is and has worked in [employer] at [employer] for 26 years.. He was born in [place] and has several children. He is bilingual. [...] Objective: * Vitals: H t: 68, Wt: 217, BMI:32.99, BP: 137/80, HR: 70, Temp: 99.1, Wt-k.43. * P ast Orders: Lab:Prostate Specific Antige n * Collection Date 08/17/2024 05/18/2024 02/17/2024 Collection Time 07:24 AM 07:56 AM 08:02 AM Order Date 08/17/2024 05/18/2024 02/17/2024 Prostate Specific Antigen 0.21 (Ref Range: <0.05-4.0 ng/mL) 0.21 (Ref Range: <0.05-4.0 ng/mL) 0.17 (Ref Range: <0.05-4.0 ng/mL) * Lab:Complete Blood Count Aut o Diff * Collection Date 08/17/2024 05/18/2024 02/17/2024 Collection Time 07:24 AM 07:56 AM 08:02 AM Order Date 08/17/2024 05/18/2024 02/17/2024 White Blood Count 7.6 (Ref Range: 4.8-10.8 X10*3/uL) 6.9 (Ref Range: 4.8-10.8 X10*3/uL) 7.4 (Ref Range: 4.8-10.8 X10*3/uL) Red Blood Count 5.30 (Ref Range: 4.60-5.80 X10*6/uL) 5.21 (Ref Range: 4.60-5.80 X10*6/uL) 5.14 (Ref Range: 4.60-5.80 X10*6/uL) Hemoglobin 15.3 (Ref Range: 14.0-18.0 g/dl) 15.0 (Ref Range: 14.0-18.0 g/dl) 15.1 (Ref Range: 14.0-18.0 g/dl) Hematocrit 45.8 (Ref Range: 42.0-52.0 %) 45.7 (Ref Range: 42.0-52.0 %) 45.5 (Ref Range: 42.0-52.0 %) Mean Corpuscular Volume 86.4 (Ref Range: 80.0-98.0 fL) 87.7 (Ref Range: 80.0-98.0 fL) 88.5 (Ref Range: 80.0-98.0 fL) Mean Corpuscular Hemoglobin 28.9 (Ref Range: 27.0-33.0 pg) 28.8 (Ref Range: 27.0-33.0 pg) 29.4 (Ref Range: 27.0-33.0 pg) Mean Corpuscular HGB Conc 33.4 (Ref Range: 31.0-36.0 g/dl) 32.8 (Ref Range: 31.0-36.0 g/dl) 33.2 (Ref Range: 31.0-36.0 g/dl) Red Cell Distribution Width 12.7 (Ref Range: 11.0-16.0 %) 13.0 (Ref Range: 11.0-16.0 %) 12.4 (Ref Range: 11.0-16.0 %) Platelet Count 253 (Ref Range: 160-400 X10*3/uL) 246 (Ref Range: 160-400 X10*3/uL) 240 (Ref Range: 160-400 X10*3/uL) Mean Platelet Volume 10.5 (Ref Range: 9.4-12.4 fL) 11.1 (Ref Range: 9.4-12.4 fL) 10.9 (Ref Range: 9.4-12.4 fL) Neutrophils Percent Auto 58.9 (Ref Range: 45-73 %) 55.4 (Ref Range: 45-73 %) 62.4 (Ref Range: 45-73 %) Imm Gran Pct Auto 0.4 (Ref Range: 0.0-0.4 %) 0.4 (Ref Range: 0.0-0.4 %) 0.3 (Ref Range: 0.0-0.4 %) Lymphocytes Percent Auto 26.6 (Ref Range: 20-40 %) 30.0 (Ref Range: 20-40 %) 24.1 (Ref Range: 20-40 %) Monocytes Percent Auto 11.3 H (Ref Range: 2-11 %) 11.3 H (Ref Range: 2-11 %) 11.1 H (Ref Range: 2-11 %) Eosinophils Percent Auto 2.3 (Ref Range: 0-4 %) 2.0 (Ref Range: 0-4 %) 1.6 (Ref Range: 0-4 %) Basophils Percent Auto 0.5 (Ref Range: 0-2 %) 0.9 (Ref Range: 0-2 %) 0.5 (Ref Range: 0-2 %) NRBC Pct Auto 0.0 (Ref Range: 0.0-0.2 /100WBC) 0.0 (Ref Range: 0.0-0.2 /100WBC) 0.0 (Ref Range: 0.0-0.2 /100WBC) Neutrophils Absolute Auto 4.5 (Ref Range: 2.0-8.3 x10*3/uL) 3.8 (Ref Range: 2.0-8.3 x10*3/uL) 4.6 (Ref Range: 2.0-8.3 x10*3/uL) Imm Gran Abs Auto 0.03 (Ref Range: 0.00-0.03 X10*3/uL) 0.03 (Ref Range: 0.00-0.03 X10*3/uL) 0.02 (Ref Range: 0.00-0.03 X10*3/uL) Lymphocytes Absolute Auto 2.0 (Ref Range: 1.2-4.9 X10*3/uL) 2.1 (Ref Range: 1.2-4.9 X10*3/uL) 1.8 (Ref Range: 1.2-4.9 X10*3/uL) Monocytes Absolute Auto 0.9 (Ref Range: 0.1-1.2 X10*3/uL) 0.8 (Ref Range: 0.1-1.2 X10*3/uL) 0.8 (Ref Range: 0.1-1.2 X10*3/uL) Eosinophils Absolute Auto 0.2 (Ref Range: 0.0-0.4 X10*3/uL) 0.1 (Ref Range: 0.0-0.4 X10*3/uL) 0.1 (Ref Range: 0.0-0.4 X10*3/uL) Basophils Absolute Auto 0.0 (Ref Range: 0.0-0.2 X10*3/uL) 0.1 (Ref Range: 0.0-0.2 X10*3/uL) 0.0 (Ref Range: 0.0-0.2 X10*3/uL) NRBC Abs Auto 0.000 (Ref Range: 0.0-0.012 X10*3/uL) 0.000 (Ref Range: 0.0-0.012 X10*3/uL) 0.000 (Ref Range: 0.0-0.012 X10*3/uL) * Lab:Aleja Echeverria. Vamshie l Fast * Collection Date 08/17/2024 05/18/2024 02/17/2024 Collection Time 07:24 AM 07:56 AM 08:02 AM Order Date 08/17/2024 05/18/2024 02/17/2024 Sodium 141 (Ref Range: 135-145 mmol/L) 141 (Ref Range: 135-145 mmol/L) 140 (Ref Range: 135-145 mmol/L) Bilirubin Total 0.9 (Ref Range: 0.0-1.0 mg/dL) 0.6 (Ref Range: 0.0-1.0 mg/dL) 0.6 (Ref Range: 0.0-1.0 mg/dL) Aspartate Amino Transferase 15 (Ref Range: 5-37 U/L) 14 (Ref Range: 5-37 U/L) 9 (Ref Range: 5-37 U/L) Alanine Aminotransferase 34 (Ref Range: 0-40 U/L) 38 (Ref Range: 0-40 U/L) 19 (Ref Range: 0-40 U/L) Total Protein 7.1 (Ref Range: 6.5-8.0 g/dL) 6.9 (Ref Range: 6.5-8.0 g/dL) 6.5 (Ref Range: 6.5-8.0 g/dL) Albumin Level 4.2 (Ref Range: 3.5-5.0 g/dL) 4.2 (Ref Range: 3.5-5.0 g/dL) 4.1 (Ref Range: 3.5-5.0 g/dL) Alkaline Phosphatase 67 (Ref Range: 39-117 U/L) 66 (Ref Range: 39-117 U/L) 64 (Ref Range: 39-117 U/L) Potassium 4.1 (Ref Range: 3.3-5.1 mmol/L) 4.5 (Ref Range: 3.3-5.1 mmol/L) 4.2 (Ref Range: 3.3-5.1 mmol/L) Chloride 110 H (Ref Range: 96-108 mmol/L) 105 (Ref Range: 96-108 mmol/L) 108 (Ref Range: 96-108 mmol/L) Carbon Dioxide 26 (Ref Range: 22-29 mmol/L) 27 (Ref Range: 22-29 mmol/L) 25 (Ref Range: 22-29 mmol/L) Anion Gap 9 L (Ref Range: 12-20) 14 (Ref Range: 12-20) 11 L (Ref Range: 12-20) Blood Urea Nitrogen 21 H (Ref Range: 9-16 mg/dL) 15 (Ref Range: 9-16 mg/dL) 18 H (Ref Range: 9-16 mg/dL) Creatinine 0.80 (Ref Range: 0.5-1.4 mg/dL) 0.77 (Ref Range: 0.5-1.4 mg/dL) 0.80 (Ref Range: 0.5-1.4 mg/dL) Estimated Glomerular Filt Rate > 60 > 60 > 60 Glucose Fasting 181 H (Ref Range: 60-99 mg/dL) 171 H (Ref Range: 60-99 mg/dL) 151 H (Ref Range: 60-99 mg/dL) Calcium 9.0 (Ref Range: 8.4-10.2 mg/dL) 9.4 (Ref Range: 8.4-10.2 mg/dL) 9.1 (Ref Range: 8.4-10.2 mg/dL) ???Lab:Uric Acid (Order Date - 08/17/2024) (Collection Date & Time - 08/17/2024 07:24 AM)?ValueReference Range?Uric Acid4.33.4-7.0 - mg/dL * Lab:Lipid Panel * Collection Date 08/17/2024 05/18/2024 02/17/2024 Collection Time 07:24 AM 07:56 AM 08:02 AM Order Date 08/17/2024 05/18/2024 02/17/2024 Triglycerides 62 (Ref Range: <150 mg/dL) 61 (Ref Range: <150 mg/dL) 51 (Ref Range: <150 mg/dL) Cholesterol 143 (Ref Range: <200 mg/dL) 144 (Ref Range: <200 mg/dL) 124 (Ref Range: <200 mg/dL) LDL Cholesterol Calculated 100 H (Ref Range: <100 mg/dL) 102 H (Ref Range: <100 mg/dL) 85 (Ref Range: <100 mg/dL) HDL Cholesterol 31 L (Ref Range: >40 mg/dL) 30 L (Ref Range: >40 mg/dL) 29 L (Ref Range: >40 mg/dL) * Examination: G eneral Examination: GENERAL APPEARANCE: [...] no ascites, no organomegaly, no mass, centripital obesity. RECTAL EXAM: n ot examined. MUSCULOSKELETAL: e xtremities unremarkable, no clubbing, cyanosis or edema. PERIPHERAL PULSES: n ormal. NEUROLOGIC: a lert and oriented, cranial nerves 2-12 grossly intact, deep tendon reflexes 2+ symmetrical, motor strength normal upper and lower extremities, sensory exam intact. PSYCH: a lert, oriented. Assessment: * Assessment: 1. C arcinoma of prostate - C61 (Primary) N otes :His PSA is detectable at 0.21 whereas it was 0.15 the previous 2 determinations. He is asymptomatic. The is overdue to see urology and was referred back for management. 2 . H ypertension - I10 N otes :His blood pressure is currently stable no change in his regimen was made 3 . A dult onset diabetes mellitus with ophthalmic complication - E11.39 ? N otes :He was begun on 500 mg daily of metformin and a hemoglobin A1c was ordered. His fasting glucose is 181 now that he has gained 9 pounds. He is no longer a candidate for diet control. His medications will be titrated against his A1c. He remains asymptomatic. 4 . O besity - E66.9 N otes :He has gained 9 pounds since his last visit. We discussed the relationship between his weight and his diabetes. We discussed diet and nutrition. We discussed a diabetic low cholesterol diet. We made plans to lose weight at a rate of one half of a pound per week through physical activity and a diet restricted in fat calories and sodium. 5 . B PH (benign prostatic hyperplasia) - N40.0 N otes :We have discussed modifications to his lifestyle to reduce nocturnal urinating. 6 . O steoarthritis of both knees - M17.0 N otes :The discomfort in the knees is unchanged but is a minor problem to him now and will be followed. 7 . U mbilical hernia - K42.9 N otes :There was no pain or discomfort when palpating the umbilicus. Plan: * Treatment: 2. A dult onset diabetes mellitus with ophthalmic complication L AB: PROFILE, FASTING (COMPREHENSIVE METABOLIC) L AB: CBC w DIFF L AB: Lipid Panel L AB: Microalbumin, Random L AB: Hemoglobin A1c 3. O besity L AB: PROFILE, FASTING (COMPREHENSIVE METABOLIC) L AB: CBC w DIFF L AB: Lipid Panel L AB: Microalbumin, Random L AB: Hemoglobin A1c 4. O thers Continue amLODIPine Besylate Tablet, 10 MG, TAKE 1 TABLET BY MOUTH EVERY DAY; S tart metFORMIN HCl Tablet, 500 MG, 1 tablet, Orally, Once a day, 30 days, 30 Tablet, Refills 11. ? Referral To:& [facility] Reason:lesion on lip * Procedure Codes: * Preventive Medicine: Counseling: [...] without too much effort. T reatment Goals H bA1C < 7.0, Blood Sugars less than < 115. B arriers n o barriers. S elf-Managment Goals W ork on weight loss, with a goal of losing 1 lb per week. * Follow Up: 3 weeks TV then 3 months OV (Reason: TV no tests then 3 months review labs) * Images: * Sign off status: Completed true * Provider: Prabha Richter MD Date: 0 08/20/2024 Generated for Shani finn/Robert/Luis Danielitting on: 1 07/25/2024 06:59 AM EST History and Physical Notes * HPI (History of Present Illness) Category Sub-Category Detail Notes COVID-19 Screening Questions Have you had any new onset fever, chills, cough, congestion, sore throat, shortness of breath, muscle aches?: No Examination Category Sub-Category Detail Notes General [...] no ascites, no organomegaly, no mass, centripital obesity NEUROLOGIC: alert and oriented, cranial nerves 2-12 [...] Referral Date Referring Provider Referred Provider Not tejas 08/20/2024 Omar [facility] lesion on lip
--- OUTSIDE RECORDS SUMMARY | 2024-08-30 09:30 | XMS_ITS ---
Author Organization Omar Richter III, MD Address [address] [place] [address] Care Team Providers Care Glass Enamel Mixer Name Role Phone Dr. Omar Richter III Primary Care Provider Allergies Allergen (clinical drug ingredient) Drug/Non Drug Allergy documented on EMR Reaction Allergy Type Onset Date Status No Known Drug Allergy Unknown Drug Allergy Active REASON FOR VISIT COVID Positive, Prostate cancer, Chronic low back pain, Hypertension, Umbilical hernia, Hyperlipidemia, Diabetes, Benign prosthetic hypertrophy Medications Medication SIG (Take, Route, Frequency, Duration) Notes Start Date End Date Status metFORMIN HCl 500 MG 1 tablet Orally Once a day Active amLODIPine Besylate 10 MG TAKE 1 TABLET BY MOUTH EVERY DAY Active Social History Tobacco Use: Social History Observation Description Date Details (start date - stop date) Never Smoker NA - NA Sex Assigned At : Social History Observation Description Sex Assigned At Male Tobacco Use/Smoking Question Answer Notes Patient is a nonsmoker Additional Findings: Tobacco Non-User Aggressive non-smoker Vital Signs Height 68 in 08/30/2024 Weight 217 lbs 08/30/2024 BMI 32.99 kg/m2 08/30/2024 Encounters Encounter Location Date Provider Diagnosis Omar Richter III, MD [address] [place] [address] DR [place]VAL[place]WELL, JADA [address] 08/30/2024 Omar Richter Carcinoma of prostat e C61 ; Viral syndrome B34.9 ; Umbilical hernia K42.9 ; Osteoarthritis of both knees M17.0 ; Back pain, unspecified back location, unspecified back pain laterality, unspecified chronicity M54.9 ; Hypertension I10 ; BPH (benign prostatic hyperplasia) N40.0 ; Type 2 diabetes mellitus without complication, without long-term current use of insulin E11.9 ; Obesity E66.9 and Sleep apnea, unspecified G47.30 Assessments Encounter Date Diagnosis (ICD Code) Assessment Notes Treat ment Notes Treatment Clinical Notes 08/30/2024 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 He is asymptomatic. The is overdue to see urology and was referred back for management.He remains asymptomatic. 08/30/2024 Viral syndrome (ICD-10 - B34.9) He has declined Paxlovid. He will continue with conservative treatment as he is already beginning to improve rapidly. 08/30/2024 Umbilical hernia (ICD-10 - K42.9) There was no pain or discomfort when palpating the umbilicus. 08/30/2024 Osteoarthritis of both knees (ICD-10 - M17.0) The discomfort in the knees is unchanged but is a minor problem to him now and will be followed. 08/30/2024 Back pain, unspecified back location, unspecified back pain laterality, unspecified chronicity (ICD-10 - M54.9) His back pain is mostly resolved at this time. He is avoiding heavy exertion and lifting. He will notify me at once if it recurs. 08/30/2024 Hypertension (ICD-10 - I10) His blood pressure has been stable and no change in his regimen was made 08/30/2024 BPH (benign prostati c hyperplasia) (ICD-10 - N40.0) We have discussed modifications to his lifestyle to reduce nocturnal urinating. 08/30/2024 Type 2 diabetes mellitus without complication, without long-term current use of insulin (ICD-10 - E11.9) His fasting glucoses are 150. He is diet controlled. He has lost 11 pounds since his last visit. 08/30/2024 Obesity (ICD-10 - E66.9) He has gained [...] diet restricted in fat calories and sodium. 08/30/2024 Sleep apnea, unspecified (ICD-10 - G47.30) His sleep study done in January 2023 shows severe obstructive sleep apnea. He is using his CPAP machine now. Plan Of Treatment Medication Medication Name Sig Start Date Stop Date Notes metFORMIN HCl 500 MG 1 tablet Orally Once a day 08/20/2024 amLODIPine Besylate 10 MG TAKE 1 TABLET BY MOUTH EVERY DAY Next Appt Details Follow Up: 1 Week, Reason: o v Provider Name:Omar Richter , 06/02/2025 03:15:00 PM, [address] [place] [address] [address], [place], [phone], Provider Name:Omar Richter , 03/04/2026 04:00:00 PM, [address] [place] [address] [address], [place], [phone], Progress Notes * Leland ZHUDOB:1965 ([age] yo M)Acc No.[id number]:08/30/2024 Patient: Leland REED Provider: Prabha Richter MD :1965 A ge:58 Y S ex:Male Date:08/30/2024 Address:[address] [place], [place] [id number] Subjective: * Chief Complaints: * C OVID PositiveProstate cancerChronic low back painHypertensionUmbilical herniaHyperlipidemiaDiabetesBenign prosthetic hypertrophy * HPI: * : He called today to report he has a viral syndrome and tested positive for booth virus this morning. He says he has been sick for at least a week. He declined a prescription for Paxlovid. He is starting to feel better. He is able to eat and drink without difficulty. He was encouraged to remain at home or another 5 days to call me on Monday, September 02, 2024 to report. Telehealth L ocation of provider rendering services: { ...} [address] [facility] [address] L ocation of patient: alan dow listed in demographics for today's visit P atient identification confirmed using: MARILIA Hernandez ame T elehealth method: T elephone only. Patient not visible to care provider. C onsent: P atient verbally consented to treatment, Patient verbally consented to billing insurance company, Patient informed of any privacy concerns related to method of visit T otal time spent with patient (mins) 1 5 * ROS: G eneral/Constitutional: pain o nly normal aches and pains. C hills t hat occur every night. F atigue a dmits. F ever d enies. E NT: Decreased hearing d enies. R espiratory: Cough n on-productive. C ardiovascular: Chest pain with exertion d [...] enies.?Headache d enies. L ow back pain t hat is chronic. P sychiatric: Depressed mood d enies. * Medical History: * Surgical History: L aparascopic radical prostatectomy, bilateral pelvic lymph node disection, urethral suspension suture, bilateral nerve-sparing [id number] biopsy [id number] skin CA removal 2018 * Hospitalization/Major Diagno [...] his He is and has worked in [employer] at [employer] for 26 years.. He was born in [place] and has several children. He is bilingual. * Medications: T akingamLODIPine Besylate 10 MG Tablet TAKE 1 TABLET BY MOUTH EVERY DAY metFORMIN HCl 500 MG Tablet 1 tablet Orally Once a day Medication List reviewed and reconciled with the patientTaking amLODIPine Besylate 10 MG Tablet TAKE 1 TABLET BY MOUTH EVERY DAY Taking metFORMIN HCl 500 MG Tablet 1 tablet Orally Once a day Medication List reviewed and reconciled with the patient * Allergies: N o Known Drug Allergyno[Allergies Verified] Objective: * Vitals: H t: 68, Wt: 217, BMI:32.99, Wt-k.43. * P ast Orders: L ab:PSA, Ultra Sensitive (Order Date - 08/17/2024) (Collection Date & Time - 08/17/2024 07:24 AM) Value Reference Range PSA, Ultra Sensitive 0.23 - ng/mL Lab:Complete Blood Count Aut o Diff * [...] (Ref Range: 0.0-0.012 X10*3/uL) * Lab:[facility]ja Echeverria. Chi l Fast * Collection Date 08/17/2024 05/18/2024 [...] <0.05-4.0 ng/mL) 0.17 (Ref Range: <0.05-4.0 ng/mL) Assessment: * Assessment: 1. C arcinoma of prostate - C61 (Primary) N otes :His PSA is detectable at 0.21 whereas it was 0.15 the previous 2 determinations. He is asymptomatic. The is overdue to see urology and was referred back for management.He remains asymptomatic. 2 . V iral syndrome - B34.9 N otes :He has declined Paxlovid. He will continue with conservative treatment as he is already beginning to improve rapidly. 3 . U mbilical hernia - K42.9 N otes :There was no pain or discomfort when palpating the umbilicus. 4 . O steoarthritis of both knees - M17.0 N otes :The discomfort in the knees is unchanged but is a minor problem to him now and will be followed. 5 . B ack pain, unspecified back location, unspecified back pain laterality, unspecified chronicity - M54.9 N otes :His back pain is mostly resolved at this time. He is avoiding heavy exertion and lifting. He will notify me at once if it recurs. 6 . H ypertension - I10 N otes :His blood pressure has been s table and no change in his regimen was made 7 . B PH (benign prostatic hyperplasia) - N40.0 N otes :We have discussed modifications to his lifestyle to reduce nocturnal urinating. 8 . T ype 2 diabetes mellitus without complication, without long-term current use of insulin - E11.9 N otes :His fasting glucoses are 150. He is diet controlled. He has lost 11 pounds since his last visit. 9 . O besity - E66.9 N otes [...] diet restricted in fat calories and sodium. 1 0. S leep apnea, unspecified - G47.30 N otes :His sleep study done in January 2023 shows severe obstructive sleep apnea. He is using his CPAP machine now. Plan: * Treatment: * Procedure Codes: * Preventive Medicine: Counseling: [...] to 3 times a week for 30 mins. * Follow Up: 1 Week (Reason: ov) * Images: * Sign off status: Completed true * Provider: Prabha Richter MD Date: 0 08/30/2024 Generated for Shani finn/Robert/Tamera on: 1 07/25/2024 06:58 AM EST History and Physical Notes * HPI (History of Present Illness) Category Sub-Category Detail Notes Telehealth Location of [facility] rendering services:: {...} [address] [place] [address] Drive [address] [place] [address] Location of patient:: address listed in demographics for today's visit Patient identification confirmed using:: Name, Telehealth method:: Telephone only. Tere ent not visible to care provider. Consent:: Patient verbally c onsented to treatment, Patient verbally consented to billing insurance company, Patient informed of any privacy concerns related to method of visit Total time spent with patient (mins): 15
--- OUTSIDE RECORDS SUMMARY | 2024-09-10 05:30 | XMS_ITS ---
Author Organization Omar Richter III, MD Address [address] [place] [address] Care Team Providers Care Duplicate Maker Name Role Phone Dr. Omar Richter III Primary Care Provider Allergies Allergen (clinical drug ingredient) Drug/Non Drug Allergy documented on EMR Reaction Allergy Type Onset Date Status No Known Drug Allergy Unknown Drug Allergy Active REASON FOR VISIT Covid19 infection, Low back pain, Prostate cancer, Hypertension, Hyperlipidemia, Arthritis in both knees Medications Medication SIG (Take, Route, Frequency, Duration) [...] Aggressive non-smoker Vital Signs Height 68 in 09/10/2024 Weight 217 lbs 09/10/2024 BMI 32.99 kg/m2 09/10/2024 Encounters Encounter Location Date Provider Diagnosis Omar Richter III, MD [address] [place] [address] [address] [place]ALLENED, JADA [phone] 09/10/2024 Omar Richter Acute COVID-19 U07.1 ; Back pain, unspecified back location, unspecified back pain laterality, unspecified chronicity M54.9 ; Umbilical hernia K42.9 ; Osteoarthritis of both knees M17.0 ; Carcinoma of prostate C61 ; Sleep apnea, unspecified G47.30 ; BPH (benign prostatic hyperplasia) N40.0 ; Type 2 diabetes mellitus without complication, without long-term current use of insulin E11.9 and Obesity E66.9 Assessments Encounter Date Diagnosis (ICD Code) Assessment Notes Treat ment Notes Treatment Clinical Notes 09/10/2024 Acute COVID-19 (ICD-10 - U07.1) He has substance. He actually recovered at this point. He will gradually resume normal life. 09/10/2024 Back pain, unspecified back location, unspecified back pain laterality, unspecified chronicity (ICD-10 - M54.9) His back pain is mostly resolved at this time. He is avoiding heavy exertion and lifting. He will notify me at once if it recurs. 09/10/2024 Umbilical hernia (ICD-10 - K42.9) There was no pain or discomfort when palpating the umbilicus. 09/10/2024 Osteoarthritis of both knees (ICD-10 - M17.0) The discomfort in the knees is unchanged but is a minor problem to him now and will be followed. 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 He is asymptomatic. The is overdue to see urology and was referred back for management.He remains asymptomatic. 09/10/2024 Sleep apnea, unspecified (ICD-10 - G47.30) His sleep study done in January 2023 shows severe obstructive sleep apnea. He is using his CPAP machine now. 09/10/2024 BPH (benign prostati c hyperplasia) (ICD-10 - N40.0) We have discussed modifications to his lifestyle to reduce nocturnal urinating. 09/10/2024 Type 2 diabetes mellitus without complication, without long-term current use of insulin (ICD-10 - E11.9) His fasting glucoses are 150. He is diet controlled. He has lost 11 pounds since his last visit. 09/10/2024 Obesity (ICD-10 - E66.9) He has gained [...] diet restricted in fat calories and sodium. Plan Of Treatment Medication Medication Name Sig Start Date Stop Date Notes metFORMIN HCl 500 MG 1 tablet Orally Once a day 08/20/2024 amLODIPine Besylate 10 MG TAKE 1 TABLET BY MOUTH EVERY DAY Next Appt Details Follow Up: 2 Months, Reason: OV Provider Name:Omar Richter , 06/02/2025 03:15:00 PM, [address] [place] [address] [address], [place], [phone], Provider Name:Omar Richter , 03/04/2026 04:00:00 PM, [address] [place] [address] [address], [place], [phone], Progress Notes * Leland ZHUDOB:1965 (4 0 yo M)Acc No.[id number]:09/10/2024 Patient: Leland REED Provider: Prabha Richter MD :1965 A ge:58 Y S ex:Male Date:09/10/2024 Address:[address] [place], [place] [address]KAROLINE Ray [place], [place]-[id number] Subjective: * Chief Complaints: * C ovid19 infectionLow back painProstate cancerHypertensionHyperlipidemiaArthritis in both knees * HPI: * : This telehealth visit took place over 15 min. with the patient at home and me in my office. He gave consent for billing. He reports that he has substantially recovered from the booth virus infection. His throat is no longer sore. He is eating and drinking normally. He has a residual nonproductive cough. He has no fever or chills. He denies any nausea, vomiting or diarrhea. H e will gradually returned to normal life. He will return to the office as scheduled. Telehealth L ocation of provider rendering services: { ...} [address] [facility] [address] L ocation of patient: alan dow listed [...] yspnea on exertion?denies. S hortness of breath w ith exertion. G astrointestinal: Constipation d enies. D ecreased appetite d enies.?Diarrhea d enies. H eartburn d enies. N ausea d enies. R ectal bleeding?denies. V omiting d enies. H ematology: bruising [...] node disection, urethral suspension suture, bilateral nerve-sparing [id number] biopsy [id number] skin CA removal 2018 * Hospitalization/Major Diagno [...] his He is and has worked in [employer] at [employer] for 26 years.. He was born in [place] and has several children. He is bilingual. [...] Vitals: H t: 68, Wt: 217, BMI:32.99, Ht-cm: 172.72, Wt-k.43. * P ast Orders: Lab:Prostate Specific Antige n * Collection Date 08/17/2024 05/18/2024 02/17/2024 Collection Time 07:24 AM 07:56 AM 08:02 AM Order Date 08/17/2024 05/18/2024 02/17/2024 Prostate Specific Antigen 0.21 (Ref Range: <0.05-4.0 ng/mL) 0.21 (Ref Range: <0.05-4.0 ng/mL) 0.17 (Ref Range: <0.05-4.0 ng/mL) * Lab:Lipid Panel * Collection Date 08/17/2024 [...] mg/dL) 29 L (Ref Range: >40 mg/dL) ???Lab:Uric Acid (Order Date - 08/17/2024) (Collection Date & Time - 08/17/2024 07:24 AM)?ValueReference Range?Uric Acid4.33.4-7.0 - mg/dL * Lab:Comprehensive [place]. Pane l Fast * Collection Date 08/17/2024 05/18/2024 [...] 8.4-10.2 mg/dL) 9.1 (Ref Range: 8.4-10.2 mg/dL) * Lab:Complete Blood [...] 0.0-0.012 X10*3/uL) 0.000 (Ref Range: 0.0-0.012 X10*3/uL) ???Lab:PSA, Ultra Sensitive (Order Date - 08/17/2024) (Collection Date & Time - 08/17/2024 07:24 AM)?ValueReference Range?PSA, Ultra Sensitive0.23 - ng/mL Assessment: * Assessment: 1. A cute COVID-19 - U07.1 (Primary) N otes :He has substance. He actually recovered at this point. He will gradually resume normal life. 2 . B ack pain, unspecified back location, unspecified back pain laterality, unspecified chronicity - M54.9 N otes :His back pain is mostly resolved at this time. He is avoiding heavy exertion and lifting. He will notify me at once if it recurs. 3 . U mbilical hernia - K42.9 N otes :There was no pain or discomfort when palpating the umbilicus. 4 . O steoarthritis of both knees - M17.0 N otes :The discomfort in the knees is unchanged but is a minor problem to him now and will be followed. 5 . C arcinoma of prostate - C61 N otes :His PSA is detectable at 0.21 whereas it was 0.15 the previous 2 determinations. He is asymptomatic. The is overdue to see urology and was referred back for management.He remains asymptomatic. 6 . S leep apnea, unspecified - G47.30 N otes :His sleep study done in January 2023 shows severe obstructive sleep apnea. He is using his CPAP machine now. 7 . B PH (benign prostatic hyperplasia) [...] diet restricted in fat calories and sodium. Plan: * Treatment: * Procedure Codes: * Preventive Medicine: Counseling: C are goal follow-up plan: Counseling for abnormal BMI given Y es Above Normal BMI Follow-up D ietary management education, guidance, and counseling, Dietary needs education DM Care Plan: P atient Lifestyle Goals P atient wants to be able to manage diabetes without too much effort. T reatment Goals B lood Sugars less than < 115, HbA1C < 7.0. B arriers n o barriers. S elf-Managment Goals W ork on weight loss, with a goal of losing 1 lb per week. * Follow Up: 2 Months (Reason: OV) * Images: * Sign off status: Completed true * Provider: Prabha Richter MD Date: 0 09/10/2024 Generated for Shani finn/Robert/eTtaniasmitting on: 1 07/25/2024 06:58 AM EST History and Physical Notes * HPI (History of Present Illness) Category Sub-Category Detail Notes Telehealth Location of [facility] rendering services:: {...} [address] [facility] [address] Location of patient:: address listed in demographics [...]
--- OUTSIDE RECORDS SUMMARY | 2024-11-26 05:15 | XMS_ITS ---
Author Organization Omar Richter III, MD Address [address] [place] [address] [place] [address] Care Team Providers Care Cemetery Warden Name Role Phone Dr. Omar Richter III Primary Care Provider Allergies Allergen (clinical drug ingredient) Drug/Non Drug Allergy documented on EMR Reaction Allergy Type Onset Date Status No Known Drug Allergy Unknown Drug Allergy Active REASON FOR VISIT follow up Medications Medication SIG (Take, Route, Frequency, Duration) Notes Start Date End Date Status amLODIPine Besylate 10 MG TAKE 1 TABLET BY MOUTH EVERY DAY Active metFORMIN HCl 500 MG 1 tablet Orally Once a day Active Social History Tobacco Use: Social History Observation Description Date Details (start date - stop date) Never Smoker NA - NA Sex Assigned At : Social History Observation Description Sex Assigned At Male Tobacco Use/Smoking Question Answer Notes Patient is a nonsmoker Additional Findings: Tobacco Non-User Aggressive non-smoker Encounters Encounter Location Date Provider Diagnosis Omar Richter III, MD [address] [place] [address] [place] [address] 11/26/2024 Omar Richter Plan Of Treatment Medication Medication Name Sig Start Date Stop Date Notes amLODIPine Besylate 10 MG TAKE 1 TABLET BY MOUTH EVERY DAY metFORMIN HCl 500 MG 1 tablet Orally Once a day 08/20/2024 Next Appt Details Provider Name:Omar Richter , 06/02/2025 03:15:00 PM, [address] [facility] [place], [place], [address], Provider Name:Omar Richter , 03/04/2026 04:00:00 PM, [address] [facility] [place], [place], [address], Progress Notes * Leland ZHUDOB:1965 ([age] yo M)Acc No.[id number]:11/26/2024 Progress Notes Patient: Leland REED Provider: Prabha Richter MD :1965 A ge:59 Y S ex:Male Date:11/26/2024 Address:[address] [place] [address] [place], [id number] Subjective: * Chief Complaints: * 1 . Follow up. * HPI: C OVID-19 Screening: Questions H ave you had any new [...] of breath d enies. G astrointestinal: Constipation d enies. D ecreased appetite d enies.?Diarrhea d enies. H eartburn d enies. N ausea d enies. R ectal bleeding?denies. V omiting d enies. H ematology: bruising d enies. p etechiae d enies. S wollen glands n one have been noted. G enitourinary: Frequent urination d enies. M usculoskeletal: Muscle aches d enies. P ainful joints d enies. S ciatica d enies. W eakness d enies. S kin: Itching d enies. R kym d enies. S kin lesion(s)?denies. N eurologic: Difficulty speaking d enies. D izziness d enies.?Headache d enies. L ow back pain d enies. P sychiatric: Depressed mood d enies. * Medical History: H ypertension, Erectile dysfunction, Umbilical hernia, Back pain 2006, Bph, Bilateral knee pain 2013, Obesity, 2008 early stage prostate cancer in remission. * Surgical History: L aparascopic radical prostatectomy, bilateral pelvic lymph node disection, urethral suspension suture, bilateral nerve-sparing 2016-11-17, Prostate biopsy 2016-08-05, benign skin CA removal 2018. * Hospitalization/Major Diagno stic Procedure: D enies Past Hospitalization. * Family History: F ather: 42 yrs, automoble accident. M other: 80 yrs. S pouse: alive 41 yrs. 2 brother(s) - healthy. 3 daughter(s) - healthy. . * Social History: T obacco Use: T obacco Use/Smoking P atient is a n onsmoker A dditional Findings: Tobacco Non-User A ggressive non-smoker T his He is and has worked in [employer] at [employer] for 26 years.. He was born in [place] and has several children. He is bilingual. * Medications: T aking amLODIPine Besylate 10 MG Tablet TAKE 1 TABLET BY MOUTH EVERY DAY , Taking metFORMIN HCl 500 MG Tablet 1 tablet Orally Once a day , Medication List reviewed and reconciled with the patient * Allergies: N o Known Drug Allergy. Objective: * Vitals: * Examination: G eneral Examination: GENERAL APPEARANCE: p leasant, well nourished, well developed, in no acute distress, calm and relaxed. HEAD: a traumatic, normocephalic. EYES: e jaja, [...] sounds normal, no ascites, no organomegaly, no mass. RECTAL EXAM: n ot examined. MUSCULOSKELETAL: e xtremities unremarkable, no clubbing, cyanosis or edema. PERIPHERAL PULSES: n ormal. NEUROLOGIC: a lert and oriented, cranial nerves 2-12 grossly intact, deep tendon reflexes 2+ symmetrical, motor strength normal upper and lower extremities, sensory exam intact. PSYCH: a lert, oriented. Assessment: Plan: * Treatment: * Images: * The named appointment provid er may or may not be the originator of this progress note, and it is not deemed complete until electronically signed by the appointment provider. Sign off status: Pending * Provider: Prabha Richter MD Date: 0 11/26/2024 Generated for Shani finn/Robert/eTransmitting on: 1 07/25/2024 07:00 AM EST History and Physical Notes * HPI (History of Present Illness) Category Sub-Category Detail Notes COVID-19 Screening Questions Have you had any new onset fever, chills, cough, congestion, sore throat, shortness of breath, muscle aches?: No Examination Category Sub-Category Detail Notes General Examination GENERAL APPEARANCE: pleasant , well nourished, well developed, in no acute distress, calm and relaxed HEAD: atraumatic, normocep halic EYES: eomi, perrla, [...]
--- OUTSIDE RECORDS SUMMARY | 2024-12-24 06:43 | XMS_ITS ---
Author Organization Omar Richter III, MD Address [address] [place] [address] Care Team Providers Care E/M Engineer Name Role Phone Dr. Omar Richter III Primary Care Provider [phone] REASON FOR VISIT Appointment Request Social History Sex Assigned At : Social History Observation Description Sex Assigned At Male Encounters Encounter Location Date Provider Diagnosis Omar Richter III, MD [address] [place] [address] [place] [address] 12/24/2024 Omar Richter Plan Of Treatment Next Appt Details Provider Name:Omar Richter , 06/02/2025 03:15:00 PM, [address] [place] [address] [place], [address], Provider Name:Omar Richter , 03/04/2026 04:00:00 PM, [address] [place] [address] [place], [address], Progress Notes * SAELelandDOB:1965 ([age] yo M)Acc No.[id number]:12/24/2024 Patient: Leland REED :1965 A ge:59 Y S ex:Male Address:[address] [place] [address] [place] [address] * true * Date: Generated for Shani finn/Robert/Valeriasmitting on: 07/25/2024 06:58 AM EST
--- OUTSIDE RECORDS SUMMARY | 2025-01-03 10:45 | XMS_ITS ---
Author Organization Omar Richter III, MD Address [address] [place] [address] Care Team Providers Care Playground Aide Name Role Phone Dr. Omar Richter III Primary Care Provider Allergies Allergen (clinical drug ingredient) Drug/Non Drug Allergy documented on EMR Reaction Allergy Type Onset Date Status No Known Drug Allergy Unknown Drug Allergy Active REASON FOR VISIT Neuropathic pain from right shoulder to fingers, Prostate cancer, Umbilical hernia, Hypertension, Sleep apnea, Benign prostatic hypertrophy Medications Medication SIG (Take, Route, Frequency, [...] Tobacco Non-User Aggressive non-smoker Vital Signs Temperature 97.9 degrees Fahrenheit 01/04/20 25 Blood pressure systolic 137 mm Hg 07/25/20 25 Blood pressure diastolic 77 mm Hg 025 Heart Rate 78 /min 01/03/2025 Height 68 in 01/03/2025 Weight 205 lbs 01/03/2025 BMI 31.17 kg/m2 01/03/2025 Encounters Encounter Location Date Provider Diagnosis Omar Richter III, MD [address] [place] [address] [place] [address] 01/03/2025 Omar Richter Cervical radiculopat hy M54.12 ; Umbilical hernia K42.9 ; Osteoarthritis of both knees M17.0 ; Carcinoma of prostate C61 ; Hypertension I10 ; Hyperlipidemia, unspecified hyperlipidemia type E78.5 ; BPH (benign prostatic hyperplasia) N40.0 ; Sleep apnea, unspecified G47.30 ; Type 2 diabetes mellitus without complication, without long-term current use of insulin E11.9 and Obesity E66.9 Assessments Encounter Date Diagnosis (ICD Code) Assessment Notes Treat ment Notes Treatment Clinical Notes 01/03/2025 Cervical radiculopathy (ICD-10 - M54.12) The history suggest nerve impingement either in the right plexus or neck images have been ordered. If necessary he will have nerve conduction studies and MRIs in neurology. The symptoms have been present for 1 month and there is no muscle weakness. 01/03/2025 Umbilical hernia (ICD-10 - K42.9) There was no pain or discomfort when palpating the umbilicus. 01/03/2025 Osteoarthritis of both knees (ICD-10 - M17.0) The discomfort in the knees is unchanged but is a minor problem to him now and will be followed. 01/03/2025 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 He is asymptomatic. The is overdue to see urology and was referred back for management.He remains asymptomatic. 01/03/2025 Hypertension (ICD-10 - I10) His blood pressure has been stable and no change in his regimen was made 01/03/2025 Hyperlipidemia, unspecified hyperlipidemia type (ICD-10 - E78.5) His lipids are currently stable. No change in his regimen as needed. I recommended aggressive weight loss. 01/03/2025 BPH (benign prostati c hyperplasia) (ICD-10 - N40.0) We have discussed modifications to his lifestyle to reduce nocturnal urinating. 01/03/2025 Sleep apnea, unspecified (ICD-10 - G47.30) His sleep study done in January 2023 shows severe obstructive sleep apnea. He is using his CPAP machine now. 01/03/2025 Type 2 diabetes mellitus without complication, without long-term current use of insulin (ICD-10 - E11.9) His fasting glucoses are 150. He is diet controlled. He has lost 11 pounds since his last visit. 01/03/2025 Obesity (ICD-10 - E66.9) He has lost 12 pounds since his last visit. We discussed [...] Once a day 08/20/2024 Next Appt Details Follow Up: 1 Week, Reason: T [facility] Provider Name:Omar Richter , 06/02/2025 03:15:00 PM, [address] [place] [address] [address], [place], [address], Provider Name:Omar Richter , 03/04/2026 04:00:00 PM, [address] [place] [address] [address], [place], [address], Progress Notes * MARKO LelandDOB:1965 ([age] yo M)Acc No.[id number]:01/03/2025 Progress Notes Patient: Leland REED Provider: Prabha Richter MD :1965 A ge:59 Y S ex:Male Date:01/03/2025 Address:[address] [place] [address] KAROLINE GUERRIER [id number] Subjective: * Chief Complaints: * N europathic pain from right shoulder to fingersProstate cancerUmbilical herniaHypertensionSleep apneaBenign prostatic hypertrophy * HPI: C OVID-19 Screening: H e comes in today for a same day visit complaining of 4 weeks of tingling and numbness in the right arm. It is not a pain but discomfort and begins at his shoulder goes down to his hand. There is no muscle weakness. There is been no trauma. He is taking no new medications. Upon examination today the symptoms were partly reproduced by pressure over the right supraclavicular fossa and by lateral flexion of the neck to the righ.t Range of motion of the neck was normal.I have ordered x-rays of the neck to look for a source of impingement and of the chest to evaluate serrated apex of the lung. Nerve impingement in the neck or brachial plexus is suspected his reflexes were unremarkable today. Questions H ave you had any new onset fever, chills, cough, congestion, sore throat, shortness of breath, muscle aches? N o * ROS: G eneral/Constitutional: pain R ight arm. C hills d enies. F atigue a [...] node disection, urethral suspension suture, bilateral nerve-sparing [id number] biopsy [id number] skin CA removal 2018 * Hospitalization/Major Diagno [...] his He is and has worked in [employer] at [employer] for 26 years.. He was born in [place] and has several children. He is bilingual. [...] Objective: * Vitals: H t: 68, Wt: 205, BMI:31.17, BP: 137/77, HR: 78, Temp: 97.9, Ht-cm: 172.72, Wt-k.99. * P ast Orders: Lab:Hemoglobin A1c * Collection Date 11/16/2024 09/16/2023 09/27/2022 Collection Time 07:13 AM 07:27 AM 06:14 AM Order Date 11/16/2024 09/16/2023 09/27/2022 Hemoglobin A1c % 6.6 H (Ref Range: <6.0 %) 6.6 H (Ref Range: <6.0 %) 6.6 (Ref Range: %) Estimated Average Glucose 143 (Ref Range: mg/dL) 143 (Ref Range: mg/dL) 143 (Ref Range: mg/dL) * Lab:Complete Blood Count Aut o Diff * Collection Date 11/16/2024 08/17/2024 05/18/2024 Collection Time 07:13 AM 07:24 AM 07:56 AM Order Date 11/16/2024 08/17/2024 05/18/2024 White Blood Count 8.2 (Ref Range: 4.8-10.8 X10*3/uL) 7.6 (Ref Range: 4.8-10.8 X10*3/uL) 6.9 (Ref Range: 4.8-10.8 X10*3/uL) Red Blood Count 5.29 (Ref Range: 4.60-5.80 X10*6/uL) 5.30 (Ref Range: 4.60-5.80 X10*6/uL) 5.21 (Ref Range: 4.60-5.80 X10*6/uL) Hemoglobin 15.3 (Ref Range: 14.0-18.0 g/dl) 15.3 (Ref Range: 14.0-18.0 g/dl) 15.0 (Ref Range: 14.0-18.0 g/dl) Hematocrit 46.7 (Ref Range: 42.0-52.0 %) 45.8 (Ref Range: 42.0-52.0 %) 45.7 (Ref Range: 42.0-52.0 %) Mean Corpuscular Volume 88.3 (Ref Range: 80.0-98.0 fL) 86.4 (Ref Range: 80.0-98.0 fL) 87.7 (Ref Range: 80.0-98.0 fL) Mean Corpuscular Hemoglobin 28.9 (Ref Range: 27.0-33.0 pg) 28.9 (Ref Range: 27.0-33.0 pg) 28.8 (Ref Range: 27.0-33.0 pg) Mean Corpuscular HGB Conc 32.8 (Ref Range: 31.0-36.0 g/dl) 33.4 (Ref Range: 31.0-36.0 g/dl) 32.8 (Ref Range: 31.0-36.0 g/dl) Red Cell Distribution Width 12.8 (Ref Range: 11.0-16.0 %) 12.7 (Ref Range: 11.0-16.0 %) 13.0 (Ref Range: 11.0-16.0 %) Platelet Count 278 (Ref Range: 160-400 X10*3/uL) 253 (Ref Range: 160-400 X10*3/uL) 246 (Ref Range: 160-400 X10*3/uL) Mean Platelet Volume 10.8 (Ref Range: 9.4-12.4 fL) 10.5 (Ref Range: 9.4-12.4 fL) 11.1 (Ref Range: 9.4-12.4 fL) Neutrophils Percent Auto 56.9 (Ref Range: 45-73 %) 58.9 (Ref Range: 45-73 %) 55.4 (Ref Range: 45-73 %) Imm Gran Pct Auto 0.4 (Ref Range: 0.0-0.4 %) 0.4 (Ref Range: 0.0-0.4 %) 0.4 (Ref Range: 0.0-0.4 %) Lymphocytes Percent Auto 29.6 (Ref Range: 20-40 %) 26.6 (Ref Range: 20-40 %) 30.0 (Ref Range: 20-40 %) Monocytes Percent Auto 11.1 H (Ref Range: 2-11 %) 11.3 H (Ref Range: 2-11 %) 11.3 H (Ref Range: 2-11 %) Eosinophils Percent Auto 1.5 (Ref Range: 0-4 %) 2.3 (Ref Range: 0-4 %) 2.0 (Ref Range: 0-4 %) Basophils Percent Auto 0.5 (Ref Range: 0-2 %) 0.5 (Ref Range: 0-2 %) 0.9 (Ref Range: 0-2 %) NRBC Pct Auto 0.0 (Ref Range: 0.0-0.2 /100WBC) 0.0 (Ref Range: 0.0-0.2 /100WBC) 0.0 (Ref Range: 0.0-0.2 /100WBC) Neutrophils Absolute Auto 4.7 (Ref Range: 2.0-8.3 x10*3/uL) 4.5 (Ref Range: 2.0-8.3 x10*3/uL) 3.8 (Ref Range: 2.0-8.3 x10*3/uL) Imm Gran Abs Auto 0.03 (Ref Range: 0.00-0.03 X10*3/uL) 0.03 (Ref Range: 0.00-0.03 X10*3/uL) 0.03 (Ref Range: 0.00-0.03 X10*3/uL) Lymphocytes Absolute Auto 2.4 (Ref Range: 1.2-4.9 X10*3/uL) 2.0 (Ref Range: 1.2-4.9 X10*3/uL) 2.1 (Ref Range: 1.2-4.9 X10*3/uL) Monocytes Absolute Auto 0.9 (Ref Range: 0.1-1.2 X10*3/uL) 0.9 (Ref Range: 0.1-1.2 X10*3/uL) 0.8 (Ref Range: 0.1-1.2 X10*3/uL) Eosinophils Absolute Auto 0.1 (Ref Range: 0.0-0.4 X10*3/uL) 0.2 (Ref Range: 0.0-0.4 X10*3/uL) 0.1 (Ref Range: 0.0-0.4 X10*3/uL) Basophils Absolute Auto 0.0 (Ref Range: 0.0-0.2 X10*3/uL) 0.0 (Ref Range: 0.0-0.2 X10*3/uL) 0.1 (Ref Range: 0.0-0.2 X10*3/uL) NRBC Abs Auto 0.000 (Ref Range: 0.0-0.012 X10*3/uL) 0.000 (Ref Range: 0.0-0.012 X10*3/uL) 0.000 (Ref Range: 0.0-0.012 X10*3/uL) * Lab:Aleja Mireles l Fast * Collection Date 11/16/2024 08/17/2024 05/18/2024 Collection Time 07:13 AM 07:24 AM 07:56 AM Order Date 11/16/2024 08/17/2024 05/18/2024 Sodium 141 (Ref Range: 135-145 mmol/L) 141 (Ref Range: 135-145 mmol/L) 141 (Ref Range: 135-145 mmol/L) Bilirubin Total 0.7 (Ref Range: 0.0-1.0 mg/dL) 0.9 (Ref Range: 0.0-1.0 mg/dL) 0.6 (Ref Range: 0.0-1.0 mg/dL) Aspartate Amino Transferase 17 (Ref Range: 5-37 U/L) 15 (Ref Range: 5-37 U/L) 14 (Ref Range: 5-37 U/L) Alanine Aminotransferase 34 (Ref Range: 0-40 U/L) 34 (Ref Range: 0-40 U/L) 38 (Ref Range: 0-40 U/L) Total Protein 6.9 (Ref Range: 6.5-8.0 g/dL) 7.1 (Ref Range: 6.5-8.0 g/dL) 6.9 (Ref Range: 6.5-8.0 g/dL) Albumin Level 4.3 (Ref Range: 3.5-5.0 g/dL) 4.2 (Ref Range: 3.5-5.0 g/dL) 4.2 (Ref Range: 3.5-5.0 g/dL) Alkaline Phosphatase 62 (Ref Range: 39-117 U/L) 67 (Ref Range: 39-117 U/L) 66 (Ref Range: 39-117 U/L) Potassium 4.1 (Ref Range: 3.3-5.1 mmol/L) 4.1 (Ref Range: 3.3-5.1 mmol/L) 4.5 (Ref Range: 3.3-5.1 mmol/L) Chloride 110 H (Ref Range: 96-108 mmol/L) 110 H (Ref Range: 96-108 mmol/L) 105 (Ref Range: 96-108 mmol/L) Carbon Dioxide 25 (Ref Range: 22-29 mmol/L) 26 (Ref Range: 22-29 mmol/L) 27 (Ref Range: 22-29 mmol/L) Anion Gap 10 L (Ref Range: 12-20) 9 L (Ref Range: 12-20) 14 (Ref Range: 12-20) Blood Urea Nitrogen 17 H (Ref Range: 9-16 mg/dL) 21 H (Ref Range: 9-16 mg/dL) 15 (Ref Range: 9-16 mg/dL) Creatinine 0.70 (Ref Range: 0.5-1.4 mg/dL) 0.80 (Ref Range: 0.5-1.4 mg/dL) 0.77 (Ref Range: 0.5-1.4 mg/dL) Estimated Glomerular Filt Rate > 60 > 60 > 60 Glucose Fasting 173 H (Ref Range: 60-99 mg/dL) 181 H (Ref Range: 60-99 mg/dL) 171 H (Ref Range: 60-99 mg/dL) Calcium 9.0 (Ref Range: 8.4-10.2 mg/dL) 9.0 (Ref Range: 8.4-10.2 mg/dL) 9.4 (Ref Range: 8.4-10.2 mg/dL) * Lab:Lipid Panel * Collection Date 11/16/2024 08/17/2024 05/18/2024 Collection Time 07:13 AM 07:24 AM 07:56 AM Order Date 11/16/2024 08/17/2024 05/18/2024 Triglycerides 74 (Ref Range: <150 mg/dL) 62 (Ref Range: <150 mg/dL) 61 (Ref Range: <150 mg/dL) Cholesterol 140 (Ref Range: <200 mg/dL) 143 (Ref Range: <200 mg/dL) 144 (Ref Range: <200 mg/dL) LDL Cholesterol Calculated 96 (Ref Range: <100 mg/dL) 100 H (Ref Range: <100 mg/dL) 102 H (Ref Range: <100 mg/dL) HDL Cholesterol 30 L (Ref Range: >40 mg/dL) 31 L (Ref Range: >40 mg/dL) 30 L (Ref Range: >40 mg/dL) * Lab:Microalbumin, Random * Collection Date 11/16/2024 09/16/2023 09/27/2022 Collection Time 07:11 AM 07:30 AM 06:13 AM Order Date 11/16/2024 09/16/2023 09/27/2022 Creatinine Urine 193.39 (Ref Range: mg/dL) 150.28 (Ref Range: mg/dL) 131.93 (Ref Range: mg/dL) Microalbumin Urine 13.0 (Ref Range: mg/L) 11.0 (Ref Range: mg/L) 12.0 (Ref Range: mg/L) Microalbum Creatinine Ratio Ur 6.7 (Ref Range: <30 ug/mg cr) 7.3 (Ref Range: <30 ug/mg cr) 9.0 (Ref Range: ug/mg cr) * Examination: G eneral Examination: GENERAL APPEARANCE: p leasant, well nourished, well developed, in no acute distress, calm and relaxed: obese: man. HEAD: a traumatic, normocephalic. EYES: e [...] sounds normal, no ascites, no organomegaly, no mass: centripital obesity. RECTAL EXAM: n ot examined. MUSCULOSKELETAL: e xtremities unremarkable, no clubbing, cyanosis or edema. PERIPHERAL PULSES: n ormal. NEUROLOGIC: a lert and oriented, cranial nerves 2-12 grossly intact, deep tendon reflexes 2+ symmetrical, motor strength normal upper and lower extremities, sensory exam intact. PSYCH: a lert, oriented. Assessment: * Assessment: 1. C ervical radiculopathy - M54.12 (Primary) N otes :The history suggest nerve impingement either in the right plexus or neck images have been ordered.? If necessary he will have nerve conduction studies and MRIs in neurology. The symptoms have been present for 1 month and there is no muscle weakness. 2 . U mbilical hernia - K42.9 N otes :There was no pain or discomfort when palpating the umbilicus. 3 . O steoarthritis of both knees - M17.0 N otes :The discomfort in the knees is unchanged but is a minor problem to him now and will be followed. 4 . C arcinoma of prostate - C61 N otes :His PSA is detectable at 0.21 whereas it was 0.15 the previous 2 determinations. He is asymptomatic. The is overdue to see urology and was referred back for management.He remains asymptomatic. 5 . H ypertension - I10 N otes :His blood pressure has been stable and no change in his regimen was made 6 . H yperlipidemia, unspecified hyperlipidemia type - E78.5 N otes :His lipids are currently stable. No change in his regimen as needed. I recommended aggressive weight loss. 7 . B PH (benign prostatic hyperplasia) - N40.0 N otes :We have discussed modifications to his lifestyle to reduce nocturnal urinating. 8 . S leep apnea, unspecified - G47.30 N otes :His sleep study done in January 2023 shows severe obstructive sleep apnea. He is using his CPAP machine now. 9 . T ype 2 diabetes mellitus without complication, without long-term current use of insulin - E11.9 N otes :His fasting glucoses are 150. He is diet controlled. He has lost 11 pounds since his last visit. 1 0. O besity - E66.9 N otes :He has lost 12 pounds since his last visit. We discussed the relationship between his weight and his diabetes. We discussed diet and nutrition. We discussed a diabetic low cholesterol diet. We made plans to lose weight at a rate of one half of a pound per week through physical activity and a diet restricted in fat calories and sodium. Plan: * Treatment: * Imaging: * I maging: XR CERVICAL SPINE 2-3 VIEWS I maging: XR CHEST 2 VIEW PA & LAT * Procedure Codes: * Preventive Medicine: Counseling: [...] 1 lb per week. * Follow Up: 1 Week (Reason: Telehealth) * Images: * Sign off status: Completed true * Provider: Prabha Richter MD Date: 0 01/03/2025 Generated for Maryi huma/Robert/Valeriasmitting on: 1 07/25/2024 06:59 AM EST History and Physical Notes * HPI (History of Present Illness) Category Sub-Category Detail Notes COVID-19 Screening Questions Have you had any new onset fever, chills, cough, congestion, sore throat, shortness of breath, muscle aches?: No Examination Category Sub-Category Detail Notes General Examination GENERAL APPEARANCE: pleasant , well nourished, well developed, in no acute distress, calm and relaxed: obese: man HEAD: atraumatic, normocep halic EYES: eomi, perrla, anicte haven, conjugate EARS: normal NOSE: septum intact NECK/THYROID: no jugular venous di stention, no carotid bruit, thyroid normal HEART: no clicks, gallops, murmurs, or rubs, regular rhythm, S1, S2 normal, no s3, or vascular bruits LUNGS: clear to auscultatio n ABDOMEN: bowel sounds normal, no ascites, no organomegaly, no mass: centripital obesity NEUROLOGIC: alert and oriented, cranial [...]
--- OUTSIDE RECORDS SUMMARY | 2025-01-09 04:15 | XMS_ITS ---
Author Organization Omar Richter III, MD Address [address] [place] [address] Care Team Providers Care Radiology Tech Name Role Phone Dr. Omar Richter III Primary Care Provider Allergies Allergen (clinical drug ingredient) Drug/Non Drug Allergy documented on EMR Reaction Allergy Type Onset Date Status No Known Drug Allergy Unknown Drug Allergy Active REASON FOR VISIT Prostate cancer, Low back pain, Umbilical hernia, Hypertension, Hyperlipidemia, Benign prostatic pressure, Sleep apnea, Diabetes, Obesity Medications Medication SIG (Take, [...] Aggressive non-smoker Vital Signs Height 68 in 01/09/2025 Weight 205 lbs 01/09/2025 BMI 31.17 kg/m2 01/09/2025 Encounters Encounter Location Date Provider Diagnosis Omar Richter III, MD [address] [place] [address] [place], [place] [phone] 01/09/2025 Omar Richter Back pain, unspecifi ed back location, unspecified back pain laterality, unspecified chronicity M54.9 ; Umbilical hernia K42.9 ; Osteoarthritis of both knees M17.0 ; Carcinoma of prostate C61 ; Sleep apnea, unspecified G47.30 ; BPH (benign prostatic hyperplasia) N40.0 ; Hyperlipidemia, unspecified hyperlipidemia type E78.5 and Obesity E66.9 Assessments Encounter Date Diagnosis (ICD Code) Assessment Notes Treat ment Notes Treatment Clinical Notes 01/09/2025 Back pain, unspecified back location, unspecified back pain laterality, unspecified chronicity (ICD-10 - M54.9) His back pain is mostly resolved at this time. He is avoiding heavy exertion and lifting. He will notify me at once if it recurs. 01/09/2025 Umbilical hernia (ICD-10 - K42.9) There was no pain or discomfort when palpating the umbilicus. 01/09/2025 Osteoarthritis of both knees (ICD-10 - M17.0) The discomfort in the knees is unchanged but is a minor problem to him now and will be followed. 01/09/2025 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 He is asymptomatic. The is overdue to see urology and was referred back for management.He remains asymptomatic. 01/09/2025 Sleep apnea, unspecified (ICD-10 - G47.30) His sleep study done in January 2023 shows severe obstructive sleep apnea. He is using his CPAP machine now. 01/09/2025 BPH (benign prostati c hyperplasia) (ICD-10 - N40.0) We have discussed modifications to his lifestyle to reduce nocturnal urinating. 01/09/2025 Hyperlipidemia, unspecified hyperlipidemia type (ICD-10 - E78.5) His lipids are currently stable. No change in his regimen as needed. I recommended aggressive weight loss. 01/09/2025 Obesity (ICD-10 - E66.9) He has lost [...] EVERY DAY Next Appt Details Follow Up: As Scheduled, Lamar son: Annual Exam Provider Name:Omar Richter , 06/02/2025 03:15:00 PM, [address] [place] [address] [address], [place], [phone], Provider Name:Omar Richter , 03/04/2026 04:00:00 PM, [address] [place] [address] [address], [place], [phone], Progress Notes * Leland ZHUDOB:1965 ([age] yo M)Acc No.[id number]:01/09/2025 Patient: Leland REED Provider: Prabha Richter MD :1965 A ge:59 Y S ex:Male Date:01/09/2025 [facility] [place], [id number] Subjective: * Chief Complaints: * P rostate cancerLow back painUmbilical herniaHypertensionHyperlipidemiaBenign prostatic pressureSleep apneaDiabetesObesity * HPI: * : He sees the urologist regularly and a PSA is done in that office. The most recent note says that if the PSA rises further he will have a PET CT scan. His PSA has been slowly rising since the prostatectomy. He is asymptomatic at this time. He is using his CPAP machine has ordered. H is diabetes is well-controlled. He is trying to consume a healthy diet and lose weight. He arises from sleepp once or twice a night to urinate. His blood work was reviewed with him in detail today.His neck pain is better today and his x-rays of the neck showed only arthritis. The chest x-ray was negative. Telehealth L ocation of provider rendering services: { ...} [address] [facility] [address] L ocation of patient: alan dow listed [...] 1 5 * ROS: G eneral/Constitutional: pain M ild neck pain improving. C hills d enies.?Fatigue a dmits. F [...] Muscle aches d enies. P ainful joints N puma. S ciatica d enies. W eakness d [...] node disection, urethral suspension suture, bilateral nerve-sparing [id number] biopsy [id number] skin CA removal 2018 * Hospitalization/Major Diagno [...] his He is and has worked in [employer] at [employer] for 26 years.. He was born in [place] and has several children. He is bilingual. [...] Vitals: H t: 68, Wt: 205, BMI:31.17, Ht-cm: 172.72, Wt-k.99. * P ast Orders: [...] 0.000 (Ref Range: 0.0-0.012 X10*3/uL) * Lab:[facility] [place]. [facility] * Collection Date 11/16/2024 08/17/2024 [...] ug/mg cr) 9.0 (Ref Range: ug/mg cr) ???Imaging:XR chest 2V (Order Date - 01/03/2025) (Performed Date - 01/03/2025) ???Imaging:XR cervical spine 3V (Order Date - 01/03/2025) (Performed Date - 01/03/2025) Assessment: * Assessment: 1. B ack pain, unspecified back location, unspecified back pain laterality, unspecified chronicity - M54.9 (Primary) N otes :His back pain is mostly resolved at this time. He is avoiding heavy exertion and lifting. He will notify me at once if it recurs. 2 . U mbilical hernia - K42.9 [...] back for management.He remains asymptomatic. 5 . S leep apnea, unspecified - G47.30 N otes :His sleep study done in January 2023 shows severe obstructive sleep apnea. He is using his CPAP machine now. 6 . B PH (benign prostatic hyperplasia) - N40.0 N otes :We have discussed modifications to his lifestyle to reduce nocturnal urinating. 7 . H yperlipidemia, unspecified hyperlipidemia type - E78.5 N otes :His lipids are currently stable. No change in his regimen as needed. I recommended aggressive weight loss. 8 . O besity - E66.9 N otes [...] sodium. Plan: * Treatment: * Procedure Codes: 9 8012 SYNCH AUDIO-ONLY EST SF 10 * Preventive Medicine: Counseling: C are goal [...] 1 lb per week. * Follow Up: A s Scheduled (Reason: Annual Exam) * Images: * Sign off status: Completed true * Provider: Prabha Richter MD Date: 0 01/09/2025 Generated for Shani finn/Robert/Tamera on: 07/25/2024 07:00 AM EST History and Physical Notes * HPI (History of Present Illness) Category Sub-Category Detail Notes Telehealth Location of [facility] rendering services:: {...} [address] [place] [address] Drive [address] [place] [address] Location of patient:: address listed in demographics [...]
--- OUTSIDE RECORDS SUMMARY | 2025-03-03 06:00 | XMS_ITS ---
Author Organization Omar Richter III, MD Address [address] [place] [address] Care Team Providers Care Manager Of Housekeeping Name Role Phone Dr. Omar Richter III Primary Care Provider Allergies Allergen (clinical drug ingredient) Drug/Non Drug Allergy documented on EMR Reaction Allergy Type Onset Date Status No Known Drug Allergy Unknown Drug Allergy Active No Known Food Allergy Unknown Drug Allergy Active Results Component Value Reference Range Notes Lipid Panel Reviewed date:03/17/2025 03:19:43 PM Interpretation: Performing Lab:[facility], [address] [place] [phone] Notes/Report: Triglycerides 57 <150 mg/dL Desirable Triglyceride: less than 150 mg/dL Borderline High Triglyceride 150-199 mg/dL High Triglyceride: 200-499 mg/dL Very High Triglyceride: greater than or equal to 5OO mg/dL Cholesterol 127 <200 mg/dL Desirable Cholesterol: less than 200 mg/dL Borderline High Cholesterol: 200-239 mg/dL High Cholesterol: greater than 239 mg/dL LDL Cholesterol Calculated 88 <100 mg/dL Desirable LDL: less than 100 mg/dL Near Optimal/Above Optimal LDL: 110-129 mg/dL Borderline High LDL: 130-159 mg/dL High LDL: 160-189 mg/dL Very High LDL: greater than or equal to 190 mg/dL HDL Cholesterol 28 >40 mg/dL Desirable HDL: greater than 40 mg/dL Note: This HDL assay may give artificially low results in patients with liver disease. Microalbumin, Random Reviewed date:03/17/2025 03:19:43 PM Interpretation: Performing Lab:[address] [address] Notes/Report: Creatinine Urine 160.55 Microalbumin Urine 11.0 Microalbum/Creatinine Ratio Ur 6.8 <30 ug/mg cr Albumin/Creatinine Ratio Reference Ranges: Normal: < 30 ug/mg creatinine Microalbuminuria: 30 - 300 ug/mg creatinine Clinical Albuminuria: > 300 ug/mg creatinine Hemoglobin A1c Reviewed date:03/17/2025 03:19:43 PM Interpretation: Performing Lab:[address] [address] Notes/Report: Hemoglobin A1c % 6.6 <6.0 % [...] average glucose, using the formula of the [id number] Average Glucose study (ADAG), Diabetes Care, Vol.31,#8, Jan. 2007 REASON FOR VISIT Annual Exam Medications Medication [...] Observation Description Sex Assigned At Male Tobacco Control (Standard) Question Answer Notes Tobacco use: Nonsmoker Additional Findings: Tobacco non-user Aggressive nonsmoker AUDIT-C (Standard) Question Answer Notes Did you have a drink containing alcohol in the p ast year? No Points 0 Interpretation Negative Vital Signs Temperature 99.5 degrees Fahrenheit 03/03/20 25 Blood pressure systolic 138 mm Hg 03/03/20 25 Blood pressure diastolic 78 mm Hg 025 Heart Rate 80 /min 03/03/2025 Height 68 in 03/03/2025 Weight 206 lbs 03/03/2025 BMI 31.32 kg/m2 03/03/2025 Encounters Encounter Location Date Provider Diagnosis Omar Richter III, MD [address] [place] [address] [place] [phone] 03/03/2025 Omar Richter Type 2 diabetes mary itus without complication, without long-term current use of insulin E11.9 ; Carcinoma of prostate C61 ; Hyperlipidemia, unspecified hyperlipidemia type E78.5 ; Obesity E66.9 ; Erectile dysfunction N52.9 ; Back pain, unspecified back location, unspecified back pain laterality, unspecified chronicity M54.9 and Umbilical hernia K42.9 Assessments Encounter Date Diagnosis (ICD Code) Assessment Notes Treat ment Notes Treatment Clinical Notes 03/03/2025 Type 2 diabetes mellitus without complication, without long-term current use of insulin (ICD-10 - E11.9) He has been compliant with his medications. Comprehensive blood work with a hemoglobin A 1c has been ordered. No change in his regimen was necessary. 03/03/2025 Carcinoma of prostat e (ICD-10 - C61) His PSA is detectable at 0.21. The previous value was 0.21. This data was forwarded to his urologist.. He has an appointment upcoming. 03/03/2025 Hyperlipidemia, unspecified hyperlipidemia type (ICD-10 - E78.5) A new fasting lipid profile has been ordered. His lipids have been well controlled. 03/03/2025 Obesity (ICD-10 - E66.9) We have discussed diet and nutrition. We reviewed the elements of a diabetic weight loss program. We made a plan to lose weight at a rate of 1 pound per week. 03/03/2025 Erectile dysfunction (ICD-10 - N52.9) This problem was successfully addressed with use of medication. 03/03/2025 Back pain, unspecified back location, unspecified back pain laterality, unspecified chronicity (ICD-10 - M54.9) His back pain is mostly resolved at this time. He is avoiding heavy exertion and lifting. He will notify me at once if it recurs. 03/03/2025 Umbilical hernia (ICD-10 - K42.9) There was no pain or discomfort when palpating the umbilicus. Plan Of Treatment Medication Medication Name Sig Start Date Stop Date Notes amLODIPine Besylate 10 MG TAKE 1 TABLET BY MOUTH EVERY DAY metFORMIN HCl 500 MG 1 tablet Orally Once a day 08/20/2024 Pending Test Test Name Order Date PROFILE, FASTING (COMPREHENSIVE METABOLI C) 03/03/2025 PSA, TOTAL 03/03/2025 CBC w DIFF 03/03/2025 Next Appt Details Follow Up: 3 Months, Reason: OV Provider Name:Omar Richter , 06/02/2025 03:15:00 PM, [address] [place] [address] [address], [place], [phone], Provider Name:Omar Richter , 03/04/2026 04:00:00 PM, [address] [place] [address] [address], [place], [phone], Progress Notes * Leland ZHUDOB:1965 ([age] yo M)Acc No.[id number]:03/03/2025 Progress Notes Patient: Leland REED Provider: Prabha Richter MD :1965 A ge:59 Y S ex:Male Date:03/03/2025 Address:[address] [place], [place] [address], [id number] Subjective: * Chief Complaints: * A nnual Exam * HPI: D epression Screening: He returns to the office for his annual visit. This shoulder is no longer painful.? His PSA is unchanged at 0.21. This value was forwarded to his urologist. He has a CPAP machine but is not using it as he does not detect of benefit and it is awkward and clumsy. He admits to nocturia 2 or 3 times a night. He has no pain or shortness of breath or bleeding. He denies any exertional chest discomfort.His blood work from November 2024 was reviewed with him.? Comprehensive blood work will be done prior to his next visit. PHQ-9 L ittle interest or pleasure in doing things?Not at all F eeling down, depressed, or hopeless N ot at all T rouble falling or staying asleep, or sleeping too much N ot at all F eeling tired or having little energy N ot at all P oor appetite or overeating N ot at all F eeling bad about yourself or that you are a failure, or have let yourself or your family down N ot at all T rouble concentrating on things, such as reading the newspaper or watching television N ot at all M oving or speaking so slowly that other people could have noticed; or the opposite, being so fidgety or restless that you have been moving around a lot more than usual N ot at all T houghts that you would be better off or of hurting yourself in some way N ot at all T otal Score 0 C OVID-19 Screening: Questions H ave you had any new onset fever, chills, cough, congestion, sore throat, shortness of breath, muscle aches? N o S JELLY Questions: SDOH Questions I n the past year have you or any family members you live with been unable to get any of the following when it was really needed? Check all that apply: D ecline to answer * ROS: G eneral/Constitutional: pain o nly [...] node disection, urethral suspension suture, bilateral nerve-sparing [id number] biopsy [id number] skin CA removal 2018 * Hospitalization/Major Diagno stic Procedure: N o Hospitalization History. * Family History: F ather: 42 yrs, automoble accident. M other: 80 yrs. S pouse: alive 41 yrs. 2 brother(s) - healthy. 3 daughter(s) - healthy. . * Social History: T obacco Use: T obacco Control (Standard) T obacco use: N onsmoker A dditional Findings: Tobacco non-user A ggressive nonsmoker D rugs/Alcohol: D rugs H ave you used drugs other than those for medical reasons in the past 12 months? Y es M arijuana? Y es D rug/Alcohol: A ROBIN-C (Standard) D id you have a drink containing alcohol in the past year? N o P oints 0 I nterpretation N egative T his He is and has worked in [employer] at [employer] for 26 years.. He was born in [place] and has several children. He is bilingual. * Medications: T akingmetFORMIN HCl 500 MG Tablet 1 tablet Orally Once a day amLODIPine Besylate 10 MG Tablet TAKE 1 TABLET BY MOUTH EVERY DAY Medication List reviewed and reconciled with the patientTaking metFORMIN HCl 500 MG Tablet 1 tablet Orally Once a day Taking amLODIPine Besylate 10 MG Tablet TAKE 1 TABLET BY MOUTH EVERY DAY Medication List reviewed and reconciled with the patient * Allergies: N o Known Drug AllergyNo Known Food Allergyno[Allergies Verified] Objective: * Vitals: H t: 68, Wt: 206, BMI:31.32, BP: 138/78, HR: 80, Temp: 99.5, Ht-cm: 172.72, Wt-k.44. * P ast Orders: I maging:XR chest 2V (Order Date - 01/03/2025) (Performed Date - 01/03/2025) I maging:XR cervical spine 3V (Order Date - 01/03/2025) (Performed Date - 01/03/2025) * Examination: G eneral Examination: GENERAL APPEARANCE: [...] N otes :His PSA is detectable at 0.21. The previous value was 0.21. This data was forwarded to his urologist.. He has an appointment upcoming. 2 . T ype 2 diabetes mellitus without complication, without long-term current use of insulin - E11.9 N otes :He has been compliant with his medications. Comprehensive blood work with a hemoglobin A 1c has been ordered. No change in his regimen was necessary. 3 . H yperlipidemia, unspecified hyperlipidemia type - E78.5 N otes :A new fasting lipid profile has been ordered. His lipids have been well controlled. 4 . O besity - E66.9 N otes :We have discussed diet and nutrition. We reviewed the elements of a diabetic weight loss program. We made a plan to lose weight at a rate of 1 pound per week. 5 . E rectile dysfunction - N52.9 N otes :This problem was successfully addressed with use of medication. 6 . B ack pain, unspecified back location, unspecified back pain laterality, unspecified chronicity - M54.9 N otes :His back pain is mostly resolved at this time. He is avoiding heavy exertion and lifting. He will notify me at once if it recurs. 7 . U mbilical hernia - K42.9 N otes :There was no pain or discomfort when palpating the umbilicus. Plan: * Treatment: 2. H yperlipidemia, unspecified hyperlipidemia type L AB: PROFILE, FASTING (COMPREHENSIVE METABOLIC) L AB: PSA, TOTAL L AB: CBC w DIFF L AB: Lipid Panel L AB: Microalbumin, Random L AB: Hemoglobin A1c 3. O besity L AB: PROFILE, FASTING (COMPREHENSIVE METABOLIC) L AB: PSA, TOTAL L AB: CBC w DIFF L AB: Lipid Panel L AB: Microalbumin, Random L AB: Hemoglobin A1c 4. E rectile dysfunction L AB: PROFILE, FASTING (COMPREHENSIVE METABOLIC) L AB: PSA, TOTAL L AB: CBC w DIFF L AB: Lipid Panel L AB: Microalbumin, Random L AB: Hemoglobin A1c 5. O thers Continue amLODIPine Besylate Tablet, 10 MG, TAKE 1 TABLET BY MOUTH EVERY DAY; C ontinue metFORMIN HCl Tablet, 500 MG, 1 tablet, Orally, Once a day. * Procedure Codes: * Preventive Medicine: Counseling: [...] * Provider: Prabha Richter MD Date: 0 03/03/2025 Generated for Maryi huma/Robert/Brittransmitting on: 1 07/25/2024 06:59 AM EST History [...] throat, shortness of breath, muscle aches?: No SDOH Questions SDOH Questions In the past year have you or any family members you live with been unable to get any of the following when it was really needed? Check all that apply:: Decline to answer Examination Category Sub-Category Detail Notes General Examination [...]
--- OUTSIDE RECORDS SUMMARY | 2025-05-24 06:58 | XMS_ITS | Patient Health Record ---
Author Organization [facility] Address [address] [place] [address] Care Team Providers Care Instructor Weaving Name Role Phone Omar Richter MD Primary Care Provider Omar Hair Unavailable [phone] Allergies No Known Allergies Reason For Referral No Information Medications Medication SIG (Take, Route, Frequency, Duration) Notes Start Date End Date Status amLODIPine Besylate 5 MG Tablet TAKE 1 T PO QD Oral; Duration: 30 Active Immunizations Vaccine Route Administration Date Status Comme nts Influenza Unknown 01/27/2022 Refused Social History Social History Additional Details Category Social Info Options Details Miscellaneous: Marital status: 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 [employer] Notes: Smokes marijuana; no sig alc ohol Smokes marijuana; no sig alc ohol Problems Problem Type SNOMED Code ICD Code Onset Dates Problem Status W/U Status Risk Notes Problem Imaging of gastrointestinal tract abnormal (174594793) Abnormal findings on diagnostic imaging of other parts of digestive tract (R93.3) Active confirmed Problem Diverticulitis (25499791) Diverticulitis (K57.92) Active confirmed Problem CT of abdomen abnormal (07341175775751449) Abnormal CT of the abdomen (R93.5) Active confirmed Problem Gallbladder polyp (933655786) Gallbladder polyp (K82.4) Active confirmed Problem Diverticular disease of colon (417384664) Colon, diverticulosis (K57.30) Active confirmed Plan Of Treatment Pending Test Test Name Order Date US abdomen limited 01/27/2022 Future Test Test Name Order Date COLONOSCOPY 07/23/2014 COLONOSCOPY 01/27/2022 Insurance Providers Payer Name Payer Address Payer Phone Subscriber Number Group Number Insured Name Patient Relationship to Insured Coverage Start Date Coverage End Date [facility] [address] [facility] [phone] [id number] COLONMICHAEL Self - patient is the insured Medical (General) History Medical History History ICD Code Hypertension Denies NE,DM,CVA,Lung disease,renal dise ase Prostate cancer in approx 2016 Negative colonoscopy in 2014 except for sigmoid diverticulosis Sigmoid diverticulitis in 09/2021 treated with oupatient Levaquin and Flagyl Gallbladder polyps Surgical History Surgery Date(Month/Year) Hernia repair-umbilical 2005 Fatty tumor removed from back 2012 Laparoscopic complete prostatectomy for cancer at [facility]
--- OUTSIDE RECORDS SUMMARY | 2025-05-24 06:59 | XMS_ITS | Patient Health Record ---
Author Organization [facility] Address [address] [facility] [place] [address] Care Team Providers Care Grout Worker Name Role Phone Omar Richter MD Primary Care Provider Unavailab andreia YanalanKati Unavailable [phone] Omar Richter MD Unavailable Unavailable Allergies Allergen [...] Insured Coverage Start Date Coverage End Date [facility] [address] [place] [address] [phone] [id number] Leland Quevedo Self - patient is the insured Medical (General) History Medical History History ICD Code Cancer Headaches/Migraines High blood pressure Surgical History Surgery Date(Month/Year) Prostate cancer 11/17/2016 removed a mole on the nose/tumor 12/28 STM L4th toe 05/22/2019
--- OUTSIDE RECORDS SUMMARY | 2025-05-24 07:00 | XMS_ITS | Patient Health Record ---
Author Organization Omar Richter III, MD Address [address] [place] [address] Care Team Providers Care Senior Administrator Support Name Role Phone Dr. Omar Richter III Primary Care Provider [phone] Allergies Allergen (clinical drug ingredient) Drug/Non Drug Allergy documented on EMR Reaction Allergy Type Onset Date Status No Known Drug Allergy Unknown Drug Allergy Active No Known Food Allergy Unknown Drug Allergy Active Results Component Value Reference Range Notes Lipid Panel Reviewed date:03/17/2025 03:19:43 PM Interpretation: Performing Lab:[facility], [address] [place] [phone] Notes/Report: Triglycerides 57 <150 mg/dL Desirable Triglyceride: [...] Random Reviewed date:03/17/2025 03:19:43 PM Interpretation: Performing Lab:[address] [address] Notes/Report: Creatinine Urine 160.55 Microalbumin Urine 11.0 Microalbum/Creatinine Ratio Ur 6.8 <30 ug/mg cr Albumin/Creatinine Ratio Reference Ranges: Normal: < 30 ug/mg creatinine Microalbuminuria: 30 - 300 ug/mg creatinine Clinical Albuminuria: > 300 ug/mg creatinine Hemoglobin A1c Reviewed date:03/17/2025 03:19:43 PM Interpretation: Performing Lab:[address] [address] Notes/Report: Hemoglobin A1c % 6.6 <6.0 % [...] average glucose, using the formula of the F3P-Zhwflwp Average Glucose study (ADAG), Diabetes Care, Vol.31,#8, Jan. 2007 Complete Blood Count Auto Di ff Reviewed date:08/19/2024 08:50:48 AM Interpretation: Performing Lab:[facility], [address] [place] [phone] Notes/Report: White Blood Count 7.6 4.8-10.8 X10*3/uL [...] NRBC Abs Auto 0.000 0.0-0.012 X10*3/uL Comprehensive [place]. Panel Fa st Reviewed date:08/19/2024 08:50:48 AM Interpretation: Performing Lab:[facility], [address] [place] [phone] Notes/Report: Sodium 141 135-145 mmol/L Potassium 4.1 [...] Acid Reviewed date:08/19/2024 08:50:48 AM Interpretation: Performing Lab:[facility], [address] [place] [phone] Notes/Report: Uric Acid 4.3 3.4-7.0 mg/dL Lipid Panel Reviewed date:08/19/2024 08:50:48 AM Interpretation: Performing Lab:[facility], [address] [place] [phone] Notes/Report: Triglycerides 62 <150 mg/dL Desirable Triglyceride: [...] Antigen Reviewed date:08/19/2024 08:50:48 AM Interpretation: Performing Lab:[facility], [address] [place] [phone] Notes/Report: Prostate Specific Antigen 0.21 <0.05-4.0 ng/mL PSA methodology: Merrill Alinity i Chemiluminescent Microparticle Immunoassay (CMIA) PSA, Ultra Sensitive Reviewed date:08/25/2024 10:12:29 AM Interpretation: Performing Lab:[address] [address] Notes/Report: PSA, Ultra Sensitive 0.23 UNTREATED RESULT = 0.24 REFERENCE RANGES for PSA: LESS THAN 0.10 ng/mL AFTER RADICAL PROSTATECTOMY. 4.0 ng/mL OR LESS IN HEALTHY MALES WITHOUT PROSTATECTOMY. PSA values obtained with different assay methods or kits cannot be used interchangeably. This test was performed using the Jaylin Dhiraj DxI method. PSA, ICMA is not to [...] prostate cancer. THIS TEST WAS PERFORMED AT: [facility] [address] [place] [address] COLLIN HUANG MD,PHD,DANNY Complete Blood Count Auto Di ff Reviewed date:01/03/2025 03:44:33 PM Interpretation: Performing Lab:[facility], [address] [place] [phone] Notes/Report: White Blood Count 8.2 4.8-10.8 X10*3/uL [...] NRBC Abs Auto 0.000 0.0-0.012 X10*3/uL Comprehensive [place]on. Panel Fa st Reviewed date:01/03/2025 03:44:40 PM Interpretation: Performing Lab:[facility], [address] [place] [phone] Notes/Report: Sodium 141 135-145 mmol/L Potassium 4.1 [...] Panel Reviewed date:01/03/2025 03:44:46 PM Interpretation: Performing Lab:[facility], [address] [place] [phone] Notes/Report: Triglycerides 74 <150 mg/dL Desirable Triglyceride: [...] Random Reviewed date:01/03/2025 03:44:53 PM Interpretation: Performing Lab:[address] [address] Notes/Report: Creatinine Urine 193.39 Microalbumin Urine 13.0 Microalbum/Creatinine Ratio Ur 6.7 <30 ug/mg cr Albumin/Creatinine Ratio Reference Ranges: Normal: < 30 ug/mg creatinine Microalbuminuria: 30 - 300 ug/mg creatinine Clinical Albuminuria: > 300 ug/mg creatinine Hemoglobin A1c Reviewed date:12/13/2024 07:18:51 PM Interpretation: Performing Lab:[address] [address] Notes/Report: Hemoglobin A1c % 6.6 <6.0 % [...] average glucose, using the formula of the M2D-Jtrajlr Average Glucose study (ADAG), Diabetes Care, Vol.31,#8, Jan. 2007 XR chest 2V Reviewed date:01/09/2025 08:14:43 PM Interpretation: Performing Lab: Notes/Report: [address] [address] XRay Report Signed Patient: Leland Quevedo MR#: [id number] : 1965 Acct:[id number] Age/Sex: 59 / M ADM Date: 01/03/25 Loc: [facility] Attending Dr: Omar Richter MD Ordering Physician: Omar Richter MD Date of Service: 01/03/25 Procedure(s): XR chest 2V Accession Number(s): [id number] cc: Omar Richter MD EXAMINATION: Chest 2 [...] 01/06/25 0744 DD/ 1640 TD/TT: 01/03/25 1651 Public Improvement Inspector: [place] [address] XRay Report Signed Patient: Leland Quevedo MR#: [id number] : 1965 Acct:[id number] Age/Sex: 59 / M ADM Date: 01/03/25 Loc: [facility] Attending Dr: Omar Richter MD Ordering Physician: Omar Richter MD Date of Service: 01/03/25 Procedure(s): XR carolyn st 2V Accession Number(s): [id number] cc: Omar Richter MD EXAMINATION: Chest 2 [...] 01/06/25 0744 DD/ 1640 TD/TT: 01/03/25 1651 Public Improvement Inspector: [facility] XR cervical spine 3V Reviewed date:01/09/2025 08:14:43 PM Interpretation: Performing Lab: Notes/Report: [address] [address] XRay Report Signed Patient: Leland Quevedo MR#: [id number] : 1965 Acct:[id number] Age/Sex: 59 / M ADM Date: 01/03/25 Loc: [facility] Attending Dr: Omar Richter MD Ordering Physician: Omar Richter MD Date of Service: 01/03/25 Procedure(s): XR cervical spine 3V Accession Number(s): [id number] cc: Omar Richter MD EXAMINATION: Chest 2 [...] 01/06/25 0744 DD/ 1640 TD/TT: 01/03/25 165 Public Improvement Inspector: [address] [address] XRay Report Signed Patient: Leland Quevedo MR#: [id number] : 1965 Acct:[id number] Age/Sex: 59 / M ADM Date: 01/03/25 Loc: [facility] Attending Dr: Omar Richter MD Ordering Physician: Omar Richter MD Date of Service: 01/03/25 Procedure(s): XR cervical spine 3V Accession Number(s): [id number] cc: Omar Richter MD EXAMINATION: Chest 2 [...] 01/06/25 0744 DD/ 1640 TD/TT: 01/03/25 1651 Public Improvement Inspector: [facility] Complete Blood Count Auto Di ff Reviewed date:03/17/2025 03:19:43 PM Interpretation: Performing Lab:[facility], [address] [place] [phone] Notes/Report: White Blood Count 7.5 4.8-10.8 X10*3/uL [...] NRBC Abs Auto 0.000 0.0-0.012 X10*3/uL Comprehensive [place]on. Panel Fa st Reviewed date:03/17/2025 03:19:43 PM Interpretation: Performing Lab:[address] [address] Notes/Report: Sodium 142 135-145 mmol/L Potassium 4.2 [...] Antigen Reviewed date:03/17/2025 03:19:43 PM Interpretation: Performing Lab:[facility], [address] [place] [phone] Notes/Report: Prostate Specific Antigen 0.24 <0.05-4.0 ng/mL PSA methodology: Convoke Systemsnity i Chemiluminescent Microparticle Immunoassay (CMIA) PSA, Ultra Sensitive (Not ye t reviewed by provider) Interpretation: Performing Lab:[facility], [address] [place] [phone] Notes/Report: PSA, Ultra Sensitive 0.27 UNTREATED RESULT = 0.28 REFERENCE RANGES for PSA: LESS THAN 0.10 ng/mL AFTER RADICAL PROSTATECTOMY. 4.0 ng/mL OR LESS IN HEALTHY MALES WITHOUT PROSTATECTOMY. PSA values obtained with different assay methods or kits cannot be used interchangeably. This test was performed using the Jaylin Personal Genome Diagnostics (PGD) DxI method. PSA, ICMA is not to [...] prostate cancer. THIS TEST WAS PERFORMED AT: [facility] [address] [place] [address] COLLIN HUANG MD,PHD,DANNY NM bone scan whole body (Not yet reviewed by provider) Interpretation: Performing Lab: Notes/Report: [address] [address] Nuclear Medicine Report Signed Patient: Leland Quevedo MR#: [id number] : 1965 Acct:[id number] Age/Sex: 59 / M ADM Date: 05/20/25 Loc: [facility] Attending Dr: Ramses Huertas MD Ordering Physician: Ramses Huertas MD Date of Service: 05/20/25 Procedure(s): NM bone scan whole body Accession Number(s): [id number] cc: Ramses Huertas MD; Omar Richter MD Reason for Exam: C61 - Malignant neoplasm of prostate EXAMINATION: NM BONE SCAN WHOLE BODY HISTORY: C61 - Malignant neoplasm of prostate. TECHNIQUE: A total body bone scan was performed following intravenous administration of 32 mCi technetium 99m-MDP. COMPARISON: Correlation is made with the report from a PET/CT scan performed at [facility] PET/CT imaging 04/21/2025. FINDINGS: There are numerous tiny foci of increased uptake involving the bilateral ribs. Mild increased uptake at the knees is consistent with osteoarthritis. There is a focus of increased activity in the cervical spine on the right, which is likely degenerative in nature. Mild increased activity at the shoulders is also likely degenerative in nature. No definite abnormal activity is seen involving the pelvis. There is normal bilateral renal uptake. NM/NM bone scan whole body IMPRESSION: Multiple tiny foci of increased activity involving the bilateral ribs, suspicious for metastatic disease. Electronically signed by: Omar Archibald MD 05/20/2025 02:00 PM [facility] Dictated By: Omar Archibald MD Signed By: <Electronically signed by Omar Archibald MD in OV> 05/20/25 1400 DD/ 1136 TD/TT: 05/20/25 1330 Public Improvement Inspector: [place] [address] Nuclear Medicine Report Signed Patient: Leland Quevedo MR#: [id number] : 1965 Acct:[id number] Age/Sex: 59 / M ADM Date: 05/20/25 Loc: [facility] Attending Dr: Ramses Huertas MD Ordering Physician: Ramses Huertas MD Date of Service: 05/20/25 Procedure(s): NM bon e scan whole body Accession Number(s): [id number] cc: Ramses Huertas MD; Omar Richter MD Reason for Exam: C61 - Malignant neoplasm of prostate EXAMINATION: NM BONE SCAN WHOLE BODY HISTORY: C61 - Malignant neoplasm of prostate. TECHNIQUE: A total body bone scan was performed following intravenous administration of 32 mCi technetium 99m-MDP. COMPARISON: Correlation is made with the report from a PET/CT scan performed at [facility] PET/CT imaging 04/21/2025. FINDINGS: There are numerous tiny foci of increased uptake involving the bilateral ribs. Mild increased uptake at the knees is consistent with osteoarthritis. Ther e is a focus of increased activity in the cervical spine on the right, which is likely degenerative in nature. Mild increased activity a t the shoulders is also likely degenerative in nature. No definite abnormal activity is seen involving the pelvis. There is normal bilateral renal uptake. __ ____ NM/NM bone scan whole body IMPRESSION: Multiple tiny foci o f increased activity involving the bilateral ribs, suspicious for metastatic disease. Electronically aleks d by: Omar Archibald MD 05/20/2025 02:00 PM [facility] Dictated By: Omar Archibald MD Signed By: <Electronically signed by Omar Archibald MD in OV> 05/20/25 1400 DD/ 1136 TD/TT: 05/20/25 1330 Public Improvement Inspector: Reason For Referral Reason lesion on lip Diagnosis 1 Lip lesion (K13.0) Referral Organization Omar Richter III, MD Referring Provider First Name Omar Referring Provider Last Name Neelam Referring Provider Speciality Internal M edicine Referred Provider [facility] ([place]) Referred Provider Specialty Dermatology General Notes Muna Cortez WET PLANT OPERATOR 08/22 01:29:41 PM > referral/demo/ progress note faxed to Dana DUMONT Suzanne CMA 08/26/2024 09:35:06 AM > received notice from [facility] they want patient to call them at [phone] and make his own appt pt called [...] Problem Status W/U Status Risk Notes Problem 167878334 Obesity (E66.9) Active confirmed We have discussed diet and nutrition. We reviewed the elements of a diabetic weight loss program. We made a plan to lose weight at a rate of 1 pound per week. Problem Hypertension (81060771) Hypertension (I10) Active confirmed His blood pressure has been stable and no change in his regimen was made Problem Sleep apnea (57201043) Sleep apnea, unspecified (G47.30) Active confirmed His sleep study done in January 2023 shows severe obstructive sleep apnea. He is using his CPAP machine now. Problem Benign prostatic hyperplasia (237021644) BPH (benign prostatic hyperplasia) (N40.0) Active confirmed We have discussed modifications to his lifestyle to reduce nocturnal urinating. Problem 698973664 Erectile dysfunction (N52.9) Active confirmed This problem was successfully addressed with use of medication. Problem 151319876 Umbilical hernia (K42.9) Active confirmed There was no pain or discomfort when palpating the umbilicus. Problem 436293626 Osteoarthritis of both knees (M17.0) Active confirmed The discomfort in the knees is unchanged but is a minor problem to him now and will be followed. Problem 68722640 Hyperlipidemia, unspecified hyperlipidemia type (E78.5) Active confirmed A new fasting lipid profile has been ordered. His lipids have been well controlled. Problem 455798420 Carcinoma of prostate (C61) Active confirmed His PSA is detectable at 0.21. The previous value was 0.21. This data was forwarded to his urologist.. He has an appointment upcoming. Problem 241404740 Type 2 diabetes mellitus without complication, without long-term current use of insulin (E11.9) Active confirmed He has been compliant with his medications. Comprehensive blood work with a hemoglobin A 1c has been ordered. No change in his regimen was necessary. 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 ; Obesity E66.9 ; BPH (benign prostatic hyperplasia) N40.0 ; Osteoarthritis of both knees M17.0 and Umbilical hernia K42.9 Omar Richter III, MD [address] [place] [address] [place] [phone] 08/30/2024 Omar Richter Carcinoma of prostat e [...] apnea, unspecified G47.30 Omar Richter III, MD [address] [place] [address] [place] [address] 09/10/2024 Omar Richter Acute COVID-19 U07.1 ; [...] and Obesity E66.9 Omar Richter III, MD [address] [place] [address] [place] [address] 01/03/2025 Omar Richter Cervical radiculopat hy M54.12 ; Umbilical hernia K42.9 ; Osteoarthritis of both knees M17.0 ; Carcinoma of prostate C61 ; Hypertension I10 ; Hyperlipidemia, unspecified hyperlipidemia type E78.5 ; BPH (benign prostatic hyperplasia) N40.0 ; Sleep apnea, unspecified G47.30 ; Type 2 diabetes mellitus without complication, without long-term current use of insulin E11.9 and Obesity E66.9 Omar Richter III, MD [address] [place] [address] [place] [phone] 01/09/2025 Omar Richter Back pain, unspecifi ed back location, unspecified back pain laterality, unspecified chronicity M54.9 ; Umbilical hernia K42.9 ; Osteoarthritis of both knees M17.0 ; Carcinoma of prostate C61 ; Sleep apnea, unspecified G47.30 ; BPH (benign prostatic hyperplasia) N40.0 ; Hyperlipidemia, unspecified hyperlipidemia type E78.5 and Obesity E66.9 Omar Richter III, MD [address] [place] [address] [place] [phone] 03/03/2025 Omar Richter Type 2 diabetes mary itus without complication, without long-term current use of insulin E11.9 ; Carcinoma of prostate C61 ; Hyperlipidemia, unspecified hyperlipidemia type E78.5 ; Obesity E66.9 ; Erectile dysfunction N52.9 ; Back pain, unspecified back location, unspecified back pain laterality, unspecified chronicity M54.9 and Umbilical hernia K42.9 Omar Richter III, MD [address] [place] [address] [place] [phone] 06/10/2024 Omar Richter III, MD [address] [place] [address] [place] [phone] 12/24/2024 Omar Richter Assessments Encounter Date Diagnosis [...] No change in his regimen was necessary. 08/20/2024 Adult onset diabetes mellitus with ophthalmic [...] ordered. His lipids have been well controlled. 08/20/2024 Obesity (ICD-10 - E66.9) He has [...] a rate of 1 pound per week. 08/20/2024 BPH (benign prostati c hyperplasia) (ICD-10 [...] was successfully addressed with use of medication. 08/20/2024 Osteoarthritis of both knees (ICD-10 - [...] notify me at once if it recurs. 08/20/2024 Umbilical hernia (ICD-10 - K42.9) There [...] PANEL 03/08/2019 LIPID PANEL 11/02/2018 PSA, TOTAL 06/29/2018 PSA, TOTAL 03/03/2025 PSA, TOTAL 02/23/2018 PSA, TOTAL 02/28/2024 PSA, TOTAL 06/23/2023 PSA, TOTAL 09/25/2023 PSA, TOTAL 03/08/2019 PSA, TOTAL 11/02/2018 CBC w DIFF 04/02/2019 CBC w DIFF 03/08/2019 CBC w DIFF 11/02/2018 CBC w DIFF 06/29/2018 CBC w DIFF 03/03/2025 CBC w DIFF 02/23/2018 CBC w DIFF 02/28/2024 Stress Test 05/22/2024 Sleep Study - Baseline 12/12/2022 Sleep Study - Diagnostic 12/09/2022 CBC WITH AUTO DIFF 06/23/2023 CBC WITH AUTO DIFF 09/25/2023 Lipid Panel 06/23/2023 Lipid Panel 09/25/2023 Lipid Panel 02/28/2024 PSA, Ultra Sensitive 04/12/2025 Microalbumin, Random 06/23/2023 NM bone scan whole body 05/20/2025 RT sleep home study type III 12/30/2022 Hemoglobin A1c 06/23/2023 Next Appt Details Provider Name:Omar Richter , 06/02/2025 03:15:00 PM, [address] [place] [address] SHREE KUMAR, [place], [phone], Provider Name:Omar Richter , 03/04/2026 04:00:00 PM, [address] [place] [address] SHREE KUMAR, [place], [address], Insurance Providers Payer Name Payer Address Payer Phone Subscriber Number Group Number Insured Name Patient Relationship to Insured Coverage Start Date Coverage End Date [facility] [address] [facility] [address] [facility] [place] [phone] [id number] Colon Leland Self - patient is the insured Medical (General) History Medical History History ICD Code hypertension erectile dysfunction umbilical hernia back pain 2006 bph bilateral knee pain 2013 obesity 2007 early stage prostate cancer in [place] Surgical History Surgery Date(Month/Year) benign skin CA removal 2019 Prostate biopsy 2016-08-05 Laparascopic radical prostat ectomy, bilateral pelvic lymph node disection, urethral suspension suture, bilateral nerve-sparing 2016-11-17
[2025-05-24 07:17] LABS: MANUAL DIFF FLAG NO
[2025-05-24 07:47] LABS: Hematocrit 45.8 % (42.0-52.0); Hemoglobin 15.1 g/dl (14.0-18.0); Imm Gran Abs Auto 0.03 X10*3/uL (0.00-0.03); Imm Gran Pct Auto 0.4 % (0.0-0.4); Lymphocytes Absolute Auto 1.7 X10*3/uL (1.2-4.9); Mean Corpuscular HGB Conc 33.0 g/dl (31.0-36.0); Mean Corpuscular Hemoglobin 28.8 pg (27.0-33.0); Mean Corpuscular Volume 87.2 fL (80.0-98.0); NRBC Abs Auto 0.000 X10*3/uL (0.0-0.012); NRBC Pct Auto 0.0 /100WBC (0.0-0.2); Platelet Count 268 X10*3/uL (160-400); Red Blood Count 5.25 X10*6/uL (4.60-5.80); White Blood Count 7.9 X10*3/uL (4.8-10.8)
[2025-05-24 08:11] LABS: Alanine Aminotransferase 27 U/L (0-40); Albumin Level 4.3 g/dL (3.5-5.0); Alkaline Phosphatase 69 U/L (39-117); Anion Gap 10 (12-20); Aspartate Amino Transferase 17 U/L (5-37); Blood Urea Nitrogen 16 mg/dL (9-16); Calcium 9.0 mg/dL (8.4-10.2); Carbon Dioxide 26 mmol/L (22-29); Chloride 108 mmol/L (96-108); Cholesterol 123 mg/dL (<200); Estimated Glomerular Filt Rate > 60; HDL Cholesterol 31 mg/dL (>40); Potassium 4.2 mmol/L (3.3-5.1); Sodium 140 mmol/L (135-145); Total Protein 6.7 g/dL (6.5-8.0); Triglycerides 62 mg/dL (<150)
[2025-05-24 08:31] LABS: Prostate Specific Antigen 0.26 ng/mL (<0.05-4.0)
[2025-05-24 09:07] LABS: Microalbum/Creatinine Ratio Ur 5.4 ug/mg cr (<30)
== END 2025-05-24 06:55 | disposition home or self-care (01) ==
LOC: HO.LAB 06:54
PROVIDERS: PCP Internal Medicine Medical Oncology; Visit Provider Internal Medicine Medical Oncology
DX: E11.9 Type 2 diabetes mellitus without complications (principal); E78.5 Hyperlipidemia, unspecified; E66.9 Obesity, unspecified; N52.9 Male erectile dysfunction, unspecified; Z12.5 Encounter for screening for malignant neoplasm of prostate
CPT/HCPCS: 36415; 80053; 80061; 82043; 82570; 83036; 84153; 85025